=== PATIENT | female | born 1965 | race Caucasian/White ===

== ENCOUNTER → 2019-06-15 | Outpatient (CLI) | payer BC, SELFPAY ==
[2015-06-16 09:26] VITALS: BMI 35.7
[2019-06-15 17:19] LABS: Absolute Lymphocyte Count 1.88 X10^3/uL (0.83-4.51); Absolute Neutrophil Count 2.6 X10^3/uL (2.0-7.7); Basophil# 0.05 X10^3/uL; Basophil% 0.9 % (0-1); Eosinophil# 0.27 X10^3/uL; Eosinophils% 4.9 % (0-5); Hematocrit 39.1 % (37-47); Hemoglobin 12.7 g/dL (12.0-15.0); Lymphocyte # 1.88 X10^3/ul (4.0); Lymphocyte % 34.2 % (19-41); Mean Corp Hgb Conc 32.5 g/dL (32-36); Mean Corpuscular Hgb 27.9 pg (27.0-32.0); Mean Corpuscular Volume 85.7 fL (81-99); Mean Platelet Vol. 10.6 fl (6.2-12.0); Monocyte# 0.67 X10^3/uL; Monocyte% 12.2 % (0-10); NRBC Flagged by Analyzer 0 % (0-5); Neutrophil % 47.4 % (47-70); Platelet Count 208 K/mm3 (150-450); RBC Distribution Width CV 13.5 % (11.6-14.6); RBC Distribution Width SD 42.1 fl (35.1-43.9); Red Blood Count 4.56 M/mm3 (4.2-5.4); White Blood Count 5.5 K/mm3 (4.4-11.0)
[2019-06-15 17:52] LABS: ALB/GLOB Ratio 1.1 RATIO (0.9-2.4); AST(SGOT) 22 U/L (15-37); Alanine Aminotransfer ALT/SGPT 34 U/L (13-56); Albumin, Serum 3.8 g/dL (3.2-5.0); Alkaline Phosphatase 68 U/L (45-117); Anion Gap 6 (5-15); BUN 12 mg/dL (7-18); BUN/Creat Ratio 14.1 RATIO (10-20); Calcium,Total 9.2 mg/dL (8.5-10.1); Chloride 108 mmol/L (98-107); Creatinine, Serum 0.85 mg/dL (0.55-1.02); EST Glomerular Filtration Rate 74 mL/min (>60); Est Glom Filt Rate - Afr Amer 90 mL/min (>60); Globulin 3.6 g/dL (2.2-4.2); Glucose 85 mg/dL (74-106); Protein, Total 7.4 g/dL (6.4-8.2); Sodium Level 141 mmol/L (136-145)
== END | disposition home or self-care (01) ==
LOC: MTLAB 16:35
PROVIDERS: Family Provider Family Medicine; PCP Family Medicine; Referring Provider Internal Medicine Rheumatology; Visit Provider Internal Medicine Rheumatology
DX: M06.00 Rheumatoid arthritis without rheumatoid factor, unspecified site (principal); Z79.899 Other long term (current) drug therapy; M35.00 Sjogren syndrome, unspecified; K76.0 Fatty (change of) liver, not elsewhere classified; I87.2 Venous insufficiency (chronic) (peripheral); K21.9 Gastro-esophageal reflux disease without esophagitis
CPT/HCPCS: 36415; 80053; 85025

== ENCOUNTER → 2019-09-10 08:33 | Outpatient (CLI) | payer BC, SELFPAY ==
[2015-06-16 09:26] VITALS: BMI 35.7
[2019-09-10 10:19] LABS: Absolute Lymphocyte Count 1.56 X10^3/uL (0.83-4.51); Absolute Neutrophil Count 2.3 X10^3/uL (2.0-7.7); Basophil# 0.06 X10^3/uL; Basophil% 1.3 % (0-1); Eosinophil# 0.15 X10^3/uL; Eosinophils% 3.3 % (0-5); Hematocrit 40.9 % (37-47); Hemoglobin 13.3 g/dL (12.0-15.0); Lymphocyte # 1.56 X10^3/ul (4.0); Lymphocyte % 34.8 % (19-41); Mean Corp Hgb Conc 32.5 g/dL (32-36); Mean Corpuscular Hgb 28.1 pg (27.0-32.0); Mean Corpuscular Volume 86.5 fL (81-99); Mean Platelet Vol. 10.3 fl (6.2-12.0); Monocyte# 0.39 X10^3/uL; Monocyte% 8.7 % (0-10); NRBC Flagged by Analyzer 0 % (0-5); Neutrophil % 51.5 % (47-70); Platelet Count 218 K/mm3 (150-450); RBC Distribution Width CV 13.5 % (11.6-14.6); RBC Distribution Width SD 42.5 fl (35.1-43.9); Red Blood Count 4.73 M/mm3 (4.2-5.4); White Blood Count 4.5 K/mm3 (4.4-11.0)
[2019-09-10 10:28] LABS: Vitamin D,25 Hydroxy 28.3 ng/mL (29.95-100.01)
[2019-09-10 10:38] LABS: AST(SGOT) 23 U/L (15-37); Alanine Aminotransfer ALT/SGPT 38 U/L (13-56); Albumin, Serum 3.8 g/dL (3.2-5.0); Alkaline Phosphatase 71 U/L (45-117); Anion Gap 8 (5-15); BUN 15 mg/dL (7-18); BUN/Creat Ratio 18.8 RATIO (10-20); Calcium,Total 9.1 mg/dL (8.5-10.1); Chloride 105 mmol/L (98-107); Cholesterol 234 mg/dL (200); EST Glomerular Filtration Rate 80 mL/min (>60); Est Glom Filt Rate - Afr Amer 96 mL/min (>60); Globulin 3.9 g/dL (2.2-4.2); Glucose 91 mg/dL (74-106); High Density Lipoprotein 59 mg/dL; Potassium 3.7 mmol/L (3.5-5.1); Protein, Total 7.7 g/dL (6.4-8.2); Sodium Level 140 mmol/L (136-145); Triglycerides 143 mg/dL; Very Low Density Lipoprotein 29 mg/dL (5-40)
== END ==
PROVIDERS: Family Provider Family Medicine; PCP Family Medicine; Referring Provider Internal Medicine Rheumatology; Visit Provider Internal Medicine Rheumatology
DX: M06.00 Rheumatoid arthritis without rheumatoid factor, unspecified site (principal); Z79.899 Other long term (current) drug therapy; M35.00 Sjogren syndrome, unspecified; K76.0 Fatty (change of) liver, not elsewhere classified; I87.2 Venous insufficiency (chronic) (peripheral); K21.9 Gastro-esophageal reflux disease without esophagitis; E55.9 Vitamin D deficiency, unspecified; E78.5 Hyperlipidemia, unspecified; I10 Essential (primary) hypertension
CPT/HCPCS: 36415; 80053; 80061; 82306; 85025

== ENCOUNTER → 2019-12-11 16:14 | Outpatient (CLI) | payer BC, SELFPAY ==
[2015-06-16 09:26] VITALS: BMI 35.7
[2019-12-11 18:08] LABS: Absolute Lymphocyte Count 1.72 X10^3/uL (0.83-4.51); Absolute Neutrophil Count 2.9 X10^3/uL (2.0-7.7); Basophil# 0.07 X10^3/uL; Basophil% 1.3 % (0-1); Eosinophil# 0.19 X10^3/uL; Eosinophils% 3.6 % (0-5); Hematocrit 39.8 % (37-47); Lymphocyte # 1.72 X10^3/ul (4.0); Lymphocyte % 32.3 % (19-41); Mean Corp Hgb Conc 32.7 g/dL (32-36); Mean Corpuscular Hgb 28.1 pg (27.0-32.0); Mean Platelet Vol. 10.3 fl (6.2-12.0); Monocyte# 0.48 X10^3/uL; NRBC Flagged by Analyzer 0 % (0-5); Neutrophil # 2.85 X10^3/uL (2.7-7.7); Neutrophil % 53.4 % (47-70); Platelet Count 225 K/mm3 (150-450); RBC Distribution Width CV 13.2 % (11.6-14.6); Red Blood Count 4.63 M/mm3 (4.2-5.4); White Blood Count 5.3 K/mm3 (4.4-11.0)
[2019-12-11 18:55] LABS: ALB/GLOB Ratio 1.1 RATIO (0.9-2.4); AST(SGOT) 21 U/L (15-37); Alanine Aminotransfer ALT/SGPT 32 U/L (13-56); Albumin, Serum 4.1 g/dL (3.2-5.0); Alkaline Phosphatase 76 U/L (45-117); Anion Gap 5 (5-15); BUN 9 mg/dL (7-18); BUN/Creat Ratio 11.5 RATIO (10-20); Calcium,Total 9.4 mg/dL (8.5-10.1); Chloride 106 mmol/L (98-107); Creatinine, Serum 0.79 mg/dL (0.55-1.02); EST Glomerular Filtration Rate 81 mL/min (>60); Est Glom Filt Rate - Afr Amer 98 mL/min (>60); Globulin 3.9 g/dL (2.2-4.2); Glucose 82 mg/dL (74-106); Potassium 3.5 mmol/L (3.5-5.1); Sodium Level 139 mmol/L (136-145)
== END ==
PROVIDERS: PCP Family Medicine; Referring Provider Internal Medicine Rheumatology; Visit Provider Internal Medicine Rheumatology
DX: M06.041 Rheumatoid arthritis without rheumatoid factor, right hand (principal); Z79.899 Other long term (current) drug therapy; M35.00 Sjogren syndrome, unspecified; K76.0 Fatty (change of) liver, not elsewhere classified; I87.2 Venous insufficiency (chronic) (peripheral); K21.9 Gastro-esophageal reflux disease without esophagitis
CPT/HCPCS: 36415; 80053; 85025

== ENCOUNTER → 2020-02-29 11:54 | Outpatient (CLI) | payer BC, SELFPAY ==
[2020-02-29 15:14] LABS: Absolute Lymphocyte Count 1.42 X10^3/uL (0.83-4.51); Absolute Neutrophil Count 3.5 X10^3/uL (2.0-7.7); Basophil# 0.06 X10^3/uL; Eosinophil# 0.23 X10^3/uL; Eosinophils% 3.9 % (0-5); Hematocrit 41.2 % (37-47); Hemoglobin 12.9 g/dL (12.0-15.0); Lymphocyte # 1.42 X10^3/ul (4.0); Mean Corp Hgb Conc 31.3 g/dL (32-36); Mean Corpuscular Hgb 27.3 pg (27.0-32.0); Mean Corpuscular Volume 87.3 fL (81-99); Mean Platelet Vol. 10.4 fl (6.2-12.0); Monocyte# 0.66 X10^3/uL; Monocyte% 11.1 % (0-10); NRBC Flagged by Analyzer 0 % (0-5); Neutrophil # 3.53 X10^3/uL (2.7-7.7); Neutrophil % 59.7 % (47-70); Platelet Count 258 K/mm3 (150-450); RBC Distribution Width SD 40.7 fl (35.1-43.9); Red Blood Count 4.72 M/mm3 (4.2-5.4); White Blood Count 5.9 K/mm3 (4.4-11.0)
[2020-02-29 15:29] LABS: ALB/GLOB Ratio 0.8 RATIO (0.9-2.4); AST(SGOT) 15 U/L (15-37); Alanine Aminotransfer ALT/SGPT 24 U/L (13-56); Albumin, Serum 3.5 g/dL (3.2-5.0); Alkaline Phosphatase 81 U/L (45-117); Anion Gap 6 (5-15); BUN 12 mg/dL (7-18); BUN/Creat Ratio 15.2 RATIO (10-20); Calcium,Total 9.4 mg/dL (8.5-10.1); Chloride 106 mmol/L (98-107); Creatinine, Serum 0.79 mg/dL (0.55-1.02); EST Glomerular Filtration Rate 81 mL/min (>60); Est Glom Filt Rate - Afr Amer 97 mL/min (>60); Globulin 4.2 g/dL (2.2-4.2); Glucose 96 mg/dL (74-106); Potassium 3.6 mmol/L (3.5-5.1); Protein, Total 7.7 g/dL (6.4-8.2); Sodium Level 139 mmol/L (136-145)
== END ==
PROVIDERS: PCP Family Medicine; Referring Provider Internal Medicine Rheumatology; Visit Provider Internal Medicine Rheumatology
DX: M06.041 Rheumatoid arthritis without rheumatoid factor, right hand (principal); Z79.899 Other long term (current) drug therapy; M35.00 Sjogren syndrome, unspecified; K76.0 Fatty (change of) liver, not elsewhere classified; I87.2 Venous insufficiency (chronic) (peripheral); K21.9 Gastro-esophageal reflux disease without esophagitis
CPT/HCPCS: 36415; 80053; 85025

== ENCOUNTER → 2020-06-11 11:08 | Outpatient (CLI) | payer BC, SELFPAY ==
[2015-06-16 09:26] VITALS: BMI 35.7
[2020-06-11 15:29] LABS: Absolute Neutrophil Count 2.9 X10^3/uL (2.0-7.7); Basophil# 0.07 X10^3/uL; Basophil% 1.2 % (0-1); Eosinophil# 0.35 X10^3/uL; Eosinophils% 6.2 % (0-5); Hematocrit 42.2 % (37-47); Hemoglobin 13.7 g/dL (12.0-15.0); Lymphocyte % 31.7 % (19-41); Mean Corp Hgb Conc 32.5 g/dL (32-36); Mean Corpuscular Hgb 28.3 pg (27.0-32.0); Mean Corpuscular Volume 87.2 fL (81-99); Mean Platelet Vol. 11.2 fl (6.2-12.0); Monocyte# 0.57 X10^3/uL; NRBC Flagged by Analyzer 0 % (0-5); Neutrophil # 2.87 X10^3/uL (2.7-7.7); Neutrophil % 50.5 % (47-70); Platelet Count 226 K/mm3 (150-450); RBC Distribution Width CV 13.5 % (11.6-14.6); RBC Distribution Width SD 43.2 fl (35.1-43.9); Red Blood Count 4.84 M/mm3 (4.2-5.4); White Blood Count 5.7 K/mm3 (4.4-11.0)
[2020-06-11 15:49] LABS: AST(SGOT) 21 U/L (15-37); Alanine Aminotransfer ALT/SGPT 33 U/L (13-56); Albumin, Serum 3.8 g/dL (3.2-5.0); Alkaline Phosphatase 67 U/L (45-117); Anion Gap 8 (5-15); BUN 12 mg/dL (7-18); BUN/Creat Ratio 15.6 RATIO (10-20); Calcium,Total 9.3 mg/dL (8.5-10.1); Chloride 106 mmol/L (98-107); Creatinine, Serum 0.77 mg/dL (0.55-1.02); EST Glomerular Filtration Rate 83 mL/min (>60); Est Glom Filt Rate - Afr Amer 100 mL/min (>60); Globulin 3.9 g/dL (2.2-4.2); Glucose 81 mg/dL (74-106); Potassium 3.6 mmol/L (3.5-5.1); Protein, Total 7.7 g/dL (6.4-8.2); Sodium Level 140 mmol/L (136-145)
== END ==
PROVIDERS: PCP Family Medicine; Referring Provider Internal Medicine Rheumatology; Visit Provider Internal Medicine Rheumatology
DX: M06.041 Rheumatoid arthritis without rheumatoid factor, right hand (principal); Z79.899 Other long term (current) drug therapy; M35.00 Sjogren syndrome, unspecified; M75.51 Bursitis of right shoulder; K76.0 Fatty (change of) liver, not elsewhere classified; I87.2 Venous insufficiency (chronic) (peripheral); K21.9 Gastro-esophageal reflux disease without esophagitis
CPT/HCPCS: 36415; 80053; 85025

== ENCOUNTER → 2020-09-08 09:19 | Outpatient (CLI) | payer BC, SELFPAY ==
[2015-06-16 09:26] VITALS: BMI 35.7
[2020-09-08 10:19] LABS: Absolute Lymphocyte Count 1.12 X10^3/uL (0.83-4.51); Absolute Neutrophil Count 1.8 X10^3/uL (2.0-7.7); Basophil# 0.04 X10^3/uL; Basophil% 1.2 % (0-1); Eosinophil# 0.19 X10^3/uL; Eosinophils% 5.5 % (0-5); Hemoglobin 13.8 g/dL (12.0-15.0); Lymphocyte # 1.12 X10^3/ul (4.0); Lymphocyte % 32.5 % (19-41); Mean Corp Hgb Conc 32.1 g/dL (32-36); Mean Corpuscular Volume 87.2 fL (81-99); Mean Platelet Vol. 10.6 fl (6.2-12.0); Monocyte# 0.34 X10^3/uL; Monocyte% 9.9 % (0-10); NRBC Flagged by Analyzer 0 % (0-5); Neutrophil # 1.75 X10^3/uL (2.7-7.7); Neutrophil % 50.6 % (47-70); Platelet Count 217 K/mm3 (150-450); RBC Distribution Width SD 40.9 fl (35.1-43.9); Red Blood Count 4.93 M/mm3 (4.2-5.4); White Blood Count 3.5 K/mm3 (4.4-11.0)
[2020-09-08 10:44] LABS: AST(SGOT) 26 U/L (15-37); Alanine Aminotransfer ALT/SGPT 38 U/L (13-56); Albumin, Serum 3.8 g/dL (3.2-5.0); Alkaline Phosphatase 76 U/L (45-117); Anion Gap 8 (5-15); BUN 13 mg/dL (7-18); BUN/Creat Ratio 14.1 RATIO (10-20); Calcium,Total 9.1 mg/dL (8.5-10.1); Chloride 105 mmol/L (98-107); Cholesterol 219 mg/dL (200); Creatinine, Serum 0.92 mg/dL (0.55-1.02); EST Glomerular Filtration Rate 67 mL/min (>60); Est Glom Filt Rate - Afr Amer 81 mL/min (>60); Globulin 3.7 g/dL (2.2-4.2); Glucose 83 mg/dL (74-106); High Density Lipoprotein 70 mg/dL; Potassium 3.8 mmol/L (3.5-5.1); Protein, Total 7.5 g/dL (6.4-8.2); Sodium Level 140 mmol/L (136-145); Triglycerides 103 mg/dL; Very Low Density Lipoprotein 21 mg/dL (5-40)
== END ==
PROVIDERS: PCP Family Medicine; Referring Provider Family Medicine; Visit Provider Family Medicine
DX: M06.042 Rheumatoid arthritis without rheumatoid factor, left hand (principal); Z79.899 Other long term (current) drug therapy; M35.00 Sjogren syndrome, unspecified; M75.51 Bursitis of right shoulder; K76.0 Fatty (change of) liver, not elsewhere classified; I87.2 Venous insufficiency (chronic) (peripheral); K21.9 Gastro-esophageal reflux disease without esophagitis; I10 Essential (primary) hypertension; E78.5 Hyperlipidemia, unspecified
CPT/HCPCS: 36415; 80053; 80061; 85025

== ENCOUNTER → 2020-11-21 11:39 | Outpatient (CLI) | payer BC, SELFPAY ==
[2015-06-16 09:26] VITALS: BMI 35.7
[2020-11-21 15:18] LABS: Absolute Lymphocyte Count 1.27 X10^3/uL (0.83-4.51); Absolute Neutrophil Count 4.4 X10^3/uL (2.0-7.7); Basophil# 0.04 X10^3/uL; Basophil% 0.6 % (0-1); Eosinophil# 0.18 X10^3/uL; Eosinophils% 2.7 % (0-5); Hematocrit 41.4 % (37-47); Hemoglobin 13.1 g/dL (12.0-15.0); Lymphocyte # 1.27 X10^3/ul (4.0); Lymphocyte % 18.9 % (19-41); Mean Corp Hgb Conc 31.6 g/dL (32-36); Mean Corpuscular Hgb 28.3 pg (27.0-32.0); Mean Corpuscular Volume 89.4 fL (81-99); Mean Platelet Vol. 10.8 fl (6.2-12.0); Monocyte# 0.82 X10^3/uL; Monocyte% 12.2 % (0-10); NRBC Flagged by Analyzer 0 % (0-5); Neutrophil % 65.3 % (47-70); Platelet Count 293 K/mm3 (150-450); RBC Distribution Width CV 13.3 % (11.6-14.6); RBC Distribution Width SD 43.2 fl (35.1-43.9); Red Blood Count 4.63 M/mm3 (4.2-5.4); White Blood Count 6.7 K/mm3 (4.4-11.0)
[2020-11-21 15:50] LABS: ALB/GLOB Ratio 0.8 RATIO (0.9-2.4); AST(SGOT) 20 U/L (15-37); Alanine Aminotransfer ALT/SGPT 42 U/L (13-56); Albumin, Serum 3.6 g/dL (3.2-5.0); Alkaline Phosphatase 75 U/L (45-117); Anion Gap 7 (5-15); BUN 14 mg/dL (7-18); BUN/Creat Ratio 16.9 RATIO (10-20); Calcium,Total 9.4 mg/dL (8.5-10.1); Chloride 104 mmol/L (98-107); Creatinine, Serum 0.83 mg/dL (0.55-1.02); EST Glomerular Filtration Rate 76 mL/min (>60); Est Glom Filt Rate - Afr Amer 92 mL/min (>60); Globulin 4.3 g/dL (2.2-4.2); Glucose 89 mg/dL (74-106); Potassium 3.3 mmol/L (3.5-5.1); Protein, Total 7.9 g/dL (6.4-8.2); Sodium Level 137 mmol/L (136-145)
== END ==
PROVIDERS: PCP Family Medicine; Referring Provider Internal Medicine Rheumatology; Visit Provider Internal Medicine Rheumatology
DX: M06.042 Rheumatoid arthritis without rheumatoid factor, left hand (principal); Z79.899 Other long term (current) drug therapy; M35.00 Sjogren syndrome, unspecified; M75.51 Bursitis of right shoulder; K76.0 Fatty (change of) liver, not elsewhere classified; I87.2 Venous insufficiency (chronic) (peripheral); K21.9 Gastro-esophageal reflux disease without esophagitis
CPT/HCPCS: 36415; 80053; 85025

== ENCOUNTER → 2021-02-05 15:54 | Outpatient (CLI) | payer BC, SELFPAY ==
[2015-06-16 09:26] VITALS: BMI 35.7
[2021-02-05 17:45] LABS: Absolute Lymphocyte Count 1.81 X10^3/uL (0.83-4.51); Absolute Neutrophil Count 3.5 X10^3/uL (2.0-7.7); Basophil# 0.06 X10^3/uL; Eosinophils% 3.3 % (0-5); Hematocrit 37.1 % (37-47); Hemoglobin 12.5 g/dL (12.0-15.0); Lymphocyte # 1.81 X10^3/ul (4.0); Lymphocyte % 29.6 % (19-41); Mean Corp Hgb Conc 33.7 g/dL (32-36); Mean Corpuscular Hgb 30.4 pg (27.0-32.0); Mean Corpuscular Volume 90.3 fL (81-99); Monocyte# 0.49 X10^3/uL; NRBC Flagged by Analyzer 0 % (0-5); Neutrophil # 3.53 X10^3/uL (2.7-7.7); Neutrophil % 57.6 % (47-70); Platelet Count 209 K/mm3 (150-450); RBC Distribution Width CV 13.6 % (11.6-14.6); RBC Distribution Width SD 43.8 fl (35.1-43.9); Red Blood Count 4.11 M/mm3 (4.2-5.4); White Blood Count 6.1 K/mm3 (4.4-11.0)
[2021-02-05 18:27] LABS: ALB/GLOB Ratio 1.1 RATIO (0.9-2.4); AST(SGOT) 24 U/L (15-37); Alanine Aminotransfer ALT/SGPT 44 U/L (13-56); Albumin, Serum 3.7 g/dL (3.2-5.0); Alkaline Phosphatase 70 U/L (45-117); Anion Gap 6 (5-15); BUN 10 mg/dL (7-18); BUN/Creat Ratio 12.9 RATIO (10-20); Calcium,Total 9.1 mg/dL (8.5-10.1); Chloride 105 mmol/L (98-107); Creatinine, Serum 0.78 mg/dL (0.55-1.02); EST Glomerular Filtration Rate 82 mL/min (>60); Est Glom Filt Rate - Afr Amer 99 mL/min (>60); Globulin 3.5 g/dL (2.2-4.2); Glucose 86 mg/dL (74-106); Potassium 3.5 mmol/L (3.5-5.1); Protein, Total 7.2 g/dL (6.4-8.2); Sodium Level 138 mmol/L (136-145)
== END ==
LOC: MTRAD 15:56 → MTLAB 15:56
PROVIDERS: PCP Family Medicine; Referring Provider Internal Medicine Rheumatology; Visit Provider Internal Medicine Rheumatology
DX: M06.042 Rheumatoid arthritis without rheumatoid factor, left hand (principal); Z79.899 Other long term (current) drug therapy; M35.00 Sjogren syndrome, unspecified; M75.51 Bursitis of right shoulder; K76.0 Fatty (change of) liver, not elsewhere classified; I87.2 Venous insufficiency (chronic) (peripheral); K21.9 Gastro-esophageal reflux disease without esophagitis
CPT/HCPCS: 36415; 80053; 85025

== ENCOUNTER → 2021-05-06 16:09 | Outpatient (CLI) | payer BC, SELFPAY ==
[2015-06-16 09:26] VITALS: BMI 35.7
[2021-05-06 18:01] LABS: Absolute Lymphocyte Count 1.72 X10^3/uL (0.83-4.51); Absolute Neutrophil Count 2.9 X10^3/uL (2.0-7.7); Basophil# 0.05 X10^3/uL; Basophil% 0.9 % (0-1); Eosinophil# 0.22 X10^3/uL; Eosinophils% 4.1 % (0-5); Hematocrit 37.8 % (37-47); Hemoglobin 12.3 g/dL (12.0-15.0); Lymphocyte # 1.72 X10^3/ul (0.83-4.51); Mean Corp Hgb Conc 32.5 g/dL (32-36); Mean Corpuscular Hgb 28.7 pg (27.0-32.0); Mean Corpuscular Volume 88.3 fL (81-99); Mean Platelet Vol. 10.7 fl (6.2-12.0); Monocyte# 0.42 X10^3/uL; Monocyte% 7.8 % (0-10); NRBC Flagged by Analyzer 0 % (0-5); Neutrophil # 2.94 X10^3/uL (2.7-7.7); Neutrophil % 54.8 % (47-70); Platelet Count 255 K/mm3 (150-450); RBC Distribution Width CV 12.7 % (11.6-14.6); RBC Distribution Width SD 40.8 fl (35.1-43.9); Red Blood Count 4.28 M/mm3 (4.2-5.4); White Blood Count 5.4 K/mm3 (4.4-11.0)
[2021-05-06 18:23] LABS: AST(SGOT) 26 U/L (15-37); Alanine Aminotransfer ALT/SGPT 34 U/L (13-56); Albumin, Serum 3.6 g/dL (3.2-5.0); Alkaline Phosphatase 89 U/L (45-117); Anion Gap 7 (5-15); BUN 9 mg/dL (7-18); BUN/Creat Ratio 10.8 RATIO (10-20); Chloride 104 mmol/L (98-107); Creatinine, Serum 0.84 mg/dL (0.55-1.02); EST Glomerular Filtration Rate 75 mL/min (>60); Est Glom Filt Rate - Afr Amer 91 mL/min (>60); Globulin 3.7 g/dL (2.2-4.2); Glucose 107 mg/dL (74-106); Potassium 3.4 mmol/L (3.5-5.1); Protein, Total 7.3 g/dL (6.4-8.2); Sodium Level 139 mmol/L (136-145)
== END ==
PROVIDERS: PCP Family Medicine; Referring Provider Internal Medicine Rheumatology; Visit Provider Internal Medicine Rheumatology
DX: M06.042 Rheumatoid arthritis without rheumatoid factor, left hand (principal); Z79.899 Other long term (current) drug therapy; M35.00 Sjogren syndrome, unspecified; M75.51 Bursitis of right shoulder; K76.0 Fatty (change of) liver, not elsewhere classified; I87.2 Venous insufficiency (chronic) (peripheral); K21.9 Gastro-esophageal reflux disease without esophagitis
CPT/HCPCS: 36415; 80053; 85025

== ENCOUNTER → 2021-08-03 15:31 | Outpatient (CLI) | payer BC, SELFPAY ==
[2021-08-03 17:48] LABS: Absolute Lymphocyte Count 1.45 X10^3/uL (0.83-4.51); Absolute Neutrophil Count 1.9 X10^3/uL (2.0-7.7); Basophil# 0.04 X10^3/uL; Eosinophil# 0.19 X10^3/uL; Eosinophils% 4.8 % (0-5); Hematocrit 37.8 % (37-47); Hemoglobin 12.5 g/dL (12.0-15.0); Lymphocyte # 1.45 X10^3/ul (0.83-4.51); Lymphocyte % 36.4 % (19-41); Mean Corp Hgb Conc 33.1 g/dL (32-36); Mean Corpuscular Hgb 29.1 pg (27.0-32.0); Mean Corpuscular Volume 88.1 fL (81-99); Mean Platelet Vol. 11.1 fl (6.2-12.0); Monocyte# 0.42 X10^3/uL; Monocyte% 10.6 % (0-10); NRBC Flagged by Analyzer 0 % (0-5); Neutrophil # 1.86 X10^3/uL (2.7-7.7); Neutrophil % 46.7 % (47-70); Platelet Count 206 K/mm3 (150-450); RBC Distribution Width SD 45.1 fl (35.1-43.9); Red Blood Count 4.29 M/mm3 (4.2-5.4)
[2021-08-03 18:34] LABS: AST(SGOT) 26 U/L (15-37); Alanine Aminotransfer ALT/SGPT 41 U/L (13-56); Albumin, Serum 3.6 g/dL (3.2-5.0); Alkaline Phosphatase 69 U/L (45-117); Anion Gap 7 (5-15); BUN 10 mg/dL (7-18); BUN/Creat Ratio 11.8 RATIO (10-20); Calcium,Total 8.7 mg/dL (8.5-10.1); Chloride 103 mmol/L (98-107); Creatinine, Serum 0.85 mg/dL (0.55-1.02); EST Glomerular Filtration Rate 74 mL/min (>60); Est Glom Filt Rate - Afr Amer 89 mL/min (>60); Globulin 3.5 g/dL (2.2-4.2); Glucose 97 mg/dL (74-106); Potassium 3.7 mmol/L (3.5-5.1); Protein, Total 7.1 g/dL (6.4-8.2); Sodium Level 139 mmol/L (136-145)
== END ==
PROVIDERS: PCP Family Medicine; Referring Provider Internal Medicine Rheumatology; Visit Provider Internal Medicine Rheumatology
DX: M06.00 Rheumatoid arthritis without rheumatoid factor, unspecified site (principal); Z79.899 Other long term (current) drug therapy; M35.00 Sjogren syndrome, unspecified; M75.51 Bursitis of right shoulder; K76.0 Fatty (change of) liver, not elsewhere classified; I87.2 Venous insufficiency (chronic) (peripheral); K21.9 Gastro-esophageal reflux disease without esophagitis
CPT/HCPCS: 36415; 80053; 85025

== ENCOUNTER → 2021-10-29 10:11 | Outpatient (CLI) | payer BC, SELFPAY ==
[2021-10-29 12:23] LABS: Absolute Lymphocyte Count 1.41 X10^3/uL (0.83-4.51); Absolute Neutrophil Count 2.4 X10^3/uL (2.0-7.7); Basophil# 0.05 X10^3/uL; Basophil% 1.1 % (0-1); Eosinophil# 0.19 X10^3/uL; Eosinophils% 4.1 % (0-5); Hematocrit 38.7 % (37-47); Hemoglobin 12.8 g/dL (12.0-15.0); Lymphocyte # 1.41 X10^3/ul (0.83-4.51); Lymphocyte % 30.5 % (19-41); Mean Corp Hgb Conc 33.1 g/dL (32-36); Mean Corpuscular Hgb 28.9 pg (27.0-32.0); Mean Corpuscular Volume 87.4 fL (81-99); Mean Platelet Vol. 10.3 fl (6.2-12.0); Monocyte# 0.52 X10^3/uL; Monocyte% 11.3 % (0-10); NRBC Flagged by Analyzer 0 % (0-5); Neutrophil # 2.42 X10^3/uL (2.7-7.7); Neutrophil % 52.4 % (47-70); Platelet Count 250 K/mm3 (150-450); RBC Distribution Width CV 13.2 % (11.6-14.6); RBC Distribution Width SD 41.2 fl (35.1-43.9); Red Blood Count 4.43 M/mm3 (4.2-5.4); White Blood Count 4.6 K/mm3 (4.4-11.0)
[2021-10-29 13:06] LABS: ALB/GLOB Ratio 0.9 RATIO (0.9-2.4); AST(SGOT) 19 U/L (15-37); Alanine Aminotransfer ALT/SGPT 34 U/L (13-56); Albumin, Serum 3.4 g/dL (3.2-5.0); Alkaline Phosphatase 67 U/L (45-117); Anion Gap 6 (5-15); BUN 10 mg/dL (7-18); BUN/Creat Ratio 13.1 RATIO (10-20); Calcium,Total 9.3 mg/dL (8.5-10.1); Chloride 109 mmol/L (98-107); Creatinine, Serum 0.76 mg/dL (0.55-1.02); EST Glomerular Filtration Rate 83 mL/min (>60); Est Glom Filt Rate - Afr Amer 100 mL/min (>60); Globulin 3.7 g/dL (2.2-4.2); Glucose 84 mg/dL (74-106); Potassium 3.8 mmol/L (3.5-5.1); Protein, Total 7.1 g/dL (6.4-8.2); Sodium Level 143 mmol/L (136-145)
== END ==
PROVIDERS: PCP Family Medicine; Referring Provider Internal Medicine Rheumatology; Visit Provider Internal Medicine Rheumatology
DX: M06.00 Rheumatoid arthritis without rheumatoid factor, unspecified site (principal); Z79.899 Other long term (current) drug therapy; M35.00 Sjogren syndrome, unspecified; M75.51 Bursitis of right shoulder; K76.0 Fatty (change of) liver, not elsewhere classified; I87.2 Venous insufficiency (chronic) (peripheral); K21.9 Gastro-esophageal reflux disease without esophagitis
CPT/HCPCS: 36415; 80053; 85025

== ENCOUNTER 2022-01-21 15:22 | Outpatient (RCR) | payer BC, SELFPAY ==
[2022-01-21 15:44] LABS: Absolute Neutrophil Count 3.1 X10^3/uL (2.0-7.7); Basophil# 0.07 X10^3/uL; Basophil% 1.1 % (0-1); Eosinophil# 0.28 X10^3/uL; Eosinophils% 4.5 % (0-5); Hematocrit 38.1 % (37-47); Hemoglobin 13.1 g/dL (12.0-15.0); Lymphocyte % 33.7 % (19-41); Mean Corp Hgb Conc 34.4 g/dL (32-36); Mean Corpuscular Hgb 28.9 pg (27.0-32.0); Mean Corpuscular Volume 84.1 fL (81-99); Mean Platelet Vol. 10.2 fl (6.2-12.0); Monocyte# 0.66 X10^3/uL; Monocyte% 10.6 % (0-10); NRBC Flagged by Analyzer 0 % (0-5); Neutrophil # 3.09 X10^3/uL (2.7-7.7); Neutrophil % 49.6 % (47-70); Platelet Count 244 K/mm3 (150-450); RBC Distribution Width CV 13.1 % (11.6-14.6); RBC Distribution Width SD 39.8 fl (35.1-43.9); Red Blood Count 4.53 M/mm3 (4.2-5.4); White Blood Count 6.2 K/mm3 (4.4-11.0)
[2022-01-21 15:59] LABS: AST(SGOT) 25 U/L (15-37); Alanine Aminotransfer ALT/SGPT 36 U/L (13-56); Albumin, Serum 3.9 g/dL (3.2-5.0); Alkaline Phosphatase 89 U/L (45-117); Anion Gap 4 (5-15); BUN 8 mg/dL (7-18); BUN/Creat Ratio 9.4 RATIO (10-20); Calcium,Total 9.4 mg/dL (8.5-10.1); Chloride 107 mmol/L (98-107); Creatinine, Serum 0.85 mg/dL (0.55-1.02); EST Glomerular Filtration Rate 73 mL/min (>60); Est Glom Filt Rate - Afr Amer 88 mL/min (>60); Globulin 3.8 g/dL (2.2-4.2); Glucose 81 mg/dL (74-106); Potassium 4.1 mmol/L (3.5-5.1); Protein, Total 7.7 g/dL (6.4-8.2); Sodium Level 141 mmol/L (136-145)
== END 2022-01-28 18:00 | disposition home or self-care (01) ==
LOC: LAB 15:22
PROVIDERS: PCP Family Medicine; Referring Provider Internal Medicine Rheumatology; Visit Provider Internal Medicine Rheumatology
DX: M06.00 Rheumatoid arthritis without rheumatoid factor, unspecified site (principal); Z79.899 Other long term (current) drug therapy; M35.00 Sjogren syndrome, unspecified; M75.51 Bursitis of right shoulder; K76.0 Fatty (change of) liver, not elsewhere classified; I87.2 Venous insufficiency (chronic) (peripheral); K21.9 Gastro-esophageal reflux disease without esophagitis
CPT/HCPCS: 36415; 80053; 85025

== ENCOUNTER 2022-02-01 14:43 | Outpatient (CLI) | payer BC, SELFPAY ==
--- NOTE | 2022-02-01 15:07 | RAD_ITS ---
STUDY: X-RAY - RIGHT SHOULDER REASON FOR EXAM: Female, 56 years old. SHOULDER PAIN TECHNIQUE: Single view(s) of the shoulder. COMPARISON: None. FINDINGS: There is mild degenerative arthrosis of the glenohumeral articulation. Normal acromioclavicular joint. Normal acromion. Normal humeral head and visualized proximal humerus. There is periarticular soft tissue calcification consistent with a calcific tendinitis. Normal visualized pulmonary apex. RAD/Shoulder One View IMPRESSION: Normal x-ray examination of the shoulder. Degenerative changes as above. Electronically Signed: Jaci Doran MD at 6:50 EDT Reading Location ID and State: , Service support ,
--- NOTE | 2022-02-01 15:10 | RAD_ITS ---
STUDY: X-RAY - CERVICAL SPINE REASON FOR EXAM: Female, 56 years old. CERVICAL PAIN TECHNIQUE: 4 view(s) of the cervical spine were obtained. COMPARISON: None FINDINGS: Normal anterior atlantoaxial articulation. Normal odontoid process. Normal cervical lordosis. There is multi-level endplate spondylosis. There is multi-level degenerative disc disease with multilevel disc space narrowing. The soft tissue structures are unremarkable. RAD/Cerv Spine 2 or 3 Views IMPRESSION: Degenerative changes as above.. Electronically Signed: Jaci Doran MD at 6:51 EDT Reading Location ID and State: , Service support ,
== END 2022-02-01 23:59 | disposition home or self-care (01) ==
PROVIDERS: PCP Family Medicine; Visit Provider Nurse Practitioner Family
DX: M25.511 Pain in right shoulder (principal); M54.2 Cervicalgia
CPT/HCPCS: 72040; 73020

== ENCOUNTER 2022-03-08 15:00 | Outpatient (RCR) | payer BC, SELFPAY ==
--- NOTE | 2022-02-12 11:31 | HP.PTEVAL_ITS ---
Patient's Visit Information INDIA BACA is a 56 year old F referred to Physical Therapy by SHARMIN Jeffries with a diagnosis of CERVICAL RADICULOPATHY. Date of Evaluation: 02/12/22 Physical Therapist: Elena Graves PT, Cert MDT - Visit Plan Frequency: 2-3x /Week Duration: 4-6 Weeks Plan: POSTURE CORRECTION/STRENGTHENING, INSTRUCTION IN APPROPRIATE BODY MECHANICS AND ACTIVITY MODIFICATIONS. MONROE UE ROM, STRETCHING AND STRENGTHENING. HEP INSTRUCTION. - Subjective Diagnosis: CERVICAL RADICULOPATHY. 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 Present symptoms: NECK PAIN, HEAD PAIN, RIGHT SHLD PAIN. A LITTLE BIT OF L SHLD PAIN TOO. DENIES MONROE UE NUMBNESS AND TINGLING. Present since: ABOUT A YEAR AGO. Pain Scale: Worst - 8/10 Least - 4/10. Currently: 04/09. Commenced as a result of: NO APPARENT REASON. RIGHT SHLD STARTED HURTING ABOUT 12 YEARS AGO. Symptoms at onset: RIGHT SHLD. Worse: ANY MOVEMENT WITH RIGHT UE. TRYING TO LOOK SIDE TO SIDE DRIVING. Better: TRAMADOL, HEAT, BIOFREEZE, OTC PAIN PATCHES. Disturbed sleep: YES. Previous history/Previous treatment: RIGHT SHLD SX AND ELBOW SX 2007 FROM WORK INJURY. This episode: DR. PEARSON REFERRED TO DR. DIEGO. [place] PENDING INS APPROVAL. Dizziness: YES. Tinnitis: NO. Nausea: NO. Shortness of Breath: NO. Difficulty Swollowing: NO. Gait: PAIN LIMITED. COMPRESSION HOSE FOR 3 YEARS BECAUSE LEGS HURT ALL THE TIME. NO AD'S. Accidents: FALL JUL 2021. MULTIPLE FALLS ON STEPS PRIOR TO THAT TOO. Unexplained weight loss: NO. Imaging: RECENT NECK X-RAYS SHOW DEGENERATIVE CHANGES. RECENT R SHLD X-RAY: MILD DEGENERATIVE ARTHROSIS R SHLD. PMH/Recent major surgery: *RA* - Objective Sitting Posture/Standing Posture: POOR. FH. RSH'S. Active Correction of posture: NE. Other Observations: INDEP GAIT AND TRANSFERS. Sensory deficit: MONROE UE LIGHT TOUCH SENSATION GROSSLY INTACT AND SYMMETRICAL. ROM deficit: AROM L SHLD FLEX 135 DEG, RIGHT 110 DEG. RIGHT SHLD SUPINE IR 65 DEG, ER 20 DEG WITH 45 DEG ABD. Motor deficit: PEAK FORCE (LBS): SHLD FLEX: R 3.1. L 9.8. SHLD EXT: R 5.6. L 9.9. SHLD ABD: R 5.2. L 14.4. SHLD ER: R 5.8. L 14.6. SHLD IR: R 5.9. L 13.2. 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 Dural Signs: POSITIVE RIGHT UE. Cervical Mvmt Loss: Flex: MIN. Pro: NIL. Ext: JER. Ret: JER. RSB: JER. LSB: JER. R Rot: MOD. L Rot: MOD. Postural strength: POOR. Palpation: TENDERNESS WITH LIGHT PALPATION OF THE MONROE CERVICAL REGIONS RIGHT GREATER THAN LEFT AND INTO RIGHT SCAPULAR, SHLD AND BICEPS AREAS. NO ACUTE ELBOW TENDERNESS. TREATMENT: NEUROMUSCULAR REEDUCATION - RETRAINING OF MVMT AND POSTURE FOR SITTING, LYING AND STANDING ACTIVITIES. - Balance/Special Test Scores Oswestry Neck Score: 28 - Goals Goal 1:: DECREASE C/O NECK AND R SHLD PAIN Goal Time Frame: 4-6 Weeks Goal 2:: IMPROVE PERSONAL CARE, LIFTING, READING, SLEEP, WORK, DRIVING AND RECREATIONAL FUNCTION. Goal Time Frame: 4-6 Weeks Goal 3:: INSTRUCT IN PROPHYLAXIS Goal Time Frame: 4-6 Weeks - Anticipated Interventions Patient/Client Instruction: Educate patient on: Condition, Plan of Care, Risk Factors For the Purpose of:: To improve self management Therapeutic Exercise to Include: Strength training, Body mechanics, Postural training, Flexibilty training, Neuromotor development, Scapular Strength/Stabilization For the Purpose of:: To decrease pain, To improve muscle performance and motor function, To increase tolerance to activity/condition/position, To improve ability of physical actions for home/community/work/leisure Cryotherapy (ice pack, ice massage): Yes Thermo therapy (hot pack): Yes Ultrasound (thermal/non thermal): Yes For the Purpose of:: To decrease pain, To improve nutrient delivery to tissue Thank you for the opportunity to evaluate your patient. For Medicare and Medicare HMO plans, please review the plan of care and approve it. It will need to be FAXED BACK to us at [phone] for Medicare purposes. For Medicare only, by signing this I certify the plan of care. Please let me know if there are questions or concerns regarding this plan of care. Physician Signature: Date:
--- NOTE | 2022-03-08 15:37 | HP.PTDCSUM ---
It has been my pleasure to treat INDIA BACA referred by SHARMIN Jeffries, with the diagnosis of CERVICAL RADICULOPATHY for a total of 8 visit(s). Discharge Date: Please see the following information for a summary of their discharge status. Subjective: PATIENT REPORTS SHE IS HAVING LESS PAIN IN HER NECK AND SHE CAN TURN IT BOTH WAYS BETTER. PATIENT REPORTS IT STILL HURTS. PATIENT REPORTS SHE FEELS LIKE IF SHE CONTINUES THE EX'S ON HER OWN IT WILL HELP MAINTAIN HER IMPROVEMENT. PATIENT REPORTS SHE DOES NOT WANT A SHOT BUT SHE THINKS IT MIGHT HELP HER PAIN AND HELP HER GET THE REST OF HER MOBILITY BACK. neck Pain Intensity (Out of 10): 3 R SH Pain Intensity (Out of 10): 3 % Improvement: 80 Objective/Function: PATIENT WAS SEEN TODAY FOR RE-ASSESSMENT OF PROGRESS TOWARD THE SET PT GOALS AND THE NEED FOR FURTHER PHYSICAL THERAPY VS READINESS FOR DISCHARGE. PATIENT HAS MADE GOOD PROGRESS WITH NECK ROM AND R SHLD ROM AND STRENGTH. PATIENT IS INDEP WITH A HEP AND APPROPRIATE FOR DISCHARGE AT THIS TIME HOWEVER SHE CONTINUES TO HAVE SIGNIFICANT NECK ROM RESTRICTIONS AND R SHLD ROM AND STRENGTH DEFICITS -SEE BELOW. UPON EXAM TODAY: ROM deficit: AROM L SHLD FLEX 160 DEG, RIGHT 150 DEG. RIGHT SHLD SUPINE IR 80 DEG, ER 20 DEG WITH 80 DEG ABD. Motor deficit: PEAK FORCE (LBS): SHLD FLEX: R 5.9. SHLD EXT: R 6.3. SHLD ABD: R 10.9. SHLD ER: R 6.1. SHLD IR: R 7.5. 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 Cervical Mvmt Loss: Flex: MIN. Pro: NIL. Ext: JER. Ret: MOD TO JER. RSB: MOD TO JER. LSB: MOD TO JER. R Rot: MIN. L Rot: MIN. PATIENT DENIES INCREASED PAIN WITH CERVICAL ROM TESTING ALL PLANES. Postural strength: POOR. Palpation: PATIENT DENIES TENDERNESS WITH PALPATION OF NECK AND SHLD'S TODAY. Goal 1:: DECREASE C/O NECK AND R SHLD PAIN Goal Progress: Goal Met Goal 2:: IMPROVE PERSONAL CARE, LIFTING, READING, SLEEP, WORK, DRIVING AND RECREATIONAL FUNCTION. Goal Progress: Goal Met Goal 3:: INSTRUCT IN PROPHYLAXIS Goal Progress: Goal Met Plan: D/C TO INDEP HEP. PATIENT AGREEABLE. If there are questions or concerns regarding this patient's physical therapy, please feel free to call me at [phone]. Thank you for the referral of this patient. Sincerely, Elena Graves PT, Cert MDT Balance/Gait/Functional tests - Balance/Special Test Scores Oswestry Neck Score: 15
== END 2022-03-08 19:00 | disposition home or self-care (01) ==
LOC: PT 15:00
PROVIDERS: PCP Family Medicine; Referring Provider Nurse Practitioner Family; Visit Provider Nurse Practitioner Family
DX: M54.2 Cervicalgia (principal); M25.519 Pain in unspecified shoulder; M54.12 Radiculopathy, cervical region
CPT/HCPCS: 97035; 97110; 97112; 97162; 97164

== ENCOUNTER → 2022-04-23 | Outpatient (CLI) | payer BC, SELFPAY ==
[2022-04-23 15:04] LABS: Absolute Lymphocyte Count 1.65 X10^3/uL (0.83-4.51); Basophil# 0.05 X10^3/uL; Basophil% 0.9 % (0-1); Eosinophil# 0.29 X10^3/uL; Eosinophils% 5.2 % (0-5); Hematocrit 38.6 % (37-47); Hemoglobin 12.7 g/dL (12.0-15.0); Lymphocyte # 1.65 X10^3/ul (0.83-4.51); Lymphocyte % 29.6 % (19-41); Mean Corp Hgb Conc 32.9 g/dL (32-36); Mean Corpuscular Hgb 28.2 pg (27.0-32.0); Mean Corpuscular Volume 85.8 fL (81-99); Mean Platelet Vol. 10.8 fl (6.2-12.0); Monocyte# 0.58 X10^3/uL; Monocyte% 10.4 % (0-10); NRBC Flagged by Analyzer 0 % (0-5); Neutrophil # 2.98 X10^3/uL (2.7-7.7); Neutrophil % 53.4 % (47-70); Platelet Count 222 K/mm3 (150-450); RBC Distribution Width CV 13.3 % (11.6-14.6); White Blood Count 5.6 K/mm3 (4.4-11.0)
[2022-04-23 15:17] LABS: AST(SGOT) 23 U/L (15-37); Alanine Aminotransfer ALT/SGPT 36 U/L (13-56); Albumin, Serum 3.7 g/dL (3.2-5.0); Alkaline Phosphatase 77 U/L (45-117); Anion Gap 7 (5-15); BUN 13 mg/dL (7-18); BUN/Creat Ratio 14.4 RATIO (10-20); Calcium,Total 9.3 mg/dL (8.5-10.1); Chloride 105 mmol/L (98-107); EST Glomerular Filtration Rate 68 mL/min (>60); Est Glom Filt Rate - Afr Amer 83 mL/min (>60); Globulin 3.7 g/dL (2.2-4.2); Glucose 102 mg/dL (74-106); Potassium 3.5 mmol/L (3.5-5.1); Protein, Total 7.4 g/dL (6.4-8.2); Sodium Level 139 mmol/L (136-145)
== END | disposition home or self-care (01) ==
LOC: MTLAB 13:23
PROVIDERS: PCP Family Medicine; Referring Provider Internal Medicine Rheumatology; Visit Provider Internal Medicine Rheumatology
DX: M06.00 Rheumatoid arthritis without rheumatoid factor, unspecified site (principal); M35.00 Sjogren syndrome, unspecified; Z79.899 Other long term (current) drug therapy; M75.51 Bursitis of right shoulder; K76.0 Fatty (change of) liver, not elsewhere classified; I87.2 Venous insufficiency (chronic) (peripheral); K21.9 Gastro-esophageal reflux disease without esophagitis
CPT/HCPCS: 36415; 80053; 85025

== ENCOUNTER 2022-07-12 17:05 | Outpatient (RCR) | payer BC, SELFPAY ==
[2022-07-12 17:21] LABS: Absolute Lymphocyte Count 2.18 X10^3/uL (0.83-4.51); Absolute Neutrophil Count 3.8 X10^3/uL (2.0-7.7); Basophil# 0.07 X10^3/uL; Eosinophil# 0.13 X10^3/uL; Eosinophils% 1.9 % (0-5); Hematocrit 39.8 % (37-47); Hemoglobin 12.8 g/dL (12.0-15.0); Lymphocyte # 2.18 X10^3/ul (0.83-4.51); Lymphocyte % 31.9 % (19-41); Mean Corp Hgb Conc 32.2 g/dL (32-36); Mean Corpuscular Hgb 27.9 pg (27.0-32.0); Mean Corpuscular Volume 86.9 fL (81-99); Mean Platelet Vol. 10.1 fl (6.2-12.0); Monocyte# 0.63 X10^3/uL; Monocyte% 9.2 % (0-10); NRBC Flagged by Analyzer 0 % (0-5); Neutrophil # 3.81 X10^3/uL (2.7-7.7); Neutrophil % 55.7 % (47-70); Platelet Count 244 K/mm3 (150-450); RBC Distribution Width CV 13.8 % (11.6-14.6); RBC Distribution Width SD 43.4 fl (35.1-43.9); Red Blood Count 4.58 M/mm3 (4.2-5.4); White Blood Count 6.8 K/mm3 (4.4-11.0)
[2022-07-12 18:09] LABS: ALB/GLOB Ratio 0.9 RATIO (0.9-2.4); AST(SGOT) 15 U/L (15-37); Alanine Aminotransfer ALT/SGPT 36 U/L (13-56); Albumin, Serum 3.6 g/dL (3.2-5.0); Alkaline Phosphatase 85 U/L (45-117); Anion Gap 8 (5-15); BUN 14 mg/dL (7-18); BUN/Creat Ratio 16.9 RATIO (10-20); Calcium,Total 9.2 mg/dL (8.5-10.1); Chloride 105 mmol/L (98-107); Creatinine, Serum 0.83 mg/dL (0.55-1.02); EST Glomerular Filtration Rate 76 mL/min (>60); Est Glom Filt Rate - Afr Amer 91 mL/min (>60); Globulin 3.9 g/dL (2.2-4.2); Glucose 114 mg/dL (74-106); Protein, Total 7.5 g/dL (6.4-8.2); Sodium Level 140 mmol/L (136-145)
== END 2022-07-12 18:00 | disposition home or self-care (01) ==
LOC: LAB 17:05
PROVIDERS: PCP Family Medicine; Referring Provider Internal Medicine Rheumatology; Visit Provider Internal Medicine Rheumatology
DX: M06.00 Rheumatoid arthritis without rheumatoid factor, unspecified site (principal); Z79.899 Other long term (current) drug therapy; M35.00 Sjogren syndrome, unspecified; M47.892 Other spondylosis, cervical region; K76.0 Fatty (change of) liver, not elsewhere classified; I87.2 Venous insufficiency (chronic) (peripheral); K21.9 Gastro-esophageal reflux disease without esophagitis
CPT/HCPCS: 36415; 80053; 85025

== ENCOUNTER → 2022-10-08 | Outpatient (CLI) | payer BC, SELFPAY ==
[2022-10-08 15:14] LABS: Absolute Lymphocyte Count 1.75 X10^3/uL (0.83-4.51); Absolute Neutrophil Count 2.5 X10^3/uL (2.0-7.7); Basophil# 0.05 X10^3/uL; Eosinophil# 0.23 X10^3/uL; Eosinophils% 4.6 % (0-5); Hematocrit 37.8 % (37-47); Lymphocyte # 1.75 X10^3/ul (0.83-4.51); Lymphocyte % 34.9 % (19-41); Mean Corp Hgb Conc 31.7 g/dL (32-36); Mean Corpuscular Volume 88.1 fL (81-99); Mean Platelet Vol. 10.5 fl (6.2-12.0); Monocyte# 0.43 X10^3/uL; Monocyte% 8.6 % (0-10); NRBC Flagged by Analyzer 0 % (0-5); Neutrophil # 2.54 X10^3/uL (2.7-7.7); Neutrophil % 50.5 % (47-70); Platelet Count 221 K/mm3 (150-450); RBC Distribution Width CV 13.6 % (11.6-14.6); RBC Distribution Width SD 43.4 fl (35.1-43.9); Red Blood Count 4.29 M/mm3 (4.2-5.4)
[2022-10-08 15:32] LABS: ALB/GLOB Ratio 1.2 RATIO (0.9-2.4); AST(SGOT) 21 U/L (15-37); Alanine Aminotransfer ALT/SGPT 37 U/L (13-56); Albumin, Serum 3.7 g/dL (3.2-5.0); Alkaline Phosphatase 69 U/L (45-117); Anion Gap 7 (5-15); BUN 10 mg/dL (7-18); BUN/Creat Ratio 11.8 RATIO (10-20); Calcium,Total 9.4 mg/dL (8.5-10.1); Chloride 107 mmol/L (98-107); Creatinine, Serum 0.85 mg/dL (0.55-1.02); EST Glomerular Filtration Rate 73 mL/min (>60); Est Glom Filt Rate - Afr Amer 88 mL/min (>60); Glucose 131 mg/dL (74-106); Potassium 3.9 mmol/L (3.5-5.1); Protein, Total 6.7 g/dL (6.4-8.2); Sodium Level 141 mmol/L (136-145)
== END | disposition home or self-care (01) ==
LOC: MTLAB 12:38
PROVIDERS: PCP Family Medicine; Referring Provider Internal Medicine Rheumatology; Visit Provider Internal Medicine Rheumatology
DX: M06.00 Rheumatoid arthritis without rheumatoid factor, unspecified site (principal); M35.00 Sjogren syndrome, unspecified; M75.51 Bursitis of right shoulder; K76.0 Fatty (change of) liver, not elsewhere classified; I87.2 Venous insufficiency (chronic) (peripheral); K21.9 Gastro-esophageal reflux disease without esophagitis
CPT/HCPCS: 36415; 80053; 85025

== ENCOUNTER → 2022-12-24 | Outpatient (CLI) | payer BC, SELFPAY ==
[2022-12-24 17:45] LABS: Absolute Lymphocyte Count 1.69 X10^3/uL (0.83-4.51); Absolute Neutrophil Count 2.6 X10^3/uL (2.0-7.7); Basophil# 0.05 X10^3/uL; Eosinophil# 0.22 X10^3/uL; Eosinophils% 4.3 % (0-5); Hematocrit 35.3 % (37-47); Hemoglobin 11.6 g/dL (12.0-15.0); Lymphocyte # 1.69 X10^3/ul (0.83-4.51); Lymphocyte % 33.1 % (19-41); Mean Corp Hgb Conc 32.9 g/dL (32-36); Mean Corpuscular Hgb 28.6 pg (27.0-32.0); Mean Corpuscular Volume 86.9 fL (81-99); Mean Platelet Vol. 10.9 fl (6.2-12.0); Monocyte# 0.52 X10^3/uL; Monocyte% 10.2 % (0-10); NRBC Flagged by Analyzer 0 % (0-5); Neutrophil % 50.8 % (47-70); Platelet Count 229 K/mm3 (150-450); RBC Distribution Width CV 13.2 % (11.6-14.6); RBC Distribution Width SD 41.1 fl (35.1-43.9); Red Blood Count 4.06 M/mm3 (4.2-5.4); White Blood Count 5.1 K/mm3 (4.4-11.0)
[2022-12-24 18:14] LABS: ALB/GLOB Ratio 0.9 RATIO (0.9-2.4); AST(SGOT) 20 U/L (15-37); Alanine Aminotransfer ALT/SGPT 30 U/L (13-56); Albumin, Serum 3.5 g/dL (3.2-5.0); Alkaline Phosphatase 79 U/L (45-117); Anion Gap 5 (5-15); BUN 9 mg/dL (7-18); BUN/Creat Ratio 11.2 RATIO (10-20); Calcium,Total 9.4 mg/dL (8.5-10.1); Chloride 106 mmol/L (98-107); EST Glomerular Filtration Rate 78 mL/min (>60); Est Glom Filt Rate - Afr Amer 95 mL/min (>60); Globulin 3.7 g/dL (2.2-4.2); Glucose 108 mg/dL (74-106); Potassium 3.6 mmol/L (3.5-5.1); Protein, Total 7.2 g/dL (6.4-8.2); Sodium Level 141 mmol/L (136-145)
== END | disposition home or self-care (01) ==
LOC: MTLAB 14:48
PROVIDERS: PCP Family Medicine; Referring Provider Internal Medicine Rheumatology; Visit Provider Internal Medicine Rheumatology
DX: M06.00 Rheumatoid arthritis without rheumatoid factor, unspecified site (principal); M35.00 Sjogren syndrome, unspecified; Z79.899 Other long term (current) drug therapy; M47.892 Other spondylosis, cervical region; K76.0 Fatty (change of) liver, not elsewhere classified; I87.2 Venous insufficiency (chronic) (peripheral); K21.9 Gastro-esophageal reflux disease without esophagitis
CPT/HCPCS: 36415; 80053; 85025

== ENCOUNTER → 2023-03-21 | Outpatient (CLI) | payer BC, SELFPAY ==
[2023-03-21 14:59] LABS: Absolute Neutrophil Count 1.9 X10^3/uL (2.0-7.7); Basophil# 0.04 X10^3/uL; Basophil% 0.9 % (0-1); Eosinophil# 0.25 X10^3/uL; Eosinophils% 5.6 % (0-5); Hematocrit 35.2 % (37-47); Hemoglobin 11.5 g/dL (12.0-15.0); Lymphocyte % 37.8 % (19-41); Mean Corp Hgb Conc 32.7 g/dL (32-36); Mean Corpuscular Volume 85.6 fL (81-99); Mean Platelet Vol. 10.3 fl (6.2-12.0); Monocyte# 0.57 X10^3/uL; Monocyte% 12.7 % (0-10); NRBC Flagged by Analyzer 0 % (0-5); Neutrophil # 1.93 X10^3/uL (2.7-7.7); Neutrophil % 42.8 % (47-70); Platelet Count 193 K/mm3 (150-450); RBC Distribution Width CV 13.5 % (11.6-14.6); RBC Distribution Width SD 41.7 fl (35.1-43.9); Red Blood Count 4.11 M/mm3 (4.2-5.4); White Blood Count 4.5 K/mm3 (4.4-11.0)
[2023-03-21 15:22] LABS: ALB/GLOB Ratio 0.9 RATIO (0.9-2.4); AST(SGOT) 31 U/L (15-37); Alanine Aminotransfer ALT/SGPT 39 U/L (13-56); Albumin, Serum 3.4 g/dL (3.2-5.0); Alkaline Phosphatase 90 U/L (45-117); Anion Gap 8 (5-15); BUN 11 mg/dL (7-18); Chloride 108 mmol/L (98-107); Creatinine, Serum 0.78 mg/dL (0.55-1.02); EST Glomerular Filtration Rate 80 mL/min (>60); Est Glom Filt Rate - Afr Amer 97 mL/min (>60); Globulin 3.6 g/dL (2.2-4.2); Glucose 101 mg/dL (74-106); Potassium 3.9 mmol/L (3.5-5.1); Sodium Level 143 mmol/L (136-145)
== END | disposition home or self-care (01) ==
LOC: LAB 14:39
PROVIDERS: PCP Family Medicine; Referring Provider Internal Medicine Rheumatology; Visit Provider Internal Medicine Rheumatology
DX: M06.00 Rheumatoid arthritis without rheumatoid factor, unspecified site (principal); M35.00 Sjogren syndrome, unspecified; Z79.899 Other long term (current) drug therapy; M47.892 Other spondylosis, cervical region; K76.0 Fatty (change of) liver, not elsewhere classified; I87.2 Venous insufficiency (chronic) (peripheral); K21.9 Gastro-esophageal reflux disease without esophagitis
CPT/HCPCS: 36415; 80053; 85025

== ENCOUNTER → 2023-03-22 | Outpatient (CLI) | payer BC, SELFPAY ==
[2023-03-24 10:09] LABS: QNTFERON TB Mitogen Value > 10.00 IU/mL (.); QNTFERON TB Nil Value 0 IU/mL (.); QNTFERON TB1+ Ag Value 0.02 IU/mL (.); QNTFERON TB2+ Ag Value 0.01 IU/mL (.); QNTIFERON TB Positive Criteria Negative (Negative)
== END | disposition home or self-care (01) ==
LOC: MTLAB 15:53
PROVIDERS: PCP Family Medicine; Referring Provider Internal Medicine Rheumatology; Visit Provider Internal Medicine Rheumatology
DX: M06.09 Rheumatoid arthritis without rheumatoid factor, multiple sites (principal); Z79.899 Other long term (current) drug therapy
CPT/HCPCS: 36415; 86480

== ENCOUNTER → 2023-04-05 | Outpatient (CLI) | payer BC, SELFPAY ==
--- NOTE | 2023-04-05 16:03 | RAD_ITS ---
EXAM: XR CHEST, 2 VIEWS CLINICAL INDICATION: RA TECHNIQUE: Frontal and lateral views of the chest. COMPARISON: No relevant prior studies available. FINDINGS: LUNGS AND PLEURAL SPACES: Unremarkable. No consolidation or edema. No pneumothorax. No effusion. HEART: Unremarkable. Cardiac silhouette not enlarged. MEDIASTINUM: Central airways and mediastinal contour are unremarkable. BONES/JOINTS: Multilevel thoracic spondylosis. SOFT TISSUES: Unremarkable. RAD/Chest PA and Lateral IMPRESSION: No radiographic evidence of acute cardiopulmonary disease. Electronically Signed: Marianela Nichols MD at 8:43 EDT ,
== END | disposition home or self-care (01) ==
LOC: MTRAD 16:00
PROVIDERS: PCP Family Medicine; Referring Provider Internal Medicine Rheumatology; Visit Provider Internal Medicine Rheumatology
DX: Z79.899 Other long term (current) drug therapy (principal); M35.00 Sjogren syndrome, unspecified; M47.892 Other spondylosis, cervical region; K76.0 Fatty (change of) liver, not elsewhere classified; I87.2 Venous insufficiency (chronic) (peripheral); K21.9 Gastro-esophageal reflux disease without esophagitis
CPT/HCPCS: 71046

== ENCOUNTER → 2023-06-27 | Outpatient (CLI) | payer BC, SELFPAY ==
[2023-06-27 13:45] LABS: Absolute Lymphocyte Count 1.73 X10^3/uL (0.83-4.51); Absolute Neutrophil Count 1.8 X10^3/uL (2.0-7.7); Basophil# 0.05 X10^3/uL; Basophil% 1.2 % (0-1); Eosinophil# 0.17 X10^3/uL; Eosinophils% 4.1 % (0-5); Hematocrit 37.2 % (37-47); Lymphocyte # 1.73 X10^3/ul (0.83-4.51); Lymphocyte % 41.5 % (19-41); Mean Corp Hgb Conc 32.3 g/dL (32-36); Mean Corpuscular Volume 86.9 fL (81-99); Mean Platelet Vol. 10.5 fl (6.2-12.0); Monocyte% 9.6 % (0-10); NRBC Flagged by Analyzer 0 % (0-5); Neutrophil # 1.81 X10^3/uL (2.7-7.7); Neutrophil % 43.4 % (47-70); Platelet Count 194 K/mm3 (150-450); RBC Distribution Width CV 13.6 % (11.6-14.6); RBC Distribution Width SD 42.7 fl (35.1-43.9); Red Blood Count 4.28 M/mm3 (4.2-5.4); White Blood Count 4.2 K/mm3 (4.4-11.0)
[2023-06-27 14:02] LABS: ALB/GLOB Ratio 1.1 RATIO (0.9-2.4); AST(SGOT) 27 U/L (15-37); Alanine Aminotransfer ALT/SGPT 39 U/L (13-56); Albumin, Serum 3.7 g/dL (3.2-5.0); Alkaline Phosphatase 72 U/L (45-117); Anion Gap 5 (5-15); BUN 14 mg/dL (7-18); BUN/Creat Ratio 17.6 RATIO (10-20); Calcium,Total 9.2 mg/dL (8.5-10.1); Chloride 109 mmol/L (98-107); EST Glomerular Filtration Rate 79 mL/min (>60); Est Glom Filt Rate - Afr Amer 95 mL/min (>60); Globulin 3.3 g/dL (2.2-4.2); Glucose 134 mg/dL (74-106); Potassium 3.9 mmol/L (3.5-5.1); Sodium Level 141 mmol/L (136-145)
== END | disposition home or self-care (01) ==
LOC: LAB 13:08
PROVIDERS: PCP Family Medicine; Referring Provider Internal Medicine Rheumatology; Visit Provider Internal Medicine Rheumatology
DX: M06.09 Rheumatoid arthritis without rheumatoid factor, multiple sites (principal); M35.00 Sjogren syndrome, unspecified; Z79.899 Other long term (current) drug therapy; M47.892 Other spondylosis, cervical region; K76.0 Fatty (change of) liver, not elsewhere classified; I87.2 Venous insufficiency (chronic) (peripheral); K21.9 Gastro-esophageal reflux disease without esophagitis
CPT/HCPCS: 36415; 80053; 85025

== ENCOUNTER → 2023-09-27 | Outpatient (CLI) | payer BC, SELFPAY ==
[2023-09-27 16:05] LABS: Absolute Lymphocyte Count 1.61 X10^3/uL (0.83-4.51); Basophil# 0.05 X10^3/uL; Basophil% 1.2 % (0-1); Eosinophil# 0.14 X10^3/uL; Eosinophils% 3.3 % (0-5); Hematocrit 37.3 % (37-47); Hemoglobin 11.7 g/dL (12.0-15.0); Lymphocyte # 1.61 X10^3/ul (0.83-4.51); Lymphocyte % 37.4 % (19-41); Mean Corp Hgb Conc 31.4 g/dL (32-36); Mean Corpuscular Hgb 28.3 pg (27.0-32.0); Mean Corpuscular Volume 90.1 fL (81-99); Monocyte# 0.48 X10^3/uL; Monocyte% 11.2 % (0-10); NRBC Flagged by Analyzer 0 % (0-5); Neutrophil # 2.01 X10^3/uL (2.7-7.7); Neutrophil % 46.7 % (47-70); Platelet Count 194 K/mm3 (150-450); RBC Distribution Width CV 13.7 % (11.6-14.6); RBC Distribution Width SD 45.6 fl (35.1-43.9); Red Blood Count 4.14 M/mm3 (4.2-5.4); White Blood Count 4.3 K/mm3 (4.4-11.0)
[2023-09-27 16:36] LABS: AST(SGOT) 26 U/L (15-37); Alanine Aminotransfer ALT/SGPT 50 U/L (13-56); Albumin, Serum 3.5 g/dL (3.2-5.0); Alkaline Phosphatase 80 U/L (45-117); Anion Gap 2 (5-15); BUN 15 mg/dL (7-18); Calcium,Total 8.8 mg/dL (8.5-10.1); Chloride 111 mmol/L (98-107); Creatinine, Serum 0.79 mg/dL (0.55-1.02); EST Glomerular Filtration Rate 79 mL/min (>60); Est Glom Filt Rate - Afr Amer 96 mL/min (>60); Globulin 3.5 g/dL (2.2-4.2); Glucose 88 mg/dL (74-106); Potassium 3.8 mmol/L (3.5-5.1); Sodium Level 142 mmol/L (136-145)
== END | disposition home or self-care (01) ==
LOC: LAB 14:31
PROVIDERS: PCP Family Medicine; Visit Provider Internal Medicine Rheumatology
DX: M06.00 Rheumatoid arthritis without rheumatoid factor, unspecified site (principal); M35.00 Sjogren syndrome, unspecified; Z79.899 Other long term (current) drug therapy; M47.892 Other spondylosis, cervical region; K76.0 Fatty (change of) liver, not elsewhere classified; I87.2 Venous insufficiency (chronic) (peripheral); K21.9 Gastro-esophageal reflux disease without esophagitis
CPT/HCPCS: 36415; 80053; 85025

== ENCOUNTER → 2023-11-22 | Outpatient (CLI) | payer BC, SELFPAY ==
--- NOTE | 2023-11-22 14:48 | RAD_ITS ---
STUDY: X-RAY - CERVICAL SPINE REASON FOR EXAM: Female, 58 years old. CERVICAL DEGENERATIVE DISC TECHNIQUE: 6 view(s) of the cervical spine were obtained. COMPARISON: None FINDINGS: Normal anterior atlantoaxial articulation. Normal odontoid process. Normal cervical lordosis. Normal vertebral bodies and endplates. Mild disc space narrowing in the lower cervical spine. Mild foraminal narrowing in the lower cervical spine. The soft tissue structures are unremarkable. RAD/Cerv Spine 4 or 5 Views IMPRESSION: Age consistent degenerative changes predominantly in the lower half of the cervical spine, no demonstrated fracture or suspicious osseous lesion Electronically Signed: Shawn Briggs MD at 17:41 EST ,
--- OUTSIDE RECORDS SUMMARY | 2023-11-22 15:10 | XMS RPT_ITS | CCD ---
Author Name Unknown Address [address] [place] [address] Organization [facility] Care Team Providers Care Loan Counselor Name Role Phone ARON CORCORAN PAC Admitting Unavailable ARON CORCORAN PAC Primary Care Unavailable ARON CORCORAN PAC Attending Unavailable ARTEM GREY Consulting Unavailable PROVIDER, UNKNOWN Consulting Unavailable PROVIDER, UNKNOWN Consulting Unavailable PROVIDER, UNKNOWN Consulting Unavailable MONSTER, DR DIMAS Arteaga Attending Unavaila ble ARTEM GREY Consulting Unavailable MONSTER, DR DIMAS Arteaga Admitting Unavaila ble MONSTER, DR DIMAS Arteaga Primary Care Unavaila ble PROVIDER, UNKNOWN Consulting Unavailable PROVIDER, UNKNOWN Consulting Unavailable PROVIDER, UNKNOWN Consulting Unavailable ARTEM GREY Consulting Unavailable MONSTER, DR DIMAS Arteaga Admitting Unavaila ble MONSTER, DR DIMAS Arteaga Primary Care Unavaila ble MONSTER, DR DIMAS Arteaga Attending Unavaila ble PROVIDER, UNKNOWN Consulting Unavailable PROVIDER, UNKNOWN Consulting Unavailable PROVIDER, UNKNOWN Consulting Unavailable Unavailable Primary Care Provider UnavailCholo Wilder Unavailable [phone] ARTEM GREY Referring Unavailable ARTEM GREY Referring Unavailable PREBIEVER, CHERISE Referring Unavailable PREBIEVER, CHERISE Referring Unavailable Cholo Guillen MD Unavailable Allergies Allergy Classification Reported Allergen(s) Allergy Type Date of Onset Reaction(s) Facility Acetaminophen / HYDROcodone (1 source) Acetaminophen / HYDROcodone Drug Allergy [facility] Povidone-Iodine (1 source) Povidone-Iodine Drug Allergy [facility] (6 sources) Acetaminophen / HYDROcodone; Translations: [HYDROCODONE-ACET AMINOPHEN] Drug Allergy 1 Mental Status Change [facility] (6 sources) Povidone-Iodine; Translations: [POVIDONE-IODINE] Drug Allergy 1 Hives [facility] Medications Completed/Discontinued Medications Medication Drug Class(es) Dates Sig (Normalized) Sig (Original) cholecalciferol 0.01 mg oral capsule (5 sources) Vitamin D Start: 06-10-2015 cholecalciferol, vitamin D3, 10 mcg (400 unit) cap Cholecalciferol Cholecalciferol (Vitamin D3) 400 UNIT PO DAILY June 10, 2015 Active 06-10-2015 [facility] [id number]) 0 06/10/2015 Active Problems Active Problems Problem Classification Problem Date Documented Da te Episodic/Chronic Osteoarthritis (1 source) Primary osteoarthritis, right shoulder; Translations: [Primary osteoarthritis, right shoulder] Onset: 05-19-2020 Chronic Other screening for suspected conditions (not mental disorders or infectious disease) (1 source) Other abnormal and inconclusive findings on diagnostic imaging of breast; Translations: [Other abnormal and inconclusive findings on diagnostic imaging of breast] Onset: 02-23-2023 Episodic Past or Other Problems Problem Classification Problem Date Documented Da te Episodic/Chronic Other connective tissue disease (3 sources) Calcific tendinitis of right shoulder; Translations: [Calcific tendinitis of right shoulder] Onset: 05-19-2020 Episodic Other connective tissue disease (1 source) Bursitis of right shoulder; Translations: [Bursitis of right shoulder] Onset: 05-19-2020 Episodic Other non-traumatic joint disorders (1 source) Pain in unspecified shoulder; Translations: [Pain in unspecified shoulder] Onset: 10-21-2022 Episodic Results Test Name Value Interpretation Reference Range Facil ity Encounters Encounter Date Encounter Type Care Provider Facility Start: 02-23-2023 End: 02-23-[address] [facility] Facility:[facility] Start: 02-23-2023 End: 02-23-2023 Subsequent hospital visit by physician Diagnostic Mammo [facility] Mammogram Procedures Date Procedure Procedure Detail Performing Clinician Start: 02-23-2023 Digital breast tomosynthesis unilateral [facility] Provider Start: 12-30-2022 BECKA SCREENING W CHE [facility] Provider Start: 12-30-2022 Mammography Mammograph y Coordinator Start: 10-21-2022 Mri any jt upper ext remity w/o contrast matrl [facility] Provider Start: 06-11-2022 Mri spinal canal cer vical w/o contrast matrl [facility] Provider Start: 12-17-2021 Mammography Mri (I-Sta t/1.5t) Work Phone: Plan of Treatment Date Care Activity Detail Author Start: 09-13-2032 Urine microalbumin profile DTa P,Tdap,Td Vaccine (3 - Td or Tdap) [facility] Start: 12-31-2023 Mammography [facility] Start: 07-01-2023 Covid-19 Vaccine () Covid-19 Vaccine () [facility] Start: 07-01-2023 Influenza vaccination Influenza Vacc ine (#1) [facility] Start: 12-17-2022 Mammography MAMMOGRAM [facility] Start: 10-31-2022 DEPRESSION ASSESSMENT DEPRESSION ASS ESSMENT [facility] Start: 07-01-2022 Influenza vaccination INFLUENZA (#1) [facility] Start: 01-12-2022 COVID-19 VACCINE (4 - Booster for Pfizer series) COVID-19 VACCINE (4 - Booster for Pfizer series) [facility] Start: 12-15-2021 COVID-19 VACCINE (4 - Booster for Pfizer series) COVID-19 VACCINE (4 - Booster for Pfizer series) [facility] Start: 2010 COLOGUARD (FIT-DNA) COLOGUARD (FIT-D NA) [facility] Start: 2010 Colonoscopy COLONOSCOPY [facility] Start: 2010 COLORECTAL CANCER SCREENING COLORECTAL CANCER SCREENING [facility] Start: [address] COLONOGRAPHY [facility] Start: 2010 DIABETES SCREEN DIABETES SCREEN [facility] Start: 2010 Diabetes Screening Diabetes Screenin g [facility] Start: 2010 FECAL OCCULT BLOOD FECAL OCCULT BLOO D [facility] Start: 2010 Lipid 1996 panel - S jasmyne or Plasma Lipid Screening [facility] Start: 2010 LIPID SCREEN LIPID SCREEN [facility] Start: 2010 SIGMOIDOSCOPY SIGMOIDOSCOPY [facility] Start: 1995 HPV TESTING HPV TESTING [facility] Start: 1986 PAP TESTING PAP TESTING [facility] Start: 1984 SHINGRIX VACCINE (1 of 2) SHINGRIX V ACCINE (1 of 2) [facility] Start: 1984 Urine microalbumin profile DTAP,TDAP ,TD (1 - Tdap) [facility] Start: 1983 HEPATITIS C SCREENING HEPATITIS C SC YOELNING [facility] Start: 1983 HIV SCREENING HIV SCREENING [facility] Start: 1977 Adult depression scr eening assessment DEPRESSION SCREENING [facility] Start: 1971 PNEUMOCOCCAL (1 - PCV) PNEUMOCOCCAL (1 - PCV) [facility] Start: 1971 Pneumococcal vaccination Pneum ococcal Vaccine (1 - PCV) [facility] Start: 1965 HEPATITIS B (1 of 3 - 3-dose series) HEPATITIS B (1 of 3 - 3-dose series) [facility] Start: 1965 Hepatitis B Vaccine (1 of 3 - 3-dose series) Hepatitis B Vaccine (1 of 3 - 3-dose series) [facility] Immunizations Immunization Date Immunization Notes Care Provider Fa raleighty 09-13-2022 influenza virus vacc ine, unspecified formulation Diagnostic Wstr [facility] Payers Date Payer Category Payer Unknown [id number] 2018 Unknown [id number] 1965 Unknown [id number] 1965 Unknown [id number] 1965 Unknown [id number] Social History Date Type Detail Facility Start: 11-18-2020 Tobacco smoking stat us NHIS Never smoked tobacco [facility] Start: 11-18-2020 Tobacco use and exposure Smoke less tobacco non-user [facility] Start: 1965 Sex Assigned At Not on file [facility] Start: 10-29-2020 End: 11-18-2020 History of Social function [facility] Start: 10-29-2020 End: 11-18-2020 Tobacco use panel [facility] National Score (1-10 0), lower number is lower risk Not on file [facility] Clinical Notes 06-11-2022 to 02-23-2023 Izabel Rothman RT(R) - 02/23/2023 3:30 PM Elijah - Mammography Coordinator - 12/31/2022 5:36 PM Linda Sharp, Mammo Tech - 12/30/2022 2:10 PM Cherise David RT(R) - 10/21/2022 10:00 AM EST Note Date & Type Note Facility 02-23-2023 Note HNO ID: [id number] Author: RT Filiberto(Kendy) Service: ? Author Type: Technologist Type: Progress Notes Filed: 02/23/2023 3:09 PM Note Text: Radiology Service Progress Note PATIENT NAME: India Harris DATE OF SERVICE: February 23, 2023 TIME: 3:09 PM PATIENT IDENTITY VERIFICATION COMPLETED USING TWO (2) IDENTIFIERS: Name and Date of confirmed by patient verbally. FALL SCREENING: Has the patient had 2 falls in the last year or 1 fall with injury or currently using an Ambulatory Assistive Device (Walker, Cane, Wheelchair, Crutches, etc.)? No PATIENT GENDER DATA: Female. status: : No status: NO. PATIENT RELEVANT IMPLANT DATA REVIEWED: Not Applicable RADIOLOGY DEPARTMENT: Mammography PERIPHERAL IV DATA: Not applicable SIGNED BY: RT Filiberto(Kendy) February 23, 2023 3:09 PM [facility] 02-23-2023 History of Presen t illness Narrative Radiology Service Progress Note PATIENT NAME: India Harris DATE OF SERVICE: February 23, 2023 TIME: 3:09 PM PATIENT IDENTITY VERIFICATION COMPLETED USING TWO (2) IDENTIFIERS: Name and Date of confirmed by patient verbally. FALL SCREENING: Has the patient had 2 falls in the last year or 1 fall with injury or currently using an Ambulatory Assistive Device (Walker, Cane, Wheelchair, Crutches, etc.)? No PATIENT GENDER DATA: Female. status: : No status: NO. PATIENT RELEVANT IMPLANT DATA REVIEWED: Not Applicable RADIOLOGY DEPARTMENT: Mammography PERIPHERAL IV DATA: Not applicable SIGNED BY: RT Filiberto(R) February 23, 2023 3:09 PM documented in this encounter [facility] 12-31-2022 Miscellaneous Notes Formattin g of this note might be different from the original. January 03, 2023 PID: [id number] India Harris [address] [place] [address] Dear Ms. Harris, Your recent breast imaging exam on 12/30/2022 showed a possible finding that requires additional imaging studies for a complete evaluation. Most such findings are probably benign (not cancer). If you have a healthcare provider who ordered/prescribed your screening mammogram: Please call [phone] or [phone] to schedule an appointment for your additional imaging (if you have not already done so). If you DO NOT have a healthcare provider (ie you did not have an order/prescription for your screening mammogram): Please call to schedule an appointment for your additional imaging (if you have not already done so). You must have an order/prescription from your physician when calling to schedule your appointment. If your order/prescription is not electronic, you must bring the hard copy with you on the day of your exam to avoid delays. Your imaging studies and reports are kept on file at [facility] as part of your permanent medical record, and are available for your continuing care. Thank you for allowing us to help in meeting your health care needs. Sincerely, Dr. Hull Interpreting Radiologist [facility] (Additional imaging) documented in this encounter [facility] 12-30-2022 Note HNO ID: [id number] Author: Linda Watkins, Brevado Service: ? Author Type: Rheostat Assembler Type: Progress Notes Filed: 12/30/2022 2:27 PM Note Text: Radiology Service Progress Note PATIENT NAME: India Harris DATE OF SERVICE: December 30, 2022 TIME: 2:01 PM PATIENT IDENTITY VERIFICATION COMPLETED USING TWO (2) IDENTIFIERS: Name and Date of confirmed by patient verbally. FALL SCREENING: Has the patient had 2 falls in the last year or 1 fall with injury or currently using an Ambulatory Assistive Device (Walker, Cane, Wheelchair, Crutches, etc.)? No PATIENT GENDER DATA: Female. status: : No status: NO. PATIENT RELEVANT IMPLANT DATA REVIEWED: Not Applicable RADIOLOGY DEPARTMENT: Mammography PERIPHERAL IV DATA: Not applicable SIGNED BY: Kayla BiggsEtonkids Tee December 30, 2022 2:01 PM [facility] 12-30-2022 History of Presen t illness Narrative Radiology Service Progress Note PATIENT NAME: India Harris DATE OF SERVICE: December 30, 2022 TIME: 2:01 PM PATIENT IDENTITY VERIFICATION COMPLETED USING TWO (2) IDENTIFIERS: Name and Date of confirmed by patient verbally. FALL SCREENING: Has the patient had 2 falls in the last year or 1 fall with injury or currently using an Ambulatory Assistive Device (Walker, Cane, Wheelchair, Crutches, etc.)? No PATIENT GENDER DATA: Female. status: : No status: NO. PATIENT RELEVANT IMPLANT DATA REVIEWED: Not Applicable RADIOLOGY DEPARTMENT: Mammography PERIPHERAL IV DATA: Not applicable SIGNED BY: Chelsea Biggs December 30, 2022 2:01 PM documented in this encounter [facility] 10-21-2022 Note HNO ID: [id number] Author: RT Nancy(R) Service: ? Author Type: Technologist Type: Progress Notes Filed: 10/21/2022 10:47 AM Note Text: Radiology Service Progress Note PATIENT NAME: India Harris DATE OF SERVICE: October 21, 2022 TIME: 10:47 AM PATIENT IDENTITY VERIFICATION COMPLETED USING TWO (2) IDENTIFIERS: Name and Date of confirmed by patient verbally. FALL SCREENING: Has the patient had 2 falls in the last year or 1 fall with injury or currently using an Ambulatory Assistive Device (Walker, Cane, Wheelchair, Crutches, etc.)? No PATIENT GENDER DATA: Female. status: : No status: NO. PATIENT RELEVANT IMPLANT DATA REVIEWED: Yes RADIOLOGY DEPARTMENT: MR; Exam(s) Completed: Upper MSK: Shoulder, right PERIPHERAL IV DATA: Not applicable SIGNED BY: RT Nancy(Kendy) October 21, 2022 10:47 AM [facility] 10-21-2022 History of Presen t illness Narrative Radiology Service Progress Note PATIENT NAME: India Harris DATE OF SERVICE: October 21, 2022 TIME: 10:47 AM PATIENT IDENTITY VERIFICATION COMPLETED USING TWO (2) IDENTIFIERS: Name and Date of confirmed by patient verbally. FALL SCREENING: Has the patient had 2 falls in the last year or 1 fall with injury or currently using an Ambulatory Assistive Device (Walker, Cane, Wheelchair, Crutches, etc.)? No PATIENT GENDER DATA: Female. status: : No status: NO. PATIENT RELEVANT IMPLANT DATA REVIEWED: Yes RADIOLOGY DEPARTMENT: MR; Exam(s) Completed: Upper MSK: Shoulder, right PERIPHERAL IV DATA: Not applicable SIGNED BY: ADRIA Cruz) October 21, 2022 10:47 AM documented in this encounter [facility] 06-11-2022 Note HNO ID: [id number] Author: ADRIA Cruz) Service: ? Author Type: Technologist Type: Progress Notes Filed: 06/11/2022 3:01 PM Note Text: Radiology Service Progress Note PATIENT NAME: India Harris DATE OF SERVICE: June 11, 2022 TIME: 3:01 PM PATIENT IDENTITY VERIFICATION COMPLETED USING TWO (2) IDENTIFIERS: Name and Date of confirmed by patient verbally. FALL SCREENING: Has the patient had 2 falls in the last year or 1 fall with injury or currently using an Ambulatory Assistive Device (Walker, Cane, Wheelchair, Crutches, etc.)? No PATIENT GENDER DATA: Female. status: : No status: NO. PATIENT RELEVANT IMPLANT DATA REVIEWED: Yes RADIOLOGY DEPARTMENT: MR; Exam(s) Completed: Spine: Cervical spine PERIPHERAL IV DATA: Not applicable SIGNED BY: ADRIA Cruz) June 11, 2022 3:01 PM [facility] 06-11-2022 History of Presen t illness Narrative Radiology Service Progress Note PATIENT NAME: India Harris DATE OF SERVICE: June 11, 2022 TIME: 3:01 PM PATIENT IDENTITY VERIFICATION COMPLETED USING TWO (2) IDENTIFIERS: Name and Date of confirmed by patient verbally. FALL SCREENING: Has the patient had 2 falls in the last year or 1 fall with injury or currently using an Ambulatory Assistive Device (Walker, Cane, Wheelchair, Crutches, etc.)? No PATIENT GENDER DATA: Female. status: : No status: NO. PATIENT RELEVANT IMPLANT DATA REVIEWED: Yes RADIOLOGY DEPARTMENT: MR; Exam(s) Completed: Spine: Cervical spine PERIPHERAL IV DATA: Not applicable SIGNED BY: RT Nancy(R) June 11, 2022 3:01 PM documented in this encounter [facility] Referral ID Status Reason Start Date Expiration Date Visits Re quested Visits Authorized [id number] Closed 05/19/2022 06/17/2022 1 1 [facility] for visit Narrative* Outpatient Procedure (Routine) - Closed Specialty Diagnoses / Procedures Referred By Gabo alicia Referred To Contact Radiology / RADIO MRI [facility] Diagnoses Pain in unspecified shoulder townerOrder in Scanned Docs Pain in unspecified shoulder [M25.519] Procedures MRI WO MSK2 SHLDR 300 Cherise Wooten, BRANDON.HIGH PRESSURE FIRER [address] [place] [address] Radio Mri [facility] [address] [place] [address] Referral ID Status Reason Start Date Expiration Date Visits Re quested Visits Authorized [id number] Closed 10/15/2022 11/13/2022 1 1 [facility] Summary Purpose Family History No Family History Records FoundNo Family History Records FoundNo Family History Records Found Advance Directives No Advanced Directives Records FoundNo Advanced Directives Records FoundNo Advanced Directives Records Found Additional Source Comments INFORMATION SOURCE (unrecogn ized section and content) DATE CREATED AUTHOR AUTHOR'S ORGANIZ ATION 02/25/2023 [facility] DATE CREATED AUTHOR AUTHOR'S ORGANIZ ATION 09/07/2023 [facility] Source Comments (unrecognize d section and content) In the event this informatio n is protected by the Federal Confidentiality of Alcohol and Drug Abuse Patient Records regulations: The Federal rules restrict any use of the information to criminally investigate or prosecute any alcohol or drug abuse patient.[facility] the event this information is protected by the Federal Confidentiality of Alcohol and Drug Abuse Patient Records regulations: The Federal rules restrict any use of the information to criminally investigate or prosecute any alcohol or drug abuse patient.[facility] the event this information is protected by the Federal Confidentiality of Alcohol and Drug Abuse Patient Records regulations: The Federal rules restrict any use of the information to criminally investigate or prosecute any alcohol or drug abuse patient.[facility] the event this information is protected by the Federal Confidentiality of Alcohol and Drug Abuse Patient Records regulations: The Federal rules restrict any use of the information to criminally investigate or prosecute any alcohol or drug abuse patient.[facility] the event this information is protected by the Federal Confidentiality of Alcohol and Drug Abuse Patient Records regulations: The Federal rules restrict any use of the information to criminally investigate or prosecute any alcohol or drug abuse patient.[facility] Care Teams (unrecognized sec tion and content) Loan Counselor Relationship Specialty Start Date End Date Cholo Guillen MD [address] [place] [address] Pain Management 09/28/22 Loan Counselor Relationship Specialty Start Date End Date Cholo Guillen MD [address] [place] [address] Pain Management 09/28/22 FOR RECORDS PERTAINING TO PATIENTS WHO ARE OR HAVE BEEN ENROLLED IN A CHEMICAL DEPENDENCY/SUBSTANCEABUSE PROGRAM, SOME INFORMATION MAY BE OMITTED. This clinical summary was aggregated from multiple sources. Caution should be exercised in using it in the provision of clinical care. This summary normalizes information from multiple sources, and as a consequence, information in this document may materially change the coding, format and clinical context of patient data. In addition, data may be omitted in some cases. CLINICAL DECISIONS SHOULD BE BASED ON THE PRIMARY CLINICAL RECORDS. [employer] [facility]. provides no warranty or guarantee of the accuracy or completeness of information in this document.
== END | disposition home or self-care (01) ==
LOC: MTRAD 14:47
PROVIDERS: PCP Family Medicine; Referring Provider Clinical Nurse Specialist Adult Health; Visit Provider Clinical Nurse Specialist Adult Health
DX: M50.30 Other cervical disc degeneration, unspecified cervical region (principal)
CPT/HCPCS: 72050

== ENCOUNTER 2023-12-26 15:00 | Outpatient (RCR) | payer BC, SELFPAY ==
--- NOTE | 2023-11-29 15:37 | HP.PTEVAL ---
Patient's Visit Information Visit Information Visit Information: INDIA BACA is a 58 year old F referred to Physical Therapy by CIVIL ENGINEERING PROFESSOR. Daria Garnett with a diagnosis of Cervical DDD. Date of Evaluation: 11/29/23 Physical Therapist: Clive Torres, DPT, OCS, CSCS Visit Plan Frequency: 2x /Week Duration: 4-6 Weeks Plan: 2x/week for 4 weeks for manual therapy for TP and STM UTs and cervical ret ext ROM and manual traction,ext mobs, MH OK also ann based cervical retraction ext progression of forces neck and postural strength to HEP Subjective Subjective: neck pain shooting and sharp nerve pain. Has had therapy and injections in past. Therapy helped neck movement but now needs injection and needs to have PT first. may need neck surgery but she does not want it. Has had MRI and suggested surgery but does not want it. L neck stiffness and pain and shoulders can hurt, intermittent in shoulders and stiffness constant in neck for last couple weeks. may have slept in recliner too much. Keeps her up at night combining with LBP, has had 13 injections in LB also. 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 Does not miss work. No regular exercises. Activitiies: I ADLS Hobbies reading and sewing which she avoids due to pain. Has RA Pain neck: Pain Intensity (Out of 10): 3 Pain Intensity Range: 0 and 6 Comment: worse with chores. Objective Objective: Posture FW head and protracted scap posture. Baseline UT 2/10 flexion repeated: W centrally, Better ROM ext repeated retraction: PDM, B motion, abolishes pain ret/ext: PDM reflexes 2/3 bi and tri sensation UE WNL to gross light touch Lower cervical spine lacking most of extension adn very stiff. strength arms and scap 4-/5 without myotomal problems - compression c/s Tender to touch B UT L >R moderately. tightness palpable L > R UT and lev scap. Balance/Special Test Scores Oswestry Neck Score: 20 Goals Goal 1:: 70 degrees cervical ext without pain Goal Time Frame: 4-6 Weeks Goal 2:: Pain in neck 0-1/10 at all times and 80% better Goal Time Frame: 4-6 Weeks Goal 3:: sleep without waking at night due to pain Goal Time Frame: 4-6 Weeks Goal 4:: 5 or less on cervical oswestry Goal Time Frame: 4-6 Weeks Rehabilitation Potential Physical Therapy Diagnosis: Neck pain limiting function and comfort Rehabilitation Potential: Good Anticipated Interventions Patient/Client Instruction: Educate patient on: Condition and Plan of Care For the Purpose of:: To decrease pain, To increase ROM, To improve nutrient delivery to tissue, To improve muscle performance and motor function, To increase tolerance to activity/condition/position and To improve ability of physical actions for home/community/work/leisure Therapeutic Exercise to Include: Strength training, Postural training, Flexibilty training, Gait and locomotor training, Ann Exercises and Scapular Strength/Stabilization For the Purpose of:: To decrease pain, To decrease swelling/inflammation, To increase ROM, To improve nutrient delivery to tissue and To increase tolerance to activity/condition/position Manual Therapy Techniques to Include: Mobilization, Passive ROM and Soft tissue mobilization For the Purpose of:: To decrease pain and To increase ROM Thermo therapy (hot pack): Yes For the Purpose of:: To decrease pain Text: Thank you for the opportunity to evaluate your patient. For Medicare and Medicare HMO plans, please review the plan of care and approve it. It will need to be FAXED BACK to us at [phone] for Medicare purposes. For Medicare only, by signing this I certify the plan of care. Please let me know if there are questions or concerns regarding this plan of care. Physician Signature: Date:
--- NOTE | 2023-12-26 15:13 | HP.PTDCSUM ---
Discharge Summary D/C summary: It has been my pleasure to treat [place] referred by TIE IN MACHINE OPERATOR. Daria Garnett, with the diagnosis of Cervical DDD for a total of 9 visit(s). Discharge Date: 12/26/23 Please see the following information for a summary of their discharge status. Subjective Subjective: Doing well and feeling she can manage it on her own at home with her exercises which she has plenty of and is doing them. 1/10 pain in the last week and not much and not in 6 days. May have moved wrong. Not avoiding any activities at home. No more zapping pain lately. Doing band exercises and stetches 1x/day 3x10. Sleep is OK as far as this is concerned. LB keeps her sitting up. To doctor in December. Pain neck: Pain Intensity (Out of 10): 0 Overall Improvement % Improvement: 85 Objective Objective/Function: 68 degree L rot , and 72 R rotation, looking up 60 Posture is sight forward head but corrects with VC, still stiff lower cervical spine but improved and funcitonal. Goals Goal 1:: 70 degrees cervical ext without pain Goal 2:: Pain in neck 0-1/10 at all times and 80% better Goal Progress: Goal Met Goal 3:: sleep without waking at night due to pain Goal Progress: Goal Met Goal 4:: 5 or less on cervical oswestry Goal Progress: Progressing Plan Plan: d/c to HEP D/C Information Discharge Comments: Pt to continue HEP and f/u with doctor in 2 weeks to ensure progress. d/c sentence: If there are questions or concerns regarding this patient's physical therapy, please feel free to call me at [phone]. Thank you for the referral of this patient. Sincerely, Clive Torres, DPT, OCS, CSCS Balance/Gait/Functional tests Balance/Special Test Scores Oswestry Neck Score: 8 Improvement % Improvement: 85
== END 2023-12-26 19:00 | disposition home or self-care (01) ==
LOC: PT 15:00
PROVIDERS: PCP Family Medicine; Referring Provider Clinical Nurse Specialist Adult Health; Visit Provider Clinical Nurse Specialist Adult Health
DX: M50.30 Other cervical disc degeneration, unspecified cervical region (principal)
CPT/HCPCS: 97110; 97140; 97161; 97530

== ENCOUNTER → 2023-12-27 | Outpatient (CLI) | payer BC, SELFPAY ==
[2023-12-27 18:03] LABS: Absolute Lymphocyte Count 1.73 X10^3/uL (0.83-4.51); Absolute Neutrophil Count 1.8 X10^3/uL (2.0-7.7); Basophil# 0.06 X10^3/uL; Basophil% 1.4 % (0-1); Eosinophil# 0.22 X10^3/uL; Hematocrit 35.7 % (37-47); Hemoglobin 11.7 g/dL (12.0-15.0); Lymphocyte # 1.73 X10^3/ul (0.83-4.51); Lymphocyte % 39.4 % (19-41); Mean Corp Hgb Conc 32.8 g/dL (32-36); Mean Corpuscular Hgb 28.7 pg (27.0-32.0); Mean Corpuscular Volume 87.7 fL (81-99); Mean Platelet Vol. 10.9 fl (6.2-12.0); Monocyte# 0.61 X10^3/uL; Monocyte% 13.9 % (0-10); NRBC Flagged by Analyzer 0 % (0-5); Neutrophil # 1.76 X10^3/uL (2.7-7.7); Neutrophil % 40.1 % (47-70); Platelet Count 202 K/mm3 (150-450); RBC Distribution Width CV 13.2 % (11.6-14.6); RBC Distribution Width SD 42.4 fl (35.1-43.9); Red Blood Count 4.07 M/mm3 (4.2-5.4); White Blood Count 4.4 K/mm3 (4.4-11.0)
[2023-12-27 18:34] LABS: ALB/GLOB Ratio 1.1 RATIO (0.9-2.4); AST(SGOT) 28 U/L (15-37); Alanine Aminotransfer ALT/SGPT 44 U/L (13-56); Albumin, Serum 3.7 g/dL (3.2-5.0); Alkaline Phosphatase 80 U/L (45-117); Anion Gap 4 (5-15); BUN 11 mg/dL (7-18); BUN/Creat Ratio 11.6 RATIO (10-20); Calcium,Total 9.2 mg/dL (8.5-10.1); Chloride 110 mmol/L (98-107); Creatinine, Serum 0.94 mg/dL (0.55-1.02); EST Glomerular Filtration Rate 65 mL/min (>60); Est Glom Filt Rate - Afr Amer 78 mL/min (>60); Globulin 3.3 g/dL (2.2-4.2); Glucose 98 mg/dL (74-106); Potassium 3.7 mmol/L (3.5-5.1); Sodium Level 141 mmol/L (136-145)
== END | disposition home or self-care (01) ==
LOC: MTLAB 14:40
PROVIDERS: PCP Family Medicine; Referring Provider Internal Medicine Rheumatology; Visit Provider Internal Medicine Rheumatology
DX: M06.09 Rheumatoid arthritis without rheumatoid factor, multiple sites (principal); Z79.899 Other long term (current) drug therapy
CPT/HCPCS: 36415; 80053; 85025

== ENCOUNTER → 2024-02-13 | Outpatient (CLI) | payer BC, SELFPAY ==
[2024-02-13 11:01] LABS: Bacteria 0 SEEN /hpf (None Seen); Mucous, Urine 0 SEEN /hpf (<or=2+)
[2024-02-13 11:16] LABS: Color, Urine Yellow (Yellow); Glucose, Dipstick Normal (Normal); Ketone-Dipstick Negative (Negative); Leukocyte Esterase-Dipstick 25 /ul (Negative); Nitrite-Dipstick Negative (Negative); Occult Blood-Urine 250 /ul (Negative); Protein-Dipstick 100 mg/dl (Negative); Specific Gravity, Urine 1.005 (1.002-1.030); Urine Bilirubin Dipstick Negative (Negative); Urine Clarity Sl. Cloudy (Clear); Urine Urobilinogen Normal (Normal)
[2024-02-13 11:28] LABS: Red Blood Cells-Urine 10-25 SEEN /hpf (0-5); Squamous Epithelial Cells - UA 0-5 SEEN /hpf (5-10); White Blood Cells 10-25 SEEN /hpf (0-5)
== END | disposition home or self-care (01) ==
LOC: LABSPEC 10:21
PROVIDERS: PCP Family Medicine; Referring Provider Nurse Practitioner; Visit Provider Nurse Practitioner
DX: R30.0 Dysuria (principal)
CPT/HCPCS: 81001; 87077; 87086; 87088; 87186

== ENCOUNTER → 2024-02-29 | Outpatient (CLI) | payer BC, SELFPAY ==
[2024-02-29 17:42] LABS: Absolute Lymphocyte Count 1.73 X10^3/uL (0.83-4.51); Absolute Neutrophil Count 1.7 X10^3/uL (2.0-7.7); Basophil# 0.05 X10^3/uL; Basophil% 1.2 % (0-1); Eosinophil# 0.16 X10^3/uL; Eosinophils% 3.9 % (0-5); Hematocrit 36.3 % (37-47); Hemoglobin 11.8 g/dL (12.0-15.0); Lymphocyte # 1.73 X10^3/ul (0.83-4.51); Lymphocyte % 42.4 % (19-41); Mean Corp Hgb Conc 32.5 g/dL (32-36); Mean Corpuscular Hgb 28.2 pg (27.0-32.0); Mean Corpuscular Volume 86.8 fL (81-99); Mean Platelet Vol. 10.9 fl (6.2-12.0); Monocyte# 0.46 X10^3/uL; Monocyte% 11.3 % (0-10); NRBC Flagged by Analyzer 0 % (0-5); Neutrophil # 1.67 X10^3/uL (2.7-7.7); Platelet Count 195 K/mm3 (150-450); RBC Distribution Width CV 13.5 % (11.6-14.6); Red Blood Count 4.18 M/mm3 (4.2-5.4); White Blood Count 4.1 K/mm3 (4.4-11.0)
[2024-02-29 18:21] LABS: ALB/GLOB Ratio 1.1 RATIO (0.9-2.4); AST(SGOT) 25 U/L (15-37); Alanine Aminotransfer ALT/SGPT 36 U/L (13-56); Albumin, Serum 3.7 g/dL (3.2-5.0); Alkaline Phosphatase 79 U/L (45-117); Anion Gap 5 (5-15); BUN 15 mg/dL (7-18); BUN/Creat Ratio 17.9 RATIO (10-20); Calcium,Total 8.9 mg/dL (8.5-10.1); Chloride 107 mmol/L (98-107); Creatinine, Serum 0.84 mg/dL (0.55-1.02); EST Glomerular Filtration Rate 74 mL/min (>60); Est Glom Filt Rate - Afr Amer 90 mL/min (>60); Globulin 3.4 g/dL (2.2-4.2); Glucose 106 mg/dL (74-106); Potassium 3.5 mmol/L (3.5-5.1); Protein, Total 7.1 g/dL (6.4-8.2); Sodium Level 139 mmol/L (136-145)
== END | disposition home or self-care (01) ==
LOC: MTLAB 15:27
PROVIDERS: PCP Family Medicine; Referring Provider Internal Medicine Rheumatology; Visit Provider Internal Medicine Rheumatology
DX: M06.09 Rheumatoid arthritis without rheumatoid factor, multiple sites (principal); Z79.899 Other long term (current) drug therapy; M35.00 Sjogren syndrome, unspecified
CPT/HCPCS: 36415; 80053; 85025

== ENCOUNTER → 2024-05-28 | Outpatient (CLI) | payer BC, SELFPAY ==
[2024-05-28 17:46] LABS: Absolute Neutrophil Count 1.9 X10^3/uL (2.0-7.7); Basophil# 0.06 X10^3/uL; Basophil% 1.2 % (0-1); Eosinophil# 0.21 X10^3/uL; Eosinophils% 4.4 % (0-5); Hematocrit 37.7 % (37-47); Hemoglobin 12.2 g/dL (12.0-15.0); Lymphocyte % 43.7 % (19-41); Mean Corp Hgb Conc 32.4 g/dL (32-36); Mean Corpuscular Hgb 27.5 pg (27.0-32.0); Mean Corpuscular Volume 85.1 fL (81-99); Mean Platelet Vol. 10.4 fl (6.2-12.0); Monocyte# 0.48 X10^3/uL; NRBC Flagged by Analyzer 0 % (0-5); Neutrophil # 1.94 X10^3/uL (2.7-7.7); Neutrophil % 40.3 % (47-70); Platelet Count 273 K/mm3 (150-450); RBC Distribution Width CV 13.3 % (11.6-14.6); Red Blood Count 4.43 M/mm3 (4.2-5.4); White Blood Count 4.8 K/mm3 (4.4-11.0)
[2024-05-28 18:01] LABS: ALB/GLOB Ratio 0.9 RATIO (0.9-2.4); AST(SGOT) 27 U/L (15-37); Alanine Aminotransfer ALT/SGPT 30 U/L (13-56); Albumin, Serum 3.7 g/dL (3.2-5.0); Alkaline Phosphatase 78 U/L (45-117); Anion Gap 4 (5-15); BUN 10 mg/dL (7-18); BUN/Creat Ratio 10.8 RATIO (10-20); Chloride 107 mmol/L (98-107); Creatinine, Serum 0.92 mg/dL (0.55-1.02); EST Glomerular Filtration Rate 66 mL/min (>60); Est Glom Filt Rate - Afr Amer 80 mL/min (>60); Globulin 3.9 g/dL (2.2-4.2); Glucose 88 mg/dL (74-106); Potassium 3.6 mmol/L (3.5-5.1); Protein, Total 7.6 g/dL (6.4-8.2); Sodium Level 139 mmol/L (136-145)
== END | disposition home or self-care (01) ==
LOC: MTLAB 16:06
PROVIDERS: PCP Family Medicine; Referring Provider Internal Medicine Rheumatology; Visit Provider Internal Medicine Rheumatology
DX: M06.09 Rheumatoid arthritis without rheumatoid factor, multiple sites (principal); M35.00 Sjogren syndrome, unspecified; M47.892 Other spondylosis, cervical region; K76.0 Fatty (change of) liver, not elsewhere classified; I87.2 Venous insufficiency (chronic) (peripheral); K21.9 Gastro-esophageal reflux disease without esophagitis; Z79.899 Other long term (current) drug therapy
CPT/HCPCS: 36415; 80053; 85025

== ENCOUNTER → 2024-08-20 | Outpatient (CLI) | payer BC, SELFPAY ==
[2024-08-20 17:51] LABS: Absolute Lymphocyte Count 2.03 X10^3/uL (0.83-4.51); Absolute Neutrophil Count 1.7 X10^3/uL (2.0-7.7); Basophil# 0.07 X10^3/uL; Basophil% 1.6 % (0-1); Eosinophil# 0.22 X10^3/uL; Eosinophils% 4.9 % (0-5); Hematocrit 36.5 % (37-47); Hemoglobin 11.7 g/dL (12.0-15.0); Lymphocyte # 2.03 X10^3/ul (0.83-4.51); Lymphocyte % 45.1 % (19-41); Mean Corp Hgb Conc 32.1 g/dL (32-36); Mean Corpuscular Hgb 27.7 pg (27.0-32.0); Mean Corpuscular Volume 86.3 fL (81-99); Mean Platelet Vol. 11.2 fl (6.2-12.0); Monocyte# 0.47 X10^3/uL; Monocyte% 10.4 % (0-10); NRBC Flagged by Analyzer 0 % (0-5); Neutrophil % 37.8 % (47-70); Platelet Count 197 K/mm3 (150-450); RBC Distribution Width CV 14.1 % (11.6-14.6); RBC Distribution Width SD 43.4 fl (35.1-43.9); Red Blood Count 4.23 M/mm3 (4.2-5.4); White Blood Count 4.5 K/mm3 (4.4-11.0)
[2024-08-20 18:14] LABS: ALB/GLOB Ratio 1.1 RATIO (0.9-2.4); AST(SGOT) 22 U/L (15-37); Alanine Aminotransfer ALT/SGPT 29 U/L (13-56); Albumin, Serum 3.8 g/dL (3.2-5.0); Alkaline Phosphatase 89 U/L (45-117); Anion Gap 5 (5-15); BUN 12 mg/dL (7-18); BUN/Creat Ratio 15.6 RATIO (10-20); Calcium,Total 9.4 mg/dL (8.5-10.1); Chloride 108 mmol/L (98-107); Creatinine, Serum 0.77 mg/dL (0.55-1.02); EST Glomerular Filtration Rate 82 mL/min (>60); Est Glom Filt Rate - Afr Amer 99 mL/min (>60); Globulin 3.4 g/dL (2.2-4.2); Glucose 91 mg/dL (74-106); Potassium 4.1 mmol/L (3.5-5.1); Protein, Total 7.2 g/dL (6.4-8.2); Sodium Level 139 mmol/L (136-145)
== END | disposition home or self-care (01) ==
PROVIDERS: PCP Family Medicine; Referring Provider Internal Medicine Rheumatology; Visit Provider Internal Medicine Rheumatology
DX: M06.09 Rheumatoid arthritis without rheumatoid factor, multiple sites (principal); Z79.899 Other long term (current) drug therapy; M35.00 Sjogren syndrome, unspecified; M47.892 Other spondylosis, cervical region; K76.0 Fatty (change of) liver, not elsewhere classified; I87.2 Venous insufficiency (chronic) (peripheral); K21.9 Gastro-esophageal reflux disease without esophagitis
CPT/HCPCS: 36415; 80053; 85025

== ENCOUNTER → 2024-11-05 | Outpatient (CLI) | payer BC, SELFPAY ==
[2024-11-05 17:56] LABS: Absolute Neutrophil Count 1.5 X10^3/uL (2.0-7.7); Basophil# 0.06 X10^3/uL; Basophil% 1.3 % (0-1); Eosinophils% 4.4 % (0-5); Hematocrit 35.7 % (37-47); Hemoglobin 11.3 g/dL (12.0-15.0); Lymphocyte % 46.6 % (19-41); Mean Corp Hgb Conc 31.7 g/dL (32-36); Mean Corpuscular Hgb 26.7 pg (27.0-32.0); Mean Corpuscular Volume 84.4 fL (81-99); Mean Platelet Vol. 10.9 fl (6.2-12.0); Monocyte% 13.3 % (0-10); NRBC Flagged by Analyzer 0 % (0-5); Neutrophil # 1.54 X10^3/uL (2.7-7.7); Neutrophil % 34.2 % (47-70); Platelet Count 202 K/mm3 (150-450); RBC Distribution Width CV 14.2 % (11.6-14.6); RBC Distribution Width SD 43.1 fl (35.1-43.9); Red Blood Count 4.23 M/mm3 (4.2-5.4); White Blood Count 4.5 K/mm3 (4.4-11.0)
[2024-11-05 18:47] LABS: ALB/GLOB Ratio 1.1 RATIO (0.9-2.4); AST(SGOT) 33 U/L (15-37); Alanine Aminotransfer ALT/SGPT 34 U/L (13-56); Albumin, Serum 3.8 g/dL (3.2-5.0); Alkaline Phosphatase 74 U/L (45-117); Anion Gap 4 (5-15); BUN 10 mg/dL (7-18); BUN/Creat Ratio 12.5 RATIO (10-20); Calcium,Total 8.9 mg/dL (8.5-10.1); Chloride 107 mmol/L (98-107); EST Glomerular Filtration Rate 78 mL/min (>60); Est Glom Filt Rate - Afr Amer 95 mL/min (>60); Globulin 3.5 g/dL (2.2-4.2); Glucose 97 mg/dL (74-106); Potassium 3.6 mmol/L (3.5-5.1); Protein, Total 7.3 g/dL (6.4-8.2); Sodium Level 139 mmol/L (136-145)
== END | disposition home or self-care (01) ==
LOC: MTLAB 15:27
PROVIDERS: PCP Family Medicine; Referring Provider Internal Medicine Rheumatology; Visit Provider Internal Medicine Rheumatology
DX: M06.09 Rheumatoid arthritis without rheumatoid factor, multiple sites (principal); Z79.899 Other long term (current) drug therapy; M35.00 Sjogren syndrome, unspecified; M47.892 Other spondylosis, cervical region; K76.0 Fatty (change of) liver, not elsewhere classified; I87.2 Venous insufficiency (chronic) (peripheral); K21.9 Gastro-esophageal reflux disease without esophagitis
CPT/HCPCS: 36415; 80053; 85025

== ENCOUNTER → 2025-01-23 | Outpatient (CLI) | payer BC, SELFPAY ==
--- NOTE | 2025-01-23 15:32 | RAD_ITS ---
EXAM: Four view right shoulder series CLINICAL HISTORY: Right shoulder pain versus radicular symptoms. COMPARISON: Right shoulder series 02/01/2022. TECHNIQUE: Four view right shoulder series. RAD/Shoulder min 2 Views IMPRESSION: Mild right acromioclavicular joint degenerative changes are noted. Mild degenerative changes about the right humeral head greater tuberosity sugge st the presence of some degree of chronic rotator cuff disease. The right glenohumeral joint is unremarkable in appearance. No acute fracture or dislocation is evident. Reading Location: [id number]
== END | disposition home or self-care (01) ==
LOC: MTRAD 15:30
PROVIDERS: PCP Family Medicine; Referring Provider Clinical Nurse Specialist Adult Health; Visit Provider Clinical Nurse Specialist Adult Health
DX: M25.511 Pain in right shoulder (principal)
CPT/HCPCS: 73030

== ENCOUNTER → 2025-01-31 | Outpatient (CLI) | payer BC, SELFPAY ==
[2025-01-31 16:35] LABS: Absolute Lymphocyte Count 2.03 X10^3/uL (0.83-4.51); Absolute Neutrophil Count 1.8 X10^3/uL (2.0-7.7); Basophil# 0.07 X10^3/uL; Basophil% 1.5 % (0-1); Eosinophil# 0.19 X10^3/uL; Eosinophils% 4.1 % (0-5); Hematocrit 35.6 % (37-47); Hemoglobin 11.5 g/dL (12.0-15.0); Lymphocyte # 2.03 X10^3/ul (0.83-4.51); Lymphocyte % 43.7 % (19-41); Mean Corp Hgb Conc 32.3 g/dL (32-36); Mean Corpuscular Hgb 26.5 pg (27.0-32.0); Mean Platelet Vol. 10.4 fl (6.2-12.0); Monocyte# 0.56 X10^3/uL; NRBC Flagged by Analyzer 0 % (0-5); Neutrophil # 1.78 X10^3/uL (2.7-7.7); Neutrophil % 38.3 % (47-70); Platelet Count 216 K/mm3 (150-450); RBC Distribution Width CV 14.3 % (11.6-14.6); Red Blood Count 4.34 M/mm3 (4.2-5.4); White Blood Count 4.7 K/mm3 (4.4-11.0)
[2025-01-31 17:49] LABS: ALB/GLOB Ratio 1.6 RATIO (0.9-2.4); AST(SGOT) 23 U/L (<=31); Alanine Aminotransfer ALT/SGPT 19 U/L (<=34); Albumin, Serum 4.3 g/dL (3.5-5.0); Alkaline Phosphatase 76 U/L (35-104); Anion Gap 12 (5-15); BUN 10 mg/dL (4-19); BUN/Creat Ratio 11.9 RATIO (10-20); Calcium,Total 9.3 mg/dL (7.6-11.0); Carbon Dioxide 21.4 mmol/L (21.0-32.0); Chloride 106 mmol/L (98-108); Creatinine, Serum 0.81 mg/dL (0.70-1.20); EST Glomerular Filtration Rate 83 (>60); Globulin 2.7 g/dL (2.2-4.2); Glucose 94 mg/dL (70-99); Protein, Total 6.9 g/dL (5.9-8.4); Sodium Level 140 mmol/L (133-145); Total Bilirubin 0.15 mg/dL (0.00-1.30)
== END | disposition home or self-care (01) ==
LOC: LAB 15:18
PROVIDERS: PCP Family Medicine; Referring Provider Internal Medicine Rheumatology; Visit Provider Internal Medicine Rheumatology
DX: M06.09 Rheumatoid arthritis without rheumatoid factor, multiple sites (principal); Z79.899 Other long term (current) drug therapy; M35.00 Sjogren syndrome, unspecified; M47.892 Other spondylosis, cervical region; K76.0 Fatty (change of) liver, not elsewhere classified; I87.2 Venous insufficiency (chronic) (peripheral); K21.9 Gastro-esophageal reflux disease without esophagitis
CPT/HCPCS: 36415; 80053; 85025

== ENCOUNTER 2025-04-20 16:37 | Emergency (ER) | payer BC, SELFPAY ==
[2025-04-20 16:37] VITALS: BP 208/87; PULSE 87; RESP 18; TEMP 36.5; O2SAT 100; BMI 35.0
--- NOTE | 2025-04-20 17:17 | ED.VIS.LOWEX ---
HPI History of Present Illness Chief Complaint: Lower Extremity Injury Informant: patient and family Narrative Narrative: Presents here with sister sudden worsening pain right knee while walking down the steps. There is no direct falls. Patient reports 5 weeks still had pain and swelling in her right knee. She saw her PCP 3 to 4 weeks ago put on Medrol Dosepak with improving symptoms. States an x-ray with mild arthritis. She does have history of rheumatoid arthritis on hydroxychloroquine and on methotrexate and Humira injections. She is not on any blood thinners. She denies fever or chills. States since pain started 11 AM symptoms persistent. No history of gout. Prior similar symptoms: Yes PFSH PFSH Home Medications ?Medication ?Instructions ?Recorded ?Last Taken ?Type Omeprazole [Prilosec] 40 mg PO QHS 06/10/15 Unknown History cholecalciferol (vitamin D3) 10 400 unit PO DAILY 06/10/15 Unknown History mcg (400 unit) capsule (Vitamin D3) flaxseed oil 1,300 mg-omega 3,6,9 1 ea PO TID 06/10/15 Unknown History 845 mg-117 mg-117 mg capsule hydroxychloroquine 200 mg tablet 200 mg PO BIDCM 06/10/15 06/16/15 06:30 History gabapentin 600 mg tablet 600 mg PO BID 04/20/25 Unknown History lisinopril 20 mg tablet 20 mg PO DAILY 04/20/25 Unknown History zinc 50 mg capsule 50 mg PO DAILY 04/20/25 Unknown History Allergy/AdvReac Type Severity Reaction Status Date / Time povidone-iodine (From Allergy Rash Verified 04/20/25 19:11 Betadine) soap (From Betadine) Allergy Rash Verified 04/20/25 19:11 hydrocodone bitartrate (From AdvReac Vomiting Verified 04/20/25 19:11 Vicodin) Social History Smoking Status: Never smoker ROS ROS ED Constitutional Constitutional ED: Denies fever(s) Cardiovascular Cardiovascular: Denies chest pain Respiratory/Chest Respiratory/Chest: Denies cough Gastrointestinal Gastrointestinal: Denies diarrhea or vomiting Musculoskeletal Musculoskeletal: Reports arthralgias; Denies none Integumentary Denies rash or wounds Neurologic Neurologic: Denies weakness EXAM Physical Exam Const Vital Signs: 04/20/25 16:37 04/20/25 20:37 Temperature 97.7 F L Temperature Source Oral Pulse Rate 87 72 Respiratory Rate 18 16 Blood Pressure 208/87 H 155/74 H Blood Pressure Mean 127 101 Pulse Ox 100 99 Oxygen Delivery Method Room Air Room Air Positive well nourished and well developed General Appearance ED: well developed HEENT normocephalic and atraumatic Eyes General Eye ED: Yes normal appearance of both eyes Neck full ROM Resp normal respiratory effort and normal air movement Cardio regular rate and regular rhythm GI soft to palpation Extremity Extremity Narrative: Right lower extremity no redness noted. Knee extensor intact. There was minimal infrapatellar swelling laterally. Positive Ramy's. Pain with movement of the knee. Neuro oriented x3 Skin no rashes or lesions noted and no wounds MDM MDM MDM Narrative Medical decision making narrative: Interventions / MDM: Differential diagnosis: Right knee pain. History of rheumatoid arthritis Diagnosis considered but do not suspect: Septic knee however negative aspiration. Culture pending. My EKG interpretation: N/A Imaging independently reviewed and interpreted by myself: Right knee 4 view x-ray: Mild degenerative changes. No joint effusion noted. Also read by radiology. External documents reviewed: N/A Test considered but not ordered:N/A ED course: Patient elevated blood pressure 208/87 no hypertensive emergency symptoms of headache chest pain shortness of breath or abdominal pain. Will monitor. Nontraumatic worsening right knee pain today infrapatellar swelling. She is immunocompromised with rheumatoid arthritis on medications. Will check labs for inflammatory markers. Will x-ray in the ED. Discussed arthrocentesis to rule out infection for which she agrees. Preparation will be made. 4 view right knee x-ray good spacing mild degenerative changes noted. No joint effusion noted. Also read by radiology. 181: Written consent for right knee arthrocentesis performed. Risks and benefits discussed. Normal sterile conditions. Patient allergic to Betadine, ChloraPrep swabs used to prep the skin. Timeout was performed. Sterile gloves were used, 18-gauge needle and syringe approached lateral infrapatellar approximately 1 inch and noted yellow fluid left total 10 cc were removed. Needle removed mild dark blood controlled with pressure. Patient tolerated the procedure well. 1820: Knee arthrocentesis performed and fluid sent to the lab. Patient tolerated tramadol in the past, I will order dose to help with pain. White count returned normal at 4.1. CRP less than 3 ESR pending. She is on immunosuppressants. Gram stain cell count and crystals are pending. 2148: Cell count 168. Gram stain with no organisms. Crystals are pending. This time with negative cell count and negative Gram stain no infectious concerns. Discussed treatment options. She does have tramadol at home along with prednisone tablet 10 mg. She will use 4 tabs of prednisone daily for next 7 days as this has helped her knee in the past. She will continue tramadol as needed. She is given orthopedics for follow-up as an outpatient. Blood pressure improved without intervention at 155/74. Re-evaluation: stable Disposition discussed with patient/family/significant other: Patient and family Case discussed with consulting clinician: N/A This note was generated with [employer] dictation software. It may contain incorrect words, spelling, and punctuation that were not noted in checking the note before signing. Lab Data Attestation: I reviewed the patient's lab results. Labs: Laboratory Results - last 24 hr 04/20/25 04/20/25 17:15 18:20 WBC 4.1 L RBC 4.18 L Hgb 11.5 L Hct 35.7 L MCV 85.4 MCH 27.5 MCHC 32.2 RDW Std Deviation 50.1 H RDW Coeff of Linda 16.1 H Plt Count 163 MPV 10.7 Immature Gran % (Auto) 0.200 Neut % (Auto) 45.5 L Lymph % (Auto) 35.5 [place] % (Auto) 13.9 H Eos % (Auto) 3.9 Baso % (Auto) 1.0 Absolute Neuts (auto) 1.9 L Absolute Lymphs (auto) 1.45 Nucleated RBC % 0 ESR 8 Sodium 141 Potassium 4.0 Chloride 107 Carbon Dioxide 24.0 Anion Gap 11 BUN 10 Creatinine 0.83 Estim Creat Clear Calc 80.46 Est GFR (MDRD) Non-Af 81 BUN/Creatinine Ratio 11.9 Glucose 91 Calcium 9.4 C-React Prot Ext Range < 3.00 Fluid Source Cancelled Fluid Color Cancelled Fluid Appearance Cancelled Fluid WBC Cancelled Fluid RBC Cancelled Fluid Tot Cell Count Cancelled Fld Polynuclear WBCs # Cancelled Fld Polynuclear WBCs % Cancelled Fluid Mononuclear WBCs Cancelled Fld Mononuclear WBCs % Cancelled Fluid Neutrophils Cancelled Fluid Lymphocytes Cancelled Fluid Monocytes Cancelled Fluid Plasma Cells Cancelled Fluid Macrophages Cancelled Fld Mesothelial Cells Cancelled Fluid Other Cells Cancelled Fluid Crystal Source SYNOVIAL Fl Pathologist Comment Cancelled Fluid Comment 2 Cancelled Synovial Source RIGHT KNEE Synovial Color Straw Synovial Appearance Sl Cl Synovial WBC 0.1680 H Synovial RBC 26 H Synovial Tot Cell Ct 0.2000 H Synov Polynuclear WBCs 0.008 Synov Mononuclear WBCs 0.160 Synovial Neutrophils 6 Synovial Lymphocytes 34 Synovial Monocytes 38 Synovial Plasma Cells 0 Synovial Other Cells 22 Synovial Polynuclear % 4.8 Synovial Mononuclear % 95.[address] Comment May follow Radiography Diagnostic Testing: Clinical Impression(s) from Imaging Studies Knee X-Ray 04/20/25 17:20 IMPRESSION: DEGENERATIVE OSTEOARTHROSIS. NO ACUTE FINDINGS. Reading Location: [facility] Discharge Plan Triage Chief Complaint: Lower Extremity Injury ED Provider: Marc Rees Dx/Rx/DC Orders Clinical Impression: Pain in right knee, History of rheumatoid arthritis, Immunocompromised state Instructions: Knee Pain Prescriptions: No Action hydroxychloroquine 200 MG tablet 200 mg PO BIDCM Patient Comments: R.Arthritis cholecalciferol (vitamin D3) [Vitamin D3] 400 UNIT capsule 400 unit PO DAILY Patient Comments: Vitamin flaxseed oil-omega 3,6,9 1 EACH capsule 1 ea PO TID Patient Comments: supplement Omeprazole [Prilosec] 40 MG capsule 40 mg PO QHS Patient Comments: GERD, Acid reflux gabapentin 600 mg tablet 600 mg PO BID lisinopril 20 mg tablet 20 mg PO DAILY zinc 50 mg capsule 50 mg PO DAILY Primary Care Provider: Asaf Lee Referrals: Asaf Lee MD [Primary Care Provider] - Asaf House MD [Med Staff - Active Staff] - 1 Week Activity Restrictions/Additional Instructions: X-ray my arthritis. Labs are stable. Your knee aspiration and white count and organisms normal. Crystals were pending. Culture pending. Use your tramadol every 6 hours as needed. Take your 10 mg prednisone with total 4 tabs daily for the next 7 days. Follow-up with Dr. House. Print Language: Citizen Of [place] Disposition Disposition: Home, Self Care Discharge Date/Time: 04/20/25 22:05
--- NOTE | 2025-04-20 17:20 | RAD_ITS ---
PROCEDURE: KNEE 4 OR MORE VIEWS 04/20/2025 REASON FOR EXAM: PAIN TECHNIQUE: KNEE 4 OR MORE VIEWS COMPARISON: None. FINDINGS: Bones: No acute fracture. No aggressive osseous lesions. Joints: Normal alignment. Mild degenerative changes. Effusion: No effusion. Soft tissues: Soft tissues are unremarkable. RAD/Knee 4 or More Views IMPRESSION: DEGENERATIVE OSTEOARTHROSIS. NO ACUTE FINDINGS. Reading Location: [id number]
--- OUTSIDE RECORDS SUMMARY | 2025-04-20 17:35 | XMS RPT_ITS | CCD ---
Author Organization [facility] Care Team Providers Care [employer] Name Role Phone Unavailable Primary Care Provider UnavailCholo Wilder Unavailable Cholo Guillen MD Unavailable Asaf Grey MD Unavailable Rheumatolgy Provider Unavailable Unavailable Jennifer LANCASTER, Dr. Matta Unavailable Adarsh reporting manager, . . Unavailable Neurology Provider Unavailable Unavailable Sariah LANCASTER, Dr. Gianni Farr Unavailable [phone] Podiatry Provider Unavailable Unavailable Dhaval JOSHI, Yesy Unavailable Unavailable Swetha Hopkins MD Unavailable Jin HENRYN, Nina Unavailable Bossman HENRYN, Janice Arteaga Unavailable Unavailable Nikita HENRYN, Jenn Unavailable Unavailable Josef Hernandez MD Unavailable Marizol POLANCO-C, Elsie Ball Unavailable Drea Cardoza Unavailable Unavailable Omar HENRYN, Terri Unavailable Unavailable King DEMETRIS-C, Stephan Harris Unavailable Abigail JOSHI, Elsie Barillas Unavailable Unavaila tatiana Kauffman MA, Flavia Unavailable Unavailable Leonel HENRYN, Violetta Unavailable Unavailable Juan HENRYN, Noel Unavailable Unavailable January Salgado RN Unavailable Fouzia JOSHI, Kristen Rodriguez Unavailable Unavailable Ethel HENRYN, Izabel K Unavailable Unavai meli Perea PA-C, Karlie Leary Unavailable Yesy Santacruz Unavailable Kiran CARDIOVASCULAR SPECIALIST, Swetha M Unavailable Unavailab le [place] CARDIOVASCULAR SPECIALIST, Brandy Huff Unavailable Unavailab le [place] CARDIOVASCULAR SPECIALIST, Mara L Unavailable Unavailable [place] CARDIOVASCULAR SPECIALIST, Magdalena Unavailable Unavailabl e [place] CARDIOVASCULAR SPECIALIST, Kae Newberry Unavailable Unavaila ble [place] CARDIOVASCULAR SPECIALIST, Meli Unavailable Unavailable Unavailable Unavailable Dr. Asaf Grey Primary Care Provider Dr. Asaf Grey Referring Provider SHARMIN Alvarado Attending Provider Unavailable Primary Care Provider UnavailASAF Styles Referring Unavailable Jesus LANCASTER, Dr. Ron Primary Care Provider Jennifer LANCASTER, Dr. Matta Attending Provider Jennifer LANCASTER, Dr. Matta Referring Provider NP. Daria Garnett Attending Provider [phone] NP. Daria Garnett Referring Provider [phone] Asaf Grey Primary Care Unavailable Vellanki, Sigrid Referring Unavailable Vellanki, Sigrid Attending Unavailable Asaf Grey Primary Care Unavailable Vellanki, Sigrid Attending Unavailable Vellanki, Sigrid Referring Unavailable Asaf Grey Primary Care Unavailable Asaf Grey Referring Unavailable Marybetho, Meghan Attending Unavailable Asaf Grey Primary Care Unavailable Vellanki, Sigrid Attending Unavailable Vellanki, Sigrid Referring Unavailable Mariola, Daria Referring Unavailable Asaf Grey Primary Care Unavailable Montgomery, Daria Attending Unavailable Vellanki, Sigrid Attending Unavailable Asaf Grey Primary Care Unavailable Vellanki, Sigrid Referring Unavailable Asaf Grey Primary Care Unavailable Ferullo, Meghan Attending Unavailable Ferullo, Meghan Referring Unavailable Vellanki, Sigrid Referring Unavailable Asaf Grey Primary Care Unavailable Vellanki, Sigrid Attending Unavailable ASAF GREY Admitting Unavailable ASAF GREY Attending Unavailable ASAF GREY Consulting Unavailable ASAF GREY Primary Care Unavailable PROVIDER, UNKNOWN Consulting Unavailable PROVIDER, UNKNOWN Consulting Unavailable PROVIDER, UNKNOWN Consulting Unavailable Allergies Allergy Classification Reported Allergen(s) Allergy Type Date of Onset Reaction(s) Facility (17 sources) HYDROcodone; Translations: [hydrocodone bitartrate] Drug Allergy 5 [facility] (20 sources) Povidone-Iodine; Translations: [POVIDONE-IODINE] Drug Allergy 5 [facility] (17 sources) soap; Translations: [soap] Allergy to substance 5 Rash [facility] (20 sources) Acetaminophen / HYDROcodone; Translations: [HYDROCODONE-ACET AMINOPHEN] Drug Allergy 1 Mental Status Change [facility] (20 sources) Povidone-Iodine; Translations: [BETADINE] [facility] [employer] ([facility] Povidone-Iodine Drug Allergy 4 [facility] (1 source) Acetaminophen / HYDROcodone Drug Allergy [facility] Rep[facility] Medications Current Medications Medication Drug Class(es) Dates Sig (Normalized) Sig (Original) apple cider vinegar 600 mg oral capsule (5 sources) apple cider vine gar 600 mg capsule ; (600 mg) Comments: 1200mg daily Comment on above: 1200mg daily cholecalciferol 0.01 mg oral capsule (20 sources) Vitamin D Start: 06-10-2015 take 1 capsule by mouth once daily Cholecalciferol (Vitamin D3) (Vitamin D3) 400 UNIT capsule Active 400 U PO DAILY June 10, 2015 12:00am Comment on above: Cholecalciferol Chol ecalciferol (Vitamin D3) 400 UNIT PO DAILY June 10, 2015 Active 06-10-2015 [facility] ([id number]) docusate sodium 100 mg oral capsule (16 sources) Start: 06-16-2015 take 1 capsule by mouth twice daily as needed for constipation Docusate Sodium (Colace) 100 MG capsule Active 100 mg PO TWICE DAILY NEEDED as needed for Constipation 60 June 16, 2015 12:00am 1 ml etanercept 50 mg/ml prefilled syringe (20 sources) Tumor Necrosis Factor Ondina EnbreL 50 mg/mL (1 mL) subcutaneous syringe ; 1 weekly (50 mg/mL (1 m) ferrous sulfate 325 mg oral tablet (20 sources) Start: 06-10-2015 take 1 tablet by mouth twice daily Ferrous Sulfate (Iron Supplement) 325 MG tablet Active 325 mg PO TWICE A DAY June 10, 2015 12:00am take 1 tablet by mouth once nicole y FERROUS SULFATE, 324 (65 Fe)MG (Oral Tablet Delayed Release) ; 1 daily (324 (65 Fe) MG) Status: Inactive Flaxseed Oil-[place] 3,6,9 (14 sources) Start: 06-10-2015 Flaxseed Oil-O yahir 3,6,9 Active 1 EACH PO THREE TIMES A DAY June 10, 2015 3:06pm Start: 06-10-2015 Flaxseed Oil-O yahir 3,6,9 Active 1 EACH PO THREE TIMES A DAY June 09, 2015 11:00pm Start: 06-10-2015 Flaxseed Oil-O yahir 3,6,9 Active 1 EACH PO THREE TIMES A DAY June 10, 2015 12:00am Flaxseed Oil-[place] 3,6,9 1 EACH capsule (2 sources) Start: 06-10-2015 Flaxseed Oil-O yahir 3,6,9 1 EACH capsule Active 1 NMA PO THREE TIMES A DAY June 10, 2015 12:00am folic acid 1 mg oral tablet (20 sources) take 2 tablets by mouth once daily FOLIC ACID, 1MG (Oral Tablet) ; 2 daily (1 MG) take 1 tablet by mouth twice mario ly folic acid 1 mg tablet Take 1 mg by mouth twice daily. Active Comment on above: Take 1 mg by mouth t wice daily. gabapentin 300 mg oral capsule (20 sources) Anti-epileptic Agent Start: 03-12-2025 gabapentin 300 mg capsule ; 1 (one) Capsule qid for 0 days Quantity: 360 {Capsule} Refills: 1 Ordered: 12-Mar-2025 MD Asaf Grey Start: 12-Mar-2025 Start: 10-08-2024 gabapentin 300 mg capsule ; 1 (one) Capsule qid for 0 days Quantity: 360 {Capsule} Refills: 1 Ordered: 08-Oct-2024 MD Asaf Grey Start: 08-Oct-2024 Start: 02-14-2024 gabapentin 300 mg capsule ; 1 (one) Capsule qid for 0 days Quantity: 360 {Capsule} Refills: 1 Ordered: 14-Feb-2024 MD Asaf Grey Start: 14-Feb-2024 Start: 09-15-2023 gabapentin 300 mg capsule ; 1 (one) Capsule qid for 0 days Quantity: 360 {Capsule} Refills: 1 Ordered: 15-Sep-2023 MD Asaf Grey Start: 15-Sep-2023 take 4 capsules by m outh once daily Gabapentin 400 MG Oral Capsule ; 4 caps daily (400 MG) Status: Inactive GABAPENTIN ORAL Take by mouth. Active GABAPENTIN ORAL Take by mouth. 0 Active Comment on above: Take by mouth. gluc guerrero/chondro guerrero A/vit C/M n (GLUCOSAMINE 1500 COMPLEX ORAL) (7 sources) gluc guerrero/chondro guerrero A/vit C/Mn (GLUCOSAMINE 1500 COMPLEX ORAL) Take by mouth. Active gluc guerrero/chondro guerrero A/vit C/Mn (GLUCOSAMINE 1500 COMPLEX ORAL) Take by mouth. 0 Active Comment on above: Take by mouth. hydroxychloroquine sulfate 200 mg oral tablet (20 sources) Antimalarial, Antirheumatic Agent Start: 2014 take 1 tablet by mouth twice daily at mealtime Hydroxychloroquine 200 MG tablet Active 200 mg PO TWICE DAILY WITH MEALS June 10, 2015 12:00am take 1 tablet by mouth once nicole y Plaquenil 200 MG Oral Tablet ; 1 daily (200 MG) take 2 tablets by mouth once mario ly HYDROXYCHLOROQUINE SULFATE, 200MG (Oral Tablet) ; 2 daily (200 MG) Status: Inactive Comment on above: 200 mg. linseed oil 1000 mg oral capsule (20 sources) take 1 capsule by mo uth three times daily Flaxseed Oil 1200 MG Oral Capsule ; 1 three times daily (1200 MG) Comments: 540mg omega 3 Flaxseed Oil 1,0 00 mg cap Take by mouth. Active Comment on above: Take by mouth. 540mg omega 3 lisinopril 10 mg oral tablet (20 sources) Angiotensin Converting Enzyme Inhibitor Start: 09-05-2024 lisinopriL 10 mg tablet ; 1 (one) Tablet qd for 0 days Quantity: 90 {Tablet} Refills: 1 Ordered: 13-Mar-2025 MD Asaf Grey Start: 13-Mar-2025 Start: 03-06-2024 lisinopriL 10 mg tablet ; 1 (one) Tablet qd for 0 days Quantity: 90 {Tablet} Refills: 1 Ordered: 06-Mar-2024 MD Asaf Grey Start: 06-Mar-2024 Start: 09-07-2023 lisinopriL 10 mg tablet ; 1 (one) Tablet qd for 0 days Quantity: 90 {Tablet} Refills: 1 Ordered: 07-Sep-2023 MD Asaf Grey Start: 07-Sep-2023 Start: 09-19-2018 End: 10-20-2018 take 1 tablet by mouth once daily Lisinopril 5 MG Oral Tablet ; 1 (one) Tablet qd for 0 days Quantity: 30 {Tablet} Refills: 5 Ordered: 20-Oct-2018 MD Asaf Grey Start: 19-Sep-2018 End: 20-Oct-2018 Status: Inactive methotrexate 2.5 mg oral tablet (20 sources) Folate Analog Metabolic Inhibitor take 5 tablets by mouth every week Methotrexate 2.5 MG Oral Tablet ; 5 once weekly (2.5 MG) methotrexate 2.5 mg tablet Take by mouth one time only. Active Comment on above: Take by mouth one ti me only. omeprazole 40 mg delayed release oral capsule (20 sources) Proton Pump Inhibitor Start: 12-11-2024 omeprazole 40 mg capsule,delayed release ; [address] daily for 90 days Quantity: 90 {Capsule} Refills: 1 Ordered: 11-Dec-2024 MD Asaf Grey Start: 11-Dec-2024 Comments: Mail order. Start: 08-20-2024 omeprazole 40 mg capsule,delayed release ; [address] daily for 90 days Quantity: 90 {Capsule} Refills: 1 Ordered: 20-Aug-2024 MD Asaf Grey Start: 20-Aug-2024 Comments: Mail order. Start: 02-20-2024 omeprazole 40 mg capsule,delayed release ; [address] daily for 90 days Quantity: 90 {Capsule} Refills: 1 Ordered: 20-Feb-2024 MD Asaf Grey Start: 20-Feb-2024 Comments: Mail order. Start: 08-24-2023 omeprazole 40 mg capsule,delayed release ; [address] daily for 90 days Quantity: 90 {Capsule} Refills: 1 Ordered: 24-Aug-2023 MD Asaf Grey Start: 24-Aug-2023 Comments: Mail order. Start: 06-10-2015 omeprazole 40 mg capsule,delayed release ; 1 daily (40 mg) Start: 11-Dec-2024 Comment on above: 40 mg. Mail order. oxyCODONE hydrochloride 5 mg oral tablet (16 sources) Opioid Agonist Start: 5 take 5-10 mg by mouth every six hours as needed for pain Oxycodone 5 MG tablet Active 5 - 10 mg PO EVERY 6 HOURS NEEDED as needed for Mod-Severe (Pain Scale 6-10) June 16, 2015 12:00am PARoxetine hydrochloride 20 mg oral tablet (20 sources) Serotonin Reuptake Inhibitor Start: PARoxetine 20 mg tablet ; 1 (one) tablet qd for 0 days Quantity: 90 {Tablet} Refills: 1 Ordered: 29-Oct-2024 JONATHON Cardoza Start: 29-Oct-2024 Start: 06-22-2024 PARoxetine 20 mg tablet ; 1 (one) tablet qd for 0 days Quantity: 90 {Tablet} Refills: 1 Ordered: 22-Jun-2024 JONATHON Cardoza Start: 22-Jun-2024 Start: 12-26-2023 PARoxetine 20 mg tablet ; 1 (one) tablet qd for 0 days Quantity: 90 {Tablet} Refills: 1 Ordered: 26-Dec-2023 MD Asaf Grey Start: 26-Dec-2023 Start: 07-01-2023 PARoxetine 20 mg tablet ; 1 (one) tablet qd for 0 days Quantity: 90 {Tablet} Refills: 1 Ordered: 01-Jul-2023 SHAHAB Littlejohn Brandy Huff Start: 01-Jul-2023 predniSONE 20 mg oral tablet (20 sources) Start: 03-26-2025 predniSONE 20 mg tablet ; 1 (one) Tablet as directed for 0 days Quantity: 20 {Tablet} Refills: 0 Ordered: 26-Mar-2025 MD Asaf Grey Start: 26-Mar-2025 Comments: Take 1 tab tid for 3 days thenTake 1 tab bid for 3 days thenTake 1 tab qd for 3 days thenTake 1/2 tab qd for 4 days. Start: 02-19-2019 End: 08-10-2019 take 3 tablets by mouth once daily, then take 2 tablets by mouth once daily, then take 1 tablet by mouth once daily, then take 0.5 tablet by mouth once daily predniSONE 20 MG Oral Tablet ; Tablet Tablet for 0 days Quantity: 20 {Tablet} Refills: 0 Ordered: 10-Aug-2019 MD Asaf Grey Start: 19-Feb-2019 End: 10-Aug-2019 Status: Inactive Comments: Take 3tabs qd for 3 days thenTake 2tabs qd for 3 days thenTake 1tab qd for 3 days thenTake 1/2tab qd for 4 days. PREDNISONE, 10MG (Oral Tablet) ; as needed (10 MG) Comments: Medication taken as needed. Dr. Rodriguez Comment on above: Medication taken as needed. Dr. Rodriguez Take 3tabs qd for 3 days thenTake 2tabs qd for 3 days thenTake 1tab qd for 3 days thenTake 1/2tab qd for 4 days. Take 1 tab tid for 3 days thenTake 1 tab bid for 3 days thenTake 1 tab qd for 3 days thenTake 1/2 tab qd for 4 days. Red Yeast Rice (16 sources) Start: 06-10-2015 take 600 mg by mouth four times daily Red Yeast Rice Active 600 MG PO 4 TIMES DAILY June 10, 2015 3:06pm Start: 06-10-2015 take 600 mg by mouth four times daily Red Yeast Rice Active 600 mg PO 4 TIMES DAILY June 10, 2015 12:00am Start: 06-10-2015 take 600 mg by mouth four times daily Red Yeast Rice Active 600 MG PO 4 TIMES DAILY June 09, 2015 11:00pm Start: 06-10-2015 take 600 mg by mouth four times daily Red Yeast Rice Active 600 MG PO 4 TIMES DAILY June 10, 2015 12:00am RED YEAST RICE ORAL (7 sources) RED YEAST RICE O RAL Take by mouth. Active RED YEAST RICE O RAL Take by mouth. 0 Active Comment on above: Take by mouth. rizatriptan 10 mg oral tablet (20 sources) Serotonin-1b and Serotonin-1d Receptor Agonist Start: 09-13-2022 Rizatriptan Benzoate 10 MG Oral Tablet ; 1 (one) Tablet take at onset of migraine headache for 0 days Quantity: 10 {Tablet} Refills: 5 Ordered: 13-Sep-2022 SHAHAB Littlejohn Brandy Huff Start: 13-Sep-2022 Start: 03-12-2014 End: 03-24-2021 Rizatriptan Benzoate 10 MG O ral Tablet Disintegrating ; 1 (one) Tablet Disperse Tablet Disperse at onset of headache; may repeat X1 2 hours later if headache persists for 0 days Quantity: 9 {Tablet} Refills: 5 Ordered: 24-Mar-2021 MEKA Kauffman Start: 12-Mar-2014 End: 24-Mar-2021 Status: Inactive sodium fluoride 0.011 mg/mg toothpaste (7 sources) Start: 10-02-2020 Sodium Fluorid e 1.1 % USE ONCE DAILY IN THE EVENING 10/02/2020 Active Comment on above: USE ONCE DAILY IN EVENING vitamin b6 50 mg oral tablet (7 sources) take 1 tablet by mouth once daily pyridoxine, vitamin B6, (VITAMIN B-6) 50 mg tablet Take 50 mg by mouth once daily. Active Comment on above: Take 50 mg by mouth once daily. Vitamin D3 20 MCG (800 UNIT) Oral Tablet (5 sources) take 1 tablet by mouth once daily Vitamin D3 20 MCG (800 UNIT) Oral Tablet ; 1 daily (20 MCG (800 UNIT)) Completed/Discontinued Medications Medication Drug Class(es) Dates Sig (Normalized) Sig (Original) amLODIPine 5 mg oral tablet (20 sources) Dihydropyridine Calcium Channel Ondina Start: 05-05-2016 End: 12-20-2016 take 1 tablet by mouth once daily AmLODIPine Besylate 5 MG Oral Tablet ; 1 (one) Tablet daily for 0 days Quantity: 30 {Tablet} Refills: 0 Ordered: 20-Dec-2016 MADELYN Hayes Start: 05-May-2016 End: 20-Dec-2016 Status: Inactive atorvastatin 20 mg oral tablet (20 sources) HMG-CoA Reductase Inhibitor Start: 02-13-2013 End: 09-11-2013 take 1 tablet by mouth once daily ATORVASTATIN CALCIUM, 20MG (Oral Tablet) ; 1 Tablet daily for 0 days Quantity: 30 {Tablet} Refills: 2 Ordered: 13-Feb-2013 MD Swetha Hopkins Start: 13-Feb-2013 End: 11-Sep-2013 Status: Discontinued cephalexin 500 mg oral capsule (20 sources) Cephalosporin Antibacterial Start: 09-10-2024 End: 09-20-2024 cephALEXin 500 mg capsule ; 2 (two) capsule bid for 10 days Quantity: 40 {Capsule} Refills: 0 Ordered: 10-Sep-2024 SHAHAB Nelson Start: 10-Sep-2024 End: 20-Sep-2024 Status: Inactive Start: 02-11-2024 End: 02-18-2024 take 1 capsule by mouth twice daily Cephalexin 500 mg capsule Discontinued 500 mg PO TWICE A DAY 14 7 February 11, 2024 12:00am February 17, 2024 12:00am February 18, 2024 12:16am ciprofloxacin 500 mg oral tablet (20 sources) Quinolone Antimicrobial Start: 02-16-2024 End: 02-23-2024 ciprofloxacin 500 mg tablet ; 1 (one) tablet bid for 7 days Quantity: 14 {Tablet} Refills: 0 Ordered: 16-Feb-2024 MD Asaf Grey Start: 16-Feb-2024 End: 23-Feb-2024 Status: Inactive Fish Oils (20 sources) Fish Oil Status: Inactive furosemide 20 mg oral tablet (20 sources) Loop Diuretic Start: 05-02-2015 End: 04-16-2016 take 0.5-1 tablets by mouth once daily as needed FUROSEMIDE, 20MG (Oral Tablet) ; 1/2-1 Tablet Tablet daily as needed for leg swelling for 0 days Quantity: 30 {Tablet} Refills: 2 Ordered: 16-Apr-2016 MADELYN Hayes Start: 02-May-2015 End: 16-Apr-2016 Status: Inactive Comments: Medication taken as needed. Comment on above: Medication taken as needed. Glucosamine Chondroitin Complx Oral Capsule (20 sources) take 1 capsule by mouth twice daily Glucosamine Chondroitin Complx Oral Capsule ; 1 bid Status: Inactive take 1 capsule by mouth twice da vineet Glucosamine Chondroitin Complx Oral Capsule ; 1 bid hydroCHLOROthiazide 12.5 mg oral capsule (20 sources) Thiazide Diuretic Start: 09-18-2020 End: 11-02-2022 take 1 tablet by mouth once daily hydroCHLOROthiazide 12.5 MG Oral Capsule ; 1 (one) Tablet daily for 0 days Quantity: 90 {Capsule} Refills: 1 Ordered: 02-Nov-2022 MD Asaf Grey Start: 27-Oct-2022 End: 02-Nov-2022 Status: Inactive hydrOXYzine hydrochloride 25 mg oral tablet (20 sources) Antihistamine Start: 07-01-2023 End: 09-10-2024 hydrOXYzine HCL 25 mg tablet ; 1 (one) tablet q 6hrs prn pain for 0 days Quantity: 40 {Tablet} Refills: 0 Ordered: 10-Sep-2024 SHAHAB Nelson Start: 01-Jul-2023 End: 10-Sep-2024 Status: Inactive leucovorin 15 mg oral tablet (20 sources) Folate Analog take 1 tablet by mouth every week Leucovorin Calcium 15 MG Oral Tablet ; 1 weekly (15 MG) Status: Inactive medroxyPROGESTERone acetate 10 mg oral tablet (16 sources) Progestin Start: 06-10-2015 End: 06-16-2015 take 1 tablet by mouth once daily Medroxyprogesterone (Provera) 10 MG tablet Discontinued 10 mg PO DAILY June 10, 2015 12:00am June 16, 2015 10:01am meloxicam 15 mg oral tablet (20 sources) Nonsteroidal Anti-inflammatory Drug take 1 tablet by mouth once daily as needed MELOXICAM, 15MG (Oral Tablet) ; 1 daily prn (15 MG) Status: Inactive Comments: rarely uses; upsets her stomach and did not help the foot pain she is having Comment on above: rarely uses; upsets her stomach and did not help the foot pain she is having nitrofurantoin, macrocrystals 25 mg / nitrofurantoin, monohydrate 75 mg oral capsule (20 sources) Nitrofuran Antibacterial Start: 12-05-2020 End: 12-10-2020 take 1 capsule by mouth twice daily Macrobid 100 MG Oral Capsule ; 1 (one) Capsule BID for 5 days Quantity: 10 {Capsule} Refills: 0 Ordered: 05-Dec-2020 JONATHON Perea Start: 05-Dec-2020 End: 10-Dec-2020 Status: Inactive polymyxin b 59749 unt/ml / trimethoprim 1 mg/ml ophthalmic solution (20 sources) Dihydrofolate Reductase Inhibitor Antibacterial, Polymyxin-class Antibacterial Start: 05-18-2011 End: 05-25-2011 take 2 drop(s) into the eye(s) four times daily POLYTRIM, 02732-4.1UNIT/ML-% (Ophthalmic Solution) ; 2 (two) drop(s) four times daily for 7 days Quantity: 1 {bottle(s)} Refills: 0 Ordered: 18-May-2011 MD Swetha Hopkins Start: 18-May-2011 End: 25-May-2011 Status: Inactive potassium chloride 20 meq extended release oral tablet (20 sources) Start: 01-07-2023 potassium chloride ER 20 mEq tablet,extended release ; 1 (one) qd (20 mEq) Start: 05-Jan-2024 Status: Inactive Start: 08-30-2020 KLOR-CON M20 2 0 mEq tablet 08/30/2020 Active Comment on above: Mail order. potassium gluconate 2.5 meq oral tablet (20 sources) take 1 tablet by mouth once daily Potassium 99 MG Oral Tablet ; 1 daily (99 MG) Status: Inactive red yeast rice 600 mg oral capsule (20 sources) take 2 capsules by mouth twice daily RED YEAST RICE, 600MG (Oral Capsule) ; 2 two times daily (600 MG) Status: Inactive traMADol hydrochloride 50 mg oral tablet (20 sources) Opioid Agonist take 1 tablet by mouth three times daily as needed TraMADol HCl 50 MG Oral Tablet ; 1 tid prn (50 MG) Status: Inactive triamcinolone acetonide 1 mg/ml topical cream (20 sources) Corticosteroid Start: 8 End: 8 Triamcinolone Acetonide 0.1 % External Cream ; 1 (one) Application(s) Application(s) two times daily for 0 days Quantity: 80 {gram(s)_tube} Refills: 0 Ordered: 19-Sep-2018 SHAHAB Littlejohn Brandy Huff Start: 26-Dec-2017 End: 19-Sep-2018 Status: Inactive Problems Active Problems Problem Classification Problem Date Documented Date Episodic/Chronic Abdominal pain (20 sources) Abdominal pain; Translations: [Unspecified abdominal pain] 06-20-2017 Episodic Administrative/social admission (20 sources) Dietary surveillance and counseling; Translations: [Repeated prescription] 09-24-2019 Episodic Allergic reactions (20 sources) Contact dermatitis; Translations: [Unspecified contact dermatitis, unspecified cause] 09-24-2019 Episodic Anxiety disorders (20 sources) Generalized anxiety disorder; Translations: [Generalized anxiety disorder] 09-13-2023 Chronic Chronic obstructive pulmonary disease and bronchiectasis (20 sources) Bronchitis; Translations: [Bronchitis, not specified as acute or chronic] 09-10-2024 Episodic Coagulation and hemorrhagic disorders (20 sources) Easy bruising; Translations: [Spontaneous ecchymoses] 05-06-2016 Episodic Deficiency and other anemia (20 sources) Iron deficiency anemia; Translations: [Iron deficiency anemia, unspecified] 09-13-2023 Episodic Disorders of lipid metabolism (20 sources) Hyperlipidemia; Translations: [Hyperlipidemia, unspecified] 03-15-2022 Chronic Esophageal disorders (20 sources) Gastroesophageal reflux disease; Translations: [Gastro-esophageal reflux disease without esophagitis] 09-13-2023 Chronic Essential hypertension (20 sources) Benign essential hypertension; Translations: [Essential (primary) hypertension] 09-13-2023 Chronic Fluid and electrolyte disorders (20 sources) Hypokalemia; Translations: [Hypokalemia] 09-06-2017 Episodic Headache; including migraine (20 sources) Migraine; Translations: [Migraine, unspecified, not intractable, without status migrainosus] 09-13-2023 Chronic Immunizations and screening for infectious disease (20 sources) Other and unspecified nonspecific immunological findings; Translations: [Need for prophylactic vaccination and inoculation against influenza] 09-24-2019 Episodic Inflammation; infection of eye (except that caused by tuberculosis or sexually transmitteddisease) (20 sources) Hordeolum externum 09-24-2019 Episodic Menstrual disorders (20 sources) Menorrhagia; Translations: [Excessive and frequent menstruation with regular cycle] 05-02-2015 Chronic Noninfectious gastroenteritis (20 sources) Gastroenteritis; Translations: [Noninfective gastroenteritis and colitis, unspecified] 09-24-2019 Episodic Nonspecific chest pain (20 sources) Chest pain; Translations: [Chest pain, unspecified] 12-20-2016 Episodic Nutritional deficiencies (20 sources) Vitamin D deficiency; Translations: [Vitamin D deficiency, unspecified] 09-13-2023 Chronic Other circulatory disease (20 sources) Raynaud's phenomenon; Translations: [Raynaud's syndrome without gangrene] 09-13-2023 Chronic Other circulatory disease (20 sources) Prehypertension; Translations: [Elevated blood-pressure reading, without diagnosis of hypertension] 05-02-2015 Episodic Other circulatory disease (20 sources) Elevated blood pressure reading without diagnosis of hypertension 02-13-2013 Episodic Other connective tissue disease (20 sources) Tendinitis; Translations: [Enthesopathy, unspecified] 09-24-2019 Episodic Other connective tissue disease (20 sources) Foot pain; Translations: [Pain in unspecified foot] 01-27-2021 Episodic Other connective tissue disease (20 sources) Trochanteric bursitis of left hip; Translations: [Trochanteric bursitis, left hip] 11-19-2020 Episodic Other connective tissue disease (20 sources) Pain in lower limb; Translations: [Pain in right leg] 11-08-2016 Episodic Other connective tissue disease (20 sources) Pain in right foot; Translations: [Pain in right foot] 05-14-2014 Episodic Other female genital disorders (20 sources) Dysplasia of cervix; Translations: [Dysplasia of cervix uteri, unspecified] 09-13-2023 Episodic Comment on above: had cryo ~late ; no abnormal paps since Other liver diseases (20 sources) Steatosis of liver; Translations: [Fatty (change of) liver, not elsewhere classified] 09-13-2023 Chronic Other nervous system disorders (20 sources) Neuropathy; Translations: [Polyneuropathy, unspecified] 09-13-2023 Chronic Other non-traumatic joint disorders (20 sources) Ankle pain; Translations: [Pain in right ankle and joints of right foot] 09-24-2019 Episodic Other non-traumatic joint disorders (20 sources) Joint finding; Translations: [Joint disorder, unspecified] 05-06-2016 Episodic Other non-traumatic joint disorders (1 source) Hip pain; Translations: [Pain in unspecified hip] 11-18-2020 Episodic Other non-traumatic joint disorders (1 source) Pain in right shoulder; Translations: [Pain in right shoulder] Onset: 01-28-2025 Episodic Other non-traumatic joint disorders (12 sources) Pain in right knee; Translations: [Pain in joint, lower leg] 03-12-2025 Episodic Other nutritional; endocrine; and metabolic disorders (20 sources) Body mass index 30+ - obesity; Translations: [Body mass index (BMI) 36.0-36.9, adult] 09-13-2023 Chronic Other nutritional; endocrine; and metabolic disorders (20 sources) Obesity caused by energy imbalance; Translations: [Morbid (severe) obesity due to excess calories] 09-13-2023 Chronic Other nutritional; endocrine; and metabolic disorders (20 sources) Obesity; Translations: [Obesity, unspecified] 09-15-2021 Chronic Other screening for suspected conditions (not mental disorders or infectious disease) (20 sources) Mammography abnormal; Translations: [Other abnormal and inconclusive findings on diagnostic imaging of breast] 09-13-2023 Episodic Residual codes; unclassified (20 sources) Daytime somnolence; Translations: [Other hypersomnia] 09-19-2018 Chronic Residual codes; unclassified (20 sources) Peripheral edema; Translations: [Edema, unspecified] 04-16-2016 Episodic Rheumatoid arthritis and related disease (20 sources) Rheumatoid arthritis; Translations: [Rheumatoid arthritis, unspecified] Onset: 02-05-2025 09-13-2023 Chronic Screening and history of mental health and substance abuse codes (20 sources) Patient encounter status; Translations: [Encounter for screening for depression] 01-27-2021 Episodic Spondylosis; intervertebral disc disorders; other back problems (20 sources) Low back pain; Translations: [Lumbago] 10-08-2019 Episodic Systemic lupus erythematosus and connective tissue disorders (20 sources) Sicca syndrome 02-13-2013 Chronic Unclassified (20 sources) Number of Children 09-13-2023 Comment on above: 1. Unclassified (20 sources) Number of Pregnancies 09-13-2023 Comment on above: 1. Unclassified (20 sources) Vaginal deliveries 09-13-2023 Comment on above: 1. Unclassified (20 sources) Follow Up for Multiple Chronic Conditions - The patient is here for follow-up of arthritis, GERD and hypertension. The patient always takes the prescribed medications. Side effects noted (has dry cough since starting Lisinopril.). The patient has low activity level and no regular exercise program. The patient's out of office blood pressure checks occur rarely and dietary compliance is fairly good usually adhering to recommendations. The patient states that there is no recent angina or dyspnea, weight has increased (up 8 pounds) and headaches are noted often but not on daily basis. Note for Multiple chronic conditions follow-up: reviewed by [facility] 03-14-2023 Unclassified (20 sources) Follow Up for Multiple Chronic Conditions - The patient is here for follow-up of arthritis (RA), hypertension, obesity and other condition(s) (Vitamin D deficiency.). The patient always takes the prescribed medications. No side effects noted (needs refill). The patient has an active lifestyle but no regular exercise program. The patient's out of office blood pressure checks occur rarely and dietary compliance is fairly good usually adhering to recommendations. The patient states that there is no recent angina or dyspnea, weight has increased (up 10 pounds) and headaches are noted often but not on daily basis. Note for Multiple chronic conditions follow-up: Complains of occasional dizziness. reviewed by [facility] 03-15-2022 Unclassified (20 sources) Follow Up for Multiple Chronic Conditions - The patient is here for follow-up of arthritis, GERD, hypertension, obesity and other condition(s) (Vitamin D deficiency). The patient always takes the prescribed medications. No side effects noted (needs refills). The patient has an active lifestyle but no regular exercise program. The patient's out of office blood pressure checks occur rarely and dietary compliance is fairly good usually adhering to recommendations. The patient states that there is no recent angina or dyspnea, weight has increased (up 1 pound) and headaches have been noticed occasionally. Note for Multiple chronic conditions follow-up: reviewed by [facility] 09-15-2021 Unclassified (20 sources) Follow Up for Multiple Chronic Conditions - The patient is here for follow-up of arthritis, GERD, hypertension and obesity. The patient always takes the prescribed medications. No side effects noted. The patient has an active lifestyle but no regular exercise program (active at work daily walking). The patient's out of office blood pressure checks occur rarely. The patient states that there is no recent angina or dyspnea and there are no vision changes or weakness. Note for Multiple chronic conditions follow-up: patient is complaining of daily headaches. noticed about the last month. reviewed by [facility] 03-24-2021 Unclassified (20 sources) Leg pain - The leg pain began suddenly and has been occurring for 1 week. The symptoms have been occurring in an increasing pattern. The symptoms are described as a pain and are mild to moderate in severity. There is involvement of the lower extremities (both). There are no precipitating factors. There are no relieving factors. Note for Leg pain: -Recent hysterectomy (2 weeks ago today), using some oxycodone she had left over from that. Wearing support hose (started wearing a week after surgery due to increase in chronic LE edema). Pain is worse R>L. Has h/o chronic peripheral edema but it is usually not this painful. Has been less active as she recovers from surgery. No personal or family history of DVT.Willing to have flu vaccine. 07-01-2015 Unclassified (20 sources) Follow up for multiple chronic conditions - The patient is here for follow-up of hyperlipidemia, GERD and other condition(s) (rheumatoid arthritis). The patient always takes the prescribed medications. No side effects noted. The patient has an active lifestyle but no regular exercise program. The patient's out of office blood pressure checks occur occasionally. Note for Multiple chronic conditions follow-up: Patient feels her iron may need checked. Was told when she went to donate blood it was low and then Dr. Carrero said it was low. She started an otc 65mg ferrous sulfate daily in February in hopes it would help. Complains of dizziness and fatigue during the day (this has been going on for a while).Wakes up in the AM and doesn't feel rested. Feels very sleepy when driving to work in the AM and almost can't stay awake. No known sleep apnea. 09-10-2014 Unclassified (20 sources) Follow Up for Multiple Chronic Conditions - The patient is here for follow-up of anxiety, arthritis, GERD, hypertension, obesity and other condition(s) (Vitamin D deficiency). The patient always takes the prescribed medications. No side effects noted (does not need refill). The patient has low activity level and no regular exercise program. The patient's out of office blood pressure checks occur rarely and dietary compliance is fairly good usually adhering to recommendations. The patient states that there is no recent angina or dyspnea, weight has increased (up 3 pounds) and headaches have been noticed occasionally. Note for Multiple chronic conditions follow-up: reviewed by [facility] 03-12-2024 Unclassified (5 sources) Follow up for multiple chronic conditions - The patient is here for follow-up of anxiety, arthritis, GERD, hypertension and obesity. The patient always takes the prescribed medications. No side effects noted. The patient has an active lifestyle but no regular exercise program. The patient's out of office blood pressure checks occur rarely. The patient states that headaches are noted often but not on daily basis. Note for Multiple chronic conditions follow-up: She c/o R knee and leg pain for about a week. Using a brace on the knee. No known injury. 03-12-2025 Urinary tract infections (20 sources) Urinary tract infectious disease; Translations: [Urinary tract infection, site not specified] 12-05-2020 Episodic Past or Other Problems Problem Classification Problem Date Documented Date Episodic/Chronic Genitourinary symptoms and ill-defined conditions (7 sources) Dysuria; Translations: [Dysuria] Onset: 02-17-2024 02-11-2024 Episodic Unclassified (20 sources) Well Adult, female - The patient feels well with no complaints, has good energy level and is sleeping poorly. The patient has a balanced diet and takes supplemental vitamins. The patient does not exercise. The patient sleeps 5 hours per night. Note for Well Adult, female: reviewed by [facility] 09-13-2023 Unclassified (20 sources) Stress/Anxiety - Pt having stress and anxiety causing hives. Pt has had symptoms for years, Causing itching. Has been on medicine in past for hives. Pt thinks is needing anxiety medications. 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 reviewed by [facility] 07-01-2023 Unclassified (20 sources) Well Adult, female - The patient feels well with minor complaints (goes to pain management, is also getting migraines twice a week.), has good energy level and is sleeping poorly. The patient has a balanced diet and takes supplemental vitamins. The patient does not exercise. The patient sleeps 5 hours per night. 09-13-2022 Unclassified (20 sources) Foot pain - The pain is in the left foot. The onset of the foot pain was sudden and has been occurring in a persistent pattern for 12 weeks. The course has been without change. The pain is moderate. The pain is characterized as a burning sensation. Note for Foot pain: Painful to walk. reviewed by [facility] 01-27-2021 Unclassified (20 sources) UTI - Symptoms include dysuria, urinary frequency, urinary urgency and hematuria, but do not include back pain. The pain radiates to the suprapubic area. The patient describes the pain as sharp. Onset was sudden 8 hour(s) ago. There is no known event that preceded symptom onset. The symptoms occur constantly. The patient describes this as moderate in severity and worsening. Associated symptoms do not include fever, chills or nausea. Note for UTI: Kidney stone 20 years ago - doesn't feel similar to her. 12-05-2020 Unclassified (20 sources) Hip pain - The onset of the hip pain has been acute and has been occurring in a persistent pattern for 2 days (started Tuesday morning). The course has been constant. The hip pain is described as being a mild to moderate dull aching (constant ache says its a 9 out of 10) located in the hip and in the buttocks. The pain is aggravated by any movement and sitting. Relieving factors include nothing (pt has tired ice heat and tylenol). The symptoms have been associated with limping, decreased range of motion and difficulty arising from chair, while the symptoms have not been associated with stiffness, weakness, numbness, tingling, grinding, catching, locking or swelling in the leg. Previous diagnostic tests have included plain radiographs (xray done at urgent are yesterday). Previous evalutations have been completed by another provider (urgent care). Note for Hip pain: [place] and called it tendinitis they told her to take tylenol and ice and heat she cant take nsaids or prednisone 11-19-2020 Unclassified (20 sources) Well Adult, female - The patient feels well with minor complaints (Complains of legs aching), has decreased energy level and is sleeping well. The first day of the last menstrual period was : (hysterectomy 2014). The patient has a balanced diet and takes no supplemental vitamins & iron. The patient does not exercise. The patient sleeps 6 hours per night. 09-24-2020 Unclassified (20 sources) Well adult female - The patient feels well with minor complaints. The patient has an inappropriate diet. The patient does not exercise. The patient sleeps 5 hours per night. Note for Well adult female: reviewed by [facility] 09-24-2019 Unclassified (20 sources) Foot pain - The pain is in the left foot and is located in the midfoot (lateral side). The onset of the foot pain was sudden and has been occurring in a persistent pattern for 4 days (in the past, has had pain of the left foot pain that would occur for about 1 week or so then go away). The course has been worsening. The pain is characterized as a sharp stabbing (burning). There have been no previous diagnostic tests. There have been no previous surgeries. Note for Foot pain: Tried Bengay, salonpas patches. reviewed by [facility] 08-10-2019 Unclassified (20 sources) Leg Pain - The leg pain began gradually over time and has been occurring for 1 month. The symptoms have been occurring in an increasing pattern. The symptoms are described as a dull ache and are mild to moderate in severity. There is involvement of the lower extremities (both). There are no aggravating factors. There are no relieving factors. Note for Leg pain: Gabapentin is no longer helping the pain. Wears compression stockings reviewed by [facility] 07-03-2019 Unclassified (20 sources) Wrist pain - The pain is in the left wrist and is described as being located in the entire wrist. The onset of the wrist pain has been sudden and has been occurring in a persistent pattern for 1 week. The course has been increasing. The wrist pain is characterized as a moderate dull aching. Aggravating factors include physical activity and any movement. There are no relieving factors. Associated features include painful ROM, but do not include joint swelling. Note for Wrist pain: pt has RA and has prednisone 10mg at home-she took this for 2 days and did not notice a difference the pain. reviewed by [facility] 02-19-2019 Unclassified (20 sources) Well Adult, female - The patient feels well with minor complaints (complains of frequent dizziness), has decreased energy level and is sleeping poorly. The first day of the last menstrual period was : (hysterectomy 2014). The patient has a balanced diet and takes supplemental vitamins. The patient does not exercise. The patient sleeps 6 hours per night. Note for Well Adult, female: reviewed by [facility] 09-19-2018 Unclassified (20 sources) Diarrhea - The onset of the diarrhea has been acute and has been occurring in a persistent pattern for 3 days. The course has been increasing. The stools are watery. The frequency of bowel movements has been 20 per day. The symptoms have been associated with nausea and vomiting (two days ago vomited a couple of times.). Note for Diarrhea: No OTC meds have been tried. 01-04-2018 Unclassified (20 sources) Rash - The onset of the rash has been gradual and has been occurring in a persistent pattern for 1 week. The course has been increasing (started off as an itchy area and then red [place] began.). The rash is characterized as red (and round although [place] is irregular ([id number]).). There has been no progression. There has been associated itching and erythema, while there has been no associated pain or drainage. Note for Rash: Area right above left hip area in back. No other associated symptoms. Has not used any OTC's on this. reviewed by [facility] 12-26-2017 Unclassified (20 sources) Discuss X-ray results - Pt here today to discuss results of Lumbar Spine X-rays. Was seen 06/13/[address] had [address] of abdomen and Pelvis which were normal. COntinues to have pain in right lower back/right hip area. 06-20-2017 Unclassified (20 sources) Side Pain - Pt here today because she has been experiencing some right sided pain for about a month and gradually worsening. Pain starts in lower right side and radiates around into back and lower ab domal area and also down right leg to mid thigh. She has hex of rheumatoid arthritis and Dr. Hernandez told her it was due to her RA. No problems with urinating, no problems with bowels. Had Hysterectomy done May 2015 but has one ovary but she is not sure which side. No fever or chills. No n/v. Pain is pretty persistent day and night. Does not use any OTC for this. Does have some Tramadol at home and uses those once in awhile but they do take the pain away. reviewed by [facility] 06-13-2017 Unclassified (20 sources) Chest pain - The pain has been occurring in a persistent pattern for 2 weeks. The pain is described as a sharp pain. The pain is described as being located in the epigastrium and radiates to the right chest and back (mid-back). The symptoms are relieved by rest. The symptoms have been associated with neck pain (did have neck pain one time, patient fell asleep in a chair), but have not been associated with fever, headache, nausea, palpitations (no shortness of breath) or vomiting. Previous evaluations include ECG (05/2015) and chest X-ray (03/2016). There is no medical history of cigarette smoking. Note for Chest pain: On Tuesday, the chest pain was more of a shooting pain of the middle of her chest and radiated to the right side of her chest. The pain is aggravated with physical activity. For the past couple of weeks, been having pain of the right flank area above the right hip that is described as being a dull achy constant pain that will worsen in severity at times. No known Injury. Patient has RA. Was seen by [facility], was told that she has buildup in arteries of her lower legs. Reviewed by [facility]. 12-20-2016 Unclassified (20 sources) Leg Pain - The leg pain began gradually over time and has been occurring for 3 years. The symptoms have been occurring in an increasing pattern. The symptoms are described as a dull ache and are moderate in severity. There is involvement of the left lower extremity and right lower extremity. There are no precipitating factors. Note for Leg pain: Saw vascular specalist in September. Has a history of Rheumatoid arthritis. Has been using compression hose for the past year. Reviewed by [facility]. 11-08-2016 Unclassified (20 sources) Well Adult, female - The patient feels well with minor complaints (1) Pt has h/o bilateral lower leg discomfort. Pt. most always wears elastic hose, which helps with leg pain. Recently legs have been more painful, even with ryan hose...she feels this could be raynauds related as her toes have been changing color more frequently.... 2) Pt. blood pressures have been within nrmal range, but pulses have been fast. Pt. recently started hctz ( March) after an E.R. visit. She needs refills if this medication is to continue), has decreased energy level and is sleeping poorly. The first day of the last menstrual period was : (05/2015). The current method of contraception is: none (hysterectomy). The patient has an inappropriate diet (does not eat fruit and vegaetatables regularly). The patient exercises none (walks alot at work). The patient sleeps 6 hours per night. 05-06-2016 Unclassified (20 sources) Follow up consultation - The patient is here to follow-up after Emergency Room/Urgent Care (Patient went to [place] [facility] on 04/13/2016 for headache and hypertension. A CT of the brain was done, was negative. EKG was normal. Was given Reglan and Benadryl. Headache improved. Patient is here today following up with PCP). Note for Consultation follow-up: Continues to have a slight headache and dizziness when changing positions. Has been having the dizziness for about one week and is recurrent. Did have episode vertigo in February that resolved but since then she is sensitive to sudden position changes.On Tuesday afternoon, she had yellow spots of her vision. Was seen by the eye doctor on 04/05/2016 and asked about her having high blood pressure. Mentioned to patient that she should be on blood pressure medication due to vessels of her eye. Is receiving new prescription eye glasses. On Tuesday afternoon, she took Aleve but did not relieve the headache very much. Has not taken Rizatriptan due to being unsure if she can take while taking meloxicam. Did call and talk to the pharmacist and was told that it would be okay to take Rizatriptan and Meloxicam. Is having pain of bilateral lower legs that has been going on for awhile. Been wearing compression stocking that used to help. For the past three weeks, the stocking have not helped as much. Brought list of blood pressure readings today ([id number], 130-140s/80s average last couple days) 04-16-2016 Unclassified (20 sources) [ADDITIONAL REASON] Transition into care - The patient is transitioning into care from an emergency room ([facility] on 04/13/2016) and a summary of care was reviewed . 04-16-2016 Unclassified (20 sources) Well Adult, female - The patient feels well with minor complaints (hives and ankle swelling), has decreased energy level and is sleeping poorly. The first day of the last menstrual period was : (04/13/15). The patient has a balanced diet and takes supplemental vitamins. The patient does not exercise. The patient sleeps 6 (interrupted) hours per night. Note for Well Adult, female: reviewed by [facility] 05-02-2015 Unclassified (20 sources) continued ankle swelling/pain - Patient has had right ankle pain/swelling for about 2 years. Xray 2 years ago was negative for any fractures/lesions. At her last office visit here we did a uric acid level which was low. She saw her Superintendent Track in March who did not think it was related to her RA. She states the swelling comes and goes. Starts in her ankle and goes up into her ford/calf area. The pain is throbbing and present all the time. At times it worsens and becomes sharp/burning (daily after work). No injury that she knows of. There is no numbness or tingling. Sometimes it is so painful that she cant hardly walk on it. Visibly swollen when pain is at its worst and notes red over dorsum of foot. Flare ups last 2-2.5 days; even blanket on it is painful. 05-14-2014 Unclassified (20 sources) Well adult female - The patient feels well with minor complaints (She has continued right ankle pain and swelling. We had done xrays in 2011 that were negative, then she was diagnosed with RA. They attributed it to that. However, the pain has continued. She is not really happy with Dr. Leavitt and would like to discuss seeing someone else. Would prefer to go [place] towards [facility]. Would like us to re-examine. She states that she has some vertigo but she feels that is because she doesn't eat or drink well, is under stress with her sons health concerns.), has decreased energy level and is sleeping poorly. The first day of the last menstrual period was : (02/21/14). The patient has an inappropriate diet and takes supplemental vitamins. The patient does not exercise. 03-12-2014 Unclassified (20 sources) Follow Up for Multiple Chronic Conditions - The patient is here for follow-up of hyperlipidemia and GERD. The patient has stopped the recommended medications (patient stopped the statin and has been taking flaxseed and red yeast rice. Would like to have an order for her cholesterol to be rechecked when she has her bloodwork done for dr Leavitt. If the numbers are not good she will go back on the statin, but wanted to try the herbs.). The patient has an active lifestyle but no regular exercise program. The patient's out of office blood pressure checks occur occasionally. 09-11-2013 Unclassified (20 sources) Well adult female - The patient feels well with minor complaints, has good energy level and is sleeping well. The first day of the last menstrual period was : (01/18/13). The patient takes no supplemental vitamins & iron. The patient does not exercise. The patient sleeps 6 hours per night. Note for Well adult female: -Has rescheduled this exam several times since winter due to menses. She ran out of omeprazole and has not called for a refill. She has discovered that she really needs the medication. Dr Polanco just told her to get Vitamin D3 yesterday so she purchased 400mg. 02-13-2013 Unclassified (20 sources) Abdominal pain - The onset of the abdominal pain has been acute and has been occurring in a persistent pattern for 1 month (has never had prior to this). The course has been constant. The pain is described as a moderate burning and dull ache. The pain is located in the epigastrium and does not radiate. The symptoms are relieved by nothing (has tried generic antacids). Note for Abdominal pain: Pt has notice that her fingers get white when they get cold, sx are getting worse and she is also having some numbness and soreness. Has had this for years but now is occurring with milder temperatures and is more severe. No other joint concerns. Great toes turn purple at times (not white). 09-22-2012 Unclassified (20 sources) Ankle pain - The onset of the ankle pain has been gradual and has been occurring in a persistent pattern for 3 months (has worsened in the last week). The course has been worsening. The pain is characterized as a moderate dull aching. The pain is in the right ankle and is described as being located in the lateral ankle. The pain is aggravated by physical activity. Relieving factors include nothing (has tried rest, elevation and bengay cream.). Note for Ankle pain: No preceding injury or change in activity. The last few days noted pain on posterolateral heel when heel was resting on recliner. Normally just hurts when walking. No new shoes. Has noted some swelling the last few days. 06-13-2012 Unclassified (20 sources) Well Adult, female - The patient feels well with minor complaints (c/o constant dry mouth and admits she doesn't drink enough (recommend 64 oz water daily)), has decreased energy level and is sleeping well. The first day of the last menstrual period was : (08/10/2011). The patient has a balanced diet and takes no supplemental vitamins & iron. Patient does not exercise. 08-26-2011 Unclassified (20 sources) Eye symptoms - The onset of the symptoms has been sudden and has been occurring in a persistent pattern for 1 day. The symptoms are described as mild to moderate and involve the right eye. The symptoms are described as pain and swelling. There has been no associated eye discharge. Note for Eye symptoms: she was alright when she went to bed yesterday, got up at 4pm and noticed that her eye felt funny. felt more pain as the night progressed. wears glasses, never wears contacts. did not get anything in her eye that she knows of. 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 no sick contact. no cold symptoms.had remote eye injury over 20 years ago but can't remember which eye; no intermediate symptoms 05-18-2011 Unclassified (18 sources) Transition into care - The patient is transitioning into care from an emergency room ([facility] on 04/13/2016) and a summary of care was reviewed . 04-16-2016 Unclassified (18 sources) [ADDITIONAL REASON] Follow up consultation - The patient is here to follow-up after Emergency Room/Urgent Care (Patient went to [facility] on 04/13/2016 for headache and hypertension. A CT of the brain was done, was negative. EKG was normal. Was given Reglan and Benadryl. Headache improved. Patient is here today following up with PCP). Note for Consultation follow-up: Continues to have a slight headache and dizziness when changing positions. Has been having the dizziness for about one week and is recurrent. Did have episode vertigo in February that resolved but since then she is sensitive to sudden position changes.On Tuesday afternoon, she had yellow spots of her vision. Was seen by the eye doctor on 04/05/2016 and asked about her having high blood pressure. Mentioned to patient that she should be on blood pressure medication due to vessels of her eye. Is receiving new prescription eye glasses. On Tuesday afternoon, she took Aleve but did not relieve the headache very much. Has not taken Rizatriptan due to being unsure if she can take while taking meloxicam. Did call and talk to the pharmacist and was told that it would be okay to take Rizatriptan and Meloxicam. Is having pain of bilateral lower legs that has been going on for awhile. Been wearing compression stocking that used to help. For the past three weeks, the stocking have not helped as much. Brought list of blood pressure readings today (141/63-228/107, 130-140s/80s average last couple days) 04-16-2016 Unclassified (1 source) Cold Symptoms 09-10-2024 Unclassified (20 sources) Cold Symptoms - Symptoms include runny nose, hoarseness, dry cough (ribs and neck hurt when coughing), general malaise and headache. The onset was gradual 8 day(s) ago. The symptoms occur constantly. The patient describes this as moderate in severity and unchanged. Current treatment includes cough suppressants and cough drops. Risk factors do not include smoking. Note for Upper respiratory infection: reviewed by [facility] 09-10-2024 Unclassified (2 sources) Well adult female 09-18-2024 Unclassified (17 sources) Well adult female - The patient feels well with minor complaints (back constantly hurts), has decreased energy level and is sleeping poorly (patient has trouble falling asleep and staying asleep). The patient has a balanced diet. The patient does not exercise. The patient sleeps 4 (4.5) hours per night. Note for Well adult female: reviewed by B 09-18-2024 Unclassified (2 sources) Knee pain - The onset of the knee pain has been gradual following no specific incident and has been occurring for 5 weeks. The knee pain is in the right knee. The knee pain is characterized as a dull aching. The knee pain is described as being located in the entire knee. The knee pain is aggravated by physical activity and any movement. There were no relieving factors. The symptoms have been associated with instability and painful ROM. Note for Knee pain: I saw her a few weeks ago for this and recommended OTC treatments , these have been ineffective 03-26-2025 Results Test Name Value Interpretation Reference Range Facility KNEE COMPLETE RT MIN 4 VIEWS on 03-26-2025 KNEE COMPLETE RT MIN 4 VIEWS [place] [address] Patient: IVETTE HARRIS Phone#: : 1965 Age: 59 Gender: F Pt. Type: Out Account: [id number] Location: [facility] Ordering: ASAF GREY Exam Date: 03/26/2025/14:48 Family Phys: Charge Code: [id number] Physician: [place] Order #: [id number] Dose#: PROCEDURE: X-RAY KNEE RT COMPLETE 4 [...] Lakeshia Strauss MD on 03/26/2025 at 15:41 Normal [facility] Absolute neutrophil countOrd ered By: Sigrid Rodriguez on 01-31-2025 Neutrophils (Bld) [#/Vol] 1.8 10*3/uL Low 2.0-7.7 [facility] Anion gap in Serum or Plasma Ordered By: Sigrid Rodriguez on 01-31-2025 Anion gap [Moles/Vol] 12 mmol/L 5- [facility] BUN/creatinine ratioOrdered By: Sigrid Rodriguez on 01-31-2025 Urea nitrogen/Creatinine [Mass ratio] 11.9 mg/mg - [facility] Basophil percentageOrdered B y: Sigrid Rodriguez on 01-31-2025 Basophils/100 WBC (Bld) 1.5 % High 0-1 [facility] Bilirubin, totalOrdered By: Sigrid Rodriguez on 01-31-2025 Bilirubin [Mass/Vol] 0.15 mg/dL 0.00-1.30 [facility] CBC W/Diff, Automatedon - Absolute Lymph 2.03 X10 3/uL Normal 0.83-4.51 [facility] Comment on above: Performed By: #### L 500.4050, L100.0100 #### [facility] [address] [place], [address] Absolute Neut 1.8 X10 3/uL Low 2.0-7.7 [facility] Comment on above: Performed By: #### L 500.4050, L100.0100 #### [facility] [address] [place], [address] Basophils/100 WBC (Bld) 1.5 % High 0-1 [facility] Comment on above: Performed By: #### L 500.4050, L100.0100 #### [facility] [address] [place], [address] Eosinophils/100 WBC (Bld) 4.1 % Normal 0-5 [facility] Comment on above: Performed By: #### L 500.4050, L100.0100 #### [facility] [address] [place], [address] Erythrocyte distribution width (RBC) [Ratio] 14.3 % Normal 11.6-14.6 [facility] Comment on above: Performed By: #### L 500.4050, L100.0100 #### [facility] [address] [place], [address] Hematocrit (Bld) [Volume fraction] 35.6 % Low 37-47 [facility] Comment on above: Performed By: #### L 500.4050, L100.0100 #### [facility] [address] [place], [address] Hemoglobin (Bld) [Mass/Vol] 11.5 g/dL Low 12.0-15.0 [facility] Comment on above: Performed By: #### L 500.4050, L100.0100 #### [facility] [address] [place], [address] IG% 0.400 Normal 0.0-0.9 [facility] Comment on above: Result Comment: IG% - Immature Granulocytes (promyelocytes, myelocytes and metamyelocytes) > 1% indicates that a LEFT SHIFT is Present. Performed By: #### L 500.4050, L100.0100 #### [facility] [address] [place], [address] Lymphocytes/100 WBC (Bld) 43.7 % High 19-41 [facility] Comment on above: Performed By: #### L 500.4050, L100.0100 #### [facility] [address] [place], [address] MCH (RBC) [Entitic mass] 26.5 pg Low 27.0-32.0 [facility] Comment on above: Performed By: #### L 500.4050, L100.0100 #### [facility] [address] [place], [address] MCHC (RBC) [Mass/Vol] 32.3 g/dL Normal 32-36 [facility] Comment on above: Performed By: #### L 500.4050, L100.0100 #### [facility] [address] [place], [address] MCV (RBC) [Entitic vol] 82.0 fL Normal 81-99 [facility] Comment on above: Performed By: #### L 500.4050, L100.0100 #### [facility] [address] [place], [address] Monocytes/100 WBC (Bld) 12.0 % High 0-10 [facility] Comment on above: Performed By: #### L 500.4050, L100.0100 #### [facility] [address] [place], [address] Neutrophils/100 WBC (Bld) 38.3 % Low 47-70 [facility] Comment on above: Performed By: #### L 500.4050, L100.0100 #### [facility] [address] [place], [address] Nucleated RBC (Bld) [#/Vol] 0 10*3/uL Normal 0-5 [facility] Comment on above: Performed By: #### L 500.4050, L100.0100 #### [facility] [address] [place], [address] Platelet mean volume (Bld) [Entitic vol] 10.4 fL Normal 6.2-12.0 [facility] Comment on above: Performed By: #### L 500.4050, L100.0100 #### [facility] [address] [place], [address] Platelets (Bld) [#/Vol] 216 10*3/uL Normal 150-450 [facility] Comment on above: Performed By: #### L 500.4050, L100.0100 #### [facility] [address] [place], [address] RBC (Bld) [#/Vol] 4.34 10*6/uL Normal 4.2-5.4 [facility] Comment on above: Performed By: #### L 500.4050, L100.0100 #### [facility] [address] [place], [address] RDW SD 42.0 fl Normal 35.1-43.9 [facility] Comment on above: Performed By: #### L 500.4050, L100.0100 #### [facility] [address] [place], [address] WBC (Bld) [#/Vol] 4.7 10*3/uL Normal 4.4-11.0 [facility] Comment on above: Performed By: #### L 500.4050, L100.0100 #### [facility] [address] [place], [address] Carbon dioxide, total [Moles /volume] in Central venous bloodOrdered By: Sigrid Rodriguez on 01-31-2025 CO2 [Moles/Vol] 21.4 mmol/L 21.0-32.0 [facility] Chloride assayOrdered By: Corby Rodriguez on 01-31-2025 Chloride [Moles/Vol] 106 mmol/L 98-108 [facility] Comprehensive Metabolic Prof ilon 01-31-2025 Albumin [Mass/Vol] 4.3 g/dL Normal 3.5-5.0 [facility] Comment on above: Performed By: #### L 500.4050, L100.0100 #### [facility] [address] [place], [address] Albumin/Globulin [Mass ratio] 1.6 {ratio} Normal 0.9-2.4 [facility] Comment on above: Performed By: #### L 500.4050, L100.0100 #### [facility] [address] [place], [address] ALK PHOS 76 U/L Normal 35-104 [facility] Comment on above: Performed By: #### L 500.4050, L100.0100 #### [facility] [address] [place], [address] ALT [Catalytic activity/Vol] 19 U/L Normal <=34 [facility] Comment on above: Performed By: #### L 500.4050, L100.0100 #### [facility] [address] [place], [address] AST [Catalytic activity/Vol] 23 U/L Normal <=31 [facility] Comment on above: Performed By: #### L 500.4050, L100.0100 #### [facility] [address] [place], [address] Bilirubin [Mass/Vol] 0.15 mg/dL Normal 0.00-1.30 [facility] Comment on above: Performed By: #### L 500.4050, L100.0100 #### [facility] [address] [place], [address] BUN/CRE 11.9 RATIO Normal 10-20 [facility] Comment on above: Performed By: #### L 500.4050, L100.0100 #### [facility] [address] [place], [address] Calcium [Mass/Vol] 9.3 mg/dL Normal 7.6-11.0 [facility] Comment on above: Performed By: #### L 500.4050, L100.0100 #### [facility] [address] [place], [address] Chloride [Moles/Vol] 106 mmol/L Normal 98-108 [facility] Comment on above: Performed By: #### L 500.4050, L100.0100 #### [facility] [address] [place], [address] CO2 [Moles/Vol] 21.4 mmol/L Normal 21.0-32.0 [facility] Comment on above: Performed By: #### L 500.4050, L100.0100 #### [facility] [address] [place], [address] Creatinine [Mass/Vol] 0.81 mg/dL Normal 0.70-1.20 [facility] Comment on above: Performed By: #### L 500.4050, L100.0100 #### [facility] [address] [place], [address] GAP 12 Normal 5-15 [facility] Comment on above: Performed By: #### L 500.4050, L100.0100 #### [facility] [address] [place], [address] GFR/1.73 sq M.predicted among non-blacks MDRD (S/P/Bld) [Vol rate/Area] 83 mL/min/{1.73_m2} Normal >60 [facility] Comment on above: Result Comment: mL/m in/1.73m2 CKD-EPI Creatinine Equation (2020) Performed By: #### L 500.4050, L100.0100 #### [facility] [address] [place], [address] Globulin (S) [Mass/Vol] 2.7 g/dL Normal 2.2-4.2 [facility] Comment on above: Performed By: #### L 500.4050, L100.0100 #### [facility] [address] [place], [address] Glucose [Mass/Vol] 94 mg/dL Normal 70-99 [facility] Comment on above: Performed By: #### L 500.4050, L100.0100 #### [facility] [address] [place], [address] Potassium [Moles/Vol] 4.0 mmol/L Normal 3.3-5.1 [facility] Comment on above: Performed By: #### L 500.4050, L100.0100 #### [facility] [address] [place], [address] Sodium [Moles/Vol] 140 mmol/L Normal 133-145 [facility] Comment on above: Performed By: #### L 500.4050, L100.0100 #### [facility] [address] [place], [address] T PROT 6.9 g/dL Normal 5.9-8.4 [facility] Comment on above: Performed By: #### L 500.4050, L100.0100 #### [facility] [address] [place], [address] Urea nitrogen [Mass/Vol] 10 mg/dL Normal 4-19 [facility] Comment on above: Performed By: #### L 500.4050, L100.0100 #### [facility] [address] [place], [address] Eosinophil percentageOrdered By: Sigrid Rodriguez on 01-31-2025 Eosinophils/100 WBC (Bld) 4.1 % 0-5 [facility] Erythrocyte distribution wid th (RBC) [Ratio]Ordered By: Sigrid Rodriguez on 01-31-2025 Erythrocyte distribution width (RBC) [Entitic vol] 42.0 fL 35.1-43.9 [facility] Erythrocyte distribution wid th ratioOrdered By: Sigrid Rodriguez on 01-31-2025 Erythrocyte distribution width (RBC) [Ratio] 14.3 % 11.6-14.6 [facility] GFR/1.73 sq M.predicted david g non-blacks MDRD (S/P/Bld) [Vol rate/Area]Ordered By: Sigrid Rodriguez on 01-31-2025 Estimated GFR (MDRD) Non-Af Amer 83 >60 [facility] Comment on above: mL/min/1.73m2 CKD-EP I Creatinine Equation (2020) Hematocrit Auto (Bld) [Volum e fraction]Ordered By: Sigrid Rodriguez on 01-31-2025 Hematocrit (Bld) [Volume fraction] 35.6 % Low 37-47 [facility] Hemoglobin measurementOrdere d By: Sigrid Rodriguez on 01-31-2025 Hemoglobin (Bld) [Mass/Vol] 11.5 g/dL Low 12.0-15.0 [facility] Immature granulocytes/100 WB C Auto (Bld)Ordered By: Sigrid Rodriguez on 01-31-2025 Immature granulocytes/100 WBC (Bld) 0.400 % 0.0-0.9 [facility] Comment on above: IG% - Immature Granu locytes (promyelocytes, myelocytes and metamyelocytes) > 1% indicates that a LEFT SHIFT is Present. Laboratory - Chemistry and C hemistry - challengeOrdered By: Sigrid Rodriguez on 01-31-2025 AST [Catalytic activity/Vol] 23 U/L <32 [facility] Lymphocytes Auto (Unsp spec) [#/Vol]Ordered By: Sigrid Rodriguez on 01-31-2025 Lymphocytes (Bld) [#/Vol] 2.03 10*3/uL 0.83-4.51 [facility] Lymphocytes/100 WBC Auto (Un sp spec)Ordered By: Sigrid Rodriguez on 01-31-2025 Lymphocytes/100 WBC (Bld) 43.7 % High 19-41 [facility] MCV (mean corpuscular volume ) determinationOrdered By: Sigrid Rodriguez on 01-31-2025 MCV (RBC) [Entitic vol] 82.0 fL 81-99 [facility] Mean corpuscular hemoglobin (MCH) determinationOrdered By: Sigrdi Rodriguez on 01-31-2025 MCH (RBC) [Entitic mass] 26.5 pg Low 27.0-32.0 [facility] Mean corpuscular hemoglobin concentration (MCHC) determinationOrdered By: Sigrid Rodriguez on 01-31-2025 MCHC (RBC) [Mass/Vol] 32.3 g/dL 32-36 [facility] Mean platelet volume determi nationOrdered By: Sigrid Rodriguez on 01-31-2025 Platelet mean volume (Bld) [Entitic vol] 10.4 fL 6.2-12.0 [facility] Monocyte percentageOrdered B y: Sigrid Rodriguez on 01-31-2025 Monocytes/100 WBC (Bld) 12.0 % High 0-10 [facility] Neutrophil percentageOrdered By: Sigrid Rodriguez on 01-31-2025 Neutrophils/100 WBC (Bld) 38.3 % Low 47-70 [facility] Nucleated red blood cell per centageOrdered By: Sigrid Rodriguez on 01-31-2025 Nucleated RBC/100 WBC (Bld) [Ratio] 0 % 0-5 [facility] Platelet countOrdered By: Corby Rodriguez on 01-31-2025 Platelets (Bld) [#/Vol] 216 10*3/uL 150-450 [facility] Potassium (Unsp spec) [Mass/ Vol]Ordered By: Sigrid Rodriguez on 01-31-2025 Potassium [Moles/Vol] 4.0 mmol/L 3.3-5.1 [facility] RBC Auto (Bld) [#/Vol]Ordere d By: Sigrid Rodriguez on 01-31-2025 RBC (Bld) [#/Vol] 4.34 10*6/uL 4.2-5.4 [facility] Serum creatinine measurement (mass/volume)Ordered By: Sigrid Rodriguez on 01-31-2025 Creatinine [Mass/Vol] 0.81 mg/dL 0.70-1.20 [facility] Serum globulin measurementOr dered By: Sigrid Rodriguez on 01-31-2025 Globulin (S) [Mass/Vol] 2.7 g/dL 2.2-4.2 [facility] Serum glucose measurement (m ass/volume)Ordered By: Sigrid Rodriguez on 01-31-2025 Glucose [Mass/Vol] 94 mg/dL 70-99 [facility] Serum or plasma alanine oneal otransferase (ALT) measurementOrdered By: Sigrid Rodriguez on 01-31-2025 ALT [Catalytic activity/Vol] 19 U/L <35 [facility] Serum or plasma albumin domingo urement (mass/volume)Ordered By: Sigrid Rodriguez on 01-31-2025 Albumin [Mass/Vol] 4.3 g/dL 3.5-5.0 [facility] Serum or plasma albumin/glob ulin mass ratioOrdered By: Sigrid Rodriguez on 01-31-2025 Albumin/Globulin [Mass ratio] 1.6 {ratio} 0.9-2.4 [facility] Serum or plasma alkaline ilya sphatase measurementOrdered By: Sigrid Rodriguez on 01-31-2025 ALP [Catalytic activity/Vol] 76 U/L 35-104 [facility] Serum or plasma calcium domingo urement (mass/volume)Ordered By: Sigrid Rodriguez on 01-31-2025 Calcium [Mass/Vol] 9.3 mg/dL 7.6-11.0 [facility] Serum or plasma urea nitroge n measurement (mass/volume)Ordered By: Sigrid Rodriguez on 01-31-2025 Urea nitrogen [Mass/Vol] 10 mg/dL 4-19 [facility] Sodium levelOrdered By: Judi Rodriguez on 01-31-2025 Sodium [Moles/Vol] 140 mmol/L 133-145 [facility] Total proteinOrdered By: Nayely Rodriguez on 01-31-2025 Protein [Mass/Vol] 6.9 g/dL 5.9-8.4 [facility] White blood cell (WBC) count Ordered By: Sigrid Rodriguez on 01-31-2025 WBC (Bld) [#/Vol] 4.7 10*3/uL 4.4-11.0 [facility] Shoulder min 2 Viewson 01-23 Shoulder min 2 Views [facility] Imaging Services [address] [place] [address] [id number] Shoulder min 2 Views MR#: [id number] Acct: [id number] Name: IVETTE HARRIS Rep #: [id number] : 1965 F 59 From: Jeremy Ball PCP: Dr. Asaf Grey MD Status: REG CLI Study: Shoulder min 2 Views Date of Exam: 01/23/25 Exam# [id number] Ordering Dr: Daria Garnett EXAM: Four view right shoulder series CLINICAL HISTORY: Right shoulder pain versus radicular symptoms. COMPARISON: Right shoulder series 02/01/2022. TECHNIQUE: Four view right shoulder series. RAD/Shoulder min 2 Views IMPRESSION: Mild right acromioclavicular joint degenerative changes are noted. Mild degenerative changes about the right humeral head greater tuberosity suggest the presence of some degree of chronic rotator cuff disease. The right glenohumeral joint is unremarkable in appearance. No acute fracture or dislocation is evident. Reading Location: [address] CC: Daria Garnett; Dr. Asaf Grey MD Community Pharmacist: Signed Normal [facility] Absolute neutrophil countOrd ered By: Sigrid Rodriguez on 11-05-2024 Neutrophils (Bld) [#/Vol] 1.5 10*3/uL Low 2.0-7.7 [facility] Albumin to globulin ratioOrd ered By: Sigrid Rodriguez on 11-05-2024 Albumin/Globulin [Mass ratio] 1.1 {ratio} 0.9-2.4 [facility] Basophil percentageOrdered B y: Sigrid Rodriguez on 11-05-2024 Basophils/100 WBC (Bld) 1.3 % High 0-1 [facility] Bilirubin, totalOrdered By: Sigrid Rodriguez on 11-05-2024 Bilirubin [Mass/Vol] 0.30 mg/dL 0.20-1.00 [facility] Comment on above: For patients on eltr ombopag therapy, use of Dimension [place] TBIL is not recommended. Blood urea nitrogen (BUN)/cr eatinine ratioOrdered By: Sigrid Rodriguez on 11-05-2024 Urea nitrogen/Creatinine [Mass ratio] 12.5 mg/mg 10-20 [facility] CBC W/Diff, Automatedon 01-0 6-2024 Absolute Lymph 2.10 X10 3/uL Normal 0.83-4.51 [facility] Comment on above: Performed By: #### L 500.4050, L100.0100 #### [facility] [address] [place], [address] Absolute Neut 1.5 X10 3/uL Low 2.0-7.7 [facility] Comment on above: Performed By: #### L 500.4050, L100.0100 #### [facility] [address] [place], [address] Basophils/100 WBC (Bld) 1.3 % High 0-1 [facility] Comment on above: Performed By: #### L 500.4050, L100.0100 #### [facility] [address] [place], [address] Eosinophils/100 WBC (Bld) 4.4 % Normal 0-5 [facility] Comment on above: Performed By: #### L 500.4050, L100.0100 #### [facility] [address] [place], [address] Erythrocyte distribution width (RBC) [Ratio] 14.2 % Normal 11.6-14.6 [facility] Comment on above: Performed By: #### L 500.4050, L100.0100 #### [facility] [address] [place], [address] Hematocrit (Bld) [Volume fraction] 35.7 % Low 37-47 [facility] Comment on above: Performed By: #### L 500.4050, L100.0100 #### [facility] [address] [place], [address] Hemoglobin (Bld) [Mass/Vol] 11.3 g/dL Low 12.0-15.0 [facility] Comment on above: Performed By: #### L 500.4050, L100.0100 #### [facility] [address] [place], [address] IG% 0.200 Normal 0.0-0.9 [facility] Comment on above: Result Comment: IG% - Immature Granulocytes (promyelocytes, myelocytes and metamyelocytes) > 1% indicates that a LEFT SHIFT is Present. Performed By: #### L 500.4050, L100.0100 #### [facility] [address] [place], [address] Lymphocytes/100 WBC (Bld) 46.6 % High 19-41 [facility] Comment on above: Performed By: #### L 500.4050, L100.0100 #### [facility] [address] [place], [address] MCH (RBC) [Entitic mass] 26.7 pg Low 27.0-32.0 [facility] Comment on above: Performed By: #### L 500.4050, L100.0100 #### [facility] [address] [place], [address] MCHC (RBC) [Mass/Vol] 31.7 g/dL Low 32-36 [facility] Comment on above: Performed By: #### L 500.4050, L100.0100 #### [facility] [address] [place], [address] MCV (RBC) [Entitic vol] 84.4 fL Normal 81-99 [facility] Comment on above: Performed By: #### L 500.4050, L100.0100 #### [facility] [address] [place], [address] Monocytes/100 WBC (Bld) 13.3 % High 0-10 [facility] Comment on above: Performed By: #### L 500.4050, L100.0100 #### [facility] [address] [place], [address] Neutrophils/100 WBC (Bld) 34.2 % Low 47-70 [facility] Comment on above: Performed By: #### L 500.4050, L100.0100 #### [facility] [address] [place], [address] Nucleated RBC (Bld) [#/Vol] 0 10*3/uL Normal 0-5 [facility] Comment on above: Performed By: #### L 500.4050, L100.0100 #### [facility] [address] [place], [address] Platelet mean volume (Bld) [Entitic vol] 10.9 fL Normal 6.2-12.0 [facility] Comment on above: Performed By: #### L 500.4050, L100.0100 #### [facility] [address] [place], [address] Platelets (Bld) [#/Vol] 202 10*3/uL Normal 150-450 [facility] Comment on above: Performed By: #### L 500.4050, L100.0100 #### [facility] [address] [place], [address] RBC (Bld) [#/Vol] 4.23 10*6/uL Normal 4.2-5.4 [facility] Comment on above: Performed By: #### L 500.4050, L100.0100 #### [facility] [address] [place], [address] RDW SD 43.1 fl Normal 35.1-43.9 [facility] Comment on above: Performed By: #### L 500.4050, L100.0100 #### [facility] [address] [place], [address] WBC (Bld) [#/Vol] 4.5 10*3/uL Normal 4.4-11.0 [facility] Comment on above: Performed By: #### L 500.4050, L100.0100 #### [facility] [address] [place], [address] Carbon dioxide measurementOr dered By: Sigrid Rodriguez on 11-05-2024 CO2 [Moles/Vol] 28.0 mmol/L 21.0-32.0 [facility] Chloride measurementOrdered By: Sigrid Rodriguez on 11-05-2024 Chloride [Moles/Vol] 107 mmol/L 98-107 [facility] Comprehensive Metabolic Prof ilon 11-05-2024 Albumin [Mass/Vol] 3.8 g/dL Normal 3.2-5.0 [facility] Comment on above: Performed By: #### L 500.4050, L100.0100 #### [facility] [address] [place], [address] Albumin/Globulin [Mass ratio] 1.1 {ratio} Normal 0.9-2.4 [facility] Comment on above: Performed By: #### L 500.4050, L100.0100 #### [facility] [address] [place], [address] ALK P 74 U/L Normal 45-117 [facility] Comment on above: Performed By: #### L 500.4050, L100.0100 #### [facility] [address] [place], [address] ALT [Catalytic activity/Vol] 34 U/L Normal 13-56 [facility] Comment on above: Performed By: #### L 500.4050, L100.0100 #### [facility] [address] [place], [address] AST [Catalytic activity/Vol] 33 U/L Normal 15-37 [facility] Comment on above: Performed By: #### L 500.4050, L100.0100 #### [facility] [address] [place], [address] Bilirubin [Mass/Vol] 0.30 mg/dL Normal 0.20-1.00 [facility] Comment on above: Result Comment: For patients on eltrombopag therapy, use of Dimension Borger TBIL is not recommended. Performed By: #### L 500.4050, L100.0100 #### [facility] [address] [place], [address] BUN/CRE 12.5 RATIO Normal 10-20 [facility] Comment on above: Performed By: #### L 500.4050, L100.0100 #### [facility] [address] [place], [address] CA,Total 8.9 mg/dL Normal 8.5-10.1 [facility] Comment on above: Performed By: #### L 500.4050, L100.0100 #### [facility] [address] [place], [address] Chloride [Moles/Vol] 107 mmol/L Normal 98-107 [facility] Comment on above: Performed By: #### L 500.4050, L100.0100 #### [facility] [address] [place], [address] CO2 [Moles/Vol] 28.0 mmol/L Normal 21.0-32.0 [facility] Comment on above: Performed By: #### L 500.4050, L100.0100 #### [facility] [address] [place], [address] Creatinine [Mass/Vol] 0.80 mg/dL Normal 0.55-1.02 [facility] Comment on above: Result Comment: The validity of the calculated GFR GFRAA in patients over 70 years has not been determined. Clinical correlation is essential. Performed By: #### L 500.4050, L100.0100 #### [facility] [address] [place], [address] EST GFR - AA 95 mL/min Normal >60 [facility] Comment on above: Result Comment: Afri can [place] GFR Calc Performed By: #### L 500.4050, L100.0100 #### [facility] [address] [place], [address] GAP 4 Low 5-15 [facility] Comment on above: Performed By: #### L 500.4050, L100.0100 #### [facility] [address] [place], [address] GFR/1.73 sq M.predicted among non-blacks MDRD (S/P/Bld) [Vol rate/Area] 78 mL/min/{1.73_m2} Normal >60 [facility] Comment on above: Result Comment: Non- GFR Calc Performed By: #### L 500.4050, L100.0100 #### [facility] [address] [place], [address] Globulin (S) [Mass/Vol] 3.5 g/dL Normal 2.2-4.2 [facility] Comment on above: Performed By: #### L 500.4050, L100.0100 #### [facility] [address] [place], [address] Glucose [Mass/Vol] 97 mg/dL Normal 74-106 [facility] Comment on above: Performed By: #### L 500.4050, L100.0100 #### [facility] [address] [place], [address] Potassium [Moles/Vol] 3.6 mmol/L Normal 3.5-5.1 [facility] Comment on above: Performed By: #### L 500.4050, L100.0100 #### [facility] [address] [place], [address] Sodium [Moles/Vol] 139 mmol/L Normal 136-145 [facility] Comment on above: Performed By: #### L 500.4050, L100.0100 #### [facility] [address] [place], [address] T PROT 7.3 g/dL Normal 6.4-8.2 [facility] Comment on above: Performed By: #### L 500.4050, L100.0100 #### [facility] [address] [place], [address] Urea nitrogen [Mass/Vol] 10 mg/dL Normal 7-18 [facility] Comment on above: Performed By: #### L 500.4050, L100.0100 #### [facility] [address] [place], [address] Eosinophil percentageOrdered By: Sigrid Rodriguez on 11-05-2024 Eosinophils/100 WBC (Bld) 4.4 % 0-5 [facility] Erythrocyte distribution wid th ratioOrdered By: Sigrid Rodriguez on 11-05-2024 Erythrocyte distribution width (RBC) [Ratio] 14.2 % 11.6-14.6 [facility] Erythrocyte distribution wid th standard deviationOrdered By: Sigrid Rodriguez on 11-05-2024 Erythrocyte distribution width (RBC) [Entitic vol] 43.1 fL 35.1-43.9 [facility] Estimated glomerular filtrat ion rate (GFR) AmericanOrdered By: Sigrid Rodriguez on 11-05-2024 Estimated GFR (MDRD) Amer 95 mL/min >60 [facility] Comment on above: GFR Calc Glomerular filtration rate ( GFR) estimationOrdered By: Sigrid Rodriguez on 11-05-2024 Estimated GFR (MDRD) Non-Af Amer 78 mL/min >60 [facility] Comment on above: Non- GFR Calc Glucose measurementOrdered B y: Sigrid Rodriguez on 11-05-2024 Glucose [Mass/Vol] 97 mg/dL 74-106 [facility] Hematocrit Auto (Bld) [Volum e fraction]Ordered By: Sigrid Rodriguez on 11-05-2024 Hematocrit (Bld) [Volume fraction] 35.7 % Low 37-47 [facility] Hemoglobin measurementOrdere d By: Sigrid Rodriguez on 11-05-2024 Hemoglobin (Bld) [Mass/Vol] 11.3 g/dL Low 12.0-15.0 [facility] Immature granulocytes/100 WB C Auto (Bld)Ordered By: Sigrid Rodriguez on 11-05-2024 Immature granulocytes/100 WBC (Bld) 0.200 % 0.0-0.9 [facility] Comment on above: IG% - Immature Granu locytes (promyelocytes, myelocytes and metamyelocytes) > 1% indicates that a LEFT SHIFT is Present. Laboratory - Chemistry and C hemistry - challengeOrdered By: Sigrid Rodriguez on 11-05-2024 AST [Catalytic activity/Vol] 33 U/L 15-37 [facility] Lymphocytes Auto (Unsp spec) [#/Vol]Ordered By: Sigrid Rodriguez on 11-05-2024 Lymphocytes (Bld) [#/Vol] 2.10 10*3/uL 0.83-4.51 [facility] Lymphocytes/100 WBC Auto (Un sp spec)Ordered By: Sigrid Rodriguez on 11-05-2024 Lymphocytes/100 WBC (Bld) 46.6 % High 19-41 [facility] MCV (mean corpuscular volume ) determinationOrdered By: Sigrid Rodriguez on 11-05-2024 MCV (RBC) [Entitic vol] 84.4 fL 81-99 [facility] Mean corpuscular hemoglobin (MCH) determinationOrdered By: Sigrid Rodriguez on 11-05-2024 MCH (RBC) [Entitic mass] 26.7 pg Low 27.0-32.0 [facility] Mean corpuscular hemoglobin concentration (MCHC) determinationOrdered By: Sigrid Rodriguez on 11-05-2024 MCHC (RBC) [Mass/Vol] 31.7 g/dL Low 32-36 [facility] Mean platelet volume determi nationOrdered By: Sigrid Rodriguez on 11-05-2024 Platelet mean volume (Bld) [Entitic vol] 10.9 fL 6.2-12.0 [facility] Monocyte percentageOrdered B y: Sigrid Rodriguez on 11-05-2024 Monocytes/100 WBC (Bld) 13.3 % High 0-10 [facility] Neutrophil percentageOrdered By: Sigrid Rodriguez on 11-05-2024 Neutrophils/100 WBC (Bld) 34.2 % Low 47-70 [facility] Nucleated red blood cell per centageOrdered By: Sigrid Rodriguez on 11-05-2024 Nucleated RBC/100 WBC (Bld) [Ratio] 0 % 0-5 [facility] Platelet countOrdered By: Corby Rodriguez on 11-05-2024 Platelets (Bld) [#/Vol] 202 10*3/uL 150-450 [facility] Potassium measurementOrdered By: Sigrid Rodriguez on 11-05-2024 Potassium [Moles/Vol] 3.6 mmol/L 3.5-5.1 [facility] RBC Auto (Bld) [#/Vol]Ordere d By: Sigrid Rodriguez on 11-05-2024 RBC (Bld) [#/Vol] 4.23 10*6/uL 4.2-5.4 [facility] Serum anion gap measurementO rdered By: Sigrid Rodriguez on 11-05-2024 Anion gap [Moles/Vol] 4 mmol/L Low 5-15 [facility] Serum globulin measurementOr dered By: Sigrid Rodriguez on 11-05-2024 Globulin (S) [Mass/Vol] 3.5 g/dL 2.2-4.2 [facility] Serum or plasma alanine oneal otransferase (ALT) measurementOrdered By: Sigrid Rodriguez on 11-05-2024 ALT [Catalytic activity/Vol] 34 U/L 13-56 [facility] Serum or plasma albumin domingo urement (mass/volume)Ordered By: Sigrid Rodriguez on 11-05-2024 Albumin [Mass/Vol] 3.8 g/dL 3.2-5.0 [facility] Serum or plasma alkaline ilya sphatase measurementOrdered By: Sigrid Rodriguez on 11-05-2024 ALP [Catalytic activity/Vol] 74 U/L 45-117 [facility] Serum or plasma calcium domingo urement (mass/volume)Ordered By: Sigrid Rodriguez on 11-05-2024 Calcium [Mass/Vol] 8.9 mg/dL 8.5-10.1 [facility] Serum or plasma creatinine m easurement (mass/volume)Ordered By: Sigrid Rodriguez on 11-05-2024 Creatinine [Mass/Vol] 0.80 mg/dL 0.55-1.02 [facility] Comment on above: The validity of the calculated GFR & GFRAA in patients over 70 years has not been determined. Clinical correlation is essential. Serum or plasma urea nitroge n measurement (mass/volume)Ordered By: Sigrid Rodriguez on 11-05-2024 Urea nitrogen [Mass/Vol] 10 mg/dL 7-18 [facility] Sodium levelOrdered By: Judi Rodriguez on 11-05-2024 Sodium [Moles/Vol] 139 mmol/L 136-145 [facility] Total proteinOrdered By: Nayely Rodriguez on 11-05-2024 Protein [Mass/Vol] 7.3 g/dL 6.4-8.2 [facility] White blood cell (WBC) count Ordered By: Sigrid Rodriguez on 11-05-2024 WBC (Bld) [#/Vol] 4.5 10*3/uL 4.4-11.0 [facility] COMPREHENSIVE METABOLIC PANE Dennis 09-14-2024 Albumin [Mass/Vol] 4.3 g/dL Normal 3.6-5.1 [facility] Comment on above: Performed By: #### 1 2278, 2159 #### [facility] [address], [address] [place] [phone] [employer]: Duong Ragland MD Albumin/Globulin [Mass ratio] 1.5 {ratio} Normal 1.0-2.5 [facility] Comment on above: Performed By: #### 1 2491, 3135 #### [facility] [address], [address] [place] [phone] [employer]: Duong Ragland MD ALP [Catalytic activity/Vol] 57 U/L Normal 37-153 [facility] Comment on above: Performed By: #### 1 0231, 7600 #### [facility] of [place] [address] [employer]: Duong Ragland MD ALT [Catalytic activity/Vol] 16 U/L Normal 6-29 [facility] Comment on above: Performed By: #### 1 023, 7600 #### [facility] [place] [address] [employer]: Duong Ragland MD AST [Catalytic activity/Vol] 18 U/L Normal 10-35 [facility] Comment on above: Performed By: #### 1 023, 7600 #### [facility] [place] [address] [employer]: Duong Ragland MD Bilirubin [Mass/Vol] 0.5 mg/dL Normal 0.2-1.2 [facility] Comment on above: Performed By: #### 1 023, 7600 #### [facility] [place] [address] [employer]: Duong Ragland MD BUN/CREATININE RATIO SEE NOTE: Normal 6-22 [facility] Comment on above: Result Comment: Not Reported: BUN and Creatinine are within reference range. Performed By: #### 1 023, 7600 #### [facility] [place] [address] [employer]: Duong Ragland MD Calcium [Mass/Vol] 9.2 mg/dL Normal 8.6-10.4 [facility] Comment on above: Performed By: #### 1 0231, 7600 #### [facility] [place] [address] [employer]: Duong Ragland MD Chloride [Moles/Vol] 106 mmol/L Normal 98-110 [facility] Comment on above: Performed By: #### 1 0231, 7600 #### [facility] [place] [phone] [employer]: Duong Ragland MD CO2 [Moles/Vol] 27 mmol/L Normal 20-32 [facility] Comment on above: Performed By: #### 1 023, 7600 #### [facility] of [address], [address] [place] [address] [employer]: Duong Ragland MD Creatinine [Mass/Vol] 0.84 mg/dL Normal 0.50-1.[address] [facility] Comment on above: Performed By: #### 1 023, 7600 #### [facility] of [address], [address] [place] [address] [employer]: Duong Ragland MD GFR/1.73 sq M.predicted among non-blacks MDRD (S/P/Bld) [Vol rate/Area] 80 mL/min/{1.73_m2} Normal > OR = 60 [facility] Comment on above: Performed By: #### 1 230, 0 #### [facility] of [address], [address] [place] [address] [employer]: Duong Ragland MD Globulin (S) [Mass/Vol] 2.8 g/dL Normal 1.9-3.7 [facility] Comment on above: Performed By: #### 1 023, 7600 #### [facility] of [address], [address] [place] [address] [employer]: Duong Ragland MD Glucose [Mass/Vol] 91 mg/dL Normal 65-99 [facility] Comment on above: Result Comment: Fasting reference interval Performed By: #### 1 023, 7600 #### [facility] of [address], [address] [place] [address] [employer]: Duong Ragland MD Potassium [Moles/Vol] 4.2 mmol/L Normal 3.5-5.[address] [facility] Comment on above: Performed By: #### 1 023, 7600 #### [facility] of [address], [address] [place] [address] [employer]: Duong Ragland MD Protein [Mass/Vol] 7.1 g/dL Normal 6.1-8.1 [facility] Comment on above: Performed By: #### 1 0231, 7600 #### [facility] [place] [address] [employer]: Duong Ragland MD Sodium [Moles/Vol] 141 mmol/L Normal 135-146 [facility] Comment on above: Performed By: #### 1 0231, 7600 #### [facility] [place] [address] [employer]: Duong Ragland MD Urea nitrogen [Mass/Vol] 10 mg/dL Normal 7-25 [facility] Comment on above: Performed By: #### 1 0231, 7600 #### [facility] [place] [address] [employer]: Duong Ragland MD LIPID PANEL, [address] Cholesterol [Mass/Vol] 197 mg/dL Normal <200 [facility] Comment on above: Performed By: #### 1 0231, 7600 #### [facility] [place] [address] [employer]: Duong Ragland MD Cholesterol in HDL [Mass/Vol] 54 mg/dL Normal > OR = 50 [facility] Comment on above: Performed By: #### 1 0231, 7600 #### [facility] [place] [address] [employer]: Duong Ragland MD Cholesterol in LDL [Mass/Vol] 118 mg/dL High [facility] Comment on above: Result Comment: Refe rence range: <100 Desirable range <100 mg/dL for primary prevention; <70 mg/dL for patients with CHD or diabetic patients with > or = 2 CHD risk factors. LDL-C is now calculated using the Shaniqua calculation, which is a validated novel method providing better accuracy than the Friedewald equation in the estimation of LDL-C. Jacoby ARNOLD et al. LISY. 2013;310(19): 7492-3058 (http://education.Hyper Urban Level User [place].SmartStudy.com/faq/ZQP119) Performed By: #### 1 023, 0 #### [facility] [address], [address] [place] [address] [employer]: Duong Ragland MD Cholesterol.total/Cho lesterol in HDL [Mass ratio] 3.6 {ratio} Normal <5.0 [facility] Comment on above: Performed By: #### 1 0231, 0 #### [facility] [address], [address] [place] [address] [employer]: Duong Ragland MD NON HDL CHOLESTEROL 143 mg/dL (calc) High <130 [facility] Comment on above: Result Comment: For patients with diabetes plus 1 major ASCVD risk factor, treating to a non-HDL-C goal of <100 mg/dL (LDL-C of <70 mg/dL) is considered a therapeutic option. Performed By: #### 1 023, 0 #### [facility] [address], [address] [place] [address] [employer]: Duong Ragland MD Triglyceride [Mass/Vol] 131 mg/dL Normal <150 [facility] Comment on above: Performed By: #### 1 023, 7600 #### [facility] [place] [address] [employer]: Duong Ragland MD Laboratory - Chemistry and C hemistry - challengeon 09-13-2024 Albumin [Mass/Vol] 4.3 g/dL Normal 3.6 - 5.1 g/dL [facility] Albumin/Globulin [Mass ratio] 1.5 {ratio} Normal 1.0 - 2.5 [facility]. ALP [Catalytic activity/Vol] 57 U/L Normal 37 - 153 U/L [facility], [facility].; [facility] ALT [Catalytic activity/Vol] 16 U/L Normal 6 - 29 U/L [facility], [facility] [employer] [facility], [facility]. AST [Catalytic activity/Vol] 18 U/L Normal 10 - 35 U/L [facility], [facility].; [facility]. Bilirubin [Mass/Vol] 0.5 mg/dL Normal 0.2 - 1 .2 mg/dL [facility], [facility].; [employer] [facility] Calcium [Mass/Vol] 9.2 mg/dL Normal 8.6 - 10. 4 mg/dL [facility], [facility].; [facility], [facility]. Chloride [Moles/Vol] 106 mmol/L Normal 98 - 11 0 mmol/L [facility], [facility].; [employer] [facility] Cholesterol [Mass/Vol] 197 mg/dL Normal [facility], [facility].; [facility], [facility]. Cholesterol in HDL [Mass/Vol] 54 mg/dL Normal [facility] [employer] [facility], [facility]. Cholesterol in LDL [Mass/Vol] 118 mg/dL Abnormal [facility], [facility]. CO2 [Moles/Vol] 27 mmol/L Normal 20 - 32 mmol/L [facility].; [employer], [facility]. Creatinine [Mass/Vol] 0.84 mg/dL Normal 0.50 - 1.03 mg/dL [facility].; [employer] [facility], [facility]. GFR/1.73 sq M.predicted among non-blacks MDRD (S/P/Bld) [Vol rate/Area] 80 mL/min/{1.73_m2} Normal [facility], [facility].; [employer] [facility] Glucose [Mass/Vol] 91 mg/dL Normal 65 - 99 mg/dL [facility], [facility].; [employer] Potassium [Moles/Vol] 4.2 mmol/L Normal 3.5 - 5.3 mmol/L [facility], [facility].; [employer] Protein [Mass/Vol] 7.1 g/dL Normal 6.1 - 8.1 g/dL [facility], [facility].; [employer] Sodium [Moles/Vol] 141 mmol/L Normal 135 - 146 mmol/L [facility], [facility].; [employer] Triglyceride [Mass/Vol] 131 mg/dL Normal [employer], [employer]; [employer] Urea nitrogen [Mass/Vol] 10 mg/dL Normal 7 - 25 mg/dL [employer] No Panel Informationon 09-13 BUN/CREATININE RATIO SEE NOTE: Normal 6 - 22 [employer] CHOL/HDLC RATIO 3.6 Normal [employer] GLOBULIN 2.8 Normal 1.9 - 3.7 [employer]. NON HDL CHOLESTEROL 143 Abnormal [facility] [employer] BECKA SCREENING W TOMOon 09-11 BECKA SCREENING W CHE * * *Final Report* * * DATE OF EXAM: Sep 11 2024 4:06PM WRW [id number] - BECKA SCREENING W CHE / PROCEDURE REASON: SCREENING * * * * Physician Interpretation * * * * RESULT: [place] [address] HISTORY: Patient is 59 years old and [...] Renay Elam M.D. Electronically signed on: 09/12/2024 Community Pharmacist: SUDHEER Transcribe Date/Time: Sep 11 2024 3:48P Dictated by: RENAY ELAM MD This examination was interpreted and the report reviewed and electronically signed by: RENAY ELAM MD on Sep 12 2024 10:09AM EST [id number] Normal [facility] CBC W/Diff, Automatedon 10-2 Absolute Lymph 2.03 X10 3/uL Normal 0.83-4.51 [facility] Comment on above: Performed By: #### L 500.4050, L100.0100 #### [facility] [address] [place], [address] Absolute Neut 1.7 X10 3/uL Low 2.0-7.7 [facility] Comment on above: Performed By: #### L 500.4050, L100.0100 #### [facility] [address] [place], [address] Basophils/100 WBC (Bld) 1.6 % High 0-1 [facility] Comment on above: Performed By: #### L 500.4050, L100.0100 #### [facility] [address] [place], [address] Eosinophils/100 WBC (Bld) 4.9 % Normal 0-5 [facility] Comment on above: Performed By: #### L 500.4050, L100.0100 #### [facility] [address] [place], [address] Erythrocyte distribution width (RBC) [Ratio] 14.1 % Normal 11.6-14.6 [facility] Comment on above: Performed By: #### L 500.4050, L100.0100 #### [facility] [address] [place], [address] Hematocrit (Bld) [Volume fraction] 36.5 % Low 37-47 [facility] Comment on above: Performed By: #### L 500.4050, L100.0100 #### [facility] [address] [place], [address] Hemoglobin (Bld) [Mass/Vol] 11.7 g/dL Low 12.0-15.0 [facility] Comment on above: Performed By: #### L 500.4050, L100.0100 #### [facility] [address] [place], [address] IG% 0.200 Normal 0.0-0.9 [facility] Comment on above: Result Comment: IG% - Immature Granulocytes (promyelocytes, myelocytes and metamyelocytes) > 1% indicates that a LEFT SHIFT is Present. Performed By: #### L 500.4050, L100.0100 #### [facility] [address] [place], [address] Lymphocytes/100 WBC (Bld) 45.1 % High 19-41 [facility] Comment on above: Performed By: #### L 500.4050, L100.0100 #### [facility] [address] [place], [address] MCH (RBC) [Entitic mass] 27.7 pg Normal 27.0-32.0 [facility] Comment on above: Performed By: #### L 500.4050, L100.0100 #### [facility] [address] [place], [address] MCHC (RBC) [Mass/Vol] 32.1 g/dL Normal 32-36 [facility] Comment on above: Performed By: #### L 500.4050, L100.0100 #### [facility] [address] [place], [address] MCV (RBC) [Entitic vol] 86.3 fL Normal 81-99 [facility] Comment on above: Performed By: #### L 500.4050, L100.0100 #### [facility] [address] [place], [address] Monocytes/100 WBC (Bld) 10.4 % High 0-10 [facility] Comment on above: Performed By: #### L 500.4050, L100.0100 #### [facility] [address] [place], [address] Neutrophils/100 WBC (Bld) 37.8 % Low 47-70 [facility] Comment on above: Performed By: #### L 500.4050, L100.0100 #### [facility] [address] [place], [address] Nucleated RBC (Bld) [#/Vol] 0 10*3/uL Normal 0-5 [facility] Comment on above: Performed By: #### L 500.4050, L100.0100 #### [facility] [address] [place], [address] Platelet mean volume (Bld) [Entitic vol] 11.2 fL Normal 6.2-12.0 [facility] Comment on above: Performed By: #### L 500.4050, L100.0100 #### [facility] [address] [place], [address] Platelets (Bld) [#/Vol] 197 10*3/uL Normal 150-450 [facility] Comment on above: Performed By: #### L 500.4050, L100.0100 #### [facility] [address] [place], [address] RBC (Bld) [#/Vol] 4.23 10*6/uL Normal 4.2-5.4 [facility] Comment on above: Performed By: #### L 500.4050, L100.0100 #### [facility] [address] [place], [address] RDW SD 43.4 fl Normal 35.1-43.9 [facility] Comment on above: Performed By: #### L 500.4050, L100.0100 #### [facility] [address] [place], [address] WBC (Bld) [#/Vol] 4.5 10*3/uL Normal 4.4-11.0 [facility] Comment on above: Performed By: #### L 500.4050, L100.0100 #### [facility] [address] [place], [address] Comprehensive Metabolic Prof [facility] 08-20-2024 Albumin [Mass/Vol] 3.8 g/dL Normal 3.2-5.0 [facility] Comment on above: Performed By: #### L 500.4050, L100.0100 #### [facility] [address] [place], [address] Albumin/Globulin [Mass ratio] 1.1 {ratio} Normal 0.9-2.4 [facility] Comment on above: Performed By: #### L 500.4050, L100.0100 #### [facility] [address] [place], [address] ALK P 89 U/L Normal 45-117 [facility] Comment on above: Performed By: #### L 500.4050, L100.0100 #### [facility] [address] [place], [address] ALT [Catalytic activity/Vol] 29 U/L Normal 13-56 [facility] Comment on above: Performed By: #### L 500.4050, L100.0100 #### [facility] [address] [place], [address] AST [Catalytic activity/Vol] 22 U/L Normal 15-37 [facility] Comment on above: Performed By: #### L 500.4050, L100.0100 #### [facility] [address] [place], [address] Bilirubin [Mass/Vol] 0.20 mg/dL Normal 0.20-1.00 [facility] Comment on above: Result Comment: For patients on eltrombopag therapy, use of Dimension Borger TBIL is not recommended. Performed By: #### L 500.4050, L100.0100 #### [facility] [address] [place], [address] BUN/CRE 15.6 RATIO Normal 10-20 [facility] Comment on above: Performed By: #### L 500.4050, L100.0100 #### [facility] [address] [place], [address] CA,Total 9.4 mg/dL Normal 8.5-10.1 [facility] Comment on above: Performed By: #### L 500.4050, L100.0100 #### [facility] [address] [place], [address] Chloride [Moles/Vol] 108 mmol/L High 98-107 [facility] Comment on above: Performed By: #### L 500.4050, L100.0100 #### [facility] [address] [place], [address] CO2 [Moles/Vol] 26.0 mmol/L Normal 21.0-32.0 [facility] Comment on above: Performed By: #### L 500.4050, L100.0100 #### [facility] [address] [place], [address] Creatinine [Mass/Vol] 0.77 mg/dL Normal 0.55-1.02 [facility] Comment on above: Result Comment: The validity of the calculated GFR GFRAA in patients over 70 years has not been determined. Clinical correlation is essential. Performed By: #### L 500.4050, L100.0100 #### [facility] [address] [place], [address] EST GFR - AA 99 mL/min Normal >60 [facility] Comment on above: Result Comment: Afri can [place] GFR Calc Performed By: #### L 500.4050, L100.0100 #### [facility] [address] [place], [address] GAP 5 Normal 5-15 [facility] Comment on above: Performed By: #### L 500.4050, L100.0100 #### [facility] [address] [place], [address] GFR/1.73 sq M.predicted among non-blacks MDRD (S/P/Bld) [Vol rate/Area] 82 mL/min/{1.73_m2} Normal >60 [facility] Comment on above: Result Comment: Non- GFR Calc Performed By: #### L 500.4050, L100.0100 #### [facility] [address] [place], [address] Globulin (S) [Mass/Vol] 3.4 g/dL Normal 2.2-4.2 [facility] Comment on above: Performed By: #### L 500.4050, L100.0100 #### [facility] [address] [place], [address] Glucose [Mass/Vol] 91 mg/dL Normal 74-106 [facility] Comment on above: Performed By: #### L 500.4050, L100.0100 #### [facility] [address] [place], [address] Potassium [Moles/Vol] 4.1 mmol/L Normal 3.5-5.1 [facility] Comment on above: Performed By: #### L 500.4050, L100.0100 #### [facility] [address] [place], [address] Sodium [Moles/Vol] 139 mmol/L Normal 136-145 [facility] Comment on above: Performed By: #### L 500.4050, L100.0100 #### [facility] [address] [place], [address] T PROT 7.2 g/dL Normal 6.4-8.2 [facility] Comment on above: Performed By: #### L 500.4050, L100.0100 #### [facility] [address] [place], [address] Urea nitrogen [Mass/Vol] 12 mg/dL Normal 7-18 [facility] Comment on above: Performed By: #### L 500.4050, L100.0100 #### [facility] [address] [place], [address] CBC W/Diff, Automatedon 07-2 Absolute Lymph 2.10 X10 3/uL Normal 0.83-4.51 [facility] Comment on above: Performed By: #### L 100.0100, L500.4050 #### [facility] [address] [place], [address] Absolute Neut 1.9 X10 3/uL Low 2.0-7.7 [facility] Comment on above: Performed By: #### L 100.0100, L500.4050 #### [facility] [address] [place], [address] Basophils/100 WBC (Bld) 1.2 % High 0-1 [facility] Comment on above: Performed By: #### L 100.0100, L500.4050 #### [facility] [address] [place], [address] Eosinophils/100 WBC (Bld) 4.4 % Normal 0-5 [facility] Comment on above: Performed By: #### L 100.0100, L500.4050 #### [facility] [address] [place], [address] Erythrocyte distribution width (RBC) [Ratio] 13.3 % Normal 11.6-14.6 [facility] Comment on above: Performed By: #### L 100.0100, L500.4050 #### [facility] [address] [place], [address] Hematocrit (Bld) [Volume fraction] 37.7 % Normal 37-47 [facility] Comment on above: Performed By: #### L 100.0100, L500.4050 #### [facility] [address] [place], [address] Hemoglobin (Bld) [Mass/Vol] 12.2 g/dL Normal 12.0-15.0 [facility] Comment on above: Performed By: #### L 100.0100, L500.4050 #### [facility] [address] [place], [address] IG% 0.400 Normal 0.0-0.9 [facility] Comment on above: Result Comment: IG% - Immature Granulocytes (promyelocytes, myelocytes and metamyelocytes) > 1% indicates that a LEFT SHIFT is Present. Performed By: #### L 100.0100, L500.4050 #### [facility] [address] [place], [address] Lymphocytes/100 WBC (Bld) 43.7 % High 19-41 [facility] Comment on above: Performed By: #### L 100.0100, L500.4050 #### [facility] [address] [place], [address] MCH (RBC) [Entitic mass] 27.5 pg Normal 27.0-32.0 [facility] Comment on above: Performed By: #### L 100.0100, L500.4050 #### [facility] [address] [place], [address] MCHC (RBC) [Mass/Vol] 32.4 g/dL Normal 32-36 [facility] Comment on above: Performed By: #### L 100.0100, L500.4050 #### [facility] [address] [place], [address] MCV (RBC) [Entitic vol] 85.1 fL Normal 81-99 [facility] Comment on above: Performed By: #### L 100.0100, L500.4050 #### [facility] [address] [place], [address] Monocytes/100 WBC (Bld) 10.0 % Normal 0-10 [facility] Comment on above: Performed By: #### L 100.0100, L500.4050 #### [facility] [address] [place], [address] Neutrophils/100 WBC (Bld) 40.3 % Low 47-70 [facility] Comment on above: Performed By: #### L 100.0100, L500.4050 #### [facility] [address] [place], [address] Nucleated RBC (Bld) [#/Vol] 0 10*3/uL Normal 0-5 [facility] Comment on above: Performed By: #### L 100.0100, L500.4050 #### [facility] [address] [place], [address] Platelet mean volume (Bld) [Entitic vol] 10.4 fL Normal 6.2-12.0 [facility] Comment on above: Performed By: #### L 100.0100, L500.4050 #### [facility] [address] [place], [address] Platelets (Bld) [#/Vol] 273 10*3/uL Normal 150-450 [facility] Comment on above: Performed By: #### L 100.0100, L500.4050 #### [facility] [address] [place], [address] RBC (Bld) [#/Vol] 4.43 10*6/uL Normal 4.2-5.4 [facility] Comment on above: Performed By: #### L 100.0100, L500.4050 #### [facility] [address] [place], [address] RDW SD 41.0 fl Normal 35.1-43.9 [facility] Comment on above: Performed By: #### L 100.0100, L500.4050 #### [facility] [address] [place], [address] WBC (Bld) [#/Vol] 4.8 10*3/uL Normal 4.4-11.0 [facility] Comment on above: Performed By: #### L 100.0100, L500.4050 #### [facility] [address] [place], [address] Comprehensive Metabolic Prof [facility] 05-28-2024 Albumin [Mass/Vol] 3.7 g/dL Normal 3.2-5.0 [facility] Comment on above: Performed By: #### L 100.0100, L500.4050 #### [facility] [address] [place], [address] Albumin/Globulin [Mass ratio] 0.9 {ratio} Normal 0.9-2.4 [facility] Comment on above: Performed By: #### L 100.0100, L500.4050 #### [facility] [address] [place], [address] ALK P 78 U/L Normal 45-117 [facility] Comment on above: Performed By: #### L 100.0100, L500.4050 #### [facility] [address] [place], [address] ALT [Catalytic activity/Vol] 30 U/L Normal 13-56 [facility] Comment on above: Performed By: #### L 100.0100, L500.4050 #### [facility] [address] [place], [address] AST [Catalytic activity/Vol] 27 U/L Normal 15-37 [facility] Comment on above: Performed By: #### L 100.0100, L500.4050 #### [facility] [address] [place], [address] Bilirubin [Mass/Vol] 0.20 mg/dL Normal 0.20-1.00 [facility] Comment on above: Result Comment: For patients on eltrombopag therapy, use of Dimension [place] TBIL is not recommended. Performed By: #### L 100.0100, L500.4050 #### [facility] [address] [place], [address] BUN/CRE 10.8 RATIO Normal 10-20 [facility] Comment on above: Performed By: #### L 100.0100, L500.4050 #### [facility] [address] [place], [address] CA,Total 9.0 mg/dL Normal 8.5-10.1 [facility] Comment on above: Performed By: #### L 100.0100, L500.4050 #### [facility] [address] [place], [address] Chloride [Moles/Vol] 107 mmol/L Normal 98-107 [facility] Comment on above: Performed By: #### L 100.0100, L500.4050 #### [facility] [address] [place], [address] CO2 [Moles/Vol] 28.0 mmol/L Normal 21.0-32.0 [facility] Comment on above: Performed By: #### L 100.0100, L500.4050 #### [facility] [address] [place], [address] Creatinine [Mass/Vol] 0.92 mg/dL Normal 0.55-1.02 [facility] Comment on above: Result Comment: The validity of the calculated GFR GFRAA in patients over 70 years has not been determined. Clinical correlation is essential. Performed By: #### L 100.0100, L500.4050 #### [facility] [address] [place], [address] EST GFR - AA 80 mL/min Normal >60 [facility] Comment on above: Result Comment: Afri can [place] GFR Calc Performed By: #### L 100.0100, L500.4050 #### [facility] [address] [place], [address] GAP 4 Low 5-15 [facility] Comment on above: Performed By: #### L 100.0100, L500.4050 #### [facility] [address] [place], [address] GFR/1.73 sq M.predicted among non-blacks MDRD (S/P/Bld) [Vol rate/Area] 66 mL/min/{1.73_m2} Normal >60 [facility] Comment on above: Result Comment: Non- GFR Calc Performed By: #### L 100.0100, L500.4050 #### [facility] [address] [place], [address] Globulin (S) [Mass/Vol] 3.9 g/dL Normal 2.2-4.2 [facility] Comment on above: Performed By: #### L 100.0100, L500.4050 #### [facility] [address] [place], [address] Glucose [Mass/Vol] 88 mg/dL Normal 74-106 [facility] Comment on above: Performed By: #### L 100.0100, L500.4050 #### [facility] [address] [place], [address] Potassium [Moles/Vol] 3.6 mmol/L Normal 3.5-5.1 [facility] Comment on above: Performed By: #### L 100.0100, L500.4050 #### [facility] [address] [place], [address] Sodium [Moles/Vol] 139 mmol/L Normal 136-145 [facility] Comment on above: Performed By: #### L 100.0100, L500.4050 #### [facility] [address] [place], [address] T PROT 7.6 g/dL Normal 6.4-8.2 [facility] Comment on above: Performed By: #### L 100.0100, L500.4050 #### [facility] [address] [place], [address] Urea nitrogen [Mass/Vol] 10 mg/dL Normal 7-18 [facility] Comment on above: Performed By: #### L 100.0100, L500.4050 #### [facility] [address] [place], [address] Absolute lymphocyte countOrd ered By: Sigrid Rodriguez on 02-29-2024 Lymphocytes Auto (Unsp spec) [#/Vol] 1.73 10*3/uL 0.83-4.51 [facility] Automated lymphocyte count a s percentage of total leukocytesOrdered By: Sigrid Rodriguez on 02-29-2024 Lymphocytes/100 WBC Auto (Unsp spec) 42.4 % 19-41 [facility] Basophil percentageOrdered B y: Sigrid Rodriguez on 02-29-2024 Basophils/100 WBC (Bld) 1.2 % 0-1 [facility] Bilirubin [Mass/Vol] 0.20 mg/dL 0.20-1.00 [facility] Comment on above: For patients on eltr ombopag therapy, use of Dimension [place] TBIL is not recommended. Chloride [Moles/Vol] 107 mmol/L 98-107 [facility] Eosinophils/100 WBC (Bld) 3.9 % 0-5 [facility] Glucose [Mass/Vol] 106 mg/dL 74-106 [facility] Comment on above: Fasting Glucose resu lt from 100 to 125 mg/dL suggests IMPAIRED HOMEOSTASIS per A.D.A. criteria. Hemoglobin (Bld) [Mass/Vol] 11.8 g/dL 12.0-15.0 [facility] Monocytes/100 WBC (Bld) 11.3 % 0-10 [facility] Neutrophils (Bld) [#/Vol] 1.7 10*3/uL 2.0-7.7 [facility] Neutrophils/100 WBC (Bld) 41.0 % 47-70 [facility] Potassium [Moles/Vol] 3.5 mmol/L 3.5-5.1 [facility] Protein [Mass/Vol] 7.1 g/dL 6.4-8.2 [facility] Sodium [Moles/Vol] 139 mmol/L 136-145 [facility] WBC (Bld) [#/Vol] 4.1 10*3/uL 4.4-11.0 [facility] CBC W/Diff, Automatedon Absolute Lymph 1.73 X10 3/uL Normal 0.83-4.51 [facility] Comment on above: Performed By: #### L 100.0100, L500.4050 #### [facility] [address] [place], [address] Absolute Neut 1.7 X10 3/uL Low 2.0-7.7 [facility] Comment on above: Performed By: #### L 100.0100, L500.4050 #### [facility] [address] [place], [address] Basophils/100 WBC (Bld) 1.2 % High 0-1 [facility] Comment on above: Performed By: #### L 100.0100, L500.4050 #### [facility] [address] [place], [address] Eosinophils/100 WBC (Bld) 3.9 % Normal 0-5 [facility] Comment on above: Performed By: #### L 100.0100, L500.4050 #### [facility] [address] [place], [address] Erythrocyte distribution width (RBC) [Ratio] 13.5 % Normal 11.6-14.6 [facility] Comment on above: Performed By: #### L 100.0100, L500.4050 #### [facility] [address] [place], [address] Hematocrit (Bld) [Volume fraction] 36.3 % Low 37-47 [facility] Comment on above: Performed By: #### L 100.0100, L500.4050 #### [facility] [address] [place], [address] Hemoglobin (Bld) [Mass/Vol] 11.8 g/dL Low 12.0-15.0 [facility] Comment on above: Performed By: #### L 100.0100, L500.4050 #### [facility] [address] [place], [address] IG% 0.200 Normal 0.0-0.9 [facility] Comment on above: Result Comment: IG% - Immature Granulocytes (promyelocytes, myelocytes and metamyelocytes) > 1% indicates that a LEFT SHIFT is Present. Performed By: #### L 100.0100, L500.4050 #### [facility] [address] [place], [address] Lymphocytes/100 WBC (Bld) 42.4 % High 19-41 [facility] Comment on above: Performed By: #### L 100.0100, L500.4050 #### [facility] [address] [place], [address] MCH (RBC) [Entitic mass] 28.2 pg Normal 27.0-32.0 [facility] Comment on above: Performed By: #### L 100.0100, L500.4050 #### [facility] [address] [place], [address] MCHC (RBC) [Mass/Vol] 32.5 g/dL Normal 32-36 [facility] Comment on above: Performed By: #### L 100.0100, L500.4050 #### [facility] [address] [place], [address] MCV (RBC) [Entitic vol] 86.8 fL Normal 81-99 [facility] Comment on above: Performed By: #### L 100.0100, L500.4050 #### [facility] [address] [place], [address] Monocytes/100 WBC (Bld) 11.3 % High 0-10 [facility] Comment on above: Performed By: #### L 100.0100, L500.4050 #### [facility] [address] [place], [address] Neutrophils/100 WBC (Bld) 41.0 % Low 47-70 [facility] Comment on above: Performed By: #### L 100.0100, L500.4050 #### [facility] [address] [place], [address] Nucleated RBC (Bld) [#/Vol] 0 10*3/uL Normal 0-5 [facility] Comment on above: Performed By: #### L 100.0100, L500.4050 #### [facility] [address] [place], [address] Platelet mean volume (Bld) [Entitic vol] 10.9 fL Normal 6.2-12.0 [facility] Comment on above: Performed By: #### L 100.0100, L500.4050 #### [facility] [address] [place], [address] Platelets (Bld) [#/Vol] 195 10*3/uL Normal 150-450 [facility] Comment on above: Performed By: #### L 100.0100, L500.4050 #### [facility] [address] [place], [address] RBC (Bld) [#/Vol] 4.18 10*6/uL Low 4.2-5.4 [facility] Comment on above: Performed By: #### L 100.0100, L500.4050 #### [facility] [address] [place], [address] RDW SD 43.0 fl Normal 35.1-43.9 [facility] Comment on above: Performed By: #### L 100.0100, L500.4050 #### [facility] [address] [place], [address] WBC (Bld) [#/Vol] 4.1 10*3/uL Low 4.4-11.0 [facility] Comment on above: Performed By: #### L 100.0100, L500.4050 #### [facility] [address] [place], [address] Comprehensive Metabolic Prof ilon 02-29-2024 Albumin [Mass/Vol] 3.7 g/dL Normal 3.2-5.0 [facility] Comment on above: Performed By: #### L 100.0100, L500.4050 #### [facility] [address] [place], [address] Albumin/Globulin [Mass ratio] 1.1 {ratio} Normal 0.9-2.4 [facility] Comment on above: Performed By: #### L 100.0100, L500.4050 #### [facility] [address] [place], [address] ALK P 79 U/L Normal 45-117 [facility] Comment on above: Performed By: #### L 100.0100, L500.4050 #### [facility] [address] [place], [address] ALT [Catalytic activity/Vol] 36 U/L Normal 13-56 [facility] Comment on above: Performed By: #### L 100.0100, L500.4050 #### [facility] [address] [place], [address] AST [Catalytic activity/Vol] 25 U/L Normal 15-37 [facility] Comment on above: Performed By: #### L 100.0100, L500.4050 #### [facility] [address] [place], [address] Bilirubin [Mass/Vol] 0.20 mg/dL Normal 0.20-1.00 [facility] Comment on above: Result Comment: For patients on eltrombopag therapy, use of Dimension Borger TBIL is not recommended. Performed By: #### L 100.0100, L500.4050 #### [facility] [address] [place], [address] BUN/CRE 17.9 RATIO Normal 10-20 [facility] Comment on above: Performed By: #### L 100.0100, L500.4050 #### [facility] [address] [place], [address] CA,Total 8.9 mg/dL Normal 8.5-10.1 [facility] Comment on above: Performed By: #### L 100.0100, L500.4050 #### [facility] [address] [place], [address] Chloride [Moles/Vol] 107 mmol/L Normal 98-107 [facility] Comment on above: Performed By: #### L 100.0100, L500.4050 #### [facility] [address] [place], [address] CO2 [Moles/Vol] 27.0 mmol/L Normal 21.0-32.0 [facility] Comment on above: Performed By: #### L 100.0100, L500.4050 #### [facility] [address] [place], [address] Creatinine [Mass/Vol] 0.84 mg/dL Normal 0.55-1.02 [facility] Comment on above: Result Comment: The validity of the calculated GFR GFRAA in patients over 70 years has not been determined. Clinical correlation is essential. Performed By: #### L 100.0100, L500.4050 #### [facility] [address] [place], [address] EST GFR - AA 90 mL/min Normal >60 [facility] Comment on above: Result Comment: Afri can [place] GFR Calc Performed By: #### L 100.0100, L500.4050 #### [facility] [address] [place], [address] GAP 5 Normal 5-15 [facility] Comment on above: Performed By: #### L 100.0100, L500.4050 #### [facility] [address] [place], [address] GFR/1.73 sq M.predicted among non-blacks MDRD (S/P/Bld) [Vol rate/Area] 74 mL/min/{1.73_m2} Normal >60 [facility] Comment on above: Result Comment: Non- GFR Calc Performed By: #### L 100.0100, L500.4050 #### [facility] [address] [place], [address] Globulin (S) [Mass/Vol] 3.4 g/dL Normal 2.2-4.2 [facility] Comment on above: Performed By: #### L 100.0100, L500.4050 #### [facility] [address] [place], [address] Glucose [Mass/Vol] 106 mg/dL Normal 74-106 [facility] Comment on above: Result Comment: Fast ing Glucose result from 100 to 125 mg/dL suggests IMPAIRED HOMEOSTASIS per A.D.A. criteria. Performed By: #### L 100.0100, L500.4050 #### [facility] [address] [place], [address] Potassium [Moles/Vol] 3.5 mmol/L Normal 3.5-5.1 [facility] Comment on above: Performed By: #### L 100.0100, L500.4050 #### [facility] [address] [place], [address] Sodium [Moles/Vol] 139 mmol/L Normal 136-145 [facility] Comment on above: Performed By: #### L 100.0100, L500.4050 #### [facility] [address] [place], [address] T PROT 7.1 g/dL Normal 6.4-8.2 [facility] Comment on above: Performed By: #### L 100.0100, L500.4050 #### [facility] [address] [place], [place], [address] Urea nitrogen [Mass/Vol] 15 mg/dL Normal 7-18 [facility] Comment on above: Performed By: #### L 100.0100, L500.4050 #### [facility] [address] [place], [address] Determination of erythrocyte mean corpuscular volume (MCV)Ordered By: Sigrid Rodriguez on 02-29-2024 MCV (RBC) [Entitic vol] 86.8 fL 81-99 [facility] Erythrocyte distribution wid th ratioOrdered By: Sigridmeka Rodriguez on 02-29-2024 Erythrocyte distribution width (RBC) [Ratio] 13.5 % 11.6-14.6 [facility] Erythrocyte distribution wid th standard deviationOrdered By: [facility] [place] Jennifer on 02-29-2024 Erythrocyte distribution width (RBC) [Entitic vol] 43.0 fL 35.1-43.9 [facility] Hematocrit Auto (Bld) [Volum e fraction]Ordered By: [facility] [place] Jennifer on 02-29-2024 Hematocrit (Bld) [Volume fraction] 36.3 % 37-47 [facility] Immature granulocytes/100 WB C Auto (Bld)Ordered By: [facility] [place] Jennifer on 02-29-2024 Immature granulocytes/100 WBC (Bld) 0.200 % 0.0-0.9 [facility] Comment on above: IG% - Immature Granu locytes (promyelocytes, myelocytes and metamyelocytes) > 1% indicates that a LEFT SHIFT is Present. Laboratory - Chemistry and C hemistry - challengeOrdered By: Sigrid Rodriguez on 02-29-2024 Albumin/Globulin [Mass ratio] 1.1 {ratio} 0.9-2.4 [facility] ALP [Catalytic activity/Vol] 79 U/L 45-117 [facility] ALT [Catalytic activity/Vol] 36 U/L 13-56 [facility] CO2 [Moles/Vol] 27.0 mmol/L 21.0-32.0 [facility] Globulin (S) [Mass/Vol] 3.4 g/dL 2.2-4.2 [facility] Urea nitrogen/Creatinine [Mass ratio] 17.9 mg/mg 10-20 [facility] - Hematology and Cell countsOrdered By: Sigrid Rodriguez on 02-29-2024 MCH (RBC) [Entitic mass] 28.2 pg 27.0-32.0 [facility] MCHC (RBC) [Mass/Vol] 32.5 g/dL 32-36 [facility] Nucleated RBC/100 WBC (Bld) [Ratio] 0 % 0-5 [facility] Platelet mean volume (Bld) [Entitic vol] 10.9 fL 6.2-12.0 [facility] Platelets (Bld) [#/Vol] 195 10*3/uL 150-450 [facility] No Panel InformationOrdered By: Sigrid Rodriguez on 02-29-2024 Estimated GFR (MDRD) Amer 90 mL/min >60 [facility] Comment on above: GFR Calc Estimated GFR (MDRD) Non-Af Amer 74 mL/min >60 [facility] Comment on above: Non- GFR Calc RBC Auto (Bld) [#/Vol]Ordere d By: Sigrid Rodriguez on 02-29-2024 RBC (Bld) [#/Vol] 4.18 10*6/uL 4.2-5.4 [facility] Serum or plasma calcium domingo urement (mass/volume)Ordered By: Sigrid Rodriguez on 02-29-2024 Calcium [Mass/Vol] 8.9 mg/dL 8.5-10.1 [facility] Serum or plasma creatinine m easurement (mass/volume)Ordered By: Sigrid Rodriguez on 02-29-2024 Creatinine [Mass/Vol] 0.84 mg/dL 0.55-1.02 [facility] Comment on above: The validity of the calculated GFR & GFRAA in patients over 70 years has not been determined. Clinical correlation is essential. Serum or plasma urea nitroge n measurement (mass/volume)Ordered By: Sigrid Rodriguez on 02-29-2024 Urea nitrogen [Mass/Vol] 15 mg/dL 7-18 [facility] Thin prep Papanicolaou smear with manual screeningOrdered By: Sigrid Rodriguez on 02-29-2024 Thin prep Papanicolaou smear with manual screening 3.7 g/dL 3.2-5.0 [facility] Thin prep Papanicolaou smear with manual screening 25 U/L 15-37 [facility] Thin prep Papanicolaou smear with manual screening 5 5-15 [facility] Urine Cultureon 02-15-2024 URC Escherichia coli [place] Count 11,000-25,000 Escherichia coli: REACTION Ampicillin Islt BENNETT <=2 S Ampicillin+Sulbac Islt BENNETT <=2 S ceFAZolin Islt BENNETT <=4 S Cefepime Islt BENNETT <=0.12 S cefTRIAXone Islt BENNETT <=0.25 S Ciprofloxacin Islt BENNETT <=0.25 S Ertapenem Islt BENNETT <=0.12 S B-Lactamase Extended Susc Islt NEG Gentamicin Islt BENNETT <=1 S Imipenem Islt BENNETT <=0.25 S levoFLOXacin Islt BENNETT <=0.12 S Nitrofurantoin Islt BENNETT <=16 S Pip+Tazo Islt BENNETT <=4 S Tobramycin Islt BENNETT <=1 S TMP SMX Islt BENNETT <=20 S Normal [facility] Comment on above: Performed By: #### L 500.4050, L100.0100 #### [facility] [address] [place] [address], [address] Basophil percentageOrdered B y: Meghan Alvarado on 02-13-2024 Basophil percentage 10-25 SEEN /hpf 0-5 [facility] Bilirubin Test strip Ql (U)O rdered By: Meghan Alvarado on 02-13-2024 Bilirubin Ql (U) Negative Negative [facility] Culture, urineOrdered By: Layla Alvarado on 02-13-2024 Bacteria identified Cx Nom (U) Escherichia coli [facility] Ketones Test strip Ql (U)Ord ered By: Meghan Alvarado on 02-13-2024 Ketones Ql (U) Negative Negative [facility] Mucus LM Ql (Urine sed)Order ed By: Meghan Alvarado on 02-13-2024 Mucus Ql (Urine sed) 0 SEEN /hpf [facility] Nitrite Test strip Ql (U)Ord ered By: Meghan Pecknatalia on 02-13-2024 Nitrite Ql (U) Negative Negative [facility] No Panel InformationOrdered By: Meghan Pecknatalia on 02-13-2024 Urine RBC 10-25 SEEN /hpf 0-5 [facility] Protein Test strip Ql (U)Ord ered By: Meghan Pecknatalia on 02-13-2024 Protein Ql (U) 100 mg/dl Negative [facility] Squamous epithelial cells de tection in urine sediment by light microscopyOrdered By: Meghan Pecknatalia on 02-13-2024 Epithelial cells.squamous LM Ql (Urine sed) 0-5 SEEN /hpf 5-10 [facility] Urinalysis, Completeon 02-12 EPI,SQUAMOUS 0-5 SEEN Normal 5-10 [facility] Comment on above: Order Comment: CLEAN CATCH Performed By: #### L 500.4050, L100.0100 #### [facility] [address] [place], [address] RBC 10-25 SEEN Normal 0-5 [facility] Comment on above: Order Comment: CLEAN CATCH Performed By: #### L 500.4050, L100.0100 #### [facility] [address] [place], [address] WBC 10-25 SEEN Normal 0-[address] [place] [address] Comment on above: Order Comment: CLEAN CATCH Performed By: #### L 500.4050, L100.0100 #### [facility] [address] [place], [address] BACTERIA 0 SEEN Normal None Seen [facility] Comment on above: Order Comment: CLEAN CATCH Performed By: #### L 500.4050, L100.0100 #### [facility] [address] [place], [address] Mucus Ql (Urine sed) 0 SEEN Normal [facility] Comment on above: Order Comment: CLEAN CATCH Performed By: #### L 500.4050, L100.0100 #### [facility] [address] [place], [address] Urine blood detectionOrdered By: Meghan Alvarado on 02-13-2024 RBC Ql (U) 250 /ul Negative [facility] Urine clarityOrdered By: Treva Alvarado on 02-13-2024 Clarity (U) Sl. Cloudy Clear [facility] Urine color determinationOrd ered By: Meghan Alvarado on 02-13-2024 Color (U) Yellow Yellow [facility] Urine glucose detectionOrder ed By: Meghan Alvarado on 02-13-2024 Glucose Ql (U) Normal mg/dl Normal [facility] Urine leukocyte esterase det ection by dipstickOrdered By: Meghan Alvarado on 02-13-2024 Leukocyte esterase Test strip Ql (U) 25 /ul Negative [facility] Urine pHOrdered By: Meghan montoya on 02-13-2024 pH (U) 7.0 [pH] 5.0 - 8.0 [facility] Urine sediment bacteria coun t by microscopy (number/high power field)Ordered By: Meghan Alvarado on 02-13-2024 Bacteria LM.HPF (Urine sed) [#/Area] 0 /[HPF] None Seen [facility] Urine specific gravity measu rementOrdered By: Meghan Alvarado on 02-13-2024 Specific gravity (U) [Rel density] 1.005 1.002-1.03 0 [facility] Urine urobilinogen measureme ntOrdered By: Meghan Alvarado on 02-13-2024 Urobilinogen Ql (U) Normal mg/dl Normal [facility] Internal Medicine Office Vis iton 02-11-2024 Internal Medicine Office Visit [facility] [address] [place], [place] [address] OFFICE VISIT Date of Service: 02/11/24 MR#: [id number] Acct: [id number] Name: IVETTE HARRIS Rep #: [id number] : 1965 Provider: SHARMIN guerrero Age/Sex: 58/F Location: [facility] [place] Status: Signed Intake Vital Signs 02/11/24 12:16 Height 5 ft 4 in Weight: 213 lb BMI 36.6 BP 140/80 H Blood Pressure Location Lt brachial Position Sitting Respiration 12 Pulse 98 Pulse Source Monitor Temp 98 F Temp Source Temporal Pulse Oximetry (%) 98 Oxygen Delivery Method room air Intake Visit Reasons: CONCERN FOR UTI Allergies povidone-iodine [From Betadine] Allergy (Verified 02/11/24 12:17) Rash soap [From Betadine] Allergy (Verified 02/11/24 12:17) Rash hydrocodone bitartrate [From Vicodin] Adverse Reaction (Verified 02/11/24 12:17) Vomiting PFSH Social History Smoking Status: Never smoker HPI HPI Details: IVETTE HARRIS, is a 58 F who presents to the clinic today with reports of dysuria x 1 day, urinary burning, and reports she had pink-tinged urine noted on her toilet paper this morning. She reports a history of 1 UTI in the past. She is on immunosuppressive therapy including methotrexate, hydroxychloroquine, and an injection for autoimmune diseases. She denies fever, chills, abdominal pain, back pain, nausea, vomiting, vaginal discharge, or vaginal itching. She has not tried anything for her symptoms. ROS Const Constitutional: Positive for other (As noted in HPI) Exam Const General: cooperative, healthy appearing, comfortable and no acute distress Nutritional Appearance: overweight Orientation: alert, awake and oriented x3 HENMT Head: normal to inspection and no palpable skull fracture Ears: hearing grossly normal bilaterally Nose: external nose normal Face and sinus: normal facial exam Mouth: oral mucosae normal Eyes General: appearance normal, both eyes and all related structures Visual Small: normal visual small by confrontation Alignment and Position: alignment normal Periorbital: periorbital findings normal Eyelids: eyelids normal Conjunctivae: conjunctivae normal Sclera: sclerae normal Cornea: corneas normal Pupils: PERRL EOM: EOM intact bilaterally Direct ophthalmoscopy: normal light reflex Neck Neck: normal visual inspection Chest Chest palpation inspection: normal inspection of the chest Resp Effort Inspection: normal respiratory effort, able to speak in complete sentences and symmetric chest movement Auscultation: Bilateral: Clear to Auscultation Cardio Rate: regular rate Rhythm: regular rhythm Heart Sounds: S1 normal and S2 normal GI Palpation: soft and no hepatosplenomegaly General: bladder normal to palpation and No CVA tenderness Bimanual Exam- Vagina Uterus: bladder normal to palpation Musc Cervical Spine: normal cervical lordosis Thoracic/Lumbar Spine: thoracic and lumbar spine normal to inspection Skin General: no rashes or lesions noted Lesions: no lesions Rashes: no rashes Trauma: no lacerations or abrasions Wounds: no wounds Hair: normal Nails: normal Neuro General: patient alert, patient awake, patient oriented x3, gait normal and tone normal Gait: normal gait Motor: muscle tone normal throughout and strength 5/5 throughout Extrem General: normal to inspection Psych Appearance: grossly normal Mental Status: mental status grossly normal Results POC Urinalysis Dip (Clinic) Office Urine Color REGINA Last Edit by Beatriz Vanessa on 02/11/24 12:19 Office Urine Clarity Cloudy Last Edit by Beatriz Vanessa on 02/11/24 12:19 Office Urine Glucose Negative Last Edit by Beatriz Vanessa on 02/11/24 12:19 Office Urine Ketones Negative Last Edit by Beatriz Vanessa on 02/11/24 12:19 Off Ur Spec Harlan 1.015 Last Edit by Beatriz Vanessa on 02/11/24 12:19 Office Urine pH 7.5 Last Edit by Beatriz Vanessa on 02/11/24 12:19 Office Urine Bilirubin Negative Last Edit by Beatriz Vanessa on 02/11/24 12:19 Office Urine Urobilinogen Negative Last Edit by Beatriz Vanessa on 02/11/24 12:19 Office Urine Blood Hemolyzed Last Edit by Beatriz Vanessa on 02/11/24 12:19 Office Urine Blood Hemolyzed Large Last Edit by Beatriz Vanessa on 02/11/24 12:19 Office Urine Protein Negative Last Edit by Beatriz Vanessa on 02/11/24 12:19 Office Urine Nitrate Negative Last Edit by Beatriz Vanessa on 02/11/24 12:19 Off Ur Leukocytes Positive Last Edit by Beatriz Vanessa on 02/11/24 12:19 Coding Level of Care Code New Pt Off vis,new,level 3 Patient Type New Diagnoses Dysuria R30.0 Assessment and Plan Assessment and Plan (1) Dysuria: Status: Acute Orders: Orders Culture, Urine Today R30.0 - Dysuria Urinalysis, Complete Today R30.0 - Dysuria POC Urinalysis Dip (more content not included)... Normal [facility] - Chemistry and C hemistry - challengeon 02-11-2024 Bilirubin Ql (U) Negative [facility] Glucose Ql (U) Negative [facility] Ketones Ql (U) Negative [facility] pH (U) 7.5 [pH] [facility] Specific gravity (U) [Rel density] 1.015 [facility] Urobilinogen (U) [Mass/Vol] Negative [facility] - Hematology and Cell countson 02-11-2024 Hemoglobin Ql (U) Hemolyzed [facility] - Specimen inform ationon 02-11-2024 Clarity (U) Cloudy [facility] Color (U) REGINA [facility] - Urinalysison Nitrite Ql (U) Negative [facility] Protein Ql (U) Negative [facility] No Panel Informationon 02-10 Urine Leukocytes Positive [facility] Urine Non-Hemolyzed Blood Large [facility] Absolute lymphocyte countOrd ered By: Sigrid Rodriguez on 12-27-2023 Lymphocytes Auto (Unsp spec) [#/Vol] 1.73 10*3/uL 0.83-4.51 [facility] Automated lymphocyte count a s percentage of total leukocytesOrdered By: Sigrid Rodriguez on 12-27-2023 Lymphocytes/100 WBC Auto (Unsp spec) 39.4 % 19-41 [facility] Basophil percentageOrdered B y: Sigrid Rodriguez on 12-27-2023 Basophils/100 WBC (Bld) 1.4 % 0-1 [facility] Bilirubin [Mass/Vol] 0.30 mg/dL 0.20-1.00 [facility] Comment on above: For patients on eltr ombopag therapy, use of Dimension [place] TBIL is not recommended. Chloride [Moles/Vol] 110 mmol/L 98-107 [facility] Eosinophils/100 WBC (Bld) 5.0 % 0-5 [facility] Glucose [Mass/Vol] 98 mg/dL 74-106 [facility] Hemoglobin (Bld) [Mass/Vol] 11.7 g/dL 12.0-15.0 [facility] Monocytes/100 WBC (Bld) 13.9 % 0-10 [facility] Neutrophils (Bld) [#/Vol] 1.8 10*3/uL 2.0-7.7 [facility] Neutrophils/100 WBC (Bld) 40.1 % 47-70 [facility] Potassium [Moles/Vol] 3.7 mmol/L 3.5-5.1 [facility] Protein [Mass/Vol] 7.0 g/dL 6.4-8.2 [facility] Sodium [Moles/Vol] 141 mmol/L 136-145 [facility] WBC (Bld) [#/Vol] 4.4 10*3/uL 4.4-11.0 [facility] Determination of erythrocyte mean corpuscular volume (MCV)Ordered By: Sigrid Rodriguez on 12-27-2023 MCV (RBC) [Entitic vol] 87.7 fL 81-99 [facility] Erythrocyte distribution wid th ratioOrdered By: Sigrid Rodriguez on 12-27-2023 Erythrocyte distribution width (RBC) [Ratio] 13.2 % 11.6-14.6 [facility] Erythrocyte distribution wid th standard deviationOrdered By: Sigrid Rodriguez on 12-27-2023 Erythrocyte distribution width (RBC) [Entitic vol] 42.4 fL 35.1-43.9 [facility] Hematocrit Auto (Bld) [Volum e fraction]Ordered By: Sigrid Rodriguez on 12-27-2023 Hematocrit (Bld) [Volume fraction] 35.7 % 37-47 [facility] Immature granulocytes/100 WB C Auto (Bld)Ordered By: Sigrid Rodriguez on 12-27-2023 Immature granulocytes/100 WBC (Bld) 0.200 % 0.0-0.9 [facility] Comment on above: IG% - Immature Granu locytes (promyelocytes, myelocytes and metamyelocytes) > 1% indicates that a LEFT SHIFT is Present. Laboratory - Chemistry and C hemistry - challengeOrdered By: Sigrid Rodriguez on 12-27-2023 Albumin/Globulin [Mass ratio] 1.1 {ratio} 0.9-2.4 [facility] ALP [Catalytic activity/Vol] 80 U/L 45-117 [facility] ALT [Catalytic activity/Vol] 44 U/L 13-56 [facility] CO2 [Moles/Vol] 27.0 mmol/L 21.0-32.0 [facility] Globulin (S) [Mass/Vol] 3.3 g/dL 2.2-4.2 [facility] Urea nitrogen/Creatinine [Mass ratio] 11.6 mg/mg 10-20 [facility] - Hematology and Cell countsOrdered By: Sigrid Rodriguez on 12-27-2023 MCH (RBC) [Entitic mass] 28.7 pg 27.0-32.0 [facility] MCHC (RBC) [Mass/Vol] 32.8 g/dL 32-36 [facility] Nucleated RBC/100 WBC (Bld) [Ratio] 0 % 0-5 [facility] Platelet mean volume (Bld) [Entitic vol] 10.9 fL 6.2-12.0 [facility] Platelets (Bld) [#/Vol] 202 10*3/uL 150-450 [facility] No Panel InformationOrdered By: Sigrid Rodriguez on 12-27-2023 Estimated GFR (MDRD) Amer 78 mL/min >60 [facility] Comment on above: GFR Calc Estimated GFR (MDRD) Non-Af Amer 65 mL/min >60 [facility] Comment on above: Non- GFR Calc RBC Auto (Bld) [#/Vol]Ordere d By: Sigrid Rodriguez on 12-27-2023 RBC (Bld) [#/Vol] 4.07 10*6/uL 4.2-5.4 [facility] Serum or plasma calcium domingo urement (mass/volume)Ordered By: Sigrid Rodriguez on 12-27-2023 Calcium [Mass/Vol] 9.2 mg/dL 8.5-10.1 [facility] Serum or plasma creatinine m easurement (mass/volume)Ordered By: Sigrid Rodriguez on 12-27-2023 Creatinine [Mass/Vol] 0.94 mg/dL 0.55-1.02 [facility] Comment on above: The validity of the calculated GFR & GFRAA in patients over 70 years has not been determined. Clinical correlation is essential. Serum or plasma urea nitroge n measurement (mass/volume)Ordered By: Sigrid Rodriguez on 12-27-2023 Urea nitrogen [Mass/Vol] 11 mg/dL 7-18 [facility] Thin prep Papanicolaou smear with manual screeningOrdered By: Sigrid Rodriguez on 12-27-2023 Thin prep Papanicolaou smear with manual screening 3.7 g/dL 3.2-5.0 [facility] Thin prep Papanicolaou smear with manual screening 28 U/L 15-37 [facility] Thin prep Papanicolaou smear with manual screening 4 5-15 [facility] Absolute lymphocyte countOrd ered By: Sigrid Rodriguez on 09-27-2023 Lymphocytes Auto (Unsp spec) [#/Vol] 1.61 10*3/uL 0.83-4.51 [facility] Basophil percentageOrdered B y: Sigrid Rodriguez on 09-27-2023 Basophils/100 WBC (Bld) 1.2 % 0-1 [facility] Bilirubin [Mass/Vol] 0.20 mg/dL 0.20-1.00 [facility] Comment on above: For patients on eltr ombopag therapy, use of Dimension Borger TBIL is not recommended. Chloride [Moles/Vol] 111 mmol/L 98-107 [facility] Eosinophils/100 WBC (Bld) 3.3 % 0-5 [facility] Glucose [Mass/Vol] 88 mg/dL 74-106 [facility] Neutrophils (Bld) [#/Vol] 2.0 10*3/uL 2.0-7.7 [facility] Neutrophils/100 WBC (Bld) 46.7 % 47-70 [facility] Potassium [Moles/Vol] 3.8 mmol/L 3.5-5.1 [facility] Protein [Mass/Vol] 7.0 g/dL 6.4-8.2 [facility] Sodium [Moles/Vol] 142 mmol/L 136-145 [facility] WBC (Bld) [#/Vol] 4.3 10*3/uL 4.4-11.0 [facility] Blood erythrocytes count (nu mber/volume)Ordered By: Sigrid Rodriguez on 09-27-2023 RBC (Bld) [#/Vol] 4.14 10*6/uL 4.2-5.4 [facility] Blood hemoglobin measurement (mass/volume)Ordered By: Sigrid Rodriguez on 09-27-2023 Hemoglobin (Bld) [Mass/Vol] 11.7 g/dL 12.0-15.0 [facility] Blood lymphocytes/100 leukoc ytesOrdered By: Sigrid Rodriguez on 09-27-2023 Lymphocytes/100 WBC (Bld) 37.4 % 19-41 [facility] Blood monocytes/100 leukocyt esOrdered By: Sigrid Rodriguez on 09-27-2023 Monocytes/100 WBC (Bld) 11.2 % 0-10 [facility] Blood platelet mean volumeOr dered By: Sigrid Rodriguez on 09-27-2023 Platelet mean volume (Bld) [Entitic vol] 11.0 fL 6.2-12.0 [facility] Determination of erythrocyte mean corpuscular volume (MCV)Ordered By: Sigrid Rodriguez on 09-27-2023 MCV (RBC) [Entitic vol] 90.1 fL 81-99 [facility] Hematocrit Auto (Bld) [Volum e fraction]Ordered By: Sigrid Rodriguez on 09-27-2023 Hematocrit (Bld) [Volume fraction] 37.3 % 37-47 [facility] Laboratory - Chemistry and C hemistry - challengeOrdered By: Sigridmeka Rodriguez on 09-27-2023 ALP [Catalytic activity/Vol] 80 U/L 45-117 [facility] ALT [Catalytic activity/Vol] 50 U/L 13-56 [facility] CO2 [Moles/Vol] 29.0 mmol/L 21.0-32.0 [facility] Globulin (S) [Mass/Vol] 3.5 g/dL 2.2-4.2 [facility] Urea nitrogen/Creatinine [Mass ratio] 19.0 mg/mg 10-20 [facility] Laboratory - Hematology and Cell countsOrdered By: Sigrid Rodriguez on 09-27-2023 Erythrocyte distribution width (RBC) [Entitic vol] 45.6 fL 35.1-43.9 [facility] Erythrocyte distribution width (RBC) [Ratio] 13.7 % 11.6-14.6 [facility] Immature granulocytes/100 WBC (Bld) 0.200 % 0.0-0.9 [facility] Comment on above: IG% - Immature Granu locytes (promyelocytes, myelocytes and metamyelocytes) > 1% indicates that a LEFT SHIFT is Present. MCH (RBC) [Entitic mass] 28.3 pg 27.0-32.0 [facility] Nucleated RBC/100 WBC (Bld) [Ratio] 0 % 0-5 [facility] MCHC Auto (RBC) [Mass/Vol]Or dered By: Sigrid Rodriguez on 09-27-2023 MCHC (RBC) [Mass/Vol] 31.4 g/dL 32-36 [facility] No Panel InformationOrdered By: Sigrid Rodriguez on 09-27-2023 Estimated GFR (MDRD) Amer 96 mL/min >60 [facility] Comment on above: GFR Calc Estimated GFR (MDRD) Non-Af Amer 79 mL/min >60 [facility] Comment on above: Non- GFR Calc Platelets bldOrdered By: Nayely Rodriguez on 09-27-2023 Platelets (Bld) [#/Vol] 194 10*3/uL 150-450 [facility] Serum or plasma albumin domingo urement (mass/volume)Ordered By: Sigrid Rodriguez on 09-27-2023 Albumin [Mass/Vol] 3.5 g/dL 3.2-5.0 [facility] Serum or plasma albumin/glob ulin mass ratioOrdered By: Sigrid Rodriguez on 09-27-2023 Albumin/Globulin [Mass ratio] 1.0 {ratio} 0.9-2.4 [facility] Serum or plasma calcium domingo urement (mass/volume)Ordered By: Sigrid Rodriguez on 09-27-2023 Calcium [Mass/Vol] 8.8 mg/dL 8.5-10.1 [facility] Serum or plasma creatinine m easurement (mass/volume)Ordered By: Sigrid Rodriguez on 09-27-2023 Creatinine [Mass/Vol] 0.79 mg/dL 0.55-1.02 [facility] Comment on above: The validity of the calculated GFR & GFRAA in patients over 70 years has not been determined. Clinical correlation is essential. Serum or plasma urea nitroge n measurement (mass/volume)Ordered By: Sigrid Rodriguez on 09-27-2023 Urea nitrogen [Mass/Vol] 15 mg/dL 7-18 [facility] Thin prep Papanicolaou smear with manual screeningOrdered By: Sigrid Rodriguez on 09-27-2023 Thin prep Papanicolaou smear with manual screening 26 U/L 15-37 [facility] Thin prep Papanicolaou smear with manual screening 2 5-15 [facility] Laboratory - Chemistry and C hemistry - challengeon 09-05-2023 Cholesterol [Mass/Vol] 219 mg/dL Abnormal [employer] [facility] [employer] Cholesterol in HDL [Mass/Vol] 75 mg/dL Normal [employer] [facility] [employer] Cholesterol in LDL [Mass/Vol] 125 mg/dL Abnormal [employer]; [employer] Triglyceride [Mass/Vol] 88 mg/dL Normal [employer]; [employer] No Panel Informationon 09-05 CHOL/HDLC RATIO 2.9 Normal [employer] NON HDL CHOLESTEROL 144 Abnormal [facility] [employer] Absolute lymphocyte countOrd ered By: Sigrid Rodriguez on 06-27-2023 Lymphocytes Auto (Unsp spec) [#/Vol] 1.73 10*3/uL 0.83-4.51 [facility] Basophil percentageOrdered B y: Sigrid Rodriguez on 06-27-2023 Basophils/100 WBC (Bld) 1.2 % 0-1 [facility] Bilirubin [Mass/Vol] 0.20 mg/dL 0.20-1.00 [facility] Comment on above: For patients on eltr ombopag therapy, use of Dimension Borger TBIL is not recommended. Chloride [Moles/Vol] 109 mmol/L 98-107 [facility] Eosinophils/100 WBC (Bld) 4.1 % 0-5 [facility] Glucose [Mass/Vol] 134 mg/dL 74-106 [facility] Comment on above: Fasting Glucose resu lt greater than or equal to 126 mg/dL suggests DIABETES MELLITUS per A.D.A. criteria. Neutrophils (Bld) [#/Vol] 1.8 10*3/uL 2.0-7.7 [facility] Neutrophils/100 WBC (Bld) 43.4 % 47-70 [facility] Potassium [Moles/Vol] 3.9 mmol/L 3.5-5.1 [facility] Protein [Mass/Vol] 7.0 g/dL 6.4-8.2 [facility] Sodium [Moles/Vol] 141 mmol/L 136-145 [facility] WBC (Bld) [#/Vol] 4.2 10*3/uL 4.4-11.0 [facility] Blood erythrocytes count (nu mber/volume)Ordered By: Sigrid Rodriguez on 06-27-2023 RBC (Bld) [#/Vol] 4.28 10*6/uL 4.2-5.4 [facility] Blood hemoglobin measurement (mass/volume)Ordered By: Sigrid Rodriguez on 06-27-2023 Hemoglobin (Bld) [Mass/Vol] 12.0 g/dL 12.0-15.0 [facility] Blood lymphocytes/100 leukoc ytesOrdered By: Sigrid Rodriguez on 06-27-2023 Lymphocytes/100 WBC (Bld) 41.5 % 19-41 [facility] Blood monocytes/100 leukocyt esOrdered By: Sigrid Rodriguez on 06-27-2023 Monocytes/100 WBC (Bld) 9.6 % 0-10 [facility] Blood platelet mean volumeOr dered By: Sigrid Rodriguez on 06-27-2023 Platelet mean volume (Bld) [Entitic vol] 10.5 fL 6.2-12.0 [facility] Determination of erythrocyte mean corpuscular volume (MCV)Ordered By: Sigrid Rodriguez on 06-27-2023 MCV (RBC) [Entitic vol] 86.9 fL 81-99 [facility] Hematocrit Auto (Bld) [Volum e fraction]Ordered By: Sigrid Rodriguez on 06-27-2023 Hematocrit (Bld) [Volume fraction] 37.2 % 37-47 [facility] Laboratory - Chemistry and C hemistry - challengeOrdered By: Sigrid Rodriguez on 06-27-2023 ALP [Catalytic activity/Vol] 72 U/L 45-117 [facility] ALT [Catalytic activity/Vol] 39 U/L 13-56 [facility] CO2 [Moles/Vol] 27.0 mmol/L 21.0-32.0 [facility] Globulin (S) [Mass/Vol] 3.3 g/dL 2.2-4.2 [facility] Urea nitrogen/Creatinine [Mass ratio] 17.6 mg/mg 10-20 [facility] Laboratory - Hematology and Cell countsOrdered By: Sigrid Rodriguez on 06-27-2023 Erythrocyte distribution width (RBC) [Entitic vol] 42.7 fL 35.1-43.9 [facility] Erythrocyte distribution width (RBC) [Ratio] 13.6 % 11.6-14.6 [facility] Immature granulocytes/100 WBC (Bld) 0.200 % 0.0-0.9 [facility] Comment on above: IG% - Immature Granu locytes (promyelocytes, myelocytes and metamyelocytes) > 1% indicates that a LEFT SHIFT is Present. MCH (RBC) [Entitic mass] 28.0 pg 27.0-32.0 [facility] Nucleated RBC/100 WBC (Bld) [Ratio] 0 % 0-5 [facility] MCHC Auto (RBC) [Mass/Vol]Or dered By: Sigrid Rodriguez on 06-27-2023 MCHC (RBC) [Mass/Vol] 32.3 g/dL 32-36 [facility] No Panel InformationOrdered By: Sigrid Rodriguez on 06-27-2023 Estimated GFR (MDRD) Amer 95 mL/min >60 [facility] Comment on above: GFR Calc Estimated GFR (MDRD) Non-Af Amer 79 mL/min >60 [facility] Comment on above: Non- GFR Calc Platelets bldOrdered By: Nayely Rodriguez on 06-27-2023 Platelets (Bld) [#/Vol] 194 10*3/uL 150-450 [facility] Serum or plasma albumin domingo urement (mass/volume)Ordered By: Sigrid Rodriguez on 06-27-2023 Albumin [Mass/Vol] 3.7 g/dL 3.2-5.0 [facility] Serum or plasma albumin/glob ulin mass ratioOrdered By: Sigrid Rodriguez on 06-27-2023 Albumin/Globulin [Mass ratio] 1.1 {ratio} 0.9-2.4 [facility] Serum or plasma calcium domingo urement (mass/volume)Ordered By: Sigrid Rodriguez on 06-27-2023 Calcium [Mass/Vol] 9.2 mg/dL 8.5-10.1 [facility] Serum or plasma creatinine m easurement (mass/volume)Ordered By: Sigrid Rodriguez on 06-27-2023 Creatinine [Mass/Vol] 0.80 mg/dL 0.55-1.02 [facility] Comment on above: The validity of the calculated GFR & GFRAA in patients over 70 years has not been determined. Clinical correlation is essential. Serum or plasma urea nitroge n measurement (mass/volume)Ordered By: Sigrid Rodriguez on 06-27-2023 Urea nitrogen [Mass/Vol] 14 mg/dL 7-18 [facility] Thin prep Papanicolaou smear with manual screeningOrdered By: Sigrid Rodriguez on 06-27-2023 Thin prep Papanicolaou smear with manual screening 27 U/L 15-37 [facility] Thin prep Papanicolaou smear with manual screening 5 5-15 [facility] Qualitative QuantiFERON-TB g old in tube testOrdered By: Dr. Rodriguez on 03-22-2023 M. tuberculosis tuberculin stim IFN-g Ql (Bld) 0.02 IU/mL . [facility] Thin prep Papanicolaou smear with manual screeningOrdered By: Dr. Rodriguez on 03-22-2023 Thin prep Papanicolaou smear with manual screening Comment . [facility] Comment on above: QuantiFERON-TB Gold Plus is a qualitative indirect test forM tuberculosis infection (including disease) and isintended for use in conjunction with risk assessment,radiography, and other medical and diagnostic evaluations.The QuantiFERON-TB Gold Plus result is determined bysubtracting the Nil value from either TB antigen (Ag)value. The Mitogen tube serves as a control for the test. Thin prep Papanicolaou smear with manual screening 0.01 IU/mL . [facility] Thin prep Papanicolaou smear with manual screening 0 IU/mL . [facility] Thin prep Papanicolaou smear with manual screening > 10.00 IU/mL . [facility] Thin prep Papanicolaou smear with manual screening Negative Negative [facility] Comment on above: No response to M tub erculosis antigens detected.Infection with M tuberculosis is unlikely, but high riskindividuals should be considered for additional testing(ATS/IDSA/CDC Clinical Practice Guidelines, 2017). Thereference range is an Antigen minus Nil result of <0.35IU/mL.The specimen received for QuantiFERON testing was incubatedby the ordering institution. Specific procedures outlinedin our Directory of Services and in the package insert forthe QuantiFERON Gold (In Tube) test must be followed toenable for proper stimulation of cells for the productionof interferon gamma. Chemiluminescence immunoassaymethodologyPerformed at: [facility] [address] [id number] Director: Gianni Cavazos PhD, Phone: [phone] Absolute lymphocyte countOrd ered By: Dr. Rodriguez on 03-21-2023 Lymphocytes Auto (Unsp spec) [#/Vol] 1.70 10*3/uL 0.83-4.51 [facility] Basophil percentageOrdered B y: Dr. Rodriguez on 03-21-2023 Basophils/100 WBC (Bld) 0.9 % 0-1 [facility] Bilirubin [Mass/Vol] 0.20 mg/dL 0.20-1.00 [facility] Comment on above: For patients on eltr ombopag therapy, use of Dimension Borger TBIL is not recommended. Chloride [Moles/Vol] 108 mmol/L 98-107 [facility] Eosinophils/100 WBC (Bld) 5.6 % 0-5 [facility] Glucose [Mass/Vol] 101 mg/dL 74-106 [facility] Comment on above: Fasting Glucose resu lt from 100 to 125 mg/dL suggests IMPAIRED HOMEOSTASIS per A.D.A. criteria. Neutrophils (Bld) [#/Vol] 1.9 10*3/uL 2.0-7.7 [facility] Neutrophils/100 WBC (Bld) 42.8 % 47-70 [facility] Potassium [Moles/Vol] 3.9 mmol/L 3.5-5.1 [facility] Protein [Mass/Vol] 7.0 g/dL 6.4-8.2 [facility] Sodium [Moles/Vol] 143 mmol/L 136-145 [facility] WBC (Bld) [#/Vol] 4.5 10*3/uL 4.4-11.0 [facility] Blood erythrocytes count (nu mber/volume)Ordered By: Dr. Rodriguez on 03-21-2023 RBC (Bld) [#/Vol] 4.11 10*6/uL 4.2-5.4 [facility] Blood hemoglobin measurement (mass/volume)Ordered By: Dr. Rodriguez on 03-21-2023 Hemoglobin (Bld) [Mass/Vol] 11.5 g/dL 12.0-15.0 [facility] Blood lymphocytes/100 leukoc ytesOrdered By: Dr. Rodriguez on 03-21-2023 Lymphocytes/100 WBC (Bld) 37.8 % 19-41 [facility] Blood monocytes/100 leukocyt esOrdered By: Dr. Rodriguez on 03-21-2023 Monocytes/100 WBC (Bld) 12.7 % 0-10 [facility] Blood platelet mean volumeOr dered By: Dr. Rodriguez on 03-21-2023 Platelet mean volume (Bld) [Entitic vol] 10.3 fL 6.2-12.0 [facility] Determination of erythrocyte mean corpuscular volume (MCV)Ordered By: Dr. Rodriguez on 03-21-2023 MCV (RBC) [Entitic vol] 85.6 fL 81-99 [facility] Hematocrit Auto (Bld) [Volum e fraction]Ordered By: Dr. Rodriguez on 03-21-2023 Hematocrit (Bld) [Volume fraction] 35.2 % 37-47 [facility] Laboratory - Chemistry and C hemistry - challengeOrdered By: Dr. Rodriguez on 03-21-2023 ALP [Catalytic activity/Vol] 90 U/L 45-117 [facility] ALT [Catalytic activity/Vol] 39 U/L 13-56 [facility] CO2 [Moles/Vol] 27.0 mmol/L 21.0-32.0 [facility] Globulin (S) [Mass/Vol] 3.6 g/dL 2.2-4.2 [facility] Urea nitrogen/Creatinine [Mass ratio] 14.0 mg/mg 10-20 [facility] Laboratory - Hematology and Cell countsOrdered By: Dr. Rodriguez on 03-21-2023 Erythrocyte distribution width (RBC) [Entitic vol] 41.7 fL 35.1-43.9 [facility] Erythrocyte distribution width (RBC) [Ratio] 13.5 % 11.6-14.6 [facility] Immature granulocytes/100 WBC (Bld) 0.200 % 0.0-0.9 [facility] Comment on above: IG% - Immature Granu locytes (promyelocytes, myelocytes and metamyelocytes) > 1% indicates that a LEFT SHIFT is Present. MCH (RBC) [Entitic mass] 28.0 pg 27.0-32.0 [facility] Nucleated RBC/100 WBC (Bld) [Ratio] 0 % 0-5 [facility] MCHC Auto (RBC) [Mass/Vol]Or dered By: Dr. Rodriguez on 03-21-2023 MCHC (RBC) [Mass/Vol] 32.7 g/dL 32-36 [facility] No Panel InformationOrdered By: Dr. Rodriguez on 03-21-2023 Estimated GFR (MDRD) Amer 97 mL/min >60 [facility] Comment on above: GFR Calc Estimated GFR (MDRD) Non-Af Amer 80 mL/min >60 [facility] Comment on above: Non- GFR Calc Platelets bldOrdered By: Dr. Rodriguez on 03-21-2023 Platelets (Bld) [#/Vol] 193 10*3/uL 150-450 [facility] Serum or plasma albumin domingo urement (mass/volume)Ordered By: Dr. Rodriguez on 03-21-2023 Albumin [Mass/Vol] 3.4 g/dL 3.2-5.0 [facility] Serum or plasma albumin/glob ulin mass ratioOrdered By: Dr. Rodriguez on 03-21-2023 Albumin/Globulin [Mass ratio] 0.9 {ratio} 0.9-2.4 [facility] Serum or plasma calcium domingo urement (mass/volume)Ordered By: Dr. Rodriguez on 03-21-2023 Calcium [Mass/Vol] 9.0 mg/dL 8.5-10.1 [facility] Serum or plasma creatinine m easurement (mass/volume)Ordered By: Dr. Rodriguez on 03-21-2023 Creatinine [Mass/Vol] 0.78 mg/dL 0.55-1.02 [facility] Comment on above: The validity of the calculated GFR & GFRAA in patients over 70 years has not been determined. Clinical correlation is essential. Serum or plasma urea nitroge n measurement (mass/volume)Ordered By: Dr. Rodriguez on 03-21-2023 Urea nitrogen [Mass/Vol] 11 mg/dL 7-18 [facility] Thin prep Papanicolaou smear with manual screeningOrdered By: Dr. Rodriguez on 03-21-2023 Thin prep Papanicolaou smear with manual screening 31 U/L 15-37 [facility] Thin prep Papanicolaou smear with manual screening 8 5-15 [facility] BECKA DIAG W CHE Anton 02-23 [facility] BECKA SCREENING W Radha 12-30 [facility] Absolute lymphocyte countOrd ered By: Dr. Rodriguez on 12-24-2022 Lymphocytes Auto (Unsp spec) [#/Vol] 1.69 10*3/uL 0.83-4.51 [facility] Basophil percentageOrdered B y: Dr. Rodriguez on 12-24-2022 Basophils/100 WBC (Bld) 1.0 % 0-1 [facility] Bilirubin [Mass/Vol] 0.20 mg/dL 0.20-1.00 [facility] Comment on above: For patients on eltr ombopag therapy, use of Dimension Borger TBIL is not recommended. Chloride [Moles/Vol] 106 mmol/L 98-107 [facility] Eosinophils/100 WBC (Bld) 4.3 % 0-5 [facility] Glucose [Mass/Vol] 108 mg/dL 74-106 [facility] Comment on above: Fasting Glucose resu lt from 100 to 125 mg/dL suggests IMPAIRED HOMEOSTASIS per A.D.A. criteria. Neutrophils (Bld) [#/Vol] 2.6 10*3/uL 2.0-7.7 [facility] Neutrophils/100 WBC (Bld) 50.8 % 47-70 [facility] Potassium [Moles/Vol] 3.6 mmol/L 3.5-5.1 [facility] Protein [Mass/Vol] 7.2 g/dL 6.4-8.2 [facility] Sodium [Moles/Vol] 141 mmol/L 136-145 [facility] WBC (Bld) [#/Vol] 5.1 10*3/uL 4.4-11.0 [facility] Blood erythrocytes count (nu mber/volume)Ordered By: Dr. Rodriguez on 12-24-2022 RBC (Bld) [#/Vol] 4.06 10*6/uL 4.2-5.4 [facility] Blood hemoglobin measurement (mass/volume)Ordered By: Dr. Rodriguez on 12-24-2022 Hemoglobin (Bld) [Mass/Vol] 11.6 g/dL 12.0-15.0 [facility] Blood lymphocytes/100 leukoc ytesOrdered By: Dr. Rodriguez on 12-24-2022 Lymphocytes/100 WBC (Bld) 33.1 % 19-41 [facility] Blood monocytes/100 leukocyt esOrdered By: Dr. Rodriguez on 12-24-2022 Monocytes/100 WBC (Bld) 10.2 % 0-10 [facility] Blood platelet mean volumeOr dered By: Dr. Rodriguez on 12-24-2022 Platelet mean volume (Bld) [Entitic vol] 10.9 fL 6.2-12.0 [facility] Determination of erythrocyte mean corpuscular volume (MCV)Ordered By: Dr. Rodriguez on 12-24-2022 MCV (RBC) [Entitic vol] 86.9 fL 81-99 [facility] Hematocrit Auto (Bld) [Volum e fraction]Ordered By: Dr. Rodriguez on 02-24-2023 Hematocrit (Bld) [Volume fraction] 35.3 % 37-47 [facility] Laboratory - Chemistry and C hemistry - challengeOrdered By: Dr. Rodriguez on 12-24-2022 ALP [Catalytic activity/Vol] 79 U/L 45-117 [facility] ALT [Catalytic activity/Vol] 30 U/L 13-56 [facility] CO2 [Moles/Vol] 30.0 mmol/L 21.0-32.0 [facility] Globulin (S) [Mass/Vol] 3.7 g/dL 2.2-4.2 [facility] Urea nitrogen/Creatinine [Mass ratio] 11.2 mg/mg 10-20 [facility] Laboratory - Hematology and Cell countsOrdered By: Dr. Rodriguez on 12-24-2022 Erythrocyte distribution width (RBC) [Entitic vol] 41.1 fL 35.1-43.9 [facility] Erythrocyte distribution width (RBC) [Ratio] 13.2 % 11.6-14.6 [facility] Immature granulocytes/100 WBC (Bld) 0.600 % 0.0-0.9 [facility] Comment on above: IG% - Immature Granu locytes (promyelocytes, myelocytes and metamyelocytes) > 1% indicates that a LEFT SHIFT is Present. MCH (RBC) [Entitic mass] 28.6 pg 27.0-32.0 [facility] Nucleated RBC/100 WBC (Bld) [Ratio] 0 % 0-5 [facility] MCHC Auto (RBC) [Mass/Vol]Or dered By: Dr. oRdriguez on 12-24-2022 MCHC (RBC) [Mass/Vol] 32.9 g/dL 32-36 [facility] No Panel InformationOrdered By: Dr. Rodriguez on 12-24-2022 Estimated GFR (MDRD) Amer 95 mL/min >60 [facility] Comment on above: GFR Calc Estimated GFR (MDRD) Non-Af Amer 78 mL/min >60 [facility] Comment on above: Non- GFR Calc Platelets bldOrdered By: Dr. Rodriguez on 12-24-2022 Platelets (Bld) [#/Vol] 229 10*3/uL 150-450 [facility] Serum or plasma albumin domingo urement (mass/volume)Ordered By: Dr. Rodriguez on 12-24-2022 Albumin [Mass/Vol] 3.5 g/dL 3.2-5.0 [facility] Serum or plasma albumin/glob ulin mass ratioOrdered By: Dr. Rodriguez on 12-24-2022 Albumin/Globulin [Mass ratio] 0.9 {ratio} 0.9-2.4 [facility] Serum or plasma calcium domingo urement (mass/volume)Ordered By: Dr. Rodriguez on 12-24-2022 Calcium [Mass/Vol] 9.4 mg/dL 8.5-10.1 [facility] Serum or plasma creatinine m easurement (mass/volume)Ordered By: Dr. Rodriguez on 12-24-2022 Creatinine [Mass/Vol] 0.80 mg/dL 0.55-1.02 [facility] Comment on above: The validity of the calculated GFR & GFRAA in patients over 70 years has not been determined. Clinical correlation is essential. Serum or plasma urea nitroge n measurement (mass/volume)Ordered By: Dr. Rodriguez on 12-24-2022 Urea nitrogen [Mass/Vol] 9 mg/dL 7-18 [facility] Thin prep Papanicolaou smear with manual screeningOrdered By: Dr. Rodriguez on 12-24-2022 Thin prep Papanicolaou smear with manual screening 20 U/L 15-37 [facility] Thin prep Papanicolaou smear with manual screening 5 5-15 [facility] MRI SHOULDER WO IVCON RTon 1 12-22-2021 [facility] Absolute lymphocyte countOrd ered By: Dr. Rodriguez on 10-08-2022 Lymphocytes Auto (Unsp spec) [#/Vol] 1.75 10*3/uL 0.83-4.51 [facility] Basophil percentageOrdered B y: Dr. Rodriguez on 10-08-2022 Basophils/100 WBC (Bld) 1.0 % 0-1 [facility] Bilirubin [Mass/Vol] 0.30 mg/dL 0.20-1.00 [facility] Comment on above: For patients on eltr ombopag therapy, use of Dimension Borger TBIL is not recommended. Chloride [Moles/Vol] 107 mmol/L 98-107 [facility] Eosinophils/100 WBC (Bld) 4.6 % 0-5 [facility] Glucose [Mass/Vol] 131 mg/dL 74-106 [facility] Comment on above: Fasting Glucose resu lt greater than or equal to 126 mg/dL suggests DIABETES MELLITUS per A.D.A. criteria. Neutrophils (Bld) [#/Vol] 2.5 10*3/uL 2.0-7.7 [facility] Neutrophils/100 WBC (Bld) 50.5 % 47-70 [facility] Potassium [Moles/Vol] 3.9 mmol/L 3.5-5.1 [facility] Protein [Mass/Vol] 6.7 g/dL 6.4-8.2 [facility] Sodium [Moles/Vol] 141 mmol/L 136-145 [facility] WBC (Bld) [#/Vol] 5.0 10*3/uL 4.4-11.0 [facility] Blood erythrocytes count (nu mber/volume)Ordered By: Dr. Rodriguez on 10-08-2022 RBC (Bld) [#/Vol] 4.29 10*6/uL 4.2-5.4 [facility] Blood hemoglobin measurement (mass/volume)Ordered By: Dr. Rodriguez on 10-08-2022 Hemoglobin (Bld) [Mass/Vol] 12.0 g/dL 12.0-15.0 [facility] Blood lymphocytes/100 leukoc ytesOrdered By: Dr. Rodriguez on 10-08-2022 Lymphocytes/100 WBC (Bld) 34.9 % 19-41 [facility] Blood monocytes/100 leukocyt esOrdered By: Dr. Rodriguez on 10-08-2022 Monocytes/100 WBC (Bld) 8.6 % 0-10 [facility] Blood platelet mean volumeOr dered By: Dr. Rodriguez on 10-08-2022 Platelet mean volume (Bld) [Entitic vol] 10.5 fL 6.2-12.0 [facility] Determination of erythrocyte mean corpuscular volume (MCV)Ordered By: Dr. Rodriguez on 10-08-2022 MCV (RBC) [Entitic vol] 88.1 fL 81-99 [facility] Hematocrit Auto (Bld) [Volum e fraction]Ordered By: Dr. Rodriguez on 10-08-2022 Hematocrit (Bld) [Volume fraction] 37.8 % 37-47 [facility] Laboratory - Chemistry and C hemistry - challengeOrdered By: Dr. Rodriguez on 10-08-2022 ALP [Catalytic activity/Vol] 69 U/L 45-117 [facility] ALT [Catalytic activity/Vol] 37 U/L 13-56 [facility] CO2 [Moles/Vol] 27.0 mmol/L 21.0-32.0 [facility] Globulin (S) [Mass/Vol] 3.0 g/dL 2.2-4.2 [facility] Urea nitrogen/Creatinine [Mass ratio] 11.8 mg/mg 10-20 [facility] Laboratory - Hematology and Cell countsOrdered By: Dr. Rodriguez on 10-08-2022 Erythrocyte distribution width (RBC) [Entitic vol] 43.4 fL 35.1-43.9 [facility] Erythrocyte distribution width (RBC) [Ratio] 13.6 % 11.6-14.6 [facility] Immature granulocytes/100 WBC (Bld) 0.400 % 0.0-0.9 [facility] Comment on above: IG% - Immature Granu locytes (promyelocytes, myelocytes and metamyelocytes) > 1% indicates that a LEFT SHIFT is Present. MCH (RBC) [Entitic mass] 28.0 pg 27.0-32.0 [facility] Nucleated RBC/100 WBC (Bld) [Ratio] 0 % 0-5 [facility] MCHC Auto (RBC) [Mass/Vol]Or dered By: Dr. Rodriguez on 10-08-2022 MCHC (RBC) [Mass/Vol] 31.7 g/dL 32-36 [facility] No Panel InformationOrdered By: Dr. Rodriguez on 10-08-2022 Estimated GFR (MDRD) Amer 88 mL/min >60 [facility] Comment on above: GFR Calc Estimated GFR (MDRD) Non-Af Amer 73 mL/min >60 [facility] Comment on above: Non- GFR Calc Platelets bldOrdered By: Dr. Rodriguez on 10-08-2022 Platelets (Bld) [#/Vol] 221 10*3/uL 150-450 [facility] Serum or plasma albumin domnigo urement (mass/volume)Ordered By: Dr. Rodriguez on 10-08-2022 Albumin [Mass/Vol] 3.7 g/dL 3.2-5.0 [facility] Serum or plasma albumin/glob ulin mass ratioOrdered By: Dr. Rodriguez on 10-08-2022 Albumin/Globulin [Mass ratio] 1.2 {ratio} 0.9-2.4 [facility] Serum or plasma calcium domingo urement (mass/volume)Ordered By: Dr. Rodriguez on 10-08-2022 Calcium [Mass/Vol] 9.4 mg/dL 8.5-10.1 [facility] Serum or plasma creatinine m easurement (mass/volume)Ordered By: Dr. Rodriguez on 10-08-2022 Creatinine [Mass/Vol] 0.85 mg/dL 0.55-1.02 [facility] Comment on above: The validity of the calculated GFR & GFRAA in patients over 70 years has not been determined. Clinical correlation is essential. Serum or plasma urea nitroge n measurement (mass/volume)Ordered By: Dr. Rodriguez on 10-08-2022 Urea nitrogen [Mass/Vol] 10 mg/dL 7-18 [facility] Thin prep Papanicolaou smear with manual screeningOrdered By: Dr. Rodriguez on 10-08-2022 Thin prep Papanicolaou smear with manual screening 21 U/L 15-37 [facility] Thin prep Papanicolaou smear with manual screening 7 5-15 [facility] Laboratory - Chemistry and C hemistry - challengeon 09-06-2022 Albumin [Mass/Vol] 4.5 g/dL Normal 3.6 - 5.1 g/dL [facility], [facility].; [facility], [facility] Albumin/Globulin [Mass ratio] 1.7 {ratio} Normal 1.0 - 2.5 [facility], [facility]; [facility] ALP [Catalytic activity/Vol] 75 U/L Normal 37 - 153 U/L [facility]; [facility] ALT [Catalytic activity/Vol] 21 U/L Normal 6 - 29 U/L [facility], [facility].; [facility], [facility]. AST [Catalytic activity/Vol] 17 U/L Normal 10 - 35 U/L [facility], [facility].; [facility], [facility]. Bilirubin [Mass/Vol] 0.4 mg/dL Normal 0.2 - 1 .2 mg/dL [facility], [facility].; [facility], [facility]. Calcium [Mass/Vol] 9.5 mg/dL Normal 8.6 - 10. 4 mg/dL [facility], [facility].; [facility], [facility]. Chloride [Moles/Vol] 104 mmol/L Normal 98 - 11 0 mmol/L [facility].; [facility], [facility]. Cholesterol [Mass/Vol] 226 mg/dL Abnormal [facility], [facility].; [facility], [facility]. Cholesterol in HDL [Mass/Vol] 72 mg/dL Normal [facility].; [facility], [facility]. Cholesterol in LDL [Mass/Vol] 131 mg/dL Abnormal [facility].; [facility], [facility]. CO2 [Moles/Vol] 30 mmol/L Normal 20 - 32 mmol/L [facility].; [facility], [facility] Creatinine [Mass/Vol] 0.86 mg/dL Normal 0.50 - 1.03 mg/dL [facility], [facility].; [employer] [facility], [facility]. GFR/1.73 sq M.predicted among non-blacks MDRD (S/P/Bld) [Vol rate/Area] 79 mL/min/{1.73_m2} Normal [facility], [facility].; [facility], [facility]. Glucose [Mass/Vol] 85 mg/dL Normal 65 - 99 mg/dL [facility], [facility].; [facility], [facility]. Potassium [Moles/Vol] 3.6 mmol/L Normal 3.5 - 5.3 mmol/L [facility], [facility].; [employer] [facility], [facility]. Protein [Mass/Vol] 7.1 g/dL Normal 6.1 - 8.1 g/dL [facility], [facility].; [facility] Sodium [Moles/Vol] 141 mmol/L Normal 135 - 146 mmol/L [facility]; [facility] Triglyceride [Mass/Vol] 120 mg/dL Normal [facility]; [facility] Urea nitrogen [Mass/Vol] 14 mg/dL Normal 7 - 25 mg/dL [facility]; [employer] [facility] No Panel Informationon 09-06 BUN/CREATININE RATIO NOT APPLICABLE Normal 6 - [facility]; [employer] [facility] CHOL/HDLC RATIO 3.1 Normal [facility]; [facility] GLOBULIN 2.6 Normal 1.9 - 3.7 [facility]; [facility] NON HDL CHOLESTEROL 154 Abnormal [facility]; [facility] Absolute lymphocyte counton 07-12-2022 Lymphocytes Auto (Unsp spec) [#/Vol] 2.18 10*3/uL 0.83-4.51 [facility] Work Phone: Basophil percentageon 2021 Basophils/100 WBC (Bld) 1.0 % 0-1 [facility] Work Phone: Bilirubin [Mass/Vol] 0.20 mg/dL 0.20-1.00 [facility] Work Phone: Comment on above: For patients on eltr ombopag therapy, use of Dimension [employer] TBIL is not recommended. Chloride [Moles/Vol] 105 mmol/L 98-107 [facility] Work Phone: Eosinophils/100 WBC (Bld) 1.9 % 0-5 [facility] Work Phone: Glucose [Mass/Vol] 114 mg/dL 74-106 [facility] Work Phone: Comment on above: Fasting Glucose resu lt from 100 to 125 mg/dL suggests IMPAIRED HOMEOSTASIS per A.D.A. criteria. Neutrophils (Bld) [#/Vol] 3.8 10*3/uL 2.0-7.7 [facility] Work Phone: Neutrophils/100 WBC (Bld) 55.7 % 47-70 [facility] Work Phone: Potassium [Moles/Vol] 4.0 mmol/L 3.5-5.1 [facility] Work [facility]: Protein [Mass/Vol] 7.5 g/dL 6.4-8.2 [facility] Work Phone: [phone] Sodium [Moles/Vol] 140 mmol/L 136-145 [facility] Work Phone: WBC (Bld) [#/Vol] 6.8 10*3/uL 4.4-11.0 [facility] Work Phone: Blood erythrocytes count (nu mber/volume)on 07-12-2022 RBC (Bld) [#/Vol] 4.58 10*6/uL 4.2-5.4 [facility] Work Phone: Blood hemoglobin measurement (mass/volume)on 07-12-2022 Hemoglobin (Bld) [Mass/Vol] 12.8 g/dL 12.0-15.0 [facility] Work Phone: Blood lymphocytes/100 leukoc yteson 07-12-2022 Lymphocytes/100 WBC (Bld) 31.9 % 19-41 [facility] Work Phone: Blood monocytes/100 leukocyt eson 07-12-2022 Monocytes/100 WBC (Bld) 9.2 % 0-10 [facility] Work Phone: Blood platelet mean volumeon 07-12-2022 Platelet mean volume (Bld) [Entitic vol] 10.1 fL 6.2-12.0 [facility] Work Phone: Determination of erythrocyte mean corpuscular volume (MCV)on 07-12-2022 MCV (RBC) [Entitic vol] 86.9 fL 81-99 [facility] Work Phone: Hematocrit Auto (Bld) [Volum e fraction]on 07-12-2022 Hematocrit (Bld) [Volume fraction] 39.8 % 37-47 [facility] Work Phone: [phone] Laboratory - Chemistry and C hemistry - challengeon 07-12-2022 ALP [Catalytic activity/Vol] 85 U/L 45-117 [facility] Work Phone: [phone] ALT [Catalytic activity/Vol] 36 U/L 13-56 [facility] Work Phone: [phone] CO2 [Moles/Vol] 27.0 mmol/L 21.0-32.0 [facility] Work Phone: [phone] Globulin (S) [Mass/Vol] 3.9 g/dL 2.2-4.2 [facility] Work Phone: [phone] Urea nitrogen/Creatinine [Mass ratio] 16.9 mg/mg 10-20 [facility] Work Phone: [phone] Laboratory - Hematology and Cell countson 07-12-2022 Erythrocyte distribution width (RBC) [Entitic vol] 43.4 fL 35.1-43.9 [facility] Work Phone: [phone] Erythrocyte distribution width (RBC) [Ratio] 13.8 % 11.6-14.6 [facility] Work Phone: [phone] Immature granulocytes/100 WBC (Bld) 0.300 % 0.0-0.9 [facility] Work Phone: [phone] Comment on above: IG% - Immature Granu locytes (promyelocytes, myelocytes and metamyelocytes) > 1% indicates that a LEFT SHIFT is Present. MCH (RBC) [Entitic mass] 27.9 pg 27.0-32.0 [facility] Work Phone: [phone] Nucleated RBC/100 WBC (Bld) [Ratio] 0 % 0-5 [facility] Work Phone: [phone] MCHC Auto (RBC) [Mass/Vol]on 07-12-2022 MCHC (RBC) [Mass/Vol] 32.2 g/dL 32-36 [facility] Work Phone: [phone] No Panel Informationon 07-12 Estimated GFR (MDRD) Amer 91 mL/min >60 [facility] Work Phone: Comment on above: GFR Calc Estimated GFR (MDRD) Non-Af Amer 76 mL/min >60 [facility] Work Phone: Comment on above: Non- GFR Calc Platelets bldon 07-12-2022 Platelets (Bld) [#/Vol] 244 10*3/uL 150-450 [facility] Work Phone: Serum or plasma albumin domingo urement (mass/volume)on 07-12-2022 Albumin [Mass/Vol] 3.6 g/dL 3.2-5.0 [facility] Work Phone: Serum or plasma albumin/glob ulin mass ratioon 07-12-2022 Albumin/Globulin [Mass ratio] 0.9 {ratio} 0.9-2.4 [facility] Work Phone: Serum or plasma calcium domingo urement (mass/volume)on 07-12-2022 Calcium [Mass/Vol] 9.2 mg/dL 8.5-10.1 [facility] Work Phone: Serum or plasma creatinine m easurement (mass/volume)on 07-12-2022 Creatinine [Mass/Vol] 0.83 mg/dL 0.55-1.02 [facility] Work Phone: Comment on above: The validity of the calculated GFR & GFRAA in patients over 70 years has not been determined. Clinical correlation is essential. Serum or plasma urea nitroge n measurement (mass/volume)on 07-12-2022 Urea nitrogen [Mass/Vol] 14 mg/dL 7-18 [facility] Work Phone: [phone] Thin prep Papanicolaou smear with manual screeningon 07-12-2022 Thin prep Papanicolaou smear with manual screening 15 U/L 15-37 [facility] Work Phone: [phone] Thin prep Papanicolaou smear with manual screening 8 5-15 [facility] Work Phone: MRI CERVICAL SPINE WO IVCONo n 06-11-2022 [facility] Absolute lymphocyte counton 04-23-2022 Lymphocytes Auto (Unsp spec) [#/Vol] 1.65 10*3/uL 0.83-4.51 [facility] Work Phone: Basophil percentageon 2021 Basophils/100 WBC (Bld) 0.9 % 0-1 [facility] Work Phone: Bilirubin [Mass/Vol] 0.20 mg/dL 0.20-1.00 [facility] Work Phone: Comment on above: For patients on eltr ombopag therapy, use of Dim[employer] TBIL is not recommended. Chloride [Moles/Vol] 105 mmol/L 98-107 [facility] Work Phone: Eosinophils/100 WBC (Bld) 5.2 % 0-5 [facility] Work Phone: Glucose [Mass/Vol] 102 mg/dL 74-106 [facility] Work Phone: Comment on above: Fasting Glucose resu lt from 100 to 125 mg/dL suggests IMPAIRED HOMEOSTASIS per A.D.A. criteria. Neutrophils (Bld) [#/Vol] 3.0 10*3/uL 2.0-7.7 [facility] Work Phone: Neutrophils/100 WBC (Bld) 53.4 % 47-70 [facility] Work Phone: Potassium [Moles/Vol] 3.5 mmol/L 3.5-5.1 [facility] Work Phone: Protein [Mass/Vol] 7.4 g/dL 6.4-8.2 [facility] Work Phone: Sodium [Moles/Vol] 139 mmol/L 136-145 [facility] Work Phone: WBC (Bld) [#/Vol] 5.6 10*3/uL 4.4-11.0 [facility] Work Phone: Blood erythrocytes count (nu mber/volume)on 06-24-2022 RBC (Bld) [#/Vol] 4.50 10*6/uL 4.2-5.4 [facility] Work Phone: Blood hemoglobin measurement (mass/volume)on 04-23-2022 Hemoglobin (Bld) [Mass/Vol] 12.7 g/dL 12.0-15.0 [facility] Work Phone: [phone] Blood lymphocytes/100 leukoc yteson 04-23-2022 Lymphocytes/100 WBC (Bld) 29.6 % 19-41 [facility] Work Phone: [phone] Blood monocytes/100 leukocyt eson 04-23-2022 Monocytes/100 WBC (Bld) 10.4 % 0-10 [facility] Work Phone: [phone] Blood platelet mean volumeon 04-23-2022 Platelet mean volume (Bld) [Entitic vol] 10.8 fL 6.2-12.0 [facility] Work Phone: Determination of erythrocyte mean corpuscular volume (MCV)on 04-23-2022 MCV (RBC) [Entitic vol] 85.8 fL 81-99 [facility] Work Phone: [phone] Hematocrit Auto (Bld) [Volum e fraction]on 04-23-2022 Hematocrit (Bld) [Volume fraction] 38.6 % 37-47 [facility] Work Phone: [phone] Laboratory - Chemistry and C hemistry - challengeon 04-23-2022 ALP [Catalytic activity/Vol] 77 U/L 45-117 [facility] Work Phone: [phone] ALT [Catalytic activity/Vol] 36 U/L 13-56 [facility] Work Phone: [phone] CO2 [Moles/Vol] 27.0 mmol/L 21.0-32.0 [facility] Work Phone: Globulin (S) [Mass/Vol] 3.7 g/dL 2.2-4.2 [facility] Work Phone: [phone] Urea nitrogen/Creatinine [Mass ratio] 14.4 mg/mg 10-20 [facility] Work Phone: [phone] Laboratory - Hematology and Cell countson 04-23-2022 Erythrocyte distribution width (RBC) [Entitic vol] 41.0 fL 35.1-43.9 [facility] Work Phone: [phone] Erythrocyte distribution width (RBC) [Ratio] 13.3 % 11.6-14.6 [facility] Work Phone: [phone] Immature granulocytes/100 WBC (Bld) 0.500 % 0.0-0.9 [facility] Work Phone: [phone] Comment on above: IG% - Immature Granu locytes (promyelocytes, myelocytes and metamyelocytes) > 1% indicates that a LEFT SHIFT is Present. MCH (RBC) [Entitic mass] 28.2 pg 27.0-32.0 [facility] Work Phone: [phone] Nucleated RBC/100 WBC (Bld) [Ratio] 0 % 0-5 [facility] Work Phone: [phone] MCHC Auto (RBC) [Mass/Vol]on 04-23-2022 MCHC (RBC) [Mass/Vol] 32.9 g/dL 32-36 [facility] Work Phone: No Panel Informationon 04-23 Estimated GFR (MDRD) Amer 83 mL/min >60 [facility] Work Phone: [phone] Comment on above: GFR Calc Estimated GFR (MDRD) Non-Af Amer 68 mL/min >60 [facility] Work Phone: [phone] Comment on above: Non- GFR Calc Platelets bldon 04-23-2022 Platelets (Bld) [#/Vol] 222 10*3/uL 150-450 [facility] Work Phone: [phone] Serum or plasma albumin domingo urement (mass/volume)on 04-23-2022 Albumin [Mass/Vol] 3.7 g/dL 3.2-5.0 [facility] Work Phone: [phone] Serum or plasma albumin/glob ulin mass ratioon 04-23-2022 Albumin/Globulin [Mass ratio] 1.0 {ratio} 0.9-2.4 [facility] Work Phone: Serum or plasma calcium domingo urement (mass/volume)on 04-23-2022 Calcium [Mass/Vol] 9.3 mg/dL 8.5-10.1 [facility] Work Phone: Serum or plasma creatinine m easurement (mass/volume)on 04-23-2022 Creatinine [Mass/Vol] 0.90 mg/dL 0.55-1.02 [facility] Work Phone: Comment on above: The validity of the calculated GFR & GFRAA in patients over 70 years has not been determined. Clinical correlation is essential. Serum or plasma urea nitroge n measurement (mass/volume)on 04-23-2022 Urea nitrogen [Mass/Vol] 13 mg/dL 7-18 [facility] Work Phone: Thin prep Papanicolaou smear with manual screeningon 04-23-2022 Thin prep Papanicolaou smear with manual screening 23 U/L 15-37 [facility] Work Phone: [phone] Thin prep Papanicolaou smear with manual screening 7 5-15 [facility] Work Phone: [phone] Absolute lymphocyte counton 01-21-2022 Lymphocytes Auto (Unsp spec) [#/Vol] 2.10 10*3/uL 0.83-4.51 [facility] Work Phone: Basophil percentageon 2021 Basophils/100 WBC (Bld) 1.1 % 0-1 [facility] Work Phone: [phone] Bilirubin [Mass/Vol] 0.20 mg/dL 0.20-1.00 [facility] Work Phone: Comment on above: For patients on eltr ombopag therapy, use of [employer] TBIL is not recommended. Chloride [Moles/Vol] 107 mmol/L 98-107 [facility] Work Phone: Eosinophils/100 WBC (Bld) 4.5 % 0-5 [facility] Work Phone: [phone] Glucose [Mass/Vol] 81 mg/dL 74-106 [facility] Work Phone: Neutrophils (Bld) [#/Vol] 3.1 10*3/uL 2.0-7.7 [facility] Work Phone: Neutrophils/100 WBC (Bld) 49.6 % 47-70 [facility] Work Phone: Potassium [Moles/Vol] 4.1 mmol/L 3.5-5.1 [facility] Work Phone: Protein [Mass/Vol] 7.7 g/dL 6.4-8.2 [facility] Work Phone: Sodium [Moles/Vol] 141 mmol/L 136-145 [facility] Work Phone: WBC (Bld) [#/Vol] 6.2 10*3/uL 4.4-11.0 [facility] Work Phone: Blood erythrocytes count (nu mber/volume)on 01-21-2022 RBC (Bld) [#/Vol] 4.53 10*6/uL 4.2-5.4 [facility] Work Phone: Blood hemoglobin measurement (mass/volume)on 01-21-2022 Hemoglobin (Bld) [Mass/Vol] 13.1 g/dL 12.0-15.0 [facility] Work Phone: Blood lymphocytes/100 leukoc yteson 01-21-2022 Lymphocytes/100 WBC (Bld) 33.7 % 19-41 [facility] Work Phone: Blood monocytes/100 leukocyt eson 01-21-2022 Monocytes/100 WBC (Bld) 10.6 % 0-10 [facility] Work Phone: Blood platelet mean volumeon 01-21-2022 Platelet mean volume (Bld) [Entitic vol] 10.2 fL 6.2-12.0 [facility] Work Phone: Determination of erythrocyte mean corpuscular volume (MCV)on 01-21-2022 MCV (RBC) [Entitic vol] 84.1 fL 81-99 [facility] Work Phone: [phone] Hematocrit Auto (Bld) [Volum e fraction]on 01-21-2022 Hematocrit (Bld) [Volume fraction] 38.1 % 37-47 [facility] Work Phone: [phone] Laboratory - Chemistry and C hemistry - challengeon 01-21-2022 ALP [Catalytic activity/Vol] 89 U/L 45-117 [facility] Work Phone: [phone] ALT [Catalytic activity/Vol] 36 U/L 13-56 [facility] Work Phone: [phone] CO2 [Moles/Vol] 30.0 mmol/L 21.0-32.0 [facility] Work Phone: [phone] Globulin (S) [Mass/Vol] 3.8 g/dL 2.2-4.2 [facility] Work Phone: [phone] Urea nitrogen/Creatinine [Mass ratio] 9.4 mg/mg 10-20 [facility] Work Phone: [phone] Laboratory - Hematology and Cell countson 01-21-2022 Erythrocyte distribution width (RBC) [Entitic vol] 39.8 fL 35.1-43.9 [facility] Work Phone: [phone] Erythrocyte distribution width (RBC) [Ratio] 13.1 % 11.6-14.6 [facility] Work Phone: [phone] Immature granulocytes/100 WBC (Bld) 0.500 % 0.0-0.9 [facility] Work Phone: [phone] Comment on above: IG% - Immature Granu locytes (promyelocytes, myelocytes and metamyelocytes) > 1% indicates that a LEFT SHIFT is Present. MCH (RBC) [Entitic mass] 28.9 pg 27.0-32.0 [facility] Work Phone: [phone] Nucleated RBC/100 WBC (Bld) [Ratio] 0 % 0-5 [facility] Work Phone: [phone] MCHC Auto (RBC) [Mass/Vol]on 01-21-2022 MCHC (RBC) [Mass/Vol] 34.4 g/dL 32-36 [facility] Work Phone: No Panel Informationon 01-21 Estimated GFR (MDRD) Amer 88 mL/min >60 [facility] Work Phone: Comment on above: GFR Calc Estimated GFR (MDRD) Non-Af Amer 73 mL/min >60 [facility] Work Phone: Comment on above: Non- GFR Calc Platelets bldon 01-21-2022 Platelets (Bld) [#/Vol] 244 10*3/uL 150-450 [facility] Work Phone: Serum or plasma albumin domingo urement (mass/volume)on 01-21-2022 Albumin [Mass/Vol] 3.9 g/dL 3.2-5.0 [facility] Work Phone: Serum or plasma albumin/glob ulin mass ratioon 01-21-2022 Albumin/Globulin [Mass ratio] 1.0 {ratio} 0.9-2.4 [facility] Work Phone: Serum or plasma calcium domingo urement (mass/volume)on 01-21-2022 Calcium [Mass/Vol] 9.4 mg/dL 8.5-10.1 [facility] Work Phone: Serum or plasma creatinine m easurement (mass/volume)on 01-21-2022 Creatinine [Mass/Vol] 0.85 mg/dL 0.55-1.02 [facility] Work Phone: Comment on above: The validity of the calculated GFR & GFRAA in patients over 70 years has not been determined. Clinical correlation is essential. Serum or plasma urea nitroge n measurement (mass/volume)on 01-21-2022 Urea nitrogen [Mass/Vol] 8 mg/dL 7-18 [facility] Work Phone: Thin prep Papanicolaou smear with manual screeningon 01-21-2022 Thin prep Papanicolaou smear with manual screening 25 U/L 15-37 [facility] Work Phone: Thin prep Papanicolaou smear with manual screening 4 5-15 [facility] Work Phone: Absolute lymphocyte counton 10-29-2021 Lymphocytes Auto (Unsp spec) [#/Vol] 1.41 10*3/uL 0.83-4.51 [facility] Work Phone: Basophil percentageon 2020 Bilirubin [Mass/Vol] 0.20 mg/dL 0.20-1.00 [facility] Work Phone: Comment on above: For patients on eltr ombopag therapy, use of Dimension Borger TBIL is not recommended. Chloride [Moles/Vol] 109 mmol/L 98-107 [facility] Work Phone: Eosinophils/100 WBC (Bld) 4.1 % 0-5 [facility] Work Phone: Glucose [Mass/Vol] 84 mg/dL 74-106 [facility] Work Phone: Comment on above: Please note revised GLUCOSE reference range effective 2017. Neutrophils (Bld) [#/Vol] 2.4 10*3/uL 2.0-7.7 [facility] Work Phone: Potassium [Moles/Vol] 3.8 mmol/L 3.5-5.1 [facility] Work Phone: Protein [Mass/Vol] 7.1 g/dL 6.4-8.2 [facility] Work Phone: Sodium [Moles/Vol] 143 mmol/L 136-145 [facility] Work Phone: WBC (Bld) [#/Vol] 4.6 10*3/uL 4.4-11.0 [facility] Work Phone: Blood erythrocytes count (nu mber/volume)on 10-29-2021 RBC (Bld) [#/Vol] 4.43 10*6/uL 4.2-5.4 [facility] Work Phone: Blood hemoglobin measurement (mass/volume)on 10-29-2021 Hemoglobin (Bld) [Mass/Vol] 12.8 g/dL 12.0-15.0 [facility] Work Phone: Blood lymphocytes/100 leukoc yteson 10-29-2021 Lymphocytes/100 WBC (Bld) 30.5 % 19-41 [facility] Work Phone: [phone] Blood monocytes/100 leukocyt eson 10-29-2021 Monocytes/100 WBC (Bld) 11.3 % 0-10 [facility] Work Phone: [phone] Blood platelet mean volumeon 10-29-2021 Platelet mean volume (Bld) [Entitic vol] 10.3 fL 6.2-12.0 [facility] Work Phone: [phone] Determination of erythrocyte mean corpuscular volume (MCV)on 10-29-2021 MCV (RBC) [Entitic vol] 87.4 fL 81-99 [facility] Work Phone: [phone] Hematocrit Auto (Bld) [Volum e fraction]on 10-29-2021 Hematocrit (Bld) [Volume fraction] 38.7 % 37-47 [facility] Work Phone: [phone] Laboratory - Chemistry and C hemistry - challengeon 10-29-2021 ALP [Catalytic activity/Vol] 67 U/L 45-117 [facility] Work Phone: [phone] ALT [Catalytic activity/Vol] 34 U/L 13-56 [facility] Work Phone: [phone] CO2 [Moles/Vol] 28.0 mmol/L 21.0-32.0 [facility] Work Phone: [phone] Globulin (S) [Mass/Vol] 3.7 g/dL 2.2-4.2 [facility] Work Phone: [phone] Urea nitrogen/Creatinine [Mass ratio] 13.1 mg/mg 10-20 [facility] Work Phone: [phone] Laboratory - Hematology and Cell countson 10-29-2021 Basophils/100 WBC (Unsp spec) 1.1 % 0-1 [facility] Work Phone: [phone] Erythrocyte distribution width (RBC) [Entitic vol] 41.2 fL 35.1-43.9 [facility] Work Phone: [phone] Erythrocyte distribution width (RBC) [Ratio] 13.2 % 11.6-14.6 [facility] Work Phone: [phone] Immature granulocytes/100 WBC (Bld) 0.600 % 0.0-0.9 [facility] Work Phone: [phone] Comment on above: IG% - Immature Granu locytes (promyelocytes, myelocytes and metamyelocytes) > 1% indicates that a LEFT SHIFT is Present. MCH (RBC) [Entitic mass] 28.9 pg 27.0-32.0 [facility] Work Phone: [phone] Neutrophils/100 WBC (Bld) 52.4 % 47-70 [facility] Work Phone: [phone] Nucleated RBC/100 WBC (Bld) [Ratio] 0 % 0-5 [facility] Work Phone: [phone] MCHC Auto (RBC) [Mass/Vol]on 10-29-2021 MCHC (RBC) [Mass/Vol] 33.1 g/dL 32-36 [facility] Work Phone: [phone] Panel Informationon 10-29 Estimated GFR (MDRD) Amer 100 mL/min >60 [facility] Work Phone: [phone] Comment on above: GFR Calc Estimated GFR (MDRD) Non-Af Amer 83 mL/min >60 [facility] Work Phone: [phone] Comment on above: Non- GFR Calc Platelets bldon 10-29-2021 Platelets (Bld) [#/Vol] 250 10*3/uL 150-450 [facility] Work Phone: [phone] Serum or plasma albumin domingo urement (mass/volume)on 10-29-2021 Albumin [Mass/Vol] 3.4 g/dL 3.2-5.0 [facility] Work Phone: [phone] Serum or plasma albumin/glob ulin mass ratioon 10-29-2021 Albumin/Globulin [Mass ratio] 0.9 {ratio} 0.9-2.4 [facility] Work Phone: [phone] Serum or plasma calcium domingo urement (mass/volume)on 10-29-2021 Calcium [Mass/Vol] 9.3 mg/dL 8.5-10.1 [facility] Work Phone: [phone] Serum or plasma creatinine m easurement (mass/volume)on 10-29-2021 Creatinine [Mass/Vol] 0.76 mg/dL 0.55-1.02 [facility] Work Phone: Comment on above: The validity of the calculated GFR & GFRAA in patients over 70 years has not been determined. Clinical correlation is essential. Serum or plasma urea nitroge n measurement (mass/volume)on 10-29-2021 Urea nitrogen [Mass/Vol] 10 mg/dL 7-18 [facility] Work Phone: [phone] Thin prep Papanicolaou smear with manual screeningon 10-29-2021 Thin prep Papanicolaou smear with manual screening 19 U/L 15-37 [facility] Work Phone: [phone] Thin prep Papanicolaou smear with manual screening 6 5-15 [facility] Work Phone: Laboratory - Chemistry and C hemistry - challengeon 12-05-2020 Bilirubin Ql (U) Negative Normal [employer] [facility] [employer]. Ketones Ql (U) Negative Normal [employer] [facility].; [employer]. pH (U) 7.0 [pH] Normal [employer]. Specific gravity (U) [Rel density] 1.015 Normal [employer]. Urobilinogen Qn (U) 0.2 mg/dL Normal [facility].; [employer]. Laboratory - Hematology and Cell countson 12-05-2020 Hemoglobin Ql (U) large Abnormal [employer]; [employer]. Laboratory - Specimen inform ationon 12-05-2020 Appearance (U) clear Normal [employer]. Color (U) red Abnormal [employer]. Laboratory - Urinalysison Glucose Test strip (U) [Mass/Vol] Negative Normal [employer]. Leukocyte esterase Test strip Ql (U) small Abnormal [employer]. Nitrite Ql (U) Negative Normal [employer]. Protein Ql (U) 100 mg/dL Abnormal [employer]. No Panel Informationon 12-05 CULTURE, URINE, ROUTINE SEE NOTE Abnormal [employer]. XR Pelvis and Hip - left AP and Lateral frogon 11-18-2020 IMPRESSION: LEFT gluteal calcific tendinosis. Community Pharmacist: HUBERT Transcribe Date/Time: Nov 18 2020 2:00P Dictated by : KISHAN NEGRETE DO This examination was interpreted and the report reviewed and electronically signed by: KISHAN NEGRETE DO on Nov 18 2020 2:05PM [facility] DIVISION OF RADIOLOGY * * *Final Report* * * DATE OF EXAM: Nov 18 2020 1:39PM WOX 5351 - XR HIP 3V PELV+ AP/LAT LT / PROCEDURE REASON: Hip pain * * * * Physician Interpretation * * * * EXAMINATION: XR HIP 3V PELV+ AP/LAT LT PATIENT/TECHNOLOGIST PROVIDED HISTORY: pt states woke up Tuesday with pain in entire posterior left hip. denies inj CLINICAL INFORMATION: 55 years old Female with Hip pain. Lat hip pain TECHNIQUE: XR HIP 3V PELV+ AP/LAT LT Laterality: LEFT Number of different views (projections): 3 COMPARISON: None RESULT: Prominent globular calcification adjacent to the LEFT greater trochanter representing calcium hydroxyapatite deposition at the insertion of the gluteal tendons. No fracture. Hip joint spaces are maintained. Mild degenerative changes left sacroiliac joint. Right sacroiliac joint and pubic symphysis are within normal limits. Mild facet degenerative change lower lumbar spine. DIVISION OF RADIOLOGY Provider, [facility] - 11/18/2020 * * *Final Report* * * DATE OF EXAM: Nov 18 2020 1:39PM WOX 5351 - XR HIP 3V PELV+ AP/LAT LT / PROCEDURE REASON: Hip pain * * * * Physician Interpretation * * * * EXAMINATION: XR HIP 3V PELV+ AP/LAT LT PATIENT/TECHNOLOGIST PROVIDED HISTORY: pt states woke up Tuesday with pain in entire posterior left hip. denies inj CLINICAL INFORMATION: 55 years old Female with Hip pain. Lat hip pain TECHNIQUE: XR HIP 3V PELV+ AP/LAT LT Laterality: LEFT Number of different views (projections): 3 COMPARISON: None RESULT: Prominent globular calcification adjacent to the LEFT greater trochanter representing calcium hydroxyapatite deposition at the insertion of the gluteal tendons. No fracture. Hip joint spaces are maintained. Mild degenerative changes left sacroiliac joint. Right sacroiliac joint and pubic symphysis are within normal limits. Mild facet degenerative change lower lumbar spine. IMPRESSION IMPRESSION: LEFT gluteal calcific tendinosis. Community Pharmacist: HUBERT Transcribe Date/Time: Nov 18 2020 2:00P Dictated by : KISHAN NEGRETE DO This examination was interpreted and the report reviewed and electronically signed by: KISHAN NEGRETE DO on Nov 18 2020 2:05PM EST [facility] Radiology Study observation (narrative) [facility] XR Pelvis and Hip - left AP and Lateral frogOrdered By: [facility] Provider on 11-18-2020 [facility] Laboratory - Chemistry and C hemistry - challengeon 09-08-2020 Albumin [Mass/Vol] 3.8 g/dL Normal 3.2 - 5.0 g/dL [employer]. Albumin/Globulin [Mass ratio] 1.0 {ratio} Normal 0.9 - 2.4 {RATIO} [employer].; [employer]. ALT [Catalytic activity/Vol] 38 U/L Normal 13 - 56 U/L [employer].; [employer], [employer]. AST [Catalytic activity/Vol] 26 U/L Normal 15 - 37 U/L [facility].; [facility], [facility]. Bilirubin [Mass/Vol] 0.40 mg/dL Normal 0.20 - 1.00 mg/dL [facility], [facility].; [facility], [facility]. Calcium [Mass/Vol] 9.1 mg/dL Normal 8.5 - 10. 1 mg/dL [facility], [facility].; [facility], [facility]. Chloride [Moles/Vol] 105 mmol/L Normal 98 - 10 7 mmol/L [facility], [facility].; [facility], [facility]. Cholesterol [Mass/Vol] 219 mg/dL Abnormal [facility].; [facility], [facility]. Cholesterol in HDL [Mass/Vol] 70 mg/dL Normal [facility].; [facility], [facility]. Cholesterol in LDL [Mass/Vol] 128 mg/dL Normal 0 - 130 mg/dL [facility], [facility].; [facility], [facility]. Cholesterol in VLDL [Mass/Vol] 21 mg/dL Normal 5 - 40 mg/dL [facility], [facility].; [facility], [facility]. CO2 [Moles/Vol] 27.0 mmol/L Normal 21.0 - 32.0 mmol/L [facility], [facility].; [facility], [facility]. Creatinine [Mass/Vol] 0.92 mg/dL Normal 0.55 - 1.02 mg/dL [facility], [facility].; [facility], [facility]. GFR/1.73 sq M.predicted among non-blacks MDRD (S/P/Bld) [Vol rate/Area] 67 mL/min/{1.73_m2} Normal [facility], [facility].; [facility], [facility]. Globulin (S) [Mass/Vol] 3.7 g/dL Normal 2.2 - 4.2 g/dL [facility], [facility].; [facility], [facility]. Glucose [Mass/Vol] 83 mg/dL Normal 74 - 106 mg/dL [facility], [facility].; [employer] [facility] Potassium [Moles/Vol] 3.8 mmol/L Normal 3.5 - 5.1 mmol/L [facility], [facility].; [facility] Sodium [Moles/Vol] 140 mmol/L Normal 136 - 145 mmol/L [facility]; [facility] Triglyceride [Mass/Vol] 103 mg/dL Normal [facility]; [facility] Urea nitrogen [Mass/Vol] 13 mg/dL Normal 7 - 18 mg/dL [facility]; [facility] Laboratory - Hematology and Cell countson 09-08-2020 Basophils/100 WBC (Bld) 1.2 % Abnormal 0 - 1 % [facility]; [facility] Work Phone: Eosinophils/100 WBC (Bld) 5.5 % Abnormal 0 - 5 % [facility]; [facility] Work Phone: Erythrocyte distribution width (RBC) [Ratio] 13.0 % Normal 11.6 - 14.6 % [facility]; [facility] Work Phone: Hematocrit (Bld) [Volume fraction] 43.0 % Normal 37 - 47 % [facility]; [facility] Work Phone: Hemoglobin (Bld) [Mass/Vol] 13.8 g/dL Normal 12.0 - 15.0 g/dL [facility]; [facility] Work Phone: Lymphocytes/100 WBC (Bld) 32.5 % Normal 19 - 41 % [facility]; [facility] Work Phone: MCH (RBC) [Entitic mass] 28.0 pg Normal 27.0 - 32.0 pg [facility]; [employer] [facility] Work Phone: MCHC (RBC) [Mass/Vol] 32.1 g/dL Normal 32 - 3 6 g/dL [facility]; [facility] Work Phone: MCV (RBC) [Entitic vol] 87.2 fL Normal 81 - 99 fL [facility]; [employer] Work Phone: Monocytes/100 WBC (Bld) 9.9 % Normal 0 - 10 % [employer]; [employer] Work Phone: Neutrophils/100 WBC (Bld) 50.6 % Normal 47 - 70 % [employer]; [employer] Work Phone: Platelet mean volume (Bld) [Entitic vol] 10.6 fL Normal 6.2 - 12.0 fL [employer]; [employer] Work Phone: Platelets (Bld) [#/Vol] 217 10*3/uL Normal 150 - 450 K/mm3 [employer]; [employer] Work Phone: RBC (Bld) [#/Vol] 4.93 10*6/uL Normal 4.2 - 5.4 {M/mm3} [employer]; [employer] Work Phone: WBC (Bld) [#/Vol] 3.5 10*3/uL Abnormal 4.4 - 11.0 K/mm3 [employer]; [employer] Work Phone: No Panel Informationon 09-08 Absolute Lymph 1.12 {X10_3/uL} Normal 0.83 - 4.51 {X10_3/uL} [employer]; [employer] Work Phone: Absolute Neut 1.8 {X10_3/uL} Abnormal 2.0 - 7.7 {X10_3/uL} [employer]; [employer] Work Phone: ALK P 76 U/L Normal 45 - 117 U/L [employer]; [employer] BUN/CRE 14.1 {RATIO} Normal 10 - 20 {RATIO} [employer]; [employer] EST GFR - AA 81 mL/min Normal [facility].; [employer] GAP 8 Normal 5 - 15 [facility].; [employer] IM GRAN % 0.300 % Normal 0.0 - 0.9 % [employer] [facility].; [employer] Work Phone: NRBC, FLAGGED 0 % Normal 0 - 5 % [facility].; [employer] Work Phone: RDW SD 40.9 fL Normal 35.1 - 43.9 fL [employer].; [employer] Work Phone: T PROT 7.5 g/dL Normal 6.4 - 8.2 g/dL [employer] [facility].; [employer] Laboratory - Chemistry and C hemistry - challengeon 09-13-2018 Cholesterol [Mass/Vol] 226 mg/dL Abnormal [employer].; [employer] Cholesterol in HDL [Mass/Vol] 71 mg/dL Normal [employer] [facility].; [employer] Cholesterol in LDL [Mass/Vol] 133 mg/dL Abnormal 0 - 100 mg/dL [employer].; [employer] Cholesterol non HDL [Mass/Vol] 155 mg/dL Abnormal [employer] [facility].; [employer]. Cholesterol.total/Cho lesterol in HDL [Mass ratio] 3.2 {ratio} Normal [employer] [facility].; [employer] Triglyceride [Mass/Vol] 108 mg/dL Normal [facility] [facility].; [employer] Laboratory - Chemistry and C hemistry - challengeon 09-01-2017 Calcium [Mass/Vol] 9.3 mg/dL Normal 8.6 - 10. 4 mg/dL [employer].; [employer] Chloride [Moles/Vol] 105 mmol/L Normal 98 - 11 0 mmol/L [employer].; [employer] CO2 [Moles/Vol] 27 mmol/L Normal 20 - 31 mmol/L [facility].; [facility], [facility]. Creatinine [Mass/Vol] 0.74 mg/dL Normal 0.50 - 1.05 mg/dL [facility].; [facility], [facility]. GFR/1.73 sq M.predicted among blacks MDRD (S/P/Bld) [Vol rate/Area] 108 {ML/MIN/1.73M2} Normal [facility], [facility].; [facility], [facility]. GFR/1.73 sq M.predicted MDRD (S/P/Bld) [Vol rate/Area] 93 {ML/MIN/1.73M2} Normal [facility].; [facility], [facility] Glucose [Mass/Vol] 95 mg/dL Normal 65 - 99 mg/dL [facility].; [employer] [facility], [facility]. Potassium [Moles/Vol] 3.8 mmol/L Normal 3.5 - 5.3 mmol/L [facility].; [employer] [facility], [facility]. Sodium [Moles/Vol] 141 mmol/L Normal 135 - 146 mmol/L [facility].; [employer] [facility], [facility]. Urea nitrogen [Mass/Vol] 12 mg/dL Normal 7 - 25 mg/dL [facility].; [employer] [facility], [facility]. Urea nitrogen/Creatinine [Mass ratio] 15.9 mg/mg Normal 6 - 22 [facility].; [employer], [facility]. Laboratory - Chemistry and C hemistry - challengeon 08-05-2017 Albumin [Mass/Vol] 4.3 g/dL Normal 3.6 - 5.1 g/dL [facility].; [employer] [facility], [facility]. Albumin/Globulin [Mass ratio] 1.7 {ratio} Normal 1.0 - 2.5 [facility].; [employer] [facility], [facility]. ALP [Catalytic activity/Vol] 76 U/L Normal 33 - 130 U/L [facility].; [employer] [facility], [facility]. ALT [Catalytic activity/Vol] 17 U/L Normal 6 - 29 U/L [facility].; [facility], [facility]. AST [Catalytic activity/Vol] 15 U/L Normal 10 - 35 U/L [facility].; [facility], [facility]. Bilirubin [Mass/Vol] 0.2 mg/dL Normal 0.2 - 1 .2 mg/dL [facility].; [facility], [facility]. Calcium [Mass/Vol] 9.5 mg/dL Normal 8.6 - 10. 4 mg/dL [facility], [facility].; [facility], [facility]. Chloride [Moles/Vol] 104 mmol/L Normal 98 - 11 0 mmol/L [facility].; [facility], [facility]. CO2 [Moles/Vol] 30 mmol/L Normal 20 - 31 mmol/L [facility], [facility].; [facility], [facility]. Creatinine [Mass/Vol] 0.76 mg/dL Normal 0.50 - 1.05 mg/dL [facility], [facility].; [facility], [facility]. GFR/1.73 sq M.predicted among blacks MDRD (S/P/Bld) [Vol rate/Area] 105 {ML/MIN/1.73M2} Normal [facility].; [facility], [facility]. GFR/1.73 sq M.predicted MDRD (S/P/Bld) [Vol rate/Area] 90 {ML/MIN/1.73M2} Normal [facility], [facility].; [facility], [facility]. Globulin (S) [Mass/Vol] 2.6 g/dL Normal 1.9 - 3.7 g/dL [facility], [facility].; [facility], [facility]. Glucose [Mass/Vol] 98 mg/dL Normal 65 - 99 mg/dL [facility], [facility].; [employer] [facility], [facility]. Potassium [Moles/Vol] 3.7 mmol/L Normal 3.5 - 5.3 mmol/L [facility], [facility].; [employer] [facility], [facility]. Protein [Mass/Vol] 6.9 g/dL Normal 6.1 - 8.1 g/dL [facility], [facility].; [employer] [facility], [facility]. Sodium [Moles/Vol] 140 mmol/L Normal 135 - 146 mmol/L [facility].; [facility], [facility]. Urea nitrogen [Mass/Vol] 12 mg/dL Normal 7 - 25 mg/dL [facility].; [employer] [facility]. Urea nitrogen/Creatinine [Mass ratio] 15.7 mg/mg Normal 6 - 22 [facility].; [employer] [facility], [facility]. Laboratory - Chemistry and C hemistry - challengeon 06-13-2017 Creatinine [Mass/Vol] 0.68 mg/dL Normal 0.50 - 1.05 mg/dL [facility], [facility].; [facility], [facility]. GFR/1.73 sq M.predicted among blacks MDRD (S/P/Bld) [Vol rate/Area] 117 {ML/MIN/1.73M2} Normal [facility].; [facility], [facility]. GFR/1.73 sq M.predicted MDRD (S/P/Bld) [Vol rate/Area] 101 {ML/MIN/1.73M2} Normal [facility], [facility].; [employer], [facility]. Urea nitrogen [Mass/Vol] 10 mg/dL Normal 7 - 25 mg/dL [facility].; [employer] Laboratory - Chemistry and C hemistry - challengeon 12-20-2016 Creatinine [Mass/Vol] 0.7 mg/dL Normal 0.6 - 1.2 mg/dL [facility].; [employer] [facility], [facility]. Urea nitrogen [Mass/Vol] 13 mg/dL Normal 6 - 20 mg/dL [facility].; [employer], [facility]. Laboratory - Chemistry and C hemistry - challengeon 09-08-2016 Albumin [Mass/Vol] 4.5 g/dL Normal 3.6 - 5.1 g/dL [facility].; [employer] [facility], [facility]. Albumin/Globulin [Mass ratio] 1.5 {ratio} Normal 1.0 - 2.5 [facility].; [employer], [facility]. ALP [Catalytic activity/Vol] 99 U/L Normal 33 - 130 U/L [facility], [facility].; [employer], [facility]. ALT [Catalytic activity/Vol] 47 U/L Abnormal 6 - 29 U/L [facility].; [employer]. AST [Catalytic activity/Vol] 25 U/L Normal 10 - 35 U/L [facility].; [facility], [facility]. Bilirubin [Mass/Vol] 0.3 mg/dL Normal 0.2 - 1 .2 mg/dL [facility].; [facility], [facility]. Calcium [Mass/Vol] 9.9 mg/dL Normal 8.6 - 10. 4 mg/dL [facility], [facility].; [facility], [facility]. Chloride [Moles/Vol] 101 mmol/L Normal 98 - 11 0 mmol/L [facility].; [facility], [facility]. CO2 [Moles/Vol] 29 mmol/L Normal 20 - 31 mmol/L [facility], [facility].; [facility], [facility]. Creatinine [Mass/Vol] 0.74 mg/dL Normal 0.50 - 1.05 mg/dL [facility], [facility].; [facility], [facility]. GFR/1.73 sq M.predicted among blacks MDRD (S/P/Bld) [Vol rate/Area] 109 {ML/MIN/1.73M2} Normal [facility].; [facility], [facility]. GFR/1.73 sq M.predicted MDRD (S/P/Bld) [Vol rate/Area] 94 {ML/MIN/1.73M2} Normal [facility], [facility].; [facility], [facility]. Globulin (S) [Mass/Vol] 2.9 g/dL Normal 1.9 - 3.7 g/dL [facility], [facility].; [facility], [facility]. Glucose [Mass/Vol] 84 mg/dL Normal 65 - 99 mg/dL [facility], [facility].; [facility], [facility]. Potassium [Moles/Vol] 3.4 mmol/L Abnormal 3.5 - 5.3 mmol/L [facility], [facility].; [facility], [facility]. Protein [Mass/Vol] 7.4 g/dL Normal 6.1 - 8.1 g/dL [facility], [facility].; [facility], [facility]. Sodium [Moles/Vol] 138 mmol/L Normal 135 - 146 mmol/L [facility].; [facility], [facility]. Urea nitrogen [Mass/Vol] 13 mg/dL Normal 7 - 25 mg/dL [employer]; [employer]. Urea nitrogen/Creatinine [Mass ratio] 17.8 mg/mg Normal 6 - 22 [employer]; [employer], [place]. Laboratoryon 05-08-2016 Lower GI hemoglobin IA Ql (Stl) Not detected Normal [employer]; [employer], [employer]. Work Phone: Laboratory - Chemistry and C hemistry - challengeon 05-05-2016 Urate [Mass/Vol] 4.1 mg/dL Normal 2.5 - 7.0 mg/dL [employer]; [employer]. Laboratory - Hematology and Cell countson 05-05-2016 Basophils (Bld) [#/Vol] 20 {Cells}/uL Normal 0 - 200 {Cells}/uL [employer]; [employer], [employer]. Basophils/100 WBC (Bld) 0 % Normal 0 - 1 % [employer]; [employer]. Eosinophils (Bld) [#/Vol] 190 {Cells}/uL Normal 15 - 500 {Cells}/uL [employer]; [employer]. Eosinophils/100 WBC (Bld) 3 % Normal 0 - 4 % [employer]; [employer], [employer]. Erythrocyte distribution width (RBC) [Ratio] 13.2 % Normal 11.0 - 15.0 % [employer]; [employer], [employer]. Hematocrit (Bld) [Volume fraction] 40.8 % Normal 35.0 - 45.0 % [employer]; [employer], [employer]. Hemoglobin (Bld) [Mass/Vol] 13.2 g/dL Normal 11.7 - 15.5 g/dL [employer]; [employer], [employer]. Lymphocytes (Bld) [#/Vol] 1890 {Cells}/uL Normal 850 - 3900 {Cells}/uL [employer]; [employer], [employer]. Lymphocytes/100 WBC (Bld) 28 % Normal 12 - 47 % [employer]; [employer]. MCH (RBC) [Entitic mass] 28.1 pg Normal 27.0 - 33.0 PG [facility].; [employer], [employer]. MCHC (RBC) [Mass/Vol] 32.4 g/dL Normal 32.0 - 36.0 g/dL [facility], [facility].; [employer], [employer]. MCV (RBC) [Entitic vol] 86.7 fL Normal 80.0 - 100.0 fL [facility].; [facility], [facility]. Monocytes (Bld) [#/Vol] 520 {Cells}/uL Normal 200 - 950 {Cells}/uL [facility].; [employer], [employer]. Monocytes/100 WBC (Bld) 8 % Normal 4 - 12 % [facility].; [employer], [employer]. Neutrophils (Bld) [#/Vol] 4230 {Cells}/uL Normal 1500 - 7800 {Cells}/uL [facility].; [employer], [employer]. Neutrophils/100 WBC (Bld) 62 % Normal 40 - 75 % [facility].; [employer], [employer]. Platelet mean volume (Bld) [Entitic vol] 8.9 fL Normal 7.5 - 11.5 fL [facility] [facility].; [employer], [employer]. Platelets (Bld) [#/Vol] 271 10*3/uL Normal 140 - 400 10*3/uL [facility] [employer], [employer]. RBC (Bld) [#/Vol] 4.71 10*6/uL Normal 3.80 - 5.10 10*6/uL [facility].; [employer], [employer]. WBC (Bld) [#/Vol] 6.9 10*3/uL Normal 3.8 - 10.8 10*3/uL [employer], [employer].; [employer], [employer]. Laboratory - Chemistry and C hemistry - challengeon 04-29-2016 Albumin [Mass/Vol] 4.2 g/dL Normal 3.6 - 5.1 g/dL [facility].; [employer], [employer]. Albumin/Globulin [Mass ratio] 1.5 {ratio} Normal 1.0 - 2.5 [facility].; [facility]. ALP [Catalytic activity/Vol] 71 U/L Normal 33 - 130 U/L [facility].; [facility], [facility]. ALT [Catalytic activity/Vol] 21 U/L Normal 6 - 29 U/L [facility].; [facility], [facility]. AST [Catalytic activity/Vol] 16 U/L Normal 10 - 35 U/L [facility].; [facility]. Bilirubin [Mass/Vol] 0.4 mg/dL Normal 0.2 - 1 .2 mg/dL [facility].; [facility] Calcium [Mass/Vol] 9.2 mg/dL Normal 8.6 - 10. 4 mg/dL [facility].; [facility]. Chloride [Moles/Vol] 101 mmol/L Normal 98 - 11 0 mmol/L [facility].; [employer] [facility] [facility]. Cholesterol [Mass/Vol] 211 mg/dL Abnormal 125 - 200 mg/dL [facility].; [facility]. Cholesterol in HDL [Mass/Vol] 52 mg/dL Normal [facility].; [facility]. Cholesterol in LDL [Mass/Vol] 141 mg/dL Abnormal [facility].; [employer] [facility], [facility]. Cholesterol non HDL [Mass/Vol] 159 mg/dL Normal [facility].; [facility]. Cholesterol.total/Cho lesterol in HDL [Mass ratio] 4.1 {ratio} Normal [facility].; [employer] [facility]. CO2 [Moles/Vol] 26 mmol/L Normal 19 - 30 mmol/L [facility].; [facility]. Creatinine [Mass/Vol] 0.73 mg/dL Normal 0.50 - 1.05 mg/dL [facility].; [employer] [facility], [facility]. GFR/1.73 sq M.predicted among blacks MDRD (S/P/Bld) [Vol rate/Area] 111 {ML/MIN/1.73M2} Normal [facility].; [facility]. GFR/1.73 sq M.predicted MDRD (S/P/Bld) [Vol rate/Area] 95 {ML/MIN/1.73M2} Normal [facility]; [facility], [facility] Globulin (S) [Mass/Vol] 2.9 g/dL Normal 1.9 - 3.7 g/dL [facility].; [facility] Glucose [Mass/Vol] 95 mg/dL Normal 65 - 99 mg/dL [facility].; [facility]. Potassium [Moles/Vol] 3.7 mmol/L Normal 3.5 - 5.3 mmol/L [facility].; [facility] Protein [Mass/Vol] 7.1 g/dL Normal 6.1 - 8.1 g/dL [facility]; [facility] Sodium [Moles/Vol] 140 mmol/L Normal 135 - 146 mmol/L [facility]; [facility] Triglyceride [Mass/Vol] 88 mg/dL Normal [facility]; [employer] [facility] [facility] Urea nitrogen [Mass/Vol] 12 mg/dL Normal 7 - 25 mg/dL [facility]; [facility] Urea nitrogen/Creatinine [Mass ratio] 16.4 mg/mg Normal 6 - 22 [facility]; [employer] [facility] [facility] Laboratory - Chemistry and C hemistry - challengeon 08-23-2015 Albumin [Mass/Vol] 4.2 g/dL Normal 3.4 - 4.8 g/dL [facility]; [employer] [facility] Work Phone: Albumin [Mass/Vol] 1.4 g/dL Normal 0.9 - 1.6 [facility].; [facility] Work Phone: ALP [Catalytic activity/Vol] 47 U/L Normal 38 - 126 U/L [facility].; [employer] [facility] Work Phone: ALT [Catalytic activity/Vol] 15 U/L Normal 8 - 35 U/L [facility]; [facility] Work Phone: Anion gap [Moles/Vol] 9 mmol/L Abnormal 10 - 2 0 mmol/L [facility]; [facility], [facility] Work Phone: AST [Catalytic activity/Vol] 13 U/L Normal 13 - 39 U/L [facility]; [facility] Work Phone: Bilirubin [Mass/Vol] 0.3 mg/dL Normal 0.0 - 1 .5 mg/dL [facility]; [facility] Work Phone: Calcium [Mass/Vol] 9.6 mg/dL Normal 8.6 - 10. 2 mg/dL [facility]; [facility] Work Phone: Chloride [Moles/Vol] 105 mmol/L Normal 98 - 10 7 mmol/L [facility]; [facility] Work Phone: CO2 [Moles/Vol] 28.0 mmol/L Normal 13.0 - 29.0 mmol/L [facility]; [facility], [facility] Work Phone: Comprehensive metabolic 2000 panel CMP with eGFR Normal [facility]; [facility] Work Phone: Creatinine [Mass/Vol] 0.7 mg/dL Normal 0.6 - 1.2 mg/dL [facility]; [facility] Work Phone: GFR/1.73 sq M.predicted among blacks MDRD (S/P/Bld) [Vol rate/Area] mL/min/{1.73_m2} Normal 60 - 999 {ML/MINUTE } [facility]; [facility], [facility] Work Phone: GFR/1.73 sq M.predicted MDRD (S/P/Bld) [Vol rate/Area] mL/min/{1.73_m2} Normal 60 - 999 {ML/MINUTE } [facility]; [employer] [facility] Work Phone: Globulin (S) [Mass/Vol] 2.9 g/dL Normal 1.5 - 3.8 g/dL [facility]; [facility] Work Phone: Glucose [Mass/Vol] 104 mg/dL Normal 74 - 106 mg/dL [facility]; [employer] [facility] Work Phone: Potassium [Moles/Vol] 3.7 mmol/L Normal 3.5 - 5.1 mmol/L [facility]; [employer] [facility] Work Phone: Protein [Mass/Vol] 7.1 g/dL Normal 6.4 - 8.3 g/dL [facility]; [employer] Work Phone: Sodium [Moles/Vol] 138 mmol/L Normal 136 - 145 mmol/L [facility]; [employer] Work Phone: Urea nitrogen [Mass/Vol] 12 mg/dL Normal 6 - 20 mg/dL [facility]; [employer] Work Phone: Urea nitrogen/Creatinine [Mass ratio] 17 {ratio} Normal 0 - 30 {ratio} [facility]; [employer] Work Phone: Laboratory - Hematology and Cell countson 08-23-2015 Basophils (Bld) [#/Vol] 0.10 {3/UL} Normal 0.00 - 0.10 {3/UL} [facility]; [employer] Work Phone: Basophils/100 WBC (Bld) 1.3 % Normal 0.0 - 2.0 % [facility]; [employer]. Work Phone: CBC W Auto Differential panel (Bld) CBC Normal [facility]; [facility] Work Phone: Eosinophils (Bld) [#/Vol] 0.20 {3/UL} Normal 0.00 - 0.50 {3/UL} [facility].; [employer] [facility] Work Phone: Eosinophils/100 WBC (Bld) 4.7 % Normal 0.0 - 7.0 % [facility]; [employer] [facility] Work Phone: Erythrocyte distribution width (RBC) [Ratio] 14.7 % Normal 12.0 - 15.6 % [facility]; [employer] Work Phone: Hematocrit (Bld) [Volume fraction] 40.8 % Normal 34.0 - 46.0 % [facility]; [employer] Work Phone: Hemoglobin (Bld) [Mass/Vol] 13.5 g/dL Normal 12.0 - 16.0 g/dL [facility]; [employer]. Work Phone: Lymphocytes (Bld) [#/Vol] 1.30 {3/UL} Normal 0.80 - 2.80 {3/UL} [facility]; [employer]. Work Phone: Lymphocytes/100 WBC (Bld) 26.7 % Normal 20.0 - 45.0 % [facility]; [employer]. Work Phone: MCH (RBC) [Entitic mass] 27 pg Normal 27 - 33 pg [facility].; [employer]. Work Phone: MCHC (RBC) [Mass/Vol] 33 {X10_3} Normal 32 - 3 6 {X10_3} [facility].; [employer]. Work Phone: MCV (RBC) [Entitic vol] 82 fL Normal 80 - 99 fL [employer] Work Phone: Monocytes (Bld) [#/Vol] 0.50 {3/UL} Normal 0.20 - 1.00 {3/UL} [employer] Work Phone: Monocytes/100 WBC (Bld) 11.2 % Abnormal 0.0 - 10.0 % [employer] Work Phone: Neutrophils (Bld) [#/Vol] 2.70 {3/UL} Normal 1.50 - 7.10 {3/UL} [employer] Work Phone: Neutrophils/100 WBC (Bld) 56.1 % Normal 46.0 - 76.0 % [employer].; [employer] Work Phone: Platelet mean volume (Bld) [Entitic vol] 8.3 fL Normal 6.6 - 10.5 fL [employer] Work Phone: Platelets (Bld) [#/Vol] 177 {3/UL} Normal 150 - 450 {3/UL} [employer]; [employer] Work Phone: RBC (Bld) [#/Vol] 4.98 {6/UL} Normal 4.10 - 5.30 {6/UL} [employer]; [employer] Work Phone: WBC (Bld) [#/Vol] 4.8 {3/UL} Normal 4.5 - 10.8 {3/UL} [employer] Work Phone: No Panel Informationon 08-23 AGE 50 {years} Normal [facility] [employer] Work Phone: Laboratoryon 05-15-2015 Lower GI hemoglobin IA Ql (Stl) Not detected Normal [employer]. Laboratory - Cytologyon Microscopic observation Cyto stain Nom (Cvx) Normal [employer] Laboratory - Chemistry and C hemistry - challengeon 04-29-2015 Albumin [Mass/Vol] 4.1 g/dL Normal 3.6 - 5.1 g/dL [employer] [facility] [facility].; [employer]. Albumin/Globulin [Mass ratio] 1.4 {ratio} Normal 1.0 - 2.[address] [facility].; [employer]. ALP [Catalytic activity/Vol] 57 U/L Normal 33 - 130 U/L [employer] [facility] [facility].; [employer]. ALT [Catalytic activity/Vol] 13 U/L Normal 6 - 29 U/L [employer]. AST [Catalytic activity/Vol] 12 U/L Normal 10 - 35 U/L [employer]. Bilirubin [Mass/Vol] 0.3 mg/dL Normal 0.2 - 1 .2 mg/dL [employer] [facility] [facility].; [employer]. Calcium [Mass/Vol] 9.5 mg/dL Normal 8.6 - 10. 4 mg/dL [employer] [facility] [facility].; [employer]. Chloride [Moles/Vol] 103 mmol/L Normal 98 - 11 0 mmol/L [employer] [facility] [facility].; [employer]. Cholesterol [Mass/Vol] 218 mg/dL Abnormal 125 - 200 mg/dL [facility] [employer] [facility].; [employer]. Cholesterol in HDL [Mass/Vol] 54 mg/dL Normal [employer], [facility].; [employer] Cholesterol in LDL [Mass/Vol] 123 mg/dL Normal [facility] [facility].; [employer] Cholesterol non HDL [Mass/Vol] 165 mg/dL Abnormal [facility].; [facility]. Cholesterol.total/Cho lesterol in HDL [Mass ratio] 4.0 {ratio} Normal [facility].; [facility], [facility]. CO2 [Moles/Vol] 26 mmol/L Normal 19 - 30 mmol/L [facility].; [facility], [facility]. Creatinine [Mass/Vol] 0.69 mg/dL Normal 0.50 - 1.05 mg/dL [facility].; [facility], [facility]. GFR/1.73 sq M.predicted among blacks MDRD (S/P/Bld) [Vol rate/Area] 118 {ML/MIN/1.73M2} Normal [facility].; [facility], [facility]. GFR/1.73 sq M.predicted MDRD (S/P/Bld) [Vol rate/Area] 102 {ML/MIN/1.73M2} Normal [facility], [facility].; [facility], [facility]. Globulin (S) [Mass/Vol] 3.0 g/dL Normal 1.9 - 3.7 g/dL [facility].; [facility], [facility]. Glucose [Mass/Vol] 87 mg/dL Normal 65 - 99 mg/dL [facility], [facility].; [facility], [facility]. Potassium [Moles/Vol] 4.3 mmol/L Normal 3.5 - 5.3 mmol/L [facility].; [facility], [facility]. Protein [Mass/Vol] 7.1 g/dL Normal 6.1 - 8.1 g/dL [facility], [facility].; [facility], [facility]. Sodium [Moles/Vol] 139 mmol/L Normal 135 - 146 mmol/L [facility], [facility].; [facility], [facility]. Triglyceride [Mass/Vol] 203 mg/dL Abnormal [facility].; [facility], [facility]. Urea nitrogen [Mass/Vol] 13 mg/dL Normal 7 - 25 mg/dL [facility], [facility].; [facility], [facility]. Urea nitrogen/Creatinine [Mass ratio] 18.7 mg/mg Normal 6 - 22 [facility].; [facility] Laboratory - Chemistry and C hemistry - challengeon 03-26-2014 Albumin [Mass/Vol] 3.4 g/dL Abnormal 3.5 - 5.0 g/dL [facility]; [facility]. Albumin/Globulin [Mass ratio] 0.9 {ratio} Normal [facility]; [facility]. ALP [Catalytic activity/Vol] 57 U/L Normal 50 - 136 U/L [facility].; [facility]. ALT [Catalytic activity/Vol] 16 mmol/L Normal 12 - 49 mmol/L [facility].; [facility]. AST [Catalytic activity/Vol] 9 U/L Abnormal 15 - 37 U/L [facility].; [facility]. Bilirubin [Mass/Vol] 0.10 mg/dL Normal 0.00 - 1.0 mg/dL [facility].; [facility] Calcium [Mass/Vol] 9.1 mg/dL Normal 8.4 - 10. 6 mg/dL [facility].; [facility]. Chloride [Moles/Vol] 106 mmol/L Normal 98 - 11 0 mmol/L [facility].; [facility]. Cholesterol [Mass/Vol] 197 mg/dL Normal 0 - 200 mg/dL [facility].; [facility]. Cholesterol in HDL [Mass/Vol] 51 mg/dL Normal 40 - 60 mg/dL [facility].; [facility]. Cholesterol in LDL [Mass/Vol] 121 mg/dL Normal 50.0 - 130.0 mg/dL [facility].; [employer] [facility]. Cholesterol in VLDL [Mass/Vol] 25 mg/dL Normal [facility].; [employer] [facility]. Cholesterol.total/Cho lesterol in HDL [Mass ratio] - Normal 0 - 5.0 [facility].; [employer] [facility], [facility]. CO2 [Moles/Vol] 25.0 {doug/L} Normal 22.0 - 32.0 {doug/L} [facility].; [facility]. Creatinine [Mass/Vol] 0.7 mg/dL Normal 0.6 - 1.4 mg/dL [facility].; [facility]. Globulin (S) [Mass/Vol] 3.8 g/dL Normal 1.5 - 3.8 g/dL [facility].; [facility], [facility]. Glucose [Mass/Vol] 91 mg/dL Normal 75 - 105 mg/dL [facility].; [facility], [facility]. Potassium [Moles/Vol] 4.0 mmol/L Normal 3.50 - 5.00 meq/L [facility].; [facility], [facility] Protein [Mass/Vol] 7.2 g/dL Normal 6.4 - 8.2 g/dL [facility].; [facility], [facility]. Sodium [Moles/Vol] 137 mmol/L Normal 136 - 145 mmol/L [facility].; [facility], [facility] Triglyceride [Mass/Vol] 124 mg/dL Normal 40 - 150 mg/dL [facility].; [facility], [facility]. Urate [Mass/Vol] 2.3 mg/dL Abnormal 3.1 - 7.8 mg/dL [facility].; [facility], [facility]. Urea nitrogen [Mass/Vol] 14 mg/dL Normal 7.0 - 20.0 mg/dL [facility].; [facility], [facility] Urea nitrogen/Creatinine [Mass ratio] 20.0 mg/mg Normal 0 - 30 [facility].; [facility], [facility] No Panel Informationon 03-26 GFR 95 Normal [facility]; [facility], [facility] GFR2 115 Normal [facility].; [employer] [facility], [facility] Laboratory - Cytologyon 02-28 Microscopic observation Cyto stain Nom (Cvx) Normal [facility].; [facility], [facility]. Laboratory - Chemistry and C hemistry - challengeon 09-28-2013 Cholesterol [Mass/Vol] 204 mg/dL Abnormal 0 - 200 mg/dL [facility].; [facility], [facility]. Cholesterol in HDL [Mass/Vol] 53 mg/dL Normal 40 - 60 mg/dL [facility].; [facility], [facility]. Cholesterol in LDL [Mass/Vol] 128 mg/dL Normal 50.0 - 130.0 mg/dL [facility].; [facility], [facility]. Cholesterol in VLDL [Mass/Vol] 23 mg/dL Normal [facility].; [facility], [facility]. Cholesterol.total/Cho lesterol in HDL [Mass ratio] - Normal 0 - 5.0 [facility].; [facility], [facility]. Triglyceride [Mass/Vol] 117 mg/dL Normal 40 - 150 mg/dL [facility], [facility].; [facility], [facility]. Laboratory - Chemistry and C hemistry - challengeon 04-23-2013 Albumin [Mass/Vol] 3.9 g/dL Normal 3.5 - 5.0 g/dL [facility], [facility].; [facility], [facility]. Albumin/Globulin [Mass ratio] 1.2 {ratio} Normal [facility].; [facility]. ALP [Catalytic activity/Vol] 64 U/L Normal 50 - 136 U/L [facility].; [facility], [facility]. ALT [Catalytic activity/Vol] 20 mmol/L Normal 12 - 49 mmol/L [facility].; [facility], [facility]. AST [Catalytic activity/Vol] 14 U/L Abnormal 15 - 37 U/L [facility], [facility].; [facility], [facility]. Bilirubin [Mass/Vol] 0.30 mg/dL Normal 0.3 - 1 .0 mg/dL [facility], [facility].; [employer] [facility], [facility]. Calcium [Mass/Vol] 9.3 mg/dL Normal 8.4 - 10. 6 mg/dL [facility], [facility].; [facility], [facility]. Chloride [Moles/Vol] 106 mmol/L Normal 98 - 11 0 mmol/L [facility], [facility].; [employer] [facility], [facility]. Cholesterol [Mass/Vol] 150 mg/dL Normal 0 - 200 mg/dL [facility], [facility].; [facility], [facility]. Cholesterol in LDL [Mass/Vol] 75 mg/dL Normal 50.0 - 130.0 mg/dL [facility].; [facility], [facility]. Cholesterol in VLDL [Mass/Vol] 18 mg/dL Normal [facility].; [facility], [facility]. Cholesterol.total/Cho lesterol in HDL [Mass ratio] - Normal 0 - 5.0 [facility], [facility].; [facility], [facility]. CO2 [Moles/Vol] 27.0 {doug/L} Normal 22.0 - 32.0 {doug/L} [facility], [facility].; [facility], [facility]. Creatinine [Mass/Vol] 0.8 mg/dL Normal 0.6 - 1.4 mg/dL [facility], [facility].; [facility], [facility]. Globulin (S) [Mass/Vol] 3.3 g/dL Normal 1.5 - 3.8 g/dL [facility], [facility].; [facility], [facility]. Glucose [Mass/Vol] 83 mg/dL Normal 75 - 105 mg/dL [facility], [facility].; [facility], [facility]. Potassium [Moles/Vol] 4.2 mmol/L Normal 3.50 - 5.00 meq/L [facility], [facility].; [facility], [facility]. Protein [Mass/Vol] 7.2 g/dL Normal 6.4 - 8.2 g/dL [facility], [facility].; [facility], [facility]. Sodium [Moles/Vol] 142 mmol/L Normal 136 - 145 mmol/L [facility], [facility].; [facility], [facility]. Triglyceride [Mass/Vol] 88 mg/dL Normal 40 - 150 mg/dL [facility], [facility].; [facility], [facility]. Urea nitrogen [Mass/Vol] 16 mg/dL Normal 7.0 - 20.0 mg/dL [facility], [facility].; [facility], [facility]. Urea nitrogen/Creatinine [Mass ratio] 20.0 mg/mg Normal 0 - 30 [facility].; [facility], [facility]. Laboratory - Chemistry and C hemistry - challengeOrdered By: Yesy Santacruz on 04-23-2013 Cholesterol in HDL [Mass/Vol] 57 mg/dL Normal 40 - 60 mg/dL [facility].; [employer] Work Phone: No Panel Informationon 04-23 GFR 81 Normal [employer]; [employer] GFR2 98 Normal [employer]; [employer]. Laboratory - Cytologyon 01-29 Microscopic observation Cyto stain Nom (Cvx) SEE NOTE Normal [employer]; [employer] Laboratory - Chemistry and C hemistry - challengeon 10-26-2012 Albumin [Mass/Vol] 4.3 g/dL Normal 3.6 - 5.1 g/dL [employer] Albumin/Globulin [Mass ratio] 1.6 {ratio} Normal 1.0 - 2.5 [employer] ALP [Catalytic activity/Vol] 47 U/L Normal 33 - 115 U/L [employer]; [employer] ALT [Catalytic activity/Vol] 11 U/L Normal 6 - 40 U/L [employer]; [employer]. AST [Catalytic activity/Vol] 12 U/L Normal 10 - 35 U/L [employer]; [employer]. Bilirubin [Mass/Vol] 0.3 mg/dL Normal 0.2 - 1 .2 mg/dL [employer]; [employer] Calcium [Mass/Vol] 9.3 mg/dL Normal 8.6 - 10. 2 mg/dL [employer]; [employer]. Chloride [Moles/Vol] 106 mmol/L Normal 98 - 11 0 mmol/L [employer]; [employer] Cholesterol [Mass/Vol] 263 mg/dL Abnormal 125 - 200 mg/dL [employer]; [employer] [place] Cholesterol in HDL [Mass/Vol] 50 mg/dL Normal [employer]; [employer]. Cholesterol in LDL [Mass/Vol] 161 mg/dL Abnormal [employer]; [employer]. Cholesterol non HDL [Mass/Vol] 213 mg/dL Abnormal [facility].; [facility], [facility]. Cholesterol.total/Cho lesterol in HDL [Mass ratio] 5.3 {ratio} Abnormal [facility].; [facility], [facility]. CO2 [Moles/Vol] 24 mmol/L Normal 21 - 33 mmol/L [facility], [facility].; [facility], [facility]. Creatinine [Mass/Vol] 0.76 mg/dL Normal 0.50 - 1.10 mg/dL [facility], [facility].; [facility], [facility]. GFR/1.73 sq M.predicted among blacks MDRD (S/P/Bld) [Vol rate/Area] 108 {ML/MIN/1.73M2} Normal [facility], [facility].; [facility], [facility]. GFR/1.73 sq M.predicted MDRD (S/P/Bld) [Vol rate/Area] 93 {ML/MIN/1.73M2} Normal [facility], [facility].; [employer] [facility], [facility]. Globulin (S) [Mass/Vol] 2.8 g/dL Normal 1.9 - 3.7 g/dL [facility], [facility].; [employer] [facility], [facility]. Glucose [Mass/Vol] 94 mg/dL Normal 65 - 99 mg/dL [facility], [facility].; [employer] [facility], [facility]. Potassium [Moles/Vol] 4.4 mmol/L Normal 3.5 - 5.3 mmol/L [facility], [facility].; [employer] [facility], [facility]. Protein [Mass/Vol] 7.1 g/dL Normal 6.1 - 8.1 g/dL [facility], [facility].; [employer], [facility]. Sodium [Moles/Vol] 139 mmol/L Normal 135 - 146 mmol/L [facility], [facility].; [employer], [facility]. Triglyceride [Mass/Vol] 262 mg/dL Abnormal [facility], [facility].; [employer] [facility], [facility]. Urea nitrogen [Mass/Vol] 16 mg/dL Normal 7 - 25 mg/dL [facility], [facility].; [employer], [facility]. Urea nitrogen/Creatinine [Mass ratio] 20.8 mg/mg Normal 6 - 22 [facility], [facility].; [employer] Laboratory - Hematology and Cell countson 09-22-2012 ESR (Bld) [Velocity] 17 mm/h Normal 0 - 20 mm/h [employer]; [employer] Laboratory - Serology - non- microon 09-22-2012 Nuclear Ab IF (S) [Titer] > OR = 1:1280 Abnormal [employer]; [employer] Work Phone: Nuclear Ab IF Ql (S) Positive Normal [facility] [employer] [facility]; [employer] Nuclear Ab pattern IF (S) [Interp] CENTROMERE Abnormal [employer]; [employer] Work Phone: Rheumatoid factor Qn 25 [IU]/mL Abnormal [facility] [employer]; [employer] Laboratory - Cytologyon 08-01 Microscopic observation Cyto stain Nom (Cvx) SEE NOTE Normal [employer]; [employer] Laboratory - Chemistry and C hemistry - challengeon 08-19-2011 Albumin [Mass/Vol] 4.1 g/dL Normal 3.6 - 5.1 g/dL [employer] Albumin/Globulin [Mass ratio] 1.7 {ratio} Normal 1.0 - 2.1 [employer]; [employer] ALP [Catalytic activity/Vol] 52 U/L Normal 33 - 115 U/L [employer].; [employer] ALT [Catalytic activity/Vol] 9 U/L Normal 6 - 40 U/L [employer].; [employer] AST [Catalytic activity/Vol] 12 U/L Normal 10 - 35 U/L [employer]; [employer] Bilirubin [Mass/Vol] 0.4 mg/dL Normal 0.2 - 1 .2 mg/dL [employer].; [employer] Calcium [Mass/Vol] 8.8 mg/dL Normal 8.6 - 10. 2 mg/dL [employer].; [employer] Chloride [Moles/Vol] 107 mmol/L Normal 98 - 11 0 mmol/L [facility].; [facility], [facility]. Cholesterol [Mass/Vol] 221 mg/dL Abnormal 125 - 200 mg/dL [facility].; [facility], [facility]. Cholesterol in HDL [Mass/Vol] 49 mg/dL Normal [facility].; [facility]. Cholesterol in LDL [Mass/Vol] 115 mg/dL Normal [facility].; [facility]. Cholesterol.total/Cho lesterol in HDL [Mass ratio] 4.5 {ratio} Normal [facility].; [facility]. CO2 [Moles/Vol] 25 mmol/L Normal 21 - 33 mmol/L [facility].; [employer] [facility], [facility]. Creatinine [Mass/Vol] 0.67 mg/dL Normal 0.59 - 1.07 mg/dL [facility].; [facility], [facility]. GFR/1.73 sq M.predicted among blacks MDRD (S/P/Bld) [Vol rate/Area] 122 {ML/MIN/1.73M2} Normal [facility].; [facility], [facility]. GFR/1.73 sq M.predicted MDRD (S/P/Bld) [Vol rate/Area] 105 {ML/MIN/1.73M2} Normal [facility].; [employer] [facility], [facility]. Globulin (S) [Mass/Vol] 2.5 g/dL Normal 2.2 - 3.9 g/dL [facility].; [employer] [facility], [facility]. Glucose [Mass/Vol] 82 mg/dL Normal 65 - 99 mg/dL [facility], [facility].; [employer] [facility], [facility]. Potassium [Moles/Vol] 3.7 mmol/L Normal 3.5 - 5.3 mmol/L [facility].; [employer] [facility], [facility]. Protein [Mass/Vol] 6.6 g/dL Normal 6.2 - 8.3 g/dL [facility], [facility].; [employer] [facility], [facility]. Sodium [Moles/Vol] 141 mmol/L Normal 135 - 146 mmol/L [facility].; [facility], [facility] Triglyceride [Mass/Vol] 285 mg/dL Abnormal [facility].; [facility], [facility] Urea nitrogen [Mass/Vol] 13 mg/dL Normal 7 - 25 mg/dL [facility].; [facility], [facility] Urea nitrogen/Creatinine [Mass ratio] 19.6 mg/mg Normal 6 - 22 [facility].; [facility], [facility] Vital Signs Date Time Vital Sign Value Performing Clinician Facility 03-26-2025 13:53-0400 Body height 162.56 cm Noel Mejíaalpa GUDINO [facility].; [facility], [facility] 03-26-2025 13:53-0400 Body mass index (BMI) [Ratio] 36.05 kg/m2 Noel Juanalpa GUDINO [facility].; [facility], [facility]. 03-26-2025 13:53-0400 Body surface area Derived from formula 2 m2 Noel Martinez LPN [facility].; [facility], [facility] 03-26-2025 13:53-0400 Body weight 95.26 kg Noel Juan CARDIOVASCULAR SPECIALIST [facility].; [facility], [facility] 03-26-2025 13:53-0400 Diastolic blood pressure 76 mm[Hg] Noel Martinez LPN [facility].; [facility], [facility]. Comment on above: Patient Position: Sitting; Cuff Location : Left Arm; Cuff Size: Standard 03-26-2025 13:53-0400 Heart rate 97 /min Noel Juanalpa GUDINO [facility].; [facility], [facility]. Comment on above: Pattern: Regular 03-26-2025 13:53-0400 Systolic blood pressure 120 mm[Hg] Noel Juan CARDIOVASCULAR SPECIALIST [facility].; [facility], [facility]. Comment on above: Patient Position: Sitting; Cuff Location : Left Arm; Cuff Size: Standard 03-12-2025 14:24-0400 Body height 162.56 cm Noel Juanalpa GUDINO [facility].; [facility], [facility]. 03-12-2025 14:24-0400 Body mass index (BMI) [Ratio] 36.73 kg/m2 Noel Martinez SHAHAB [facility], [facility].; [facility], [facility]. 03-12-2025 14:24-0400 Body surface area Derived from formula 2.01 m2 Noelweston Martinez CARDIOVASCULAR SPECIALIST [facility], [facility].; [facility] 03-12-2025 14:24-0400 Body weight 97.07 kg Noelweston Martinez CARDIOVASCULAR SPECIALIST [facility], [facility].; [facility], [facility]. 03-12-2025 14:24-0400 Diastolic blood pressure 76 mm[Hg] Noel Martinez [facility], [facility].; [facility], [facility]. Comment on above: Patient Position: Sitting; Cuff Location : Left Arm; Cuff Size: Standard 03-12-2025 14:24-0400 Heart rate 72 /min Noel Martinez CARDIOVASCULAR SPECIALIST [facility], [facility].; [facility] Comment on above: Pattern: Regular 03-12-2025 14:24-0400 Systolic blood pressure 129 mm[Hg] Noel Martinez CARDIOVASCULAR SPECIALIST [facility], [facility].; [facility], [facility]. Comment on above: Patient Position: Sitting; Cuff Location : Left Arm; Cuff Size: Standard 09-18-2024 15:56-0500 Body height 162.56 cm Terri Nelson LPN [facility], [facility].; [facility], [facility]. 09-18-2024 15:56-0500 Body mass index (BMI) [Ratio] 35.7 kg/m2 Terri Nelson LPN [facility], [facility].; [facility], [facility]. 09-18-2024 15:56-0500 Body surface area Derived from formula 1.99 m2 Terri Nelson LPN [facility], [facility].; [facility], [facility]. 09-18-2024 15:56-0500 Body weight 94.35 kg Terri Nelson LPN [facility], [facility].; [employer] [facility], [facility]. 09-18-2024 15:56-0500 Diastolic blood pressure 78 mm[Hg] Terri Nelson LPN [facility], [facility].; [employer] [facility], [facility]. Comment on above: Patient Position: Sitting; Cuff Location : Left Arm; Cuff Size: Standard 09-18-2024 15:56-0500 Heart rate 72 /min Terri Nelson LPN [employer]; [employer] Comment on above: Pattern: Regular 09-18-2024 15:56-0500 Systolic blood pressure 129 mm[Hg] Terri Nelson LPN [employer]; [employer]. Comment on above: Patient Position: Sitting; Cuff Location : Left Arm; Cuff Size: Standard 09-10-2024 15:00-0500 Body height 162.56 cm Asaf Grey MD Work Phone: [employer]; [employer] 09-10-2024 15:00-0500 Body mass index (BMI) [Ratio] 35.53 kg/m2 Asaf Gery MD Work Phone: [employer]; [employer]. 09-10-2024 15:00-0500 Body surface area Derived from formula 1.98 m2 Asaf Grey MD Work Phone: [employer] 09-10-2024 15:00-0500 Body temperature 97.5 [degF] Asaf Grey MD Work Phone: [employer]; [employer]. Comment on above: Method: Tympanic 09-10-2024 15:00-0500 Body weight 93.9 kg Asaf Grey MD Work Phone: [employer] 09-10-2024 15:00-0500 Heart rate 86 /min Asaf Grey MD Work Phone: [employer] Comment on above: Pattern: Regular 09-10-2024 15:00-0500 Inhaled oxygen concentration 21 % Asaf Grey MD Work Phone: [employer]; [employer]. Comment on above: Room air 09-10-2024 15:00-0500 SaO2% (BldA) [Mass fraction] 96 % Asaf Grey MD Work Phone: [employer]; [employer]. 03-12-2024 11:10-0400 Body height 162.56 cm Asaf Grey MD Work Phone: [employer] 03-12-2024 11:10-0400 Body mass index (BMI) [Ratio] 37.42 kg/m2 Asaf Grey MD Work Phone: [employer]; [employer] 03-12-2024 11:10-0400 Body surface area Derived from formula 2.03 m2 Asaf Grey MD Work Phone: [employer]; [employer]. 03-12-2024 11:10-0400 Body weight 98.88 kg Asaf Grey MD Work Phone: [employer]; [employer]. 03-12-2024 11:10-0400 Diastolic blood pressure 78 mm[Hg] Asaf Grey MD Work Phone: [employer]; [employer]. Comment on above: Patient Position: Sitting; Cuff Location : Left Arm; Cuff Size: Large 03-12-2024 11:10-0400 Heart rate 76 /min Asaf Grey MD Work Phone: [employer]; [employer]. Comment on above: Pattern: Regular 03-12-2024 11:10-0400 Systolic blood pressure 138 mm[Hg] Asaf Grey MD Work Phone: [employer] Comment on above: Patient Position: Sitting; Cuff Location : Left Arm; Cuff Size: Large 02-11-2024 12:16-0400 Body height 162.[address] Asaf Grey Work Phone: [facility] 02-11-2024 12:16-0400 Body mass index (BMI) [Ratio] 36.6 kg/m2 Dr. Asaf Grey Work Phone: [facility] 02-11-2024 12:16-0400 Body temperature 98 [degF] Dr. Asaf Grey Work Phone: [facility] 02-11-2024 12:16-0400 Body weight 96.[address] Asaf Grey Work Phone: [facility] 02-11-2024 12:16-0400 Diastolic blood pressure 80 mm[Hg] Dr. Asaf Grey Work Phone: [facility] 02-11-2024 12:16-0400 Heart rate 98 /min Dr. Asaf Grey Work Phone: [facility] 02-11-2024 12:16-0400 Respiratory rate 12 /min Dr. Asaf Grey Work Phone: [facility] 02-11-2024 12:16-0400 SaO2% (BldA) [Mass fraction] 98 % Dr. Asaf Grey Work Phone: [facility] 02-11-2024 12:16-0400 Systolic blood pressure 140 mm[Hg] Dr. Asaf Grey Work Phone: [facility] 09-13-2023 08:09-0500 Body height 162.56 cm Asaf Grey MD Work Phone: [employer] [facility] [employer] 09-13-2023 08:09-0500 Body mass index (BMI) [Ratio] 36.9 kg/m2 Asaf Grey MD Work Phone: [employer] [facility].; [facility] [facility]. 09-13-2023 08:09-0500 Body surface area Derived from formula 2.02 m2 Asaf Grey MD Work Phone: [employer]; [employer] 09-13-2023 08:09-0500 Body weight 97.52 kg Asaf Grey MD Work Phone: [employer]; [employer] 09-13-2023 08:09-0500 Diastolic blood pressure 77 mm[Hg] Asaf Grey MD Work Phone: [facility], [facility].; [employer]. Comment on above: Patient Position: Sitting; Cuff Location : Left Arm; Cuff Size: Large 09-13-2023 08:09-0500 Heart rate 76 /min Asaf Grey MD Work Phone: [facility].; [employer] Comment on above: Pattern: Regular 09-13-2023 08:09-0500 Systolic blood pressure 130 mm[Hg] Asaf Grey MD Work Phone: [facility], [employer] Comment on above: Patient Position: Sitting; Cuff Location : Left Arm; Cuff Size: Large 07-01-2023 14:46-0400 Body weight 99.34 kg Noel Juan [facility] [employer] 07-01-2023 14:46-0400 Diastolic blood pressure 84 mm[Hg] Noel Juan [facility] [employer] Comment on above: Patient Position: Sitting; Cuff Location : Left Arm; Cuff Size: Standard 07-01-2023 14:46-0400 Heart rate 87 /min Noel Juan CARDIOVASCULAR SPECIALIST [facility] Comment on above: Pattern: Regular 07-01-2023 14:46-0400 Systolic blood pressure 158 mm[Hg] Noel Juan CARDIOVASCULAR SPECIALIST [place] [facility] [employer] Comment on above: Patient Position: Sitting; Cuff Location : Left Arm; Cuff Size: Standard 03-14-2023 [id number] Body height 162.56 cm Brandy Littlejohn CARDIOVASCULAR SPECIALIST [facility], [facility].; [employer], [place]. 03-14-2023 11:07-0400 Body mass index (BMI) [Ratio] 38.28 kg/m2 Brandy Littlejohn [facility] [employer], [place]. 03-14-2023 11:07-0400 Body surface area Derived from formula 2.05 m2 Brandy Littlejohn [facility], [facility] [employer] [facility], [place]. 03-14-2023 11:07-0400 Body weight 101.15 kg Brandy Littlejohn [facility], [facility].; [employer] 03-14-2023 11:07-0400 Diastolic blood pressure 79 mm[Hg] Brandy Littlejohn [facility] [employer], [place]. Comment on above: Patient Position: Sitting; Cuff Location : Left Arm; Cuff Size: Large 03-14-2023 11:07-0400 Heart rate 82 /min Brandy Littlejohn [facility], [facility] [employer], [place]. Comment on above: Pattern: Regular 03-14-2023 11:07-0400 Systolic blood pressure 134 mm[Hg] Brandy Littlejohn [facility] [employer], [place]. Comment on above: Patient Position: Sitting; Cuff Location : Left Arm; Cuff Size: Large 09-13-2022 14:56-0500 Body height 162.56 cm Asaf Grey MD Work Phone: [facility], [place].; [employer], [place]. 09-13-2022 14:56-0500 Body mass index (BMI) [Ratio] 36.9 kg/m2 Asaf Grey MD Work Phone: [facility], [place].; [employer] [facility], [place]. 09-13-2022 14:56-0500 Body surface area Derived from formula 2.02 m2 Asaf Grey MD Work Phone: [employer] [facility], [place].; [employer], [place]. 09-13-2022 14:56-0500 Body weight 97.52 kg Asaf Grey MD Work Phone: [employer] [facility], [place].; [employer], [place]. 09-13-2022 14:56-0500 Diastolic blood pressure 82 mm[Hg] Asaf Grey MD Work Phone: [facility], [place].; [employer] Comment on above: Patient Position: Sitting; Cuff Location : Left Arm; Cuff Size: Large 09-13-2022 14:56-0500 Heart rate 98 /min Asaf Grey MD Work Phone: [facility].; [employer] [facility]. Comment on above: Pattern: Regular 09-13-2022 14:56-0500 Systolic blood pressure 144 mm[Hg] Asaf Grey MD Work Phone: [facility], [place].; [employer]. Comment on above: Patient Position: Sitting; Cuff Location : Left Arm; Cuff Size: Large 03-15-2022 14:20-0400 Body height 162.56 cm Brandy Littlejohn [facility], [facility].; [employer] [facility], [place]. 03-15-2022 14:20-0400 Body mass index (BMI) [Ratio] 36.39 kg/m2 Brandy Littlejohn [facility], [facility].; [employer] [facility], [place]. 03-15-2022 14:20-0400 Body surface area Derived from formula 2.01 m2 Brandy Littlejohn [facility], [facility].; [employer] [facility], [place]. 03-15-2022 14:20-0400 Body weight 96.16 kg Brandy Littlejohn [facility], [facility].; [employer] [facility], [place]. 03-15-2022 14:20-0400 Diastolic blood pressure 82 mm[Hg] Brandy Littlejohn [facility] [employer] Comment on above: Patient Position: Sitting; Cuff Location : Left Arm; Cuff Size: Large 03-15-2022 14:20-0400 Heart rate 80 /min SummerDaria Littlejohn [facility], [facility].; [employer]. Comment on above: Pattern: Regular 03-15-2022 14:20-0400 Systolic blood pressure 143 mm[Hg] Brandy Littlejohn CARDIOVASCULAR SPECIALIST [facility] [employer]. Comment on above: Patient Position: Sitting; Cuff Location : Left Arm; Cuff Size: Large 09-15-2021 10:43-0500 Body height 162.56 cm Brandy Littlejohn LPN [facility] [employer] [facility], [facility] 09-15-2021 10:43-0500 Body mass index (BMI) [Ratio] 34.67 kg/m2 Brandy Littlejohn [facility] [employer] 09-15-2021 10:43-0500 Body surface area Derived from formula 1.96 m2 Brandy Littlejohn [facility] [employer] [facility], [facility] 09-15-2021 10:43-0500 Body weight 91.63 kg Brandy Littlejohn [facility] [employer] [facility], [facility] 09-15-2021 10:43-0500 Diastolic blood pressure 85 mm[Hg] Brandy Littlejohn [facility] [employer] Comment on above: Patient Position: Sitting; Cuff Location : Left Arm; Cuff Size: Large 09-15-2021 10:43-0500 Heart rate 80 /min Brandy Littlejohn [facility] [employer] Comment on above: Pattern: Regular 09-15-2021 10:43-0500 Systolic blood pressure 137 mm[Hg] Brandy Littlejohn [facility] [employer] Comment on above: Patient Position: Sitting; Cuff Location : Left Arm; Cuff Size: Large 03-24-2021 14:48-0400 Body height 162.56 cm Flavia Kauffman MA [facility] [employer] [facility], [facility] 03-24-2021 14:48-0400 Body mass index (BMI) [Ratio] 34.5 kg/m2 Flavia Kauffman MA [facility] [employer] 03-24-2021 14:48-0400 Body surface area Derived from formula 1.96 m2 Flavia Kauffman MA [facility] [employer] 03-24-2021 14:48-0400 Body weight 91.17 kg Flavia Kauffman MA [facility] [employer] 03-24-2021 14:48-0400 Diastolic blood pressure 78 mm[Hg] Flavia Kauffman MA [facility] [employer] Comment on above: Patient Position: Sitting; Cuff Location : Left Arm; Cuff Size: Standard 03-24-2021 14:48-0400 Heart rate 82 /min Flavia Kauffman MA [facility] [employer]. Comment on above: Pattern: Regular 03-24-2021 14:48-0400 Systolic blood pressure 127 mm[Hg] Flavia Kauffman MA [facility] [employer]. Comment on above: Patient Position: Sitting; Cuff Location : Left Arm; Cuff Size: Standard 01-27-2021 15:44-0400 Body height 162.56 cm Brandy Littlejohn CARDIOVASCULAR SPECIALIST [facility] [employer], [place]. 01-27-2021 15:44-0400 Body mass index (BMI) [Ratio] 34.16 kg/m2 Brandy Littlejohn [facility] [employer], [place]. 01-27-2021 15:44-0400 Body surface area Derived from formula 1.95 m2 [facility] Annetta [facility].; [employer], [place]. 01-27-2021 15:44-0400 Body weight 90.27 kg Brandy Littlejohn CARDIOVASCULAR SPECIALIST [facility] [employer], [place]. 01-27-2021 15:44-0400 Diastolic blood pressure 83 mm[Hg] Brandy Littlejohn CARDIOVASCULAR SPECIALIST [facility], [place].; [employer], [place]. Comment on above: Patient Position: Sitting; Cuff Location : Left Arm; Cuff Size: Large 01-27-2021 15:44-0400 Heart rate 98 /min Brandy Littlejohn CARDIOVASCULAR SPECIALIST [facility], [facility].; [employer], [place]. Comment on above: Pattern: Regular 01-27-2021 15:44-0400 Systolic blood pressure 146 mm[Hg] Brandy Littlejohn CARDIOVASCULAR SPECIALIST [facility] [employer]. Comment on above: Patient Position: Sitting; Cuff Location : Left Arm; Cuff Size: Large 12-05-2020 14:27-0500 Body height 162.56 cm Swetha Mckeeach [facility], [facility].; [employer] [facility] [employer] [facility]. 12-05-2020 14:27-0500 Body mass index (BMI) [Ratio] 34.16 kg/m2 Swetha Beck [facility] [employer] [facility] 12-05-2020 14:27-0500 Body surface area Derived from formula 1.95 m2 Swetha Mckeeach [facility], [facility].; [employer] [facility], [facility]. 12-05-2020 14:27-050 Body temperature 97.5 [degF] Swetha Beck [facility], [facility].; [employer] Comment on above: Method: Tympanic 12-05-2020 14:27-0500 Body weight 90.27 kg Swetha Mckeeach [facility], [facility].; [employer] [facility]. 12-05-2020 14:27-0500 Diastolic blood pressure 84 mm[Hg] [facility]a Beck [facility] [employer] [facility].; [employer] Comment on above: Patient Position: Sitting; Cuff Location : Left Arm; Cuff Size: Standard 12-05-2020 14:27-0500 Heart rate 79 /min Swetha Beck [facility], [facility].; [employer] Comment on above: Pattern: Regular 12-05-2020 14:27-0500 Systolic blood pressure 139 mm[Hg] Swetha Beck [facility], [facility].; [employer] Comment on above: Patient Position: Sitting; Cuff Location : Left Arm; Cuff Size: Standard 11-19-2020 14:50-0500 Body height 162.56 cm Terri Nelson LPN [facility], [facility].; [employer] 11-19-2020 14:50-0500 Body mass index (BMI) [Ratio] 34.84 kg/m2 Terri Nelson CARDIOVASCULAR SPECIALIST [employer] [facility].; [employer] 11-19-2020 14:50-0500 Body surface area Derived from formula 1.97 m2 Terri Nelson LPN [facility] 11-19-2020 14:50-0500 Body weight 92.08 kg Terri Omar GUDINO [facility] [employer] [facility], [facility] 11-19-2020 14:50-0500 Diastolic blood pressure 78 mm[Hg] Terri Nelson LPN [facility] [employer] [facility], [employer] Comment on above: Patient Position: Sitting; Cuff Location : Left Arm; Cuff Size: Standard 11-19-2020 14:50-0500 Heart rate 91 /min Terri Nelson LPN [facility] [employer] [facility], [employer] Comment on above: Pattern: Regular 11-19-2020 14:50-0500 Systolic blood pressure 137 mm[Hg] Terri Nelson CARDIOVASCULAR SPECIALIST [facility] [employer] [facility], Inc[facility] Comment on above: Patient Position: Sitting; Cuff Location : Left Arm; Cuff Size: Standard 09-24-2020 13:53-0500 Body height 162.56 cm Brandy Littlejohn [facility] [employer] [facility], Inc[facility] 09-24-2020 13:53-0500 Body mass index (BMI) [Ratio] 35.36 kg/m2 Summer Stuckey [facility] [employer] [facility], [facility] 09-24-2020 13:53-0500 Body surface area Derived from formula 1.98 m2 Summer Annetta [facility] [employer] [facility], Inc[facility] 09-24-2020 13:53-0500 Body weight 93.44 kg [facility] [place] [facility].; [employer] [facility], Inc[facility] 09-24-2020 13:53-0500 Diastolic blood pressure 89 mm[Hg] Summer Stuckey [facility].; [employer] Comment on above: Patient Position: Sitting; Cuff Location : Left Arm; Cuff Size: Large 09-24-2020 13:53-0500 Heart rate 89 /min Brandy Littlejohn CARDIOVASCULAR SPECIALIST [employer] Comment on above: Pattern: Regular 09-24-2020 13:53-0500 Systolic blood pressure 140 mm[Hg] Brandy Littlejohn CARDIOVASCULAR SPECIALIST [employer] Comment on above: Patient Position: Sitting; Cuff Location : Left Arm; Cuff Size: Large 09-24-2019 09:05-0500 Body height 162.56 cm Asaf Grey MD Work Phone: [employer] 09-24-2019 09:05-0500 Body mass index (BMI) [Ratio] 36.73 kg/m2 Asaf Grey MD Work Phone: [employer] 09-24-2019 09:05-0500 Body surface area Derived from formula 2.01 m2 Asaf Grey MD Work Phone: [employer] 09-24-2019 09:05-0500 Body weight 97.07 kg Asaf Grey MD Work Phone: [employer] 09-24-2019 09:05-0500 Diastolic blood pressure 79 mm[Hg] Asaf Grey MD Work Phone: [employer] Comment on above: Patient Position: Sitting; Cuff Location : Left Arm; Cuff Size: Standard 09-24-2019 09:05-0500 Heart rate 80 /min Asaf Grey MD Work Phone: [employer] Comment on above: Pattern: Regular 09-24-2019 09:05-0500 Systolic blood pressure 134 mm[Hg] Asaf Grey MD Work Phone: [employer] Comment on above: Patient Position: Sitting; Cuff Location : Left Arm; Cuff Size: Standard 08-10-2019 11:50-0400 Body height 162.56 cm Elsie Hayes RN [employer]; [employer] 08-10-2019 11:50-0400 Body mass index (BMI) [Ratio] 36.56 kg/m2 Elsie Hayes RN [employer]; [employer] 08-10-2019 11:50-0400 Body surface area Derived from formula 2.01 m2 Elsie Hayes RN [employer] 08-10-2019 11:50-0400 Body temperature 98.3 [degF] Elsie Hayes RN [employer] Comment on above: Method: Tympanic 08-10-2019 11:50-0400 Body weight 96.62 kg Elsie Hayes RN [employer]; [employer] 08-10-2019 11:50-0400 Diastolic blood pressure 72 mm[Hg] Elsie Hayes RN [employer]; [employer]. Comment on above: Patient Position: Sitting; Cuff Location : Left Arm; Cuff Size: Standard 08-10-2019 11:50-0400 Heart rate 84 /min Elsie Hayes RN [employer] Comment on above: Pattern: Regular 08-10-2019 11:50-0400 Systolic blood pressure 124 mm[Hg] Elsie Hayes RN [employer] Comment on above: Patient Position: Sitting; Cuff Location : Left Arm; Cuff Size: Standard 07-03-2019 14:32-0400 Body height 162.56 cm Brandy Littlejohn LPN [employer], [place] [employer] 07-03-2019 14:32-0400 Body mass index (BMI) [Ratio] 36.56 kg/m2 Brandy Littlejohn LPN [employer] [employer] 07-03-2019 14:32-0400 Body surface area Derived from formula 2.01 m2 Brandy Littlejohn LPN [employer]; [employer] 07-03-2019 14:32-0400 Body weight 96.62 kg Brandy Littlejohn CARDIOVASCULAR SPECIALIST [employer] [employer] 07-03-2019 14:32-0400 Diastolic blood pressure 83 mm[Hg] Brandy Littlejohn CARDIOVASCULAR SPECIALIST [employer] [employer]. Comment on above: Patient Position: Sitting; Cuff Location : Left Arm; Cuff Size: Large 07-03-2019 14:32-0400 Heart rate 102 /min Brandy Littlejohn CARDIOVASCULAR SPECIALIST [employer] Comment on above: Pattern: Regular 07-03-2019 14:32-0400 Systolic blood pressure 143 mm[Hg] Brandy Littlejohn CARDIOVASCULAR SPECIALIST [employer] Comment on above: Patient Position: Sitting; Cuff Location : Left Arm; Cuff Size: Large 02-19-2019 14:52-0400 Body height 162.56 cm Neilee L Vess CARDIOVASCULAR SPECIALIST [employer] [employer] 02-19-2019 14:52-0400 Body mass index (BMI) [Ratio] 37.59 kg/m2 Neilee L Vess CARDIOVASCULAR SPECIALIST [employer] [employer] 02-19-2019 14:52-0400 Body surface area Derived from formula 2.03 m2 Neilee L Vess CARDIOVASCULAR SPECIALIST [employer] [employer] 02-19-2019 14:52-0400 Body weight 99.34 kg Neilee L Vess CARDIOVASCULAR SPECIALIST [employer] [employer] 02-19-2019 14:52-0400 Diastolic blood pressure 76 mm[Hg] Neilee L Vess CARDIOVASCULAR SPECIALIST [employer] [employer], [place]. Comment on above: Patient Position: Sitting; Cuff Location : Left Arm; Cuff Size: Standard 02-19-2019 14:52-0400 Heart rate 92 /min Neilee L Vess CARDIOVASCULAR SPECIALIST [employer] [employer]. Comment on above: Pattern: Regular 02-19-2019 14:52-0400 Systolic blood pressure 144 mm[Hg] Neilee L Vess CARDIOVASCULAR SPECIALIST [employer] Comment on above: Patient Position: Sitting; Cuff Location : Left Arm; Cuff Size: Standard 09-19-2018 11:34-0500 Body height 162.56 cm Asaf Grey MD Work Phone: [employer] 09-19-2018 11:34-0500 Body mass index (BMI) [Ratio] 36.9 kg/m2 Asaf Grey MD Work Phone: [employer] 09-19-2018 11:34-0500 Body surface area Derived from formula 2.02 m2 Asaf Grey MD Work Phone: [employer] 09-19-2018 11:34-0500 Body weight 97.52 kg Asaf Grey MD Work Phone: [employer] 09-19-2018 11:34-0500 Diastolic blood pressure 76 mm[Hg] Asaf Grey MD Work Phone: [employer] Comment on above: Patient Position: Sitting; Cuff Location : Left Arm; Cuff Size: Large 09-19-2018 11:34-0500 Heart rate 92 /min Asaf Grey MD Work Phone: [employer] Comment on above: Pattern: Regular 09-19-2018 11:34-0500 Systolic blood pressure 134 mm[Hg] Asaf Grey MD Work Phone: [employer] Comment on above: Patient Position: Sitting; Cuff Location : Left Arm; Cuff Size: Large 01-04-2018 10:24-0500 Body height 162.56 cm [facility] [place] [facility] [employer] 01-04-2018 10:24-0500 Body mass index (BMI) [Ratio] 35.7 kg/m2 [place] [facility], [facility] [employer] [facility], [employer] 01-04-2018 10:24-0500 Body surface area Derived from formula 1.99 m2 Brandy Littlejohn CARDIOVASCULAR SPECIALIST [facility] [employer] [facility], [facility] 01-04-2018 10:24-0500 Body temperature 98.3 [degF] Brandy Littlejohn [facility], [facility] [employer] Comment on above: Method: Tympanic 01-04-2018 10:24-0500 Body weight 94.35 kg Brandy Littlejohn CARDIOVASCULAR SPECIALIST [facility] [employer], [place]. 01-04-2018 10:24-0500 Diastolic blood pressure 81 mm[Hg] Brandy Littlejohn [facility] [employer] Comment on above: Patient Position: Sitting; Cuff Location : Left Arm; Cuff Size: Large 01-04-2018 10:24-0500 Heart rate 99 /min Brandy Littlejohn [facility], [facility] [employer], [place]. Comment on above: Pattern: Regular 01-04-2018 10:24-0500 Systolic blood pressure 123 mm[Hg] Brandy Littlejohn [facility] [employer] Comment on above: Patient Position: Sitting; Cuff Location : Left Arm; Cuff Size: Large 12-26-2017 15:39-0500 Body height 162.56 cm Janice Keita LPN [facility], [facility] [employer] [facility], [place]. 12-26-2017 15:39-0500 Body mass index (BMI) [Ratio] 36.56 kg/m2 Janice Keita CARDIOVASCULAR SPECIALIST [facility], [facility] [employer], [place]. 12-26-2017 15:39-0500 Body surface area Derived from formula 2.01 m2 Janice Keita CARDIOVASCULAR SPECIALIST [facility] [employer] [employer] 12-26-2017 15:39-0500 Body temperature 97.7 [degF] Janice Keita CARDIOVASCULAR SPECIALIST [employer] [facility], [facility] [employer], [place]. 12-26-2017 15:39-0500 Body weight 96.62 kg Janice Keita SHAHAB [employer] [facility], [facility] [employer] 12-26-2017 15:39-0500 Diastolic blood pressure 77 mm[Hg] Janice Keita SHAHAB [employer] [facility], [facility].; [employer] Comment on above: Patient Position: Sitting; Cuff Location : Left Arm; Cuff Size: Standard 12-26-2017 15:39-0500 Heart rate 87 /min Janicemoiz Keita SHAHAB [employer] [facility], [facility].; [employer] Comment on above: Pattern: Regular 12-26-2017 15:39-0500 Systolic blood pressure 130 mm[Hg] Janicemoiz Keita SHAHAB [employer] Comment on above: Patient Position: Sitting; Cuff Location : Left Arm; Cuff Size: Standard 06-20-2017 11:01-0400 Body weight 94.8 kg Janice Keita SHAHAB [employer] [facility], [facility] [employer] 06-20-2017 11:01-0400 Diastolic blood pressure 67 mm[Hg] Janice Keita SHAHAB [employer] [facility], [facility] [employer], [place]. Comment on above: Patient Position: Sitting; Cuff Location : Left Arm; Cuff Size: Standard 06-20-2017 11:01-0400 Heart rate 96 /min Janice Keita SHAHAB [employer] [facility], [facility] [employer] Comment on above: Pattern: Regular 06-20-2017 11:01-0400 Systolic blood pressure 110 mm[Hg] Janicemoiz Keita SHAHAB [employer] [facility], [facility] [employer] Comment on above: Patient Position: Sitting; Cuff Location : Left Arm; Cuff Size: Standard 12-20-2016 15:55-0500 Body height 162.56 cm Elsie Hayes RN [employer], [place].; [employer] 12-20-2016 15:55-0500 Body mass index (BMI) [Ratio] 34.33 kg/m2 Elsie Hayes RN [employer]; [employer] 12-20-2016 15:55-0500 Body surface area Derived from formula 1.96 m2 Elsie Hayes RN [employer]. 12-20-2016 15:55-0500 Body temperature 98.7 [degF] Elsie Hayes RN [employer]; [employer]. Comment on above: Method: Tympanic 12-20-2016 15:55-0500 Body weight 90.72 kg Elsie Hayes RN [employer] 12-20-2016 15:55-0500 Diastolic blood pressure 83 mm[Hg] Elsie Hayes RN [employer]; [employer]. Comment on above: Patient Position: Sitting; Cuff Location : Right Arm; Cuff Size: Standard 12-20-2016 15:55-0500 Heart rate 82 /min Elsie Hayes RN [employer], [place]. Comment on above: Pattern: Regular 12-20-2016 15:55-0500 Systolic blood pressure 129 mm[Hg] Elsie Hayes RN [employer]; [employer]. Comment on above: Patient Position: Sitting; Cuff Location : Right Arm; Cuff Size: Standard 11-08-2016 15:41-0500 Body height 162.56 cm Brandy Littlejohn LPN [employer], [place] 11-08-2016 15:41-0500 Body mass index (BMI) [Ratio] 34.33 kg/m2 Brandy Littlejohn LPN [employer] 11-08-2016 15:41-0500 Body surface area Derived from formula 1.96 m2 Brandy Littlejohn LPN [employer], [place]. 11-08-2016 15:41-0500 Body weight 90.72 kg Brandy Littlejohn LPN [employer] 11-08-2016 15:41-0500 Diastolic blood pressure 78 mm[Hg] Brandy Littlejohn LPN [employer]; [employer] Comment on above: Patient Position: Sitting; Cuff Location : Left Arm; Cuff Size: Large 11-08-2016 15:41-0500 Heart rate 102 /min Brandy Littlejohn SHAHAB [employer]; [employer]. Comment on above: Pattern: Regular 11-08-2016 15:41-0500 Systolic blood pressure 140 mm[Hg] Brandy Littlejohn SHAHAB [employer]; [employer]. Comment on above: Patient Position: Sitting; Cuff Location : Left Arm; Cuff Size: Large 05-05-2016 15:06-0400 Body height 162.56 cm Kristen Fragoso RN [employer]; [employer] 05-05-2016 15:06-0400 Body mass index (BMI) [Ratio] 34.79 kg/m2 Kristen Fragoso RN [employer]; [employer] 05-05-2016 15:06-0400 Body surface area Derived from formula 1.97 m2 Kristen Fragoso RN [employer]; [employer]. 05-05-2016 15:06-0400 Body temperature 98.2 [degF] Kristen Fragoso RN [employer]; [employer]. Comment on above: Method: Tympanic 05-05-2016 15:06-0400 Body weight 91.94 kg Kristen Fragoso RN [employer]; [employer] 05-05-2016 15:06-0400 Diastolic blood pressure 85 mm[Hg] Kristen Fragoso RN [employer]; [employer] Comment on above: Patient Position: Sitting; Cuff Location : Left Arm; Cuff Size: Standard 05-05-2016 15:06-0400 Heart rate 96 /min Kristen Fragoso RN [employer] Comment on above: Pattern: Regular 05-05-2016 15:06-0400 Systolic blood pressure 133 mm[Hg] Kristen Fragoos RN [employer] Comment on above: Patient Position: Sitting; Cuff Location : Left Arm; Cuff Size: Standard 04-16-2016 16:01-0400 Body height 162.56 cm Elsie Hayes RN [employer] 04-16-2016 16:01-0400 Body mass index (BMI) [Ratio] 35.19 kg/m2 Elsie Hayes RN [employer] 04-16-2016 16:01-0400 Body surface area Derived from formula 1.98 m2 Elsie Hayes RN [employer] 04-16-2016 16:01-0400 Body temperature 98.6 [degF] Elsie Hayes RN [employer] Comment on above: Method: Tympanic 04-16-2016 16:01-0400 Body weight 92.99 kg Elsie Hayes RN [employer] 04-16-2016 16:01-0400 Diastolic blood pressure 98 mm[Hg] Elsie Hayes RN [employer] Comment on above: Patient Position: Sitting; Cuff Location : Left Arm; Cuff Size: Standard 04-16-2016 16:01-0400 Heart rate 119 /min Elsie Hayes RN [employer] Comment on above: Pattern: Regular 04-16-2016 16:01-0400 Inhaled oxygen concentration 20 % Elsie Hayes RN [employer] Comment on above: Room air 04-16-2016 16:01-0400 Inhaled oxygen concentration 21 % Elsie Hayes RN [employer] Comment on above: Room air 04-16-2016 16:01-0400 SaO2% (BldA) [Mass fraction] 97 % Elsie Hayes RN [employer] 04-16-2016 16:01-0400 Systolic blood pressure 153 mm[Hg] Elsie Hayes RN [employer] Comment on above: Patient Position: Sitting; Cuff Location : Left Arm; Cuff Size: Standard 07-01-2015 13:05-0400 Body height 165.1 cm Nina Caaly CARDIOVASCULAR SPECIALIST Work Phone: [employer]; [employer] 07-01-2015 13:05-0400 Body mass index (BMI) [Ratio] 33.78 kg/m2 Nina Jin CARDIOVASCULAR SPECIALIST Work Phone: [employer]; [employer] 07-01-2015 13:05-0400 Body surface area Derived from formula 1.99 m2 Nina Jin CARDIOVASCULAR SPECIALIST Work Phone: [employer]; [employer]. 07-01-2015 13:05-0400 Body weight 92.08 kg Nina Caaly CARDIOVASCULAR SPECIALIST Work Phone: [employer]; [employer] 07-01-2015 13:05-0400 Diastolic blood pressure 78 mm[Hg] Nina Caaly CARDIOVASCULAR SPECIALIST Work Phone: [employer]; [employer] Comment on above: Patient Position: Sitting; Cuff Location : Left Arm; Cuff Size: Large 07-01-2015 13:05-0400 Heart rate 99 /min Nina Caaly CARDIOVASCULAR SPECIALIST Work Phone: [employer]; [employer]. Comment on above: Pattern: Regular 07-01-2015 13:05-0400 Systolic blood pressure 132 mm[Hg] Nina Jin CARDIOVASCULAR SPECIALIST Work Phone: [employer]; [employer]. Comment on above: Patient Position: Sitting; Cuff Location : Left Arm; Cuff Size: Large 05-02-2015 15:04-0400 Body height 165.1 cm Kae Whittington LPN [employer]; [employer] 05-02-2015 15:04-0400 Body mass index (BMI) [Ratio] 34.61 kg/m2 Kae Whittington LPN [employer] [facility], [employer] 05-02-2015 15:04-0400 Body surface area Derived from formula 2.01 m2 Kae Whittington LPN [facility], [facility].; [employer] 05-02-2015 15:04-0400 Body weight 94.35 kg Kae Whittington LPN [employer] [facility], [employer] 05-02-2015 15:04-0400 Diastolic blood pressure 84 mm[Hg] Kae Whittington LPN [employer] [facility], [employer] Comment on above: Patient Position: Sitting; Cuff Location : Left Arm; Cuff Size: Large 05-02-2015 15:04-0400 Heart rate 93 /min Kae Whittington LPN [facility], [employer] Comment on above: Pattern: Regular 05-02-2015 15:04-0400 Systolic blood pressure 141 mm[Hg] Kae Whittington LPN [employer] [facility], [employer] Comment on above: Patient Position: Sitting; Cuff Location : Left Arm; Cuff Size: Large 09-10-2014 15:230500 Body height 161.29 cm January Salgado RN Work Phone: [employer] 09-10-2014 15:23-0500 Body mass index (BMI) [Ratio] 36.09 kg/m2 January Salgado RN Work Phone: [employer]; [employer] 09-10-2014 15:23-0500 Body surface area Derived from formula 1.97 m2 January Salgado RN Work Phone: [employer]; [employer] 09-10-2014 15:23-0500 Body weight 93.9 kg January Salgado RN Work Phone: [employer]; [employer] 09-10-2014 15:23-0500 Diastolic blood pressure 82 mm[Hg] January Salgado RN Work Phone: [employer] Comment on above: Patient Position: Sitting; Cuff Location : Left Arm; Cuff Size: Large 09-10-2014 15:23-0500 Heart rate 83 /min January Salgado RN Work Phone: [employer]; [employer] Comment on above: Pattern: Regular 09-10-2014 15:23-0500 Systolic blood pressure 159 mm[Hg] January Salgado RN Work Phone: [employer]; [employer]. Comment on above: Patient Position: Sitting; Cuff Location : Left Arm; Cuff Size: Large 05-14-2014 15:39-0400 Body height 161.29 cm January Salgado RN Work Phone: [employer]; [employer] 05-14-2014 15:39-0400 Body mass index (BMI) [Ratio] 35.4 kg/m2 January Salgado RN Work Phone: [employer] 05-14-2014 15:39-0400 Body surface area Derived from formula 1.96 m2 January Salgado RN Work Phone: [employer] 05-14-2014 15:39-0400 Body weight 92.08 kg January Salgado RN Work Phone: [employer] 05-14-2014 15:39-0400 Diastolic blood pressure 82 mm[Hg] January Salgado RN Work Phone: [employer] Comment on above: Patient Position: Sitting; Cuff Location : Right Arm; Cuff Size: Large 05-14-2014 15:39-0400 Heart rate 86 /min January Salgado RN Work Phone: [employer] Comment on above: Pattern: Regular 05-14-2014 15:39-0400 Systolic blood pressure 142 mm[Hg] January Salgado RN Work Phone: [employer]; [employer]. Comment on above: Patient Position: Sitting; Cuff Location : Right Arm; Cuff Size: Large 03-12-2014 15:18-0400 Body height 161.29 cm January Salgado RN Work Phone: [employer] 03-12-2014 15:18-0400 Body mass index (BMI) [Ratio] 35.92 kg/m2 January Salgado RN Work Phone: [employer] 03-12-2014 15:18-0400 Body surface area Derived from formula 1.97 m2 January Salgado RN Work Phone: [employer] 03-12-2014 15:18-0400 Body weight 93.44 kg January Salgado RN Work Phone: [employer] 03-12-2014 15:18-0400 Diastolic blood pressure 86 mm[Hg] January Salgado RN Work Phone: [employer] Comment on above: Patient Position: Sitting; Cuff Location : Left Arm; Cuff Size: Large 03-12-2014 15:18-0400 Heart rate 106 /min January Salgado RN Work Phone: [employer] Comment on above: Pattern: Regular 03-12-2014 15:18-0400 Systolic blood pressure 147 mm[Hg] January Salgado RN Work Phone: [employer] Comment on above: Patient Position: Sitting; Cuff Location : Left Arm; Cuff Size: Large 09-11-2013 14:58-0500 Body height 161.29 cm January Salgado RN Work Phone: [employer] 09-11-2013 14:58-0500 Body mass index (BMI) [Ratio] 35.4 kg/m2 January Salgado RN Work Phone: [employer]; [employer] 09-11-2013 14:58-0500 Body surface area Derived from formula 1.96 m2 January Salgado RN Work Phone: [employer]; [employer] 09-11-2013 14:58-0500 Body weight 92.08 kg January Salgado RN Work Phone: [employer]; [employer] 09-11-2013 14:58-0500 Diastolic blood pressure 80 mm[Hg] January Salgado RN Work Phone: [employer]; [employer]. Comment on above: Patient Position: Sitting; Cuff Location : Left Arm; Cuff Size: Large 09-11-2013 14:58-0500 Heart rate 96 /min January Salgado RN Work Phone: [employer]; [employer]. Comment on above: Pattern: Regular 09-11-2013 14:58-0500 Systolic blood pressure 143 mm[Hg] January Salgado RN Work Phone: [employer]; [employer]. Comment on above: Patient Position: Sitting; Cuff Location : Left Arm; Cuff Size: Large 02-13-2013 14:03-0400 Body height 161.29 cm Swetha Hopkins MD Work Phone: [employer]; [employer] 02-13-2013 14:03-0400 Body mass index (BMI) [Ratio] 35.57 kg/m2 Swetha Hopkins MD Work Phone: [employer]; [employer] 02-13-2013 14:03-0400 Body surface area Derived from formula 1.96 m2 Swetha Hopkins MD Work Phone: [employer]; [employer] 02-13-2013 14:03-0400 Body weight 92.53 kg Swetha Hopkins MD Work Phone: [employer]; [employer] 02-13-2013 14:03-0400 Diastolic blood pressure 79 mm[Hg] Swetha Hopkins MD Work Phone: [employer] Comment on above: Patient Position: Sitting; Cuff Location : Left Arm; Cuff Size: Large 02-13-2013 14:03-0400 Heart rate 87 /min Swetha Hopkins MD Work Phone: [employer] Comment on above: Pattern: Regular 02-13-2013 14:03-0400 Systolic blood pressure 141 mm[Hg] Swetha Hopkins MD Work Phone: [employer]. Comment on above: Patient Position: Sitting; Cuff Location : Left Arm; Cuff Size: Large 09-22-2012 14:16-0500 Body height 162.56 cm Swetha Beck LPN [employer] [facility], [place] 09-22-2012 14:16-0500 Body mass index (BMI) [Ratio] 35.02 kg/m2 Swetha Beck LPN [employer] [facility], [employer] 09-22-2012 14:16-0500 Body surface area Derived from formula 1.97 m2 Swetha Beck LPN [employer] [facility] [employer] 09-22-2012 14:16-0500 Body weight 92.53 kg Swetha Beck LPN [employer]; [employer] 09-22-2012 14:16-0500 Diastolic blood pressure 82 mm[Hg] Swetha Beck LPN [employer] Comment on above: Patient Position: Sitting; Cuff Location : Left Arm; Cuff Size: Standard 09-22-2012 14:16-0500 Heart rate 78 /min Swetha Beck LPN [employer]. Comment on above: Pattern: Regular 09-22-2012 14:16-0500 Systolic blood pressure 131 mm[Hg] Swetha Beck LPN [employer] Comment on above: Patient Position: Sitting; Cuff Location : Left Arm; Cuff Size: Standard 06-13-2012 14:48-0400 Body height 162.56 cm January Salgado RN Work Phone: [employer]; [employer] 06-13-2012 14:48-0400 Body mass index (BMI) [Ratio] 34.33 kg/m2 January Salgado RN Work Phone: [employer]; [employer] 06-13-2012 14:48-0400 Body surface area Derived from formula 1.96 m2 January Salgado RN Work Phone: [employer]; [employer] 06-13-2012 14:48-0400 Body weight 90.72 kg January Salgado RN Work Phone: [employer]; [employer] 06-13-2012 14:48-0400 Diastolic blood pressure 81 mm[Hg] January Salgado RN Work Phone: [employer]; [employer]. Comment on above: Patient Position: Sitting; Cuff Location : Left Arm; Cuff Size: Large 06-13-2012 14:48-0400 Heart rate 75 /min January Salgado RN Work Phone: [employer]; [employer] Comment on above: Pattern: Regular 06-13-2012 14:48-0400 Systolic blood pressure 135 mm[Hg] January Salgado RN Work Phone: [employer]; [employer]. Comment on above: Patient Position: Sitting; Cuff Location : Left Arm; Cuff Size: Large 08-26-2011 14:47-0400 Body height 162.56 cm January Salgado RN Work Phone: [employer]; [employer] 08-26-2011 14:47-0400 Body mass index (BMI) [Ratio] 33.3 kg/m2 January Salgado RN Work Phone: [employer]; [employer] 08-26-2011 14:47-0400 Body surface area Derived from formula 1.93 m2 January Salgado RN Work Phone: [employer]; [employer] 08-26-2011 14:47-0400 Body weight 88 kg January Salgado RN Work Phone: [employer]; [employer] 08-26-2011 14:47-0400 Diastolic blood pressure 79 mm[Hg] January Salgado RN Work Phone: [employer]; [employer] Comment on above: Patient Position: Sitting; Cuff Location : Left Arm; Cuff Size: Standard 08-26-2011 14:47-0400 Heart rate 101 /min January Salgado RN Work Phone: [employer]; [employer] Comment on above: Pattern: Regular 08-26-2011 14:47-0400 Systolic blood pressure 134 mm[Hg] January Salgado RN Work Phone: [employer]; [employer]. Comment on above: Patient Position: Sitting; Cuff Location : Left Arm; Cuff Size: Standard 05-18-2011 10:50-0400 [facility] Work [facility]: [employer]; [employer] 05-18-2011 10:50-0400 Body mass index (BMI) [Ratio] 32.61 kg/m2 [facility] Work Phone: [employer] 05-18-2011 10:50-0400 Body surface area Derived from formula 1.91 m2 [facility] Work Phone: [employer] 05-18-2011 10:50-0400 Body weight 86.18 kg Nina Abdi LPN Work Phone: [employer] 05-18-2011 10:50-0400 Diastolic blood pressure 89 mm[Hg] Nina Abdi CARDIOVASCULAR SPECIALIST Work Phone: [employer] Comment on above: Patient Position: Sitting; Cuff Location : Left Arm; Cuff Size: Large 05-18-2011 10:50-0400 Heart rate 103 /min Nina Jin CARDIOVASCULAR SPECIALIST Work Phone: [employer] Comment on above: Pattern: Regular 05-18-2011 10:50-0400 Systolic blood pressure 137 mm[Hg] Nina Abdi CARDIOVASCULAR SPECIALIST Work Phone: [employer] Comment on above: Patient Position: Sitting; Cuff Location : Left Arm; Cuff Size: Large Encounters Encounter Date Encounter Type Care Provider Facility Start: 03-26-2025 End: 03-26-2025 ambulatory ASAF GREY [facility] Start: 03-26-2025 End: 03-26-2025 Office outpatient visit 15 minutes Asaf Grey MD Work Phone: [employer] Start: 03-12-2025 End: 03-12-2025 Office outpatient visit 25 minutes Asaf Grey MD Work Phone: [employer] Start: 01-31-2025 End: 01-31-[address] Asaf Grey MD Work Phone: [facility] Work Phone: Start: 01-31-2025 End: 01-31-[address] Sigrid Rodriguez MD -Laboratory Work Phone: Start: 01-31-2025 End: 01-31-2025 ambulatory Sigrid Rodriguez Facility:[facility] Start: 01-23-2025 End: 01-23-[address] Asaf Grey MD Work Phone: [facility] Work Phone: Start: 01-23-2025 End: 01-23-2025 Patient encounter procedure Daria Garnett -Radiology, [place] Work Phone: Start: 01-23-2025 End: 01-23-2025 ambulatory [facility] Facility:[facility] Start: 11-05-2024 End: 11-05-[address] Sigrid Rodriguez MD -Laboratory, [place] Work Phone: Start: 11-05-2024 End: 11-05-2024 ambulatory Asaf Grey Facility:[facility] Start: 09-18-2024 End: 09-18-2024 Periodic preventive med est patient 40-64yrs Asaf Grey MD Work Phone: [employer] Start: 09-18-2024 End: 09-18-2024 Physical examination Asaf Grey MD Work Phone: [employer]; [employer] Start: 09-18-2024 Physical examination Terri Nelson LPN [employer] Start: 09-13-2024 End: 09-13-2024 Orders Asaf Grey MD Work Phone: [employer] Start: 09-11-2024 End: 09-11-2024 ambulatory ASAF GREY Facility:[facility] Start: 09-11-2024 End: 09-11-2024 Subsequent hospital visit by physician Screen Mammo [facility] Mamm[facility] Start: 09-10-2024 End: 09-10-2024 Office outpatient visit 15 minutes Asaf Grey MD Work Phone: [employer] Start: 09-10-2024 Review Asaf Grey MD Work Phone: [employer] Start: 08-20-2024 End: 08-20-2024 ambulatory Asaf Grey Facility:[facility] Start: 08-08-2024 End: 08-09-2024 Orders [facility] Start: 08-07-2024 End: 08-07-2024 Orders [facility]af [facility] Start: 05-28-2024 End: 05-28-2024 ambulatory Asaf Grey Facility:[facility] Start: 03-12-2024 End: 03-12-2024 Office outpatient visit 25 minutes Asaf [facility] MD [facility] Start: 02-29-2024 End: 02-29-[address] Asaf Grey Work Phone: [facility] Work Phone: Start: 02-29-2024 End: 02-29-[address] Asaf Grey Work Phone: [facility], [place] Work Phone: Start: 02-29-2024 End: 02-29-2024 ambulatory [facility] Facility:[facility] Start: 02-16-2024 End: 02-16-2024 Medication Asaf Grey MD Work Phone: [facility] Start: 02-13-2024 End: 02-13-[address] Asaf Grey Work Phone: [facility] Work Phone: Start: 02-13-2024 End: 02-13-[address] [facility] Work Phone: Start: 02-13-2024 End: 02-13-2024 ambulatory Asaf Grey Facility:[facility] Start: 02-11-2024 End: 02-11-[address] Asaf Grey Work Phone: [facility] Work Phone: Start: 02-11-2024 End: 02-11-2024 ambulatory Asaf Grey Facility:[facility] Start: 12-27-2023 End: 12-27-2023 ambulatory [facility] Work Phone: Start: 12-27-2023 End: 12-27-2023 Patient encounter procedure [facility]-Laboratory, [place] Work Phone: Start: 12-26-2023 End: 12-26-2023 Discharged Recurring [facility]-Physical Therapy Work Phone: Start: 11-22-2023 End: 11-22-2023 ambulatory [facility] Work Phone: Start: 11-22-2023 End: 11-22-2023 Patient encounter procedure [facility]-Radiology, [place] Work Phone: Start: 09-27-2023 End: 09-27-2023 ambulatory [facility] Work Phone: Start: 09-27-2023 End: 09-27-2023 [facility] Start: 09-13-2023 End: 09-13-2023 Patient encounter status Brandy Littlejohn CARDIOVASCULAR SPECIALIST [facility], [facility] Start: 09-13-2023 End: 09-13-2023 Periodic preventive med est patient 40-64yrs Asaf Grey MD Work Phone: [facility] [employer], [employer] Start: 08-31-2023 End: 08-31-2023 Orders Asaf Grey MD Work Phone: [facility] [employer]. Start: 07-01-2023 End: 07-01-2023 Office outpatient visit 15 minutes Asaf Grey MD Work Phone: [employer] Start: 06-27-2023 End: 06-27-2023 ambulatory [facility] Work Phone: Start: 06-27-2023 End: 06-27-2023 Patient encounter procedure [facility]-Laboratory Work Phone: Start: 04-05-2023 End: 04-05-2023 [facility] Work [facility]: Start: 03-22-2023 End: 03-22-2023 Patient encounter procedure [facility] Start: 03-21-2023 End: 03-21-2023 ambulatory [facility] Work Phone: Start: 03-21-2023 End: 03-21-2023 [facility] Start: 03-14-2023 End: 03-14-2023 Office outpatient visit 15 minutes Asaf Grey MD Work Phone: [facility] [employer] Start: 02-23-2023 End: 02-23-2023 Subsequent hospital visit by physician Diagnostic Mammo [facility] Mammogram Comment on above: Other abnormal and i nconclusive findings on diagnostic imaging of breast [R92.8] Start: 01-04-2023 End: 01-04-2023 Orders Asaf Grey MD Work Phone: [facility] [facility] [employer] Start: 12-31-2022 Documentation procedure Mammog jolene Coordinator [facility] Start: 12-31-2022 Letter encounter Mammography Coordinator [facility] Department Start: 12-30-2022 End: 12-30-2022 Subsequent hospital visit by physician Screen Mammo [facility] Mammogram Start: 12-24-2022 End: 12-24-2022 ambulatory [facility] Work Phone: Start: 12-24-2022 End: 12-24-2022 Patient encounter procedure [facility] Start: 12-10-2022 End: 12-10-2022 Orders Asaf Grey MD Work Phone: [facility] [place] Start: 10-21-2022 End: 10-21-2022 Subsequent hospital visit by physician [employer] [facility] (I-Stat/1.5t) Work Phone: Radiology Comment on above: Pain in unspecified shoulder [M25.519] Start: 10-08-2022 End: 10-08-2022 ambulatory [facility] Work Phone: Start: 10-08-2022 End: 10-08-2022 Patient encounter procedure [facility] Start: 09-13-2022 End: 09-13-2022 Patient encounter status Asaf Grey MD Work Phone: [facility] [place]; [employer] Start: 09-13-2022 End: 09-13-2022 Periodic preventive med est patient 40-64yrs Asaf Grey MD Work Phone: [employer] Start: 09-06-2022 End: 09-06-2022 Orders Asaf Grey MD Work Phone: [employer] Start: 08-11-2022 End: 08-11-2022 Orders Asaf Grey MD Work Phone: [employer] Start: 07-12-2022 End: 07-12-2022 ambulatory [facility] Work Phone: Start: 07-12-2022 End: 07-12-2022 Discharged Recurring [facility]-Laboratory Start: 06-11-2022 End: 06-11-2022 Subsequent hospital visit by physician [employer] [facility] (I-Stat/1.5t) Work Phone: Radiology Start: 04-23-2022 End: 04-23-2022 Patient encounter procedure [facility] Start: 03-15-2022 End: 03-15-2022 Office outpatient visit 15 minutes Asaf Grey MD Work Phone: [employer] Start: 03-08-2022 End: 03-08-2022 Discharged Recurring [facility]-Physical Therapy Start: 02-01-2022 End: 02-01-2022 Patient encounter procedure [facility]Radiology, [facility] Start: 01-21-2022 End: 01-28-2022 Discharged Recurring [facility]-Laboratory Start: 10-29-2021 Patient encounter procedure [facility] Start: 09-15-2021 End: 09-15-2021 Office outpatient visit 15 minutes Asaf Grey MD Work Phone: [employer] Start: 03-24-2021 End: 03-24-2021 Office outpatient visit 15 minutes Asaf Grey MD Work Phone: [employer] Start: 01-27-2021 End: 01-27-2021 Office outpatient visit 15 minutes Asaf Grey MD Work Phone: [employer] Start: 12-05-2020 End: 12-05-2020 Office outpatient visit 15 minutes Asaf Grey MD Work Phone: [employer] Start: 11-19-2020 End: 11-19-2020 Office outpatient visit 15 minutes Asaf Grey MD Work Phone: [employer]. Start: 11-18-2020 End: 11-18-2020 Subsequent hospital visit by physician [facility] Adarsh Work Phone: Radiology Comment on above: Hip pain [M25.559] Start: 09-24-2020 End: 09-24-2020 Patient encounter status Asaf Grey MD Work Phone: [employer]; [employer] Start: 09-24-2020 End: 09-24-2020 Periodic preventive med est patient 40-64yrs Asaf Grey MD Work Phone: [employer]. Start: 09-08-2020 End: 09-08-2020 Orders Asaf Grey MD Work Phone: [employer]. Start: 10-08-2019 End: 10-08-2019 Medication Asaf Grey MD Work Phone: [employer]. Start: 09-24-2019 End: 09-24-2019 Patient encounter status Meli Brown LPN [employer] Start: 09-24-2019 End: 09-24-2019 Periodic preventive med est patient 40-64yrs Asaf Grey MD Work Phone: [employer]. Start: 08-10-2019 End: 08-10-2019 Office outpatient visit 25 minutes Asaf Grey MD Work Phone: [employer] Start: 07-03-2019 End: 07-03-2019 Office outpatient visit 15 minutes Asaf Grey MD Work Phone: [employer]. Start: 06-21-2019 End: 06-25-2019 Orders Asaf Grey MD Work Phone: [employer]. Start: 02-19-2019 End: 02-19-2019 Office outpatient visit 15 minutes Asaf Grey MD Work Phone: [employer]. Start: 09-19-2018 End: 09-19-2018 Patient encounter status Asaf Grey MD Work Phone: [employer] Start: 09-19-2018 End: 09-19-2018 Periodic preventive med est patient 40-64yrs Asaf Grey MD Work Phone: [employer]. Start: 09-13-2018 End: 09-13-2018 Orders Asaf Grey MD Work Phone: [employer] Start: 06-08-2018 End: 06-13-2018 Orders Asaf Grey MD Work Phone: [employer] Start: 01-04-2018 End: 01-04-2018 Office outpatient visit 15 minutes Asaf Grey MD Work Phone: [employer] Start: 12-26-2017 End: 12-26-2017 Office outpatient visit 15 minutes Asaf Grey MD Work Phone: [employer] Start: 09-01-2017 End: 09-06-2017 Orders Asaf Grey MD Work Phone: [employer] Start: 08-05-2017 End: 08-08-2017 Orders Asaf Grey MD Work Phone: [employer] Start: 07-29-2017 End: 07-29-2017 Medication Asaf Grey MD Work Phone: [employer] Start: 07-20-2017 End: 07-20-2017 Medication Asaf Grey MD Work Phone: [employer] Start: 06-20-2017 End: 06-20-2017 Office outpatient visit 15 minutes Asaf Grey MD Work Phone: [employer] Start: 06-17-2017 End: 06-20-2017 Orders Asaf Grey MD Work Phone: [employer] Start: 06-17-2017 End: 06-17-2017 Orders Asaf Grey MD Work Phone: [employer] Start: 06-13-2017 End: 06-13-2017 Evaluation finding Asaf Grey MD Work Phone: [employer] Start: 06-13-2017 End: 06-13-2017 Office outpatient visit 15 minutes Asaf Grey MD Work Phone: [employer] Start: 04-28-2017 End: 04-28-2017 Orders Asaf Grey MD Work Phone: [employer] Start: 01-24-2017 End: 01-24-2017 Orders Asaf Grey MD Work Phone: [employer] Start: 12-20-2016 End: 12-20-2016 Evaluation finding Asaf Grey MD Work Phone: [employer] Start: 12-20-2016 End: 12-20-2016 Office outpatient visit 15 minutes Asaf Grey MD Work Phone: [employer] Start: 11-08-2016 End: 11-08-2016 Office outpatient visit 15 minutes Asaf Grey MD Work Phone: [employer] Start: 09-08-2016 End: 09-09-2016 Orders Asaf Grey MD Work Phone: [employer] Start: 09-05-2016 End: 09-05-2016 Patient encounter procedure Asaf Grey MD Work Phone: [employer] Start: 08-31-2016 End: 09-01-2016 Orders Asaf Grey MD Work Phone: [employer] Start: 08-12-2016 End: 08-12-2016 Nursing evaluation of patient and report Asaf Grey MD Work Phone: [employer] Start: 05-05-2016 End: 05-06-2016 Patient encounter procedure Asaf Grey MD Work Phone: [employer] Start: 04-29-2016 End: 04-29-2016 Orders Asaf Grey MD Work Phone: [employer] Start: 04-19-2016 End: 04-19-2016 Orders Asaf Grey MD Work Phone: [employer] Start: 04-16-2016 End: 04-16-2016 Office outpatient visit 25 minutes Asaf Grey MD Work Phone: [employer] Start: 04-07-2016 End: 04-14-2016 Orders Asaf Grey MD Work Phone: [employer] Start: 07-01-2015 End: 07-01-2015 Office outpatient visit 15 minutes Asaf Grey MD Work Phone: [employer] Start: 05-02-2015 End: 05-02-2015 Manual pelvic examination Asaf Grey MD Work Phone: [employer]; [employer] Start: 05-02-2015 End: 05-02-2015 Periodic preventive med est patient 40-64yrs Asaf Grey MD Work Phone: [employer] Start: 04-29-2015 End: 04-29-2015 Orders Asaf Grey MD Work Phone: [employer] Start: 01-30-2015 End: 01-30-2015 Daquan Grey MD Work Phone: [employer] Start: 09-10-2014 End: 09-10-2014 Office outpatient visit 25 minutes Asaf Grey MD Work Phone: [employer] Start: 05-14-2014 End: 05-14-2014 Office outpatient visit 15 minutes Asaf Grey MD Work Phone: [employer] Start: 03-12-2014 End: 03-12-2014 Manual pelvic examination January Salgado RN Work Phone: [employer] Start: 03-12-2014 End: 03-12-2014 Patient encounter procedure Asaf Grey MD Work Phone: [employer] Start: 09-28-2013 End: 10-01-2013 Orders Asaf Grey MD Work Phone: [employer] Start: 09-19-2013 End: 09-19-2013 Orders Asaf Grey MD Work Phone: [employer] Start: 09-11-2013 End: 09-11-2013 Patient encounter procedure Asaf Grey MD Work Phone: [employer] Start: 02-13-2013 End: 02-13-2013 Patient encounter procedure Asaf Grey MD Work Phone: [employer] Start: 02-13-2013 End: 02-13-2013 Routine gynecological examination Nina Jin GUDINO Work Phone: [employer] Start: 10-11-2012 End: 10-11-2012 Orders Asaf Grey MD Work Phone: [employer] Start: 10-02-2012 End: 10-02-2012 Patient encounter procedure Asaf Grey MD Work Phone: [employer] Start: 09-22-2012 End: 09-22-2012 Patient encounter procedure Asaf Grey MD Work Phone: [employer] Start: 09-22-2012 End: 09-22-2012 Routine general medical examination at a [facility] care facility Asaf Grey MD Work Phone: [employer] Start: 06-13-2012 End: 06-13-2012 Patient encounter procedure Asaf Grey MD Work Phone: [employer] Start: 08-26-2011 End: 08-26-2011 Patient encounter procedure Asaf Grey MD Work Phone: [employer] Start: 08-26-2011 End: 08-26-2011 Routine general medical examination at a health care facility Asaf Grey MD Work Phone: [employer] Start: 08-26-2011 End: 08-26-2011 Routine gynecological examination Asaf Grey MD Work Phone: [employer] Start: 07-16-2011 End: 07-16-2011 Historical Summary Asaf Grey MD Work Phone: [employer] Start: 05-20-2011 End: 05-20-2011 Orders Asaf Grey MD Work Phone: [employer] Start: 05-18-2011 End: 05-18-2011 Patient encounter procedure Asaf Grey MD Work Phone: [employer] Evaluation finding Brandy Littlejohn LPN [employer] Manual pelvic examination Meli Brown LPN [employer]. Patient encounter procedure Elsie Fontana PA-C Work Phone: [employer] Patient encounter status Asaf Grey MD Work Phone: [employer] Patient encounter status Brandy Morel [employer]. Patient encounter status Terri CARRINGTON [employer] Routine general medi bonny examination at a health care facility Meli Brown LPN [employer] Procedures Date Procedure Procedure Detail Performing Clinician Start: 01-23-2025 Plain X-ray of shoulder Dr. Asaf Grey MD Work Phone: Start: 09-18-2024 End: 09-18-2024 Depression screening Asaf Grey MD Work Phone: Start: 09-18-2024 End: 09-18-2024 Flu immunize order/admin Asaf Ball Work Phone: Start: 09-18-2024 End: 09-18-2024 Pos clin depres scrn f/u doc Asaf Grey MD Work Phone: Start: 09-18-2024 End: 09-18-2024 Scr dep neg, no plan reqd Asaf Grey MD Work Phone: Start: 09-13-2024 End: 09-13-2024 Lipid panel Terri Nelson LPN Comment on above: TC 197 HDL 54 LDL 11 8 TRI 131 Start: 08-31-2024 End: 08-31-2024 Screening mammography Asaf Grey MD Work Phone: Comment on above: Normal. Start: 02-13-[address] Asaf Grey Work Phone: Start: 11-22-2023 X-ray of cervical spine Start: 09-13-2023 End: 09-13-2023 Depression screening Asaf Grey MD Work Phone: Start: 09-13-2023 End: 09-13-2023 Flu immunize order/admin Asaf Ball Work Phone: Start: 09-13-2023 End: 09-13-2023 Scr dep neg, no plan reqd Asaf Grey MD Work Phone: Start: 09-05-2023 End: 09-05-2023 Lipid panel Brandy Littlejohn LP N Start: 04-05-2023 Plain chest X-ray Start: 02-23-2023 End: 02-23-2023 Digital breast tomosynthesis unilateral [facility] Provider Comment on above: Normal. Start: 01-04-2023 End: 02-28-2023 Diagnostic mammography computer-aided detcj uni Asaf Grey MD Work Phone: Start: 12-30-2022 BECKA SCREENING W CHE [facility] f Provider Start: 12-30-2022 Mammography Mammograph y Coordinator Start: 12-10-2022 End: 01-04-2023 Screening mammography bi 2-view breast inc cad Asaf Grey MD Work Phone: Start: 10-21-2022 Mri any jt upper ext remity w/o contrast matrl [facility] Provider Start: 09-13-2022 End: 09-13-2022 Depression screening Asaf Grey MD Work Phone: Start: 09-13-2022 End: 09-13-2022 Flu immunize order/admin Asaf Ball Work Phone: Start: 09-13-2022 End: 09-13-2022 Scr dep neg, no plan reqd Asaf Grey MD Work Phone: Start: 06-11-2022 Mri spinal canal cer vical w/o contrast matrl [facility] Provider Start: 02-01-2022 X-ray of cervical spine Start: 02-01-2022 Plain X-ray of shoulder Start: 12-17-2021 Mammography Mri (I-Sta t/1.5t) Work Phone: Start: 09-15-2021 End: 09-15-2021 Flu immunize order/admin Asaf Ball Work Phone: Start: 09-15-2021 End: 12-21-2021 Screening mammography bi 2-view breast inc cad Asaf Grey MD Work Phone: Start: 11-19-2020 End: 11-19-2020 Arthrocentesis aspir&/inj major jt/bursa w/o us Josef Hernandez MD Work Phone: Start: 11-18-2020 Radex hip unilateral with pelvis 2-3 views Clive Adamson WELLNESS INSTRUCTOR.[employer] Work Phone: Start: 09-24-2020 End: 09-24-2020 Depression screening Asaf Grey MD Work Phone: Start: 09-24-2020 End: 09-24-2020 Flu immunize order/admin Asaf Ball Work Phone: Start: 09-24-2020 End: 09-24-2020 Scr dep neg, no plan reqd Asaf Grey MD Work Phone: Start: 09-24-2020 End: 11-03-2020 Screening mammography bi 2-view breast inc cad Asaf Grey MD Work Phone: Start: 09-24-2019 End: 09-24-2019 Flu immunize order/admin Asaf Ball Work Phone: Start: 09-24-2019 End: 10-19-2019 Screening mammography bi 2-view breast inc cad Asaf Grey MD Work Phone: Start: 07-03-2019 End: 07-09-2019 Mri spinal canal lumbar w/o contrast material Asaf Grey MD Work Phone: Start: 09-13-2018 End: 09-13-2018 Flu immunize order/admin Asaf Ball Work Phone: Start: 06-08-2018 End: 06-19-2018 Screening mammography bi 2-view breast inc cad Asaf Grey MD Work Phone: Start: 12-26-2017 End: 12-26-2017 Body mass index documented Asaf Grey MD Work Phone: Start: 12-26-2017 End: 12-26-2017 Most recent diastolic blood pressure < 80 mm hg Asaf Grey MD Work Phone: Start: 12-26-2017 End: 12-26-2017 Most recent systolic blood press 130-139mm hg Asaf Grey MD Work Phone: Start: 06-17-2017 End: 06-20-2017 Radex spine lumbosacral 2/3 views Asaf Grey MD Work Phone: Start: 06-13-2017 End: 06-17-2017 Ct abdomen & pelvis w/contrast material Asaf Grey MD Work Phone: Start: 04-28-2017 End: 05-09-2017 Screening mammography bi 2-view breast inc cad Stephan Ledesma RELOCATION SERVICES SPECIALIST-C Work Phone: Start: 12-20-2016 End: 12-22-2016 Ct thorax w/o & w/contrast material Stephan Harris RELOCATION SERVICES SPECIALIST-C Work Phone: Start: 12-20-2016 End: 12-20-2016 Ecg routine ecg w/least 12 lds i&r only Stephan Steven Ledesma RELOCATION SERVICES SPECIALIST-C Work Phone: Start: 04-29-2016 End: 04-29-2016 Lab findings surveillance Brandy villanueva CARDIOVASCULAR SPECIALIST Comment on above: 95 Start: 04-07-2016 End: 05-04-2016 Mammogram, screening Elsie Benson Work Phone: Start: 07-01-2015 End: 07-01-2015 Dup-scan xtr veins complete bilateral study Swetha Hopkins MD Work Phone: Comment on above: right>left calf pain /swelling; had hysterectomy 06/16; rule out DVT Start: 06-16-2015 End: 06-16-2015 Total hysterectomy Brandy Littlejohn LP N Comment on above: with right salpingec gregor--for fibroids Start: 05-02-2015 End: 05-02-2015 Microscopic examination of cervical Papanicolaou smear Brandy Littlejohn CARDIOVASCULAR SPECIALIST Comment on above: Normal. Start: 01-30-2015 End: 02-25-2015 Mammogram, screening Swetha Hopkins MD Work Phone: Start: 09-19-2013 End: 10-03-2013 Mammogram, screening Swetha Hopkins MD Work Phone: Start: 09-22-2012 End: 09-29-2012 Mammogram, screening Swetha Hopkins MD Work Phone: Start: 06-13-2012 End: 06-13-2012 Radiologic examination ankle 2 views Swetha Hopkins MD Work Phone: Comment on above: pain over lateral ma lleolus right foot, works standing a lot but no new activity or injury Start: 05-20-2011 End: 08-25-2011 Mammogram, screening Swetha Hopkins MD Work Phone: Elbow Surgery Brandy villanueva CARDIOVASCULAR SPECIALIST Comment on above: 2006, for work relat ed injury Screening colonoscopy Branyd Monterouckey CARDIOVASCULAR SPECIALIST Comment on above: 2015 Screening colonoscopy Brandy Littlejohn CARDIOVASCULAR SPECIALIST Comment on above: 2015 Screening colonoscopy Gregory Andersen CARDIOVASCULAR SPECIALIST Comment on above: 2015 Shoulder Surgery Brandy celis CARDIOVASCULAR SPECIALIST Comment on above: 2006 for work relate d injury Plan of Treatment Date Care Activity Detail Author Start: 09-13-2032 Urine microalbumin profile DTaP,Tdap,Td Vaccine (3 - Td or Tdap) [facility] Start: 10-08-2025 Patient encounter procedure Medical; PHYSICAL - AWV [employer] Start: 08-Oct-2025 14:50-05:00 MD Asaf Grey Appointment Request [employer] Start: 09-24-2025 Nursing evaluation of patient and report Medical; Nurse visit - [facility] [employer] Start: 24-Sep-2025 08:00-05:00 NURSE, FLOAT Appointment Request [employer] Start: 03-26-2025 Radiologic exam knee complete 4/more views Knee x-ray, Right Complete ([id number]) Start: 26-Mar-2025 Intent [employer] Start: 03-12-2025 Patient encounter procedure [employer] Start: 09-18-2024 Patient encounter procedure Medical; PHYSICAL - physical [employer] Start: 18-Sep-2024 15:50-05:00 MD Asaf Grey Appointment Request [employer] Start: 09-13-2024 Comprehensive metabolic panel CMP w/ GFR* (36665) Start: 13-Sep-2024 Request [employer] [employer] Start: 09-13-2024 Lipid panel [employer] Start: 09-13-2024 Nursing evaluation of patient and report [employer] Start: 08-07-2024 Screening mammography bi 2-view breast inc cad Mammogram Bilateral Screening Digital w/CAD ([id number]) Start: 07-Aug-2024 Intent [facility] Start: 07-01-2024 Covid-19 Vaccine () Covid-19 Vaccine () [facility] Start: 07-01-2024 Influenza vaccination Influenza Vaccine (#1) [facility] Start: 03-12-2024 Patient encounter procedure [facility] Start: 12-31-2023 Mammography [facility] Start: 12-31-2023 Screening for malignant neoplasm of breast Mammogram Screening [facility] Start: 07-01-2023 Covid-19 Vaccine () Covid-19 Vaccine () [facility] Start: 07-01-2023 Influenza vaccination Influenza Vaccine (#1) [facility] Start: 12-17-2022 Mammography MAMMOGRAM [facility] Start: 10-31-2022 DEPRESSION ASSESSMENT DEPRESSION ASSESSMENT [facility] Start: 07-01-2022 Influenza vaccination INFLUENZA (#1) [facility] Start: 01-12-2022 COVID-19 VACCINE (4 - Booster for Pfizer series) COVID-19 VACCINE (4 - Booster for Pfizer series) [facility] Start: 12-15-2021 COVID-19 VACCINE (4 - Booster for Pfizer series) COVID-19 VACCINE (4 - Booster for Pfizer series) [facility] Start: 09-19-2018 End: 09-19-2018 Polysom 6/>yrs sleep 4/> addl izzy attnd Sleep Study Date: 19-Sep-2018 [facility] Start: 2015 Shingrix Vaccine (1 of 2) Shingrix Vaccine (1 of 2) [facility] Start: 2010 COLOGUARD (FIT-DNA) COLOGUARD (FIT-DNA) [facility] Start: 2010 Colonoscopy COLONOSCOPY [facility] Start: 2010 COLORECTAL CANCER SCREENING COLORECTAL CANCER SCREENING [facility] Start: [address] COLONOGRAPHY [facility] Start: 2010 DIABETES SCREEN DIABETES SCREEN [facility] Start: 2010 Diabetes Screening Diabetes Screening [facility] Start: 2010 FECAL OCCULT BLOOD FECAL OCCULT BLOOD [facility] Start: 2010 Lipid 1996 panel - Serum or Plasma Lipid Screening [facility] Start: 2010 Lipid panel Lipid Screening [facility] Start: 2010 LIPID SCREEN LIPID SCREEN [facility] Start: 2010 Screening for malignant neoplasm of colon [facility] Start: 2010 SIGMOIDOSCOPY SIGMOIDOSCOPY [facility] Start: 1995 HPV TESTING HPV TESTING [facility] Start: 1986 PAP TESTING PAP TESTING [facility] Start: 1986 Screening for malignant neoplasm of cervix Cervical Cancer Screening [facility] Start: 1984 SHINGRIX VACCINE (1 of 2) SHINGRIX VACCINE (1 of 2) [facility] Start: 1984 Urine microalbumin profile DTAP,TDAP,TD (1 - Tdap) [facility] Start: 1983 Anxiety Screening Anxiety Screening [facility] Start: 1983 Depression Screening Depression Screening [facility] Start: 1983 HEPATITIS C SCREENING HEPATITIS C SCREENING [facility] Start: 1983 Hepatitis C screening Hepatitis C Screening [facility] Start: 1983 HIV SCREENING HIV SCREENING [facility] Start: 1983 HIV screening HIV Screening [facility] Start: 1977 Adult depression screening assessment DEPRESSION SCREENING [facility] Start: 1976 Screening for malignant neoplasm of cervix Cervical Cancer Screening [facility] Start: 1971 PNEUMOCOCCAL (1 - PCV) PNEUMOCOCCAL (1 - PCV) [facility] Start: 1971 [facility] Start: [facility] HEPATITIS B (1 of 3 - 3-dose series) HEPATITIS B (1 of 3 - 3-dose series) [facility] Start: 1965 Hepatitis B Vaccine (1 of 3 - 3-dose series) Hepatitis B Vaccine (1 of 3 - 3-dose series) [facility] Immunizations Immunization Date Immunization Notes Care Provider Jeni gipson 09-18-2024 influenza, injectabl e, quadrivalent, preservative free Asaf Grey MD [facility]. Comment on above: Site: Left ArmVIS Gi anu: * Influenza (Flu) Vaccine (Inactivated or Recombinant) (06/05/21) 09-13-2023 influenza, injectabl e, quadrivalent, preservative free Asaf Grey MD Work Phone: [facility]; [employer] Comment on above: Site: Left DeltoidVI S Given: * Influenza (Flu) Vaccine (Inactivated or Recombinant) (06/05/21) 09-13-2023 influenza virus vaccine, unspecified formulation Screen [facility] 09-13-2022 tetanus toxoid, reduced diphtheria toxoid, and acellular pertussis vaccine, adsorbed Asaf Grey MD Work Phone: [facility] [employer] Comment on above: Site: Left DeltoidVI S Given: * Tdap (06/05/21) 09-13-2022 influenza, injectabl e, quadrivalent, contains preservative Asaf Grey MD Work Phone[facility]; [employer] Comment on above: Site: Right DeltoidV IS Given: * Influenza Inactivated (06/05/21) 09-13-2022 influenza virus vaccine, unspecified formulation Diagnostic [facility] 09-15-2021 influenza, injectabl e, quadrivalent, contains preservative Asaf Grey MD Work Phone[facility]; [employer] Comment on above: Site: Left DeltoidVI S Given: * Influenza - Inactivated (06/14/19) 02-19-2021 COVID-Pfizer (30 MCG/0.3 ML) Asaf Grey MD Work [facility] [employer] 01-27-2021 COVID-Pfizer (30 MCG/0.3 ML) Asaf Grey MD Work Phone: [facility] [employer] 09-24-2020 influenza, injectabl e, quadrivalent, contains preservative Asaf Grey MD Work Phone: [facility]; [employer] Comment on above: Site: Left DeltoidVI S Given: * Influenza - Inactivated (06/14/19) 09-24-2019 measles, mumps and rubella virus vaccine Asaf Grey MD Work Phone: [employer]; [employer] Comment on above: Site: Right Erin lakhani: * Measles/Mumps/Rubella (MMR) (12/12/17) 09-24-2019 influenza, injectabl e, quadrivalent, contains preservative Asaf Grey MD Work Phone: [employer]; [employer] Comment on above: Site: Left DeltoidVI S Given: * Influenza - Inactivated (06/06/15) 09-13-2018 influenza, injectabl e, quadrivalent, contains preservative Asaf Grey MD Work Phone: [employer]; [employer] Comment on above: Site: Left DeltoidVI S Given: * Influenza - Inactivated (06/06/15) 08-05-2017 influenza, injectabl e, quadrivalent, contains preservative Asaf Grey MD Work Phone: [employer]; [employer] Comment on above: Site: Deltoid Area ( Left)VIS Given: * Influenza - Inactivated (06/06/15) 08-12-2016 influenza, injectabl e, quadrivalent, contains preservative Asaf Grey MD Work Phone: [employer]; [employer] Comment on above: Site: Deltoid (Left) VIS Given: * Influenza - Inactivated (06/06/15) 08-12-2016 unknown vaccine or immune globulin Asaf Grey MD Work Phone: [employer]; [employer] 07-01-2015 IMMUNIZATION ADMIN ([id number]) Asaf Grey MD Work Phone: [employer]; [employer] 07-01-2015 influenza, seasonal, injectable Asaf Grey MD Work Phone: [employer]; [employer] Comment on above: Site: Deltoid (Left) VIS Given: * Inactivated Influenza (06/06/2015) 09-10-2014 influenza, seasonal, injectable Asaf Grey MD Work Phone: [employer]; [employer] Comment on above: Site: Deltoid (Left) VIS Given: * Influenza, Inactivated ([id number]) 09-10-2014 IMMUNIZATION ADMIN ([id number]) Asaf Grey MD Work Phone: [employer]; [employer] 09-11-2013 influenza, seasonal, injectable Asaf Grey MD Work Phone: [employer]; [employer] Comment on above: Site: Deltoid (Left) VIS Given: * Inactivated Influenza Vaccine (06/10/09) * Inactivated Influenza Vaccine (05/25/11) * Influenza vaccine [id number], inactivated (05/01/2012) * Influenza, Inactivated () * VIS Given (Unspecified) 09-11-2013 IMMUNIZATION ADMIN ([id number]) Asaf Grey MD Work Phone: [employer]; [employer] 09-22-2012 influenza, seasonal, injectable Asaf Grey MD Work Phone: [employer]; [employer] Comment on above: Site: Deltoid (Right )VIS Given: * Inactivated Influenza Vaccine (06/10/09) * Inactivated Influenza Vaccine (05/25/11) * Influenza vaccine , inactivated (05/01/2012) * VIS Given (Unspecified) 08-26-2011 influenza, seasonal, injectable Asaf Grey MD Work Phone: [employer]; [employer] Comment on above: Site: Deltoid (Right )VIS Given: * Inactivated Influenza Vaccine (06/10/09) * Inactivated Influenza Vaccine (05/25/11) * Inactivated Influenza Vaccine (05/25/11) * Inactivated Influenza Vaccine (05/25/11) * Inactivated Influenza Vaccine (05/25/11) * Inactivated Influenza Vaccine (05/25/11) * Inactivated Influenza Vaccine (05/25/11) * VIS Given (Unspecified) * VIS Given (Unspecified) 08-26-2011 tetanus toxoid, reduced diphtheria toxoid, and acellular pertussis vaccine, adsorbed Asaf Grey MD [facility] Comment on above: Site: Deltoid (Left) VIS Given: * Tetanus/Diphtheria/(Pertussis) (Td/Tdap) (09/17/08) Payers Date Payer Category Payer Self-pay [id number] 2022 Unknown [id number] 2018 Unknown [id number] 1965 Unknown [id number] 2.16.8 [id number] Unknown [id number] 2.16.8 [id number] Unknown [id number] 2.16.8 [id number] Unknown [id number] 2.16.8 [id number] Unknown [id number] 2.16.8 [id number] Unknown [id number] 2.16.8 [id number] Unknown [id number] 2.16.8 [id number] Unknown [id number] 2.16.8 [id number] Unknown [id number] 2.16.8 [id number] Social History Date Type Detail Facility Start: 06-10-2015 End: 02-11-2024 Tobacco smoking status NHIS Unknown if ever smoked [facility] Start: 1965 Sex Assigned At Female [facility] Start: 11-18-2020 End: 02-11-2024 Tobacco smoking status NHIS Never smoked tobacco [facility] Start: 11-18-2020 Tobacco use and exposure Smokeless tobacco non-user [facility] Start: 1965 Sex Assigned At Not on file [facility] Start: 10-29-2020 End: 11-18-2020 History of Social function [facility] Start: 10-29-2020 End: 11-18-2020 Tobacco use panel [facility] National Score (1-100), lower number is lower risk Not on file [facility] Tobacco Use: Tobacco Use: ; N ever smoker. [facility]; [facility] Start: 10-19-2020 End: 11-18-2020 Exposure to SARS-CoV-2 (event) Not sure [facility] Start: 01-28-2025 End: 02-05-2025 Sex Female (finding) [facility] Clinical Notes 11-18-2020 to 01-23-2025 Larry Josue, Mammo Tech - 09/11/2024 3:40 PM Izabel Arthur RT(R) - 02/23/2023 3:30 PM Elijah - Mammography Coordinator - 12/31/2022 5:36 PM Cherise David RT(R) - 10/21/2022 10:00 AM EST Note Date & Type Note Facility 01-23-2025 Radiology Diagnostic study note [facility] Imaging Services [address] [place], [place] [id number] Shoulder min 2 Views MR#: [id number] Acct: [id number] Name: IVETTE HARRIS Rep #: [id number] 2 : 1965 F 59 From: Dion Hinton MD PCP: Dr. Asaf Grey MD Status: REG CL I Study:Shoulder min 2 Views Date of Exam: 01/23/25 Exam# [id number] Ordering Dr: Daria Garnett EXAM: Four view right shoulder series CLINICAL HISTORY: Right shoulder pain versus radicular symptoms. COMPARISON: Right shoulder series 02/01/2022. TECHNIQUE: Four view right shoulder series. RAD/Shoulder min 2 Views IMPRESSION: Mild right acromioclavicular joint degenerative changes are noted. Mild degenerative changes about the right humeral head greater tuberosity suggest the presence of some degree of chronic rotator cuff disease. The right glenohumeral joint is unremarkable in appearance. No acute fracture or dislocation is evident. Reading Location: [id number] CC: Daria Mariola; Dr. Asaf Grey MD ~ Community Pharmacist: Signed [facility] 09-11-2024 History of Presen t illness Narrative Radiology Service Progress Note PATIENT NAME: Ivette [...] PATIENT PRESENTS WITH AN IMPLANTABLE OR ATTACHED [employer] FITNESS INSTRUCTOR: No RADIOLOGY DEPARTMENT: Mammography PERIPHERAL IV DATA: Not applicable SIGNED BY: Chelsea Fink September 11, 2024 4:06 PM documented in this encounter [facility] 09-11-2024 Note HNO ID: [id number] Author: LARRY JOSUE Mammo Tech Service: ? Author Type: Technologist Type: Progress [...] PATIENT PRESENTS WITH AN IMPLANTABLE OR ATTACHED [employer] FITNESS INSTRUCTOR: No RADIOLOGY DEPARTMENT: Mammography PERIPHERAL IV DATA: Not applicable SIGNED BY: Chelsea Fink September 11, 2024 4:06 PM [facility] 02-23-2023 History of Presen t illness Narrative Radiology Service Progress Note PATIENT NAME: Ivette Harris DATE OF SERVICE: February 23, 2023 [...] RT Filiberto(Kendy) February 23, 2023 3:09 PM documented in this encounter [facility] 12-31-2022 Miscellaneous Notes January 03, 2023 PID: [id number] Ivette Harris [address] [address] Dear Ms. Harris, Your recent breast imaging exam on 12/30/2022 showed a possible finding that requires additional imaging studies for a complete evaluation. Most such findings are probably benign (not cancer). If you have a healthcare provider who ordered/prescribed your screening mammogram: Please call [phone] or [phone] to schedule an appointment for your additional [...] and reports are kept on file at [facility] as part of your permanent medical record, and are available for your continuing care. Thank you for allowing us to help in meeting your health care needs. Sincerely, Dr. Hull Interpreting Radiologist [facility] (Additional imaging) documented in this encounter [facility] 12-30-2022 History of Presen t illness Narrative Radiology Service Progress Note PATIENT NAME: Ivette Harris DATE OF SERVICE: December 30, 2022 [...] IV DATA: Not applicable SIGNED BY: Kayla Biggso Tee December 30, 2022 2:01 PM documented in this encounter [facility] 10-21-2022 History of Presen t illness Narrative Radiology Service Progress Note PATIENT NAME: Ivette Harris DATE OF SERVICE: October 21, 2022 [...] DATA: Not applicable SIGNED BY: RT Nancy(R) October 21, 2022 10:47 AM documented in this encounter [facility] 06-11-2022 History of Presen t illness Narrative Radiology Service Progress Note PATIENT NAME: Ivette Harris DATE OF SERVICE: June 11, 2022 [...] 2022 3:01 PM documented in this encounter [facility] 11-18-2020 History of Presen t illness Narrative Radiology Service Progress Note PATIENT NAME: Ivette Harris DATE OF SERVICE: November 18, 2020 TIME: 1:40 PM PATIENT IDENTITY VERIFICATION COMPLETED USING TWO [...] IMPLANT DATA REVIEWED: Not Applicable RADIOLOGY DEPARTMENT: General X-ray: Exam(s) Completed: Pelvis X-Ray: Pelvis with Hip Left PERIPHERAL IV DATA: Not applicable SIGNED BY: RT Jose November 18, 2020 1:40 PM documented in this encounter [facility] Evaluation note No assessment inform ation available [facility] Work Phone: Evaluation note Diagnosis Onset Date Dysuria acute [facility] Work Phone: Evaluation note* Diagnosis Hip pain Pain in joint, pelvic region and thigh [facility]ative)No reason for referral [facility] Work Phone: Reason for visit Narrative* Diagnostic Procedure Only (Routine) - Closed Specialty Diagnoses / Procedures Referred By Contac t Referred To Contact Radiology / RADIO MRI [facility] Diagnoses Radiculopathy, cervical region cervical Procedures MRI SPINAL CANAL CERVICAL W/O CONTRAST MATRL MRI WO [address] ALL Prebish, Cherise [address] [place] [address] Radio Mri [facility] [address] [place] [address] Referral ID Status Reason Start Date Expiration Date Visits Re quested Visits Authorized [id number] Closed 05/19/2022 06/17/2022 1 1 [facility] N[facility]* Outpatient Procedure (Routine) - Closed Specialty Diagnoses / Procedures Referred By Petrosac t Referred To Contact Radiology / RADIO MRI [facility] Diagnoses Pain in unspecified shoulder townerOrder in Scanned Docs Pain in unspecified shoulder [M25.519] Procedures MRI WO MSK2 SHLDR [address] Prebish, Cherise, WELLNESS INSTRUCTOR.[employer] [address] [place] [address] Radio Mri [facility] [address] [place] [address] Referral ID Status Reason Start Date Expiration Date Visits Re quested Visits Authorized [id number] Closed 10/15/2022 11/13/2022 1 1 [facility] Advance Directives No Advanced Directives Records Found Advance Directive Response Recorded Date/ Time Advance Directives No June 16, 2015 3:41pm Living Will No June 16 5 3:41pm Power of Hvac Tech No June 16 015 3:41pm Advance Directive Response Recorded Date/ Time Advance Directives No June 16, 2015 2:41pm Living Will No June 16 5 2:41pm Power of Hvac Tech No June 16 015 2:41pm Advance Directive Response Recorded Date/ Time Advance Directives No June 16, 2015 3:41pm Chief Complaint and Reason for Visit Chief Complaint CERVICAL RADICULOPAT HY/RX HERE Chief Complaint S/O- PAIN- COPY PCP Chief Complaint S/O- PAIN- COPY PCP S/O- PAIN COPY PCP Chief Complaint S/O- PAIN COPY PCP PFCMP CMP, CBCD CBCD STANDING PAIN- COPY PCP Chief Complaint PFCMP CMP, CBCD CBCD STANDING PAIN- COPY PCP PAIN- COPY PCP Chief Complaint CERVICAL DEGENERATIV E DISC Chief Complaint CERVICAL DEGENERATIV E DISC DDD RX HERE PAIN- COPY PCP Chief Complaint CERVICAL DEGENERATIV E DISC DDD RX HERE PAIN- COPY PCP CONCERN FOR UTI Reason for Visit Dysuria Chief Complaint CERVICAL DEGENERATIV E DISC DDD RX HERE PAIN- COPY PCP CONCERN FOR UTI COPY PCP Reason for Visit Dysuria Chief Complaint Admit Date S/O- PAIN- COPY PCP November 05, 2024 3: 26pm RIGHT SHOULDER PAIN January 23, 2025 3:3 0pm Family History No Family History Records Found Arthritis Status:Active Comments:Mother. Grandpa Cerebrovascular Accident Status:Active Comment s:Maternal Aunt. Diabetes Mellitus Type II Status:Active Commen ts:Maternal Grandmother. Maternal Aunt. Maternal Uncle. cousins doesn't know anything about dad's side of family Status:Active Heart Disease Status:Active Comments:Materna l Grandmother. Hypertension Status:Active Comments:Mother. Maternal Grandfather. Maternal Grandmother. Lung Cancer Status:Active Comments:Brother . also had bone, kidney, and brain involvement; age 43. Arthritis Status:Active Comments:Mother. Grandpa Cerebrovascular Accident Status:Active Comment s:Maternal Aunt. Diabetes Mellitus Type II Status:Active Commen ts:Maternal Grandmother. Maternal Aunt. Maternal Uncle. cousins doesn't know anything about dad's side of family Status:Active Heart Disease Status:Active Comments:Materna l Grandmother. Hypertension Status:Active Comments:Mother. Maternal Grandfather. Maternal Grandmother. Lung Cancer Status:Active Comments:Brother . also had bone, kidney, and brain involvement; age 43. Arthritis Status:Active Comments:Mother. Grandpa Cerebrovascular Accident Status:Active Comment s:Maternal Aunt. Diabetes Mellitus Type II Status:Active Commen ts:Maternal Grandmother. Maternal Aunt. Maternal Uncle. cousins doesn't know anything about dad's side of family Status:Active Heart Disease Status:Active Comments:Materna l Grandmother. Hypertension Status:Active Comments:Mother. Maternal Grandfather. Maternal Grandmother. Lung Cancer Status:Active Comments:Brother . also had bone, kidney, and brain involvement; age 43. Arthritis Status:Active Comments:Mother. Grandpa Cerebrovascular Accident Status:Active Comment s:Maternal Aunt. Diabetes Mellitus Type II Status:Active Commen ts:Maternal Grandmother. Maternal Aunt. Maternal Uncle. cousins doesn't know anything about dad's side of family Status:Active Heart Disease Status:Active Comments:Materna l Grandmother. Hypertension Status:Active Comments:Mother. Maternal Grandfather. Maternal Grandmother. Lung Cancer Status:Active Comments:Brother . also had bone, kidney, and brain involvement; age 43. Arthritis Status:Active Comments:Mother. Grandpa Cerebrovascular Accident Status:Active Comment s:Maternal Aunt. Diabetes Mellitus Type II Status:Active Commen ts:Maternal Grandmother. Maternal Aunt. Maternal Uncle. cousins doesn't know anything about dad's side of family Status:Active Heart Disease Status:Active Comments:Materna l Grandmother. Hypertension Status:Active Comments:Mother. Maternal Grandfather. Maternal Grandmother. Lung Cancer Status:Active Comments:Brother . also had bone, kidney, and brain involvement; age 43. Arthritis Status:Active Comments:Mother. Grandpa Cerebrovascular Accident Status:Active Comment s:Maternal Aunt. Diabetes Mellitus Type II Status:Active Commen ts:Maternal Grandmother. Maternal Aunt. Maternal Uncle. cousins doesn't know anything about dad's side of family Status:Active Heart Disease Status:Active Comments:Materna l Grandmother. Hypertension Status:Active Comments:Mother. Maternal Grandfather. Maternal Grandmother. Lung Cancer Status:Active Comments:Brother . also had bone, kidney, and brain involvement; age 43. Arthritis Status:Active Comments:Mother. Grandpa Cerebrovascular Accident Status:Active Comment s:Maternal Aunt. Diabetes Mellitus Type II Status:Active Commen ts:Maternal Grandmother. Maternal Aunt. Maternal Uncle. cousins doesn't know anything about dad's side of family Status:Active Heart Disease Status:Active Comments:Materna l Grandmother. Hypertension Status:Active Comments:Mother. Maternal Grandfather. Maternal Grandmother. Lung Cancer Status:Active Comments:Brother . also had bone, kidney, and brain involvement; age 43. Arthritis Status:Active Comments:Mother. Grandpa Cerebrovascular Accident Status:Active Comment s:Maternal Aunt. Diabetes Mellitus Type II Status:Active Commen ts:Maternal Grandmother. Maternal Aunt. Maternal Uncle. cousins doesn't know anything about dad's side of family Status:Active Heart Disease Status:Active Comments:Materna l Grandmother. Hypertension Status:Active Comments:Mother. Maternal Grandfather. Maternal Grandmother. Lung Cancer Status:Active Comments:Brother . also had bone, kidney, and brain involvement; age 43. Arthritis Status:Active Comments:Mother. Grandpa Cerebrovascular Accident Status:Active Comment s:Maternal Aunt. Diabetes Mellitus Type II Status:Active Commen ts:Maternal Grandmother. Maternal Aunt. Maternal Uncle. cousins doesn't know anything about dad's side of family Status:Active Heart Disease Status:Active Comments:Materna l Grandmother. Hypertension Status:Active Comments:Mother. Maternal Grandfather. Maternal Grandmother. Lung Cancer Status:Active Comments:Brother . also had bone, kidney, and brain involvement; age 43. Arthritis Status:Active Comments:Mother. Grandpa Cerebrovascular Accident Status:Active Comment s:Maternal Aunt. Diabetes Mellitus Type II Status:Active Commen ts:Maternal Grandmother. Maternal Aunt. Maternal Uncle. cousins doesn't know anything about dad's side of family Status:Active Heart Disease Status:Active Comments:Materna l Grandmother. Hypertension Status:Active Comments:Mother. Maternal Grandfather. Maternal Grandmother. Lung Cancer Status:Active Comments:Brother . also had bone, kidney, and brain involvement; age 43. Arthritis Status:Active Comments:Mother. Grandpa Cerebrovascular Accident Status:Active Comment s:Maternal Aunt. Diabetes Mellitus Type II Status:Active Commen ts:Maternal Grandmother. Maternal Aunt. Maternal Uncle. cousins doesn't know anything about dad's side of family Status:Active Heart Disease Status:Active Comments:Materna l Grandmother. Hypertension Status:Active Comments:Mother. Maternal Grandfather. Maternal Grandmother. Lung Cancer Status:Active Comments:Brother . also had bone, kidney, and brain involvement; age 43. Arthritis Status:Active Comments:Mother. Grandpa Cerebrovascular Accident Status:Active Comment s:Maternal Aunt. Diabetes Mellitus Type II Status:Active Commen ts:Maternal Grandmother. Maternal Aunt. Maternal Uncle. cousins doesn't know anything about dad's side of family Status:Active Heart Disease Status:Active Comments:Materna l Grandmother. Hypertension Status:Active Comments:Mother. Maternal Grandfather. Maternal Grandmother. Lung Cancer Status:Active Comments:Brother . also had bone, kidney, and brain involvement; age 43. Arthritis Status:Active Comments:Mother. Grandpa Cerebrovascular Accident Status:Active Comment s:Maternal Aunt. Diabetes Mellitus Type II Status:Active Commen ts:Maternal Grandmother. Maternal Aunt. Maternal Uncle. cousins doesn't know anything about dad's side of family Status:Active Heart Disease Status:Active Comments:Materna l Grandmother. Hypertension Status:Active Comments:Mother. Maternal Grandfather. Maternal Grandmother. Lung Cancer Status:Active Comments:Brother . also had bone, kidney, and brain involvement; age 43. Arthritis Status:Active Comments:Mother. Grandpa Cerebrovascular Accident Status:Active Comment s:Maternal Aunt. Diabetes Mellitus Type II Status:Active Commen ts:Maternal Grandmother. Maternal Aunt. Maternal Uncle. cousins doesn't know anything about dad's side of family Status:Active Heart Disease Status:Active Comments:Materna l Grandmother. Hypertension Status:Active Comments:Mother. Maternal Grandfather. Maternal Grandmother. Lung Cancer Status:Active Comments:Brother . also had bone, kidney, and brain involvement; age 43. Arthritis Status:Active Comments:Mother. Grandpa Cerebrovascular Accident Status:Active Comment s:Maternal Aunt. Diabetes Mellitus Type II Status:Active Commen ts:Maternal Grandmother. Maternal Aunt. Maternal Uncle. cousins doesn't know anything about dad's side of family Status:Active Heart Disease Status:Active Comments:Materna l Grandmother. Hypertension Status:Active Comments:Mother. Maternal Grandfather. Maternal Grandmother. Lung Cancer Status:Active Comments:Brother . also had bone, kidney, and brain involvement; age 43. Arthritis Status:Active Comments:Mother. Grandpa Cerebrovascular Accident Status:Active Comment s:Maternal Aunt. Diabetes Mellitus Type II Status:Active Commen ts:Maternal Grandmother. Maternal Aunt. Maternal Uncle. cousins doesn't know anything about dad's side of family Status:Active Heart Disease Status:Active Comments:Materna l Grandmother. Hypertension Status:Active Comments:Mother. Maternal Grandfather. Maternal Grandmother. Lung Cancer Status:Active Comments:Brother . also had bone, kidney, and brain involvement; age 43. Arthritis Status:Active Comments:Mother. Grandpa Cerebrovascular Accident Status:Active Comment s:Maternal Aunt. Diabetes Mellitus Type II Status:Active Commen ts:Maternal Grandmother. Maternal Aunt. Maternal Uncle. cousins doesn't know anything about dad's side of family Status:Active Heart Disease Status:Active Comments:Materna l Grandmother. Hypertension Status:Active Comments:Mother. Maternal Grandfather. Maternal Grandmother. Lung Cancer Status:Active Comments:Brother . also had bone, kidney, and brain involvement; age 43. Arthritis Status:Active Comments:Mother. Grandpa Cerebrovascular Accident Status:Active Comment s:Maternal Aunt. Diabetes Mellitus Type II Status:Active Commen ts:Maternal Grandmother. Maternal Aunt. Maternal Uncle. cousins doesn't know anything about dad's side of family Status:Active Heart Disease Status:Active Comments:Materna l Grandmother. Hypertension Status:Active Comments:Mother. Maternal Grandfather. Maternal Grandmother. Lung Cancer Status:Active Comments:Brother . also had bone, kidney, and brain involvement; age 43. Arthritis Status:Active Comments:Mother. Grandpa Cerebrovascular Accident Status:Active Comment s:Maternal Aunt. Diabetes Mellitus Type II Status:Active Commen ts:Maternal Grandmother. Maternal Aunt. Maternal Uncle. cousins doesn't know anything about dad's side of family Status:Active Heart Disease Status:Active Comments:Materna l Grandmother. Hypertension Status:Active Comments:Mother. Maternal Grandfather. Maternal Grandmother. Lung Cancer Status:Active Comments:Brother . also had bone, kidney, and brain involvement; age 43. Arthritis Status:Active Comments:Mother. Grandpa Cerebrovascular Accident Status:Active Comment s:Maternal Aunt. Diabetes Mellitus Type II Status:Active Commen ts:Maternal Grandmother. Maternal Aunt. Maternal Uncle. cousins doesn't know anything about dad's side of family Status:Active Heart Disease Status:Active Comments:Materna l Grandmother. Hypertension Status:Active Comments:Mother. Maternal Grandfather. Maternal Grandmother. Lung Cancer Status:Active Comments:Brother . also had bone, kidney, and brain involvement; age 43. Arthritis Status:Active Comments:Mother. Grandpa Cerebrovascular Accident Status:Active Comment s:Maternal Aunt. Diabetes Mellitus Type II Status:Active Commen ts:Maternal Grandmother. Maternal Aunt. Maternal Uncle. cousins doesn't know anything about dad's side of family Status:Active Heart Disease Status:Active Comments:Materna l Grandmother. Hypertension Status:Active Comments:Mother. Maternal Grandfather. Maternal Grandmother. Lung Cancer Status:Active Comments:Brother . also had bone, kidney, and brain involvement; age 43. Arthritis Status:Active Comments:Mother. Grandpa Cerebrovascular Accident Status:Active Comment s:Maternal Aunt. Diabetes Mellitus Type II Status:Active Commen ts:Maternal Grandmother. Maternal Aunt. Maternal Uncle. cousins doesn't know anything about dad's side of family Status:Active Heart Disease Status:Active Comments:Materna l Grandmother. Hypertension Status:Active Comments:Mother. Maternal Grandfather. Maternal Grandmother. Lung Cancer Status:Active Comments:Brother . also had bone, kidney, and brain involvement; age 43. Arthritis Status:Active Comments:Mother. Grandpa Cerebrovascular Accident Status:Active Comment s:Maternal Aunt. Diabetes Mellitus Type II Status:Active Commen ts:Maternal Grandmother. Maternal Aunt. Maternal Uncle. cousins doesn't know anything about dad's side of family Status:Active Heart Disease Status:Active Comments:Materna l Grandmother. Hypertension Status:Active Comments:Mother. Maternal Grandfather. Maternal Grandmother. Lung Cancer Status:Active Comments:Brother . also had bone, kidney, and brain involvement; age 43. Arthritis Status:Active Comments:Mother. Grandpa Cerebrovascular Accident Status:Active Comment s:Maternal Aunt. Diabetes Mellitus Type II Status:Active Commen ts:Maternal Grandmother. Maternal Aunt. Maternal Uncle. cousins doesn't know anything about dad's side of family Status:Active Heart Disease Status:Active Comments:Materna l Grandmother. Hypertension Status:Active Comments:Mother. Maternal Grandfather. Maternal Grandmother. Lung Cancer Status:Active Comments:Brother . also had bone, kidney, and brain involvement; age 43. Arthritis Status:Active Comments:Mother. Grandpa Cerebrovascular Accident Status:Active Comment s:Maternal Aunt. Diabetes Mellitus Type II Status:Active Commen ts:Maternal Grandmother. Maternal Aunt. Maternal Uncle. cousins doesn't know anything about dad's side of family Status:Active Heart Disease Status:Active Comments:Materna l Grandmother. Hypertension Status:Active Comments:Mother. Maternal Grandfather. Maternal Grandmother. Lung Cancer Status:Active Comments:Brother . also had bone, kidney, and brain involvement; age 43. Arthritis Status:Active Comments:Mother. Grandpa Cerebrovascular Accident Status:Active Comment s:Maternal Aunt. Diabetes Mellitus Type II Status:Active Commen ts:Maternal Grandmother. Maternal Aunt. Maternal Uncle. cousins doesn't know anything about dad's side of family Status:Active Heart Disease Status:Active Comments:Materna l Grandmother. Hypertension Status:Active Comments:Mother. Maternal Grandfather. Maternal Grandmother. Lung Cancer Status:Active Comments:Brother . also had bone, kidney, and brain involvement; age 43. Arthritis Status:Active Comments:Mother. Grandpa Cerebrovascular Accident Status:Active Comment s:Maternal Aunt. Diabetes Mellitus Type II Status:Active Commen ts:Maternal Grandmother. Maternal Aunt. Maternal Uncle. cousins doesn't know anything about dad's side of family Status:Active Heart Disease Status:Active Comments:Materna l Grandmother. Hypertension Status:Active Comments:Mother. Maternal Grandfather. Maternal Grandmother. Lung Cancer Status:Active Comments:Brother . also had bone, kidney, and brain involvement; age 43. Arthritis Status:Active Comments:Mother. Grandpa Cerebrovascular Accident Status:Active Comment s:Maternal Aunt. Diabetes Mellitus Type II Status:Active Commen ts:Maternal Grandmother. Maternal Aunt. Maternal Uncle. cousins doesn't know anything about dad's side of family Status:Active Heart Disease Status:Active Comments:Materna l Grandmother. Hypertension Status:Active Comments:Mother. Maternal Grandfather. Maternal Grandmother. Lung Cancer Status:Active Comments:Brother . also had bone, kidney, and brain involvement; age 43. Arthritis Status:Active Comments:Mother. Grandpa Cerebrovascular Accident Status:Active Comment s:Maternal Aunt. Diabetes Mellitus Type II Status:Active Commen ts:Maternal Grandmother. Maternal Aunt. Maternal Uncle. cousins doesn't know anything about dad's side of family Status:Active Heart Disease Status:Active Comments:Materna l Grandmother. Hypertension Status:Active Comments:Mother. Maternal Grandfather. Maternal Grandmother. Lung Cancer Status:Active Comments:Brother . also had bone, kidney, and brain involvement; age 43. Arthritis Status:Active Comments:Mother. Grandpa Cerebrovascular Accident Status:Active Comment s:Maternal Aunt. Diabetes Mellitus Type II Status:Active Commen ts:Maternal Grandmother. Maternal Aunt. Maternal Uncle. cousins doesn't know anything about dad's side of family Status:Active Heart Disease Status:Active Comments:Materna l Grandmother. Hypertension Status:Active Comments:Mother. Maternal Grandfather. Maternal Grandmother. Lung Cancer Status:Active Comments:Brother . also had bone, kidney, and brain involvement; age 43. Arthritis Status:Active Comments:Mother. Grandpa Cerebrovascular Accident Status:Active Comment s:Maternal Aunt. Diabetes Mellitus Type II Status:Active Commen ts:Maternal Grandmother. Maternal Aunt. Maternal Uncle. cousins doesn't know anything about dad's side of family Status:Active Heart Disease Status:Active Comments:Materna l Grandmother. Hypertension Status:Active Comments:Mother. Maternal Grandfather. Maternal Grandmother. Lung Cancer Status:Active Comments:Brother . also had bone, kidney, and brain involvement; age 43. Arthritis Status:Active Comments:Mother. Grandpa Cerebrovascular Accident Status:Active Comment s:Maternal Aunt. Diabetes Mellitus Type II Status:Active Commen ts:Maternal Grandmother. Maternal Aunt. Maternal Uncle. cousins doesn't know anything about dad's side of family Status:Active Heart Disease Status:Active Comments:Materna l Grandmother. Hypertension Status:Active Comments:Mother. Maternal Grandfather. Maternal Grandmother. Lung Cancer Status:Active Comments:Brother . also had bone, kidney, and brain involvement; age 43. Arthritis Status:Active Comments:Mother. Grandpa Cerebrovascular Accident Status:Active Comment s:Maternal Aunt. Diabetes Mellitus Type II Status:Active Commen ts:Maternal Grandmother. Maternal Aunt. Maternal Uncle. cousins doesn't know anything about dad's side of family Status:Active Heart Disease Status:Active Comments:Materna l Grandmother. Hypertension Status:Active Comments:Mother. Maternal Grandfather. Maternal Grandmother. Lung Cancer Status:Active Comments:Brother . also had bone, kidney, and brain involvement; age 43. Arthritis Status:Active Comments:Mother. Grandpa Cerebrovascular Accident Status:Active Comment s:Maternal Aunt. Diabetes Mellitus Type II Status:Active Commen ts:Maternal Grandmother. Maternal Aunt. Maternal Uncle. cousins doesn't know anything about dad's side of family Status:Active Heart Disease Status:Active Comments:Materna l Grandmother. Hypertension Status:Active Comments:Mother. Maternal Grandfather. Maternal Grandmother. Lung Cancer Status:Active Comments:Brother . also had bone, kidney, and brain involvement; age 43. Arthritis Status:Active Comments:Mother. Grandpa Cerebrovascular Accident Status:Active Comment s:Maternal Aunt. Diabetes Mellitus Type II Status:Active Commen ts:Maternal Grandmother. Maternal Aunt. Maternal Uncle. cousins doesn't know anything about dad's side of family Status:Active Heart Disease Status:Active Comments:Materna l Grandmother. Hypertension Status:Active Comments:Mother. Maternal Grandfather. Maternal Grandmother. Lung Cancer Status:Active Comments:Brother . also had bone, kidney, and brain involvement; age 43. Arthritis Status:Active Comments:Mother. Grandpa Cerebrovascular Accident Status:Active Comment s:Maternal Aunt. Diabetes Mellitus Type II Status:Active Commen ts:Maternal Grandmother. Maternal Aunt. Maternal Uncle. cousins doesn't know anything about dad's side of family Status:Active Heart Disease Status:Active Comments:Materna l Grandmother. Hypertension Status:Active Comments:Mother. Maternal Grandfather. Maternal Grandmother. Lung Cancer Status:Active Comments:Brother . also had bone, kidney, and brain involvement; age 43. Arthritis Status:Active Comments:Mother. Grandpa Cerebrovascular Accident Status:Active Comment s:Maternal Aunt. Diabetes Mellitus Type II Status:Active Commen ts:Maternal Grandmother. Maternal Aunt. Maternal Uncle. cousins doesn't know anything about dad's side of family Status:Active Heart Disease Status:Active Comments:Materna l Grandmother. Hypertension Status:Active Comments:Mother. Maternal Grandfather. Maternal Grandmother. Lung Cancer Status:Active Comments:Brother . also had bone, kidney, and brain involvement; age 43. Arthritis Status:Active Comments:Mother. Grandpa Cerebrovascular Accident Status:Active Comment s:Maternal Aunt. Diabetes Mellitus Type II Status:Active Commen ts:Maternal Grandmother. Maternal Aunt. Maternal Uncle. cousins doesn't know anything about dad's side of family Status:Active Heart Disease Status:Active Comments:Materna l Grandmother. Hypertension Status:Active Comments:Mother. Maternal Grandfather. Maternal Grandmother. Lung Cancer Status:Active Comments:Brother . also had bone, kidney, and brain involvement; age 43. Arthritis Status:Active Comments:Mother. Grandpa Cerebrovascular Accident Status:Active Comment s:Maternal Aunt. Diabetes Mellitus Type II Status:Active Commen ts:Maternal Grandmother. Maternal Aunt. Maternal Uncle. cousins doesn't know anything about dad's side of family Status:Active Heart Disease Status:Active Comments:Materna l Grandmother. Hypertension Status:Active Comments:Mother. Maternal Grandfather. Maternal Grandmother. Lung Cancer Status:Active Comments:Brother . also had bone, kidney, and brain involvement; age 43. Arthritis Status:Active Comments:Mother. Grandpa Cerebrovascular Accident Status:Active Comment s:Maternal Aunt. Diabetes Mellitus Type II Status:Active Commen ts:Maternal Grandmother. Maternal Aunt. Maternal Uncle. cousins doesn't know anything about dad's side of family Status:Active Heart Disease Status:Active Comments:Materna l Grandmother. Hypertension Status:Active Comments:Mother. Maternal Grandfather. Maternal Grandmother. Lung Cancer Status:Active Comments:Brother . also had bone, kidney, and brain involvement; age 43. Arthritis Status:Active Comments:Mother. Grandpa Cerebrovascular Accident Status:Active Comment s:Maternal Aunt. Diabetes Mellitus Type II Status:Active Commen ts:Maternal Grandmother. Maternal Aunt. Maternal Uncle. cousins doesn't know anything about dad's side of family Status:Active Heart Disease Status:Active Comments:Materna l Grandmother. Hypertension Status:Active Comments:Mother. Maternal Grandfather. Maternal Grandmother. Lung Cancer Status:Active Comments:Brother . also had bone, kidney, and brain involvement; age 43. Arthritis Status:Active Comments:Mother. Grandpa Cerebrovascular Accident Status:Active Comment s:Maternal Aunt. Diabetes Mellitus Type II Status:Active Commen ts:Maternal Grandmother. Maternal Aunt. Maternal Uncle. cousins doesn't know anything about dad's side of family Status:Active Heart Disease Status:Active Comments:Materna l Grandmother. Hypertension Status:Active Comments:Mother. Maternal Grandfather. Maternal Grandmother. Lung Cancer Status:Active Comments:Brother . also had bone, kidney, and brain involvement; age 43. Arthritis Status:Active Comments:Mother. Grandpa Cerebrovascular Accident Status:Active Comment s:Maternal Aunt. Diabetes Mellitus Type II Status:Active Commen ts:Maternal Grandmother. Maternal Aunt. Maternal Uncle. cousins doesn't know anything about dad's side of family Status:Active Heart Disease Status:Active Comments:Materna l Grandmother. Hypertension Status:Active Comments:Mother. Maternal Grandfather. Maternal Grandmother. Lung Cancer Status:Active Comments:Brother . also had bone, kidney, and brain involvement; age 43. Arthritis Status:Active Comments:Mother. Grandpa Cerebrovascular Accident Status:Active Comment s:Maternal Aunt. Diabetes Mellitus Type II Status:Active Commen ts:Maternal Grandmother. Maternal Aunt. Maternal Uncle. cousins doesn't know anything about dad's side of family Status:Active Heart Disease Status:Active Comments:Materna l Grandmother. Hypertension Status:Active Comments:Mother. Maternal Grandfather. Maternal Grandmother. Lung Cancer Status:Active Comments:Brother . also had bone, kidney, and brain involvement; age 43. Summary Purpose Additional Source Comments Goals (unrecognized section and content) Goals may be documented in a n alternate sectionGoals may be documented in an alternate sectionGoals may be documented in an alternate sectionGoals may be documented in an alternate sectionGoals may be documented in an alternate sectionGoals may be documented in an alternate sectionGoals may be documented in an alternate sectionGoals may be documented in an alternate sectionGoals may be documented in an alternate sectionGoals may be documented in an alternate sectionGoals may be documented in an alternate sectionGoals may be documented in an alternate sectionGoals may be documented in an alternate sectionGoals may be documented in an alternate sectionGoals may be documented in an alternate sectionGoals may be documented in an alternate section Source Comments (unrecognize d section and content) In the event this informatio n is protected by the Federal Confidentiality of Alcohol and Drug Abuse Patient Records regulations: The Federal rules restrict any use of the information to criminally investigate or prosecute any alcohol or drug abuse patient.[facility] the event this information is protected by the Federal Confidentiality of Alcohol and Drug Abuse Patient Records regulations: The Federal rules restrict any use of the information to criminally investigate or prosecute any alcohol or drug abuse patient.[facility] SystemIn the event this information is protected by the Federal Confidentiality of Alcohol and Drug Abuse Patient Records regulations: The Federal rules restrict any use of the information to criminally investigate or prosecute any alcohol or drug abuse patient.[facility] SystemIn the event this information is protected by the Federal Confidentiality of Alcohol and Drug Abuse Patient Records regulations: The Federal rules restrict any use of the information to criminally investigate or prosecute any alcohol or drug abuse patient.[facility] SystemIn the event this information is protected by the Federal Confidentiality of Alcohol and Drug Abuse Patient Records regulations: The Federal rules restrict any use of the information to criminally investigate or prosecute any alcohol or drug abuse patient.[facility] SystemIn the event this information is protected by the Federal Confidentiality of Alcohol and Drug Abuse Patient Records regulations: The Federal rules restrict any use of the information to criminally investigate or prosecute any alcohol or drug abuse patient.[facility] SystemIn the event this information is protected by the Federal Confidentiality of Alcohol and Drug Abuse Patient Records regulations: The Federal rules restrict any use of the information to criminally investigate or prosecute any alcohol or drug abuse patient.[facility] Care Teams (unrecognized sec tion and content) Team Status: Active Member Role Status Dates Dr. Asaf Grey MD Family Provider Active Dr. Asaf Grey MD Primary Care Provider Active Team Status: Inactive Member Role Status Dates Dr. Asaf Grey MD Primary Care Provider Active Dr. Sigrid Rodriguez MD Attending Provider, Referring Provider Active [employer] Relationship Specialty Start Date End Date Cholo Guillen [address] [place] [address] Pain Management 09/28/22 [employer] Relationship Specialty Start Date End Date Cholo Guillen MD [address] [place] [address] Pain Management 09/28/22 [employer] Relationship Specialty Start Date End Date Cholo Guillen MD [address] [place] [address] Pain Management 09/28/22 Team Status: Inactive Member Role Status Dates Dr. Asaf Grey MD Primary Care Provider Active Dr. Sigrid Rodriguez MD Attending Provider Active Team Status: Inactive Member Role Status Dates Dr. Asaf Grey MD Primary Care Provider Active NP. Daria Garnett Attending Provider, Referring Provid er Active Team Status: Inactive Member Role Status Dates Dr. Asaf Grey MD Primary Care Provider, Referring Provider Active Meghan Alvarado NP-C Attending Provider Active Team Status: Inactive Member Role Status Dates Dr. Asaf Grey MD Primary Care Provider Active Meghan Alvarado , RELOCATION SERVICES SPECIALIST-C Attending Provider, Referring Pro vider Active Team Status: Inactive Member Role Status Dates Dr. Asaf Grey MD Primary Care Provider Active Start: November 05, 2024 End: November 05, 2024 Dr. Sigrid Rodriguez MD Attending Provider Active Start: November 05, 2024 End: November 05, 2024 Dr. Sigrid Rodriguez MD Referring Provider Active Start: November 05, 2024 End: November 05, 2024 Team Status: Inactive Member Role Status Dates Dr. Asaf Grey MD Primary Care Provider Active Start: January 23, 2025 End: January 23, 2025 NP. Daria Garnett Attending Provider Active Star t: January 23, 2025 End: January 23, 2025 NP. Daria Garnett Referring Provider Active Star t: January 23, 2025 End: January 23, 2025 Team Status: Inactive Member Role Status Dates Dr. Asaf Grey MD Primary Care Provider Active Start: January 31, 2025 End: January 31, 2025 Dr. Sigrid Rodriguez MD Attending Provider Active Start: January 31, 2025 End: January 31, 2025 Dr. Sigrid Rodriguez MD Referring Provider Active Start: January 31, 2025 End: January 31, 2025 INFORMATION SOURCE (unrecogn ized section and content) DATE CREATED AUTHOR 09/13/2024 [facility] DATE CREATED AUTHOR AUTHOR'S ORGANIZ ATION 09/16/2024 [facility] DATE CREATED AUTHOR AUTHOR'S ORGANIZ ATION 02/06/2025 [facility] DATE CREATED AUTHOR AUTHOR'S ORGANIZ ATION 03/29/2025 [facility] FOR RECORDS PERTAINING TO PATIENTS WHO ARE [...] BE BASED ON THE PRIMARY CLINICAL RECORDS. [employer] provides no warranty or guarantee of the accuracy or completeness of information in this document.
[2025-04-20 17:57] LABS: Anion Gap 11 (5-15); BUN 10 mg/dL (4-19); BUN/Creat Ratio 11.9 RATIO (10-20); Calcium,Total 9.4 mg/dL (7.6-11.0); Chloride 107 mmol/L (98-108); Creatinine, Serum 0.83 mg/dL (0.70-1.20); EST Glomerular Filtration Rate 81 (>60); Estimated Creatinine Clearance 80.46 ml/min (50-250); Glucose 91 mg/dL (70-99); Sodium Level 141 mmol/L (133-145)
[2025-04-20 18:13] LABS: CRP < 3.00 mg/L (0.0-3.0)
[2025-04-20 18:17] LABS: Absolute Lymphocyte Count 1.45 X10^3/uL (0.83-4.51); Absolute Neutrophil Count 1.9 X10^3/uL (2.0-7.7); Basophil# 0.04 X10^3/uL; Eosinophil# 0.16 X10^3/uL; Eosinophils% 3.9 % (0-5); Hematocrit 35.7 % (37-47); Hemoglobin 11.5 g/dL (12.0-15.0); Lymphocyte # 1.45 X10^3/ul (0.83-4.51); Lymphocyte % 35.5 % (19-41); Mean Corp Hgb Conc 32.2 g/dL (32-36); Mean Corpuscular Hgb 27.5 pg (27.0-32.0); Mean Corpuscular Volume 85.4 fL (81-99); Mean Platelet Vol. 10.7 fl (6.2-12.0); Monocyte# 0.57 X10^3/uL; Monocyte% 13.9 % (0-10); NRBC Flagged by Analyzer 0 % (0-5); Neutrophil # 1.86 X10^3/uL (2.7-7.7); Neutrophil % 45.5 % (47-70); Platelet Count 163 K/mm3 (150-450); RBC Distribution Width CV 16.1 % (11.6-14.6); RBC Distribution Width SD 50.1 fl (35.1-43.9); Red Blood Count 4.18 M/mm3 (4.2-5.4); White Blood Count 4.1 K/mm3 (4.4-11.0)
[2025-04-20 18:27] LABS: Erythrocyte Sedimentation Rate 8 mm/hr (0-30)
[2025-04-20 18:40] LABS: Pathologist Comment May follow
[2025-04-20] MEDS: traMADol 50 MG Tablet PO (19:06)
[2025-04-20 19:45] LABS: Synovial Fld Mononuclear WBC % 95.2 %; Synovial Fld Polynuclear WBC # 0.008 10^3/uL; Synovial Fld Polynuclear WBC % 4.8 %
[2025-04-20 20:13] LABS: AUTO B FLUID DILUENT BKGD CT WBC <0.1 RBC <0.01 (W<.1,R<.01)
[2025-04-20 20:14] LABS: Appearance /Synovial Fluid Sl Cl (CLEAR); Color / Synovial Fluid Straw (Pale Yellow)
[2025-04-20 20:37] VITALS: BP 155/74; PULSE 72; RESP 16; O2SAT 99
[2025-04-20 21:15] LABS: RBC /Synovial Fluid 26 /mm3 (0)
[2025-04-20 22:31] LABS: Lymph 34 %; Neutrophil 6 % (0-25); Other Cell /Synovial Fluid 22 %; Plasma Cell /Synovial Fluid 0 %
[2025-04-20 22:32] LABS: Monocyte /Synovial Fluid 38 %
[2025-04-20 22:34] LABS: Source / Synovial Fluid RIGHT KNEE
[2025-04-20 22:35] LABS: Body Fluid QC Type(s) BF3Q, BF4Q
[2025-04-20 22:36] LABS: Source- Body Fluid SYNOVIAL
[2025-04-20 23:02] LABS: CRYSTALS, BODY FLUID Other, see comment
[2025-04-23 13:23] LABS: Pathologist Review Reviewed
== END 2025-04-20 22:05 | disposition home or self-care (01) ==
PROVIDERS: Emergency Provider Emergency Medicine; PCP Family Medicine; Visit Provider Emergency Medicine
DX: M25.561 Pain in right knee (principal); M06.9 Rheumatoid arthritis, unspecified; D84.9 Immunodeficiency, unspecified; Z79.899 Other long term (current) drug therapy
CPT/HCPCS: 20610; 73564; 80048; 85025; 85652; 86140; 87070; 87075; 87205; 89050; 89051; 89060; 99283

== ENCOUNTER → 2025-04-24 | Outpatient (CLI) | payer BC, SELFPAY ==
[2025-04-24 17:47] LABS: Absolute Lymphocyte Count 1.82 X10^3/uL (0.83-4.51); Absolute Neutrophil Count 4.9 X10^3/uL (2.0-7.7); Basophil# 0.03 X10^3/uL; Basophil% 0.4 % (0-1); Eosinophil# 0.02 X10^3/uL; Eosinophils% 0.3 % (0-5); Hematocrit 36.5 % (37-47); Hemoglobin 11.8 g/dL (12.0-15.0); Lymphocyte # 1.82 X10^3/ul (0.83-4.51); Lymphocyte % 23.9 % (19-41); Mean Corp Hgb Conc 32.3 g/dL (32-36); Mean Corpuscular Hgb 27.4 pg (27.0-32.0); Mean Corpuscular Volume 84.7 fL (81-99); Mean Platelet Vol. 10.8 fl (6.2-12.0); Monocyte# 0.81 X10^3/uL; Monocyte% 10.7 % (0-10); NRBC Flagged by Analyzer 0 % (0-5); Neutrophil # 4.86 X10^3/uL (2.7-7.7); Neutrophil % 63.9 % (47-70); Platelet Count 237 K/mm3 (150-450); RBC Distribution Width SD 48.8 fl (35.1-43.9); Red Blood Count 4.31 M/mm3 (4.2-5.4); White Blood Count 7.6 K/mm3 (4.4-11.0)
[2025-04-24 18:19] LABS: ALB/GLOB Ratio 1.6 RATIO (0.9-2.4); AST(SGOT) 21 U/L (<=31); Alanine Aminotransfer ALT/SGPT 29 U/L (<=34); Albumin, Serum 4.2 g/dL (3.4-4.8); Alkaline Phosphatase 67 U/L (35-104); Anion Gap 11 (5-15); BUN 15 mg/dL (4-19); BUN/Creat Ratio 16.5 RATIO (10-20); Calcium,Total 9.4 mg/dL (7.6-11.0); Carbon Dioxide 24.8 mmol/L (21.0-32.0); Chloride 103 mmol/L (98-108); Creatinine, Serum 0.88 mg/dL (0.70-1.20); EST Glomerular Filtration Rate 75 (>60); Globulin 2.6 g/dL (2.2-4.2); Glucose 88 mg/dL (70-99); Potassium 4.5 mmol/L (3.3-5.1); Protein, Total 6.8 g/dL (5.9-8.4); Sodium Level 140 mmol/L (133-145)
== END | disposition home or self-care (01) ==
PROVIDERS: PCP Family Medicine; Referring Provider Internal Medicine Rheumatology; Visit Provider Internal Medicine Rheumatology
DX: M06.09 Rheumatoid arthritis without rheumatoid factor, multiple sites (principal); Z79.899 Other long term (current) drug therapy; M35.00 Sjogren syndrome, unspecified; K76.0 Fatty (change of) liver, not elsewhere classified
CPT/HCPCS: 36415; 80053; 85025

== ENCOUNTER → 2025-07-29 | Outpatient (CLI) | payer BC, SELFPAY ==
--- OUTSIDE RECORDS SUMMARY | 2025-03-26 14:31 | XMS RPT_ITS ---
Author Name Auto Generated Organization OHIP Care Team Providers Care Bridge Design Engineer Name Role Phone ARTEM GREY Referring Unavailable ARTEM GREY Admitting Unavailable ARTEM GREY Primary Care Unavailable ARTEM GREY Consulting Unavailable ARTEM GREY Attending Unavailable PROVIDER, UNKNOWN Consulting Unavailable PROVIDER, UNKNOWN Consulting Unavailable PROVIDER, UNKNOWN Consulting Unavailable PROBLEMS No Problem Records Found PROCEDURES No Procedure Records Found RESULTS KNEE COMPLETE RT MIN 4 VIEWS Observed: 0 03/26/2025 3:41 PM Status: F Source: [place] [address] Patient: IVETTE HARRIS. Phone#: : 1965 Age: 59 Gender: F Pt. Type: Out Account: [id number] Location: [facility] Ordering: ARTEM GREY Exam Date: 03/26/2025/14:48 Family Phys: Charge Code: 090040 Physician: [place] Order #: [id number] Dose#: PROCEDURE: X-RAY KNEE RT COMPLETE 4 VIEWS COMPARISON: None. INDICATIONS: Right knee pain. FINDINGS: BONES: Normal. No significant arthropathy or acute abnormality. SOFT TISSUES: Negative. No visible soft tissue swelling. EFFUSION: Small suprapatellar joint effusion OTHER: Negative. CONCLUSION: 1. No acute osseous abnormality 2. Small suprapatellar joint effusion Dictated by: Lakeshia Strauss MD on 03/26/2025 at 15:40 Approved by: Lakeshia Strauss MD on 03/26/2025 at 15:41 LIPID PANEL, STANDARD Collected: 09/13/2024 8:02 AM Status: F Source: [employer] TYPE CODE TESTS RESULT OUT OF RANGE REFERENCE UNITS LAB [id number] CHOLESTEROL, TOTAL 197 Normal <200 mg/dL LAB [id number] HDL CHOLESTEROL 54 Normal > OR = 50 mg/dL LAB [id number] TRIGLYCERIDES 131 Normal <150 mg/dL LAB [id number] LDL-CHOLESTEROL 118 High mg/dL (calc) Result Comment: Reference ra nge: <100 Desirable range <100 mg/dL for primary prevention; <70 mg/dL for patients with CHD or diabetic patients with > or = 2 CHD risk factors. LDL-C is now calculated using the Shaniqua calculation, which is a validated novel method providing better accuracy than the Friedewald equation in the estimation of LDL-C. Jacoby SS et al. LISY. 2013;310(19): 4723-5207 (http://education.[employer]/faq/FIO980) LAB [id number] CHOL/HDLC RATIO 3.6 Normal <5.0 (calc) LAB [id number] NON HDL CHOLESTEROL 143 High <130 mg/dL (calc) Result Comment: For patients with diabetes plus 1 major ASCVD risk factor, treating to a non-HDL-C goal of <100 mg/dL (LDL-C of <70 mg/dL) is considered a therapeutic option. Performed By: #### 64412, 76 00 #### [employer] [address], [address] [place] [phone] Black Jack Dealer: Duong Ragland MD COMPREHENSIVE METABOLIC PANEL Collected : 09/13/2024 8:02 AM Status: F Source: [facility] TYPE CODE TESTS RESULT OUT OF RANGE REFERENCE UNITS LAB [id number] GLUCOSE 91 Normal 65-99 mg/dL Result Comment: Fasting reference interval LAB [id number] UREA NITROGEN (BUN) 10 Normal 7-25 mg/dL LAB [id number] CREATININE 0.84 Normal 0.50-1.03 mg/dL LAB [id number] EGFR 80 Normal > OR = 60 mL/min/1 .73m2 LAB [id number] BUN/CREATININE RATIO SEE NOTE: 6-22 (calc) Result Comment: Not Reported : BUN and Creatinine are within reference range. LAB [id number] SODIUM 141 Normal 135-146 mmol/L LAB [id number] POTASSIUM 4.2 Normal 3.5-5.3 mmol/L LAB [id number] CHLORIDE 106 Normal 98-110 mmol/L LAB [id number] CARBON DIOXIDE 27 Normal 20-32 mmol/L LAB [id number] CALCIUM 9.2 Normal 8.6-10.4 mg/dL LAB [id number] PROTEIN, TOTAL 7.1 Normal 6.1-8.1 g/dL LAB [id number] ALBUMIN 4.3 Normal 3.6-5.1 g/dL LAB [id number] GLOBULIN 2.8 Normal 1.9-3.7 g/dL (calc) LAB [id number] ALBUMIN/GLOBUL IN RATIO 1.5 Normal 1.0-2.5 (calc) LAB [id number] BILIRUBIN, TOTAL 0.5 Normal 0.2-1.2 mg/dL LAB [id number] ALKALINE PHOSPHATASE 57 Normal 37-153 U/L LAB [id number] AST 18 Normal 10-35 U/L LAB [id number] ALT 16 Normal 6-29 U/L Performed By: #### 63022, 76 00 #### [employer] [address], [address] [place] [phone] Black Jack Dealer: Duong Ragland MD [facility] SCREENING W CHE Observed: 4 4:06 PM Status: F Source: [facility] * * *Final Report* * * DATE OF EXAM: Sep 11 2024 4:06PM JAMESW 0582 - [facility] SCREENING W CHE / PROCEDURE REASON: SCREENING * * * * Physician Interpretation * * * * RESULT: [address] [address] HISTORY: Patient is 59 years old and is seen for screening and is asymptomatic in both breasts. Patient states no personal history of breast cancer. Patient states no personal history of other cancers. COMPARISON STUDIES: The present examination has been compared to prior imaging studies dated 10/17/2019 (mammogram), 10/29/2020 (mammogram), 12/17/2021 (mammogram), 12/30/2022 (mammogram) and 02/23/2023 (mammogram). MAMMOGRAM TECHNIQUE: The study was acquired using full field digital technology and interpreted from soft copy. Digital Breast Tomosynthesis (DBT) images were obtained and used to assist in the interpretation of this examination. Computer-aided detection was utilized by the radiologist in the interpretation of this examination. MAMMOGRAM FINDINGS: The breasts are almost entirely fatty. No suspicious masses, calcifications or other abnormalities are seen in either breast. There are no significant changes from the prior study. IMPRESSION: There is no mammographic evidence of malignancy in either breast. Routine screening mammogram is recommended. Annual mammogram will be due in 1 year. BI-RADS Category 1: Negative RISK: Based on the Tyrer-Cuzick (TC) risk assessment model, this patient has a 4.0% lifetime risk of developing breast cancer, meaning they are at average risk for developing breast cancer. However, this is only an estimate based on available history provided on the patient's questionnaire. We encourage all patients to talk with their providers about these results, further recommendations for managing breast health, and appropriate supplemental screening options if the patient has dense breast tissue. Interpreting Radiologist: Renay Elam M.D. Electronically signed on: 09/12/2024 Forest Products Teacher: SUDHEER Transcribe Date/Time: Sep 11 2024 3:48P Dictated by: RENAY ELAM MD This examination was interpreted and the report reviewed and electronically signed by: RENAY ELAM MD on Sep 12 2024 10:09AM EST [id number] PROGRESS Observed: 09/11/2024 3:40 PM Status: COMPLETED Source: [facility] ID: [id number] Author: LARRY JOSUE [employer] Service: ? Author Type: Technologist Type: Progress Notes Filed: 09/11/2024 16:06 Note Text: Radiology Service Progress Note PATIENT NAME: Ivette Harris DATE OF SERVICE: September 11, 2024 TIME: 4:06 PM PATIENT IDENTITY VERIFICATION COMPLETED USING TWO (2) IDENTIFIERS: Name and Date of confirmed by patient verbally. FALL SCREENING: Has the patient had 2 falls in the last year or 1 fall with injury or currently using an Ambulatory Assistive Device (Walker, Cane, Wheelchair, Crutches, etc.)? No PATIENT GENDER DATA: Female. status: : No status: NO. PATIENT RELEVANT IMPLANT DATA REVIEWED: Not Applicable PATIENT PRESENTS WITH AN IMPLANTABLE OR ATTACHED BAKER HEAD: No RADIOLOGY DEPARTMENT: Mammography PERIPHERAL IV DATA: Not applicable SIGNED BY: Chelsea Fink September 11, 2024 4:06 PM ALLERGIES DATE TYPE / CODE NAME / CODE REACTION SEVERITY SOURCE 11/18/2020 DRUG INGREDI/924415 003(SNOMED CT) POVIDONE-IODIN E HIVES [facility] 11/18/2020 DRUG/230884217 (SNOMED CT) HYDROCODONE-AC ETAMINOPHEN Mental Chg [facility] Drug Allergy/962029 002(SNOMED CT) BETADINE/88804 677(RXNORM) Moderate (Severity Modifier) (Qualifier Value) [facility] Drug Allergy/591749 002(SNOMED CT) VICODIN/224748 76(RXNORM) Moderate (Severity Modifier) (Qualifier Value) [facility] ENCOUNTERS ADMIT/DISCHARGE ACCOUNT NUMBER ADMITTING ENCOUNTER CLASS LOCATION SOURCE 03/26/2025/03/26/20 25 [id number] ARTEM GREY Ambulatory Building:Unkn own [facility] 09/11/2024/09/11/20 24 [id number] [facility] PAYERS ENCOUNTER GUARANTOR PAYER SUBSCRIBER SOURCE 03/26/2025 IVETTE BLACKWELL: [id number] [place], [place] [address]Phw: () Primary Insurance:[employer] COMMERCIAL OUTPATIENTPolicy Number: [id number] Date:Plan Name:Tom BLACKWELL: [id number] [address] [place], [place] [id number] [facility] 09/11/2024 Primary Insuranc e:BLUE CARD PPO OOSPolicy Number: [id number] Date:[id number] Name:Gibran BLACKWELL: [id number] [address], [place] [address] [facility]
--- OUTSIDE RECORDS SUMMARY | 2025-03-26 14:31 | XMS RPT_ITS ---
Author Name Auto Generated Organization OHIP Care Team Providers Care Conditioning Machine Operator Name Role Phone ARTEM GREY Referring Unavailable ARTEM GREY Admitting Unavailable ARTEM GREY Primary Care Unavailable ARTEM GREY Consulting Unavailable ARTEM GREY Attending Unavailable PROVIDER, UNKNOWN Consulting Unavailable PROVIDER, UNKNOWN Consulting Unavailable PROVIDER, UNKNOWN Consulting Unavailable PROBLEMS No Problem Records Found PROCEDURES No Procedure Records Found RESULTS KNEE COMPLETE RT MIN 4 VIEWS Observed: 0 03/26/2025 3:41 PM Status: F Source: [place] [address] Patient: IVETTE HARRIS. Phone#: : 1965 Age: 59 Gender: F Pt. Type: Out Account: [id number] Location: [facility] Ordering: ARTEM GREY Exam Date: 03/26/2025/14:48 Family Phys: Charge Code: 816470 Physician: [place] Order #: [id number] Dose#: PROCEDURE: X-RAY KNEE RT COMPLETE 4 [...] Collected: 09/13/2024 8:02 AM Status: F Source: [employer] TYPE CODE TESTS RESULT OUT OF RANGE REFERENCE UNITS LAB [id number] CHOLESTEROL, TOTAL 197 Normal <200 mg/dL LAB 18896498 HDL CHOLESTEROL 54 Normal > OR = 50 mg/dL LAB [id number] TRIGLYCERIDES 131 Normal <150 mg/dL LAB [id number] LDL-CHOLESTEROL 118 High mg/dL (calc) Result Comment: [...] LDL-C. Jacoby SS et al. LISY. 2013;310(19): 6229-1040 (http://education.Handy/faq/YWL283) LAB 41206462 CHOL/HDLC RATIO 3.6 Normal <5.0 (calc) LAB [id number] NON HDL CHOLESTEROL 143 High <130 mg/dL (calc) Result Comment: For patients with diabetes plus 1 major ASCVD risk factor, treating to a non-HDL-C goal of <100 mg/dL (LDL-C of <70 mg/dL) is considered a therapeutic option. Performed By: #### 08917, 76 00 #### [employer] [address], [address] [place] [phone] Water Fabricator Operator: Duong Ragland MD COMPREHENSIVE METABOLIC PANEL Collected : 09/13/2024 8:02 AM Status: F Source: [facility] TYPE CODE TESTS RESULT OUT OF RANGE REFERENCE UNITS LAB [id number] GLUCOSE 91 Normal 65-99 mg/dL Result Comment: Fasting reference interval LAB [id number] UREA NITROGEN (BUN) 10 Normal 7-25 mg/dL LAB [id number] CREATININE 0.84 Normal 0.50-1.03 mg/dL LAB [id number] EGFR 80 Normal > OR = 60 mL/min/1 .73m2 LAB [id number] BUN/CREATININE RATIO SEE NOTE: 6-22 (calc) Result Comment: Not Reported : BUN and Creatinine are within reference range. LAB 81225902 SODIUM 141 Normal 135-146 mmol/L LAB [id number] POTASSIUM 4.2 Normal 3.5-5.3 mmol/L LAB 19647381 CHLORIDE 106 Normal 98-110 mmol/L LAB [id number] CARBON DIOXIDE 27 Normal 20-32 mmol/L LAB 62819019 CALCIUM 9.2 Normal 8.6-10.4 mg/dL LAB [id number] PROTEIN, TOTAL 7.1 Normal 6.1-8.1 g/dL LAB [id number] ALBUMIN 4.3 Normal 3.6-5.1 g/dL LAB 48604865 GLOBULIN 2.8 Normal 1.9-3.7 g/dL (calc) LAB [id number] ALBUMIN/GLOBUL IN RATIO 1.5 Normal 1.0-2.5 (calc) LAB 63767604 BILIRUBIN, TOTAL 0.5 Normal 0.2-1.2 mg/dL LAB 82346282 ALKALINE PHOSPHATASE 57 Normal 37-153 U/L LAB [id number] AST 18 Normal 10-35 U/L LAB 78412489 ALT 16 Normal 6-29 U/L Performed By: #### 73012, 76 00 #### [employer] [address], [address] [place] [phone] Water Fabricator Operator: Duong Ragland MD [facility] SCREENING W CHE Observed: 4 4:06 PM Status: F Source: [facility] * * *Final Report* * * DATE OF EXAM: Sep 11 2024 4:06PM JAMESW 0582 - [facility] SCREENING W CHE / PROCEDURE REASON: SCREENING * * * * Physician Interpretation * * * * RESULT: [address] [address] HISTORY: Patient is 59 years old and [...] Renay Elam M.D. Electronically signed on: 09/12/2024 Manager Education: SUDHEER Transcribe Date/Time: Sep 11 2024 3:48P Dictated by: RENAY ELAM MD This examination was interpreted and the report reviewed and electronically signed by: RENAY ELAM MD on Sep 12 2024 10:09AM EST [id number] PROGRESS Observed: 09/11/2024 3:40 PM Status: COMPLETED Source: [facility] ID: [id number] Author: LARRY JOSUE [employer] Support[employer] Service: ? Author Type: Technologist Type: Progress [...] PATIENT PRESENTS WITH AN IMPLANTABLE OR ATTACHED PSYCHIATRY ADULT PHYSICIAN: No RADIOLOGY DEPARTMENT: Mammography PERIPHERAL IV DATA: Not applicable SIGNED BY: Chelsea Fink September 11, 2024 4:06 PM ALLERGIES DATE TYPE / CODE NAME / CODE REACTION SEVERITY SOURCE 11/18/2020 DRUG INGREDI/299919 003(SNOMED CT) POVIDONE-IODIN E HIVES [facility] 11/18/2020 DRUG/379363764 (SNOMED CT) HYDROCODONE-AC ETAMINOPHEN Mental Chg [facility] Drug Allergy/079506 002(SNOMED CT) BETADINE/46977 677(RXNORM) Moderate (Severity Modifier) (Qualifier Value) [facility] Drug Allergy/300937 002(SNOMED CT) VICODIN/461538 76(RXNORM) Moderate (Severity Modifier) (Qualifier Value) [facility] ENCOUNTERS ADMIT/DISCHARGE ACCOUNT NUMBER ADMITTING ENCOUNTER CLASS LOCATION SOURCE 03/26/2025/03/26/20 25 [id number] ARTEM GREY Ambulatory Building:Unkn own [facility] 09/11/2024/09/11/20 24 [id number] [facility] PAYERS ENCOUNTER GUARANTOR PAYER SUBSCRIBER SOURCE 03/26/2025 IVETTE BLACKWELL: [phone] [place], [place] [address]Fqp: () Primary Insurance:[employer] COMMERCIAL OUTPATIENTPolicy Number: [id number] Date:Plan Name:Tom BLACKWELL: [id number] [address] [place], [place] [id number] [facility] 09/11/2024 Primary Insuranc e:BLUE CARD PPO OOSPolicy Number: [id number] Date:0152-76-17Tkzc Name:Gibran BLACKWELL: [id number] [address], [place] [address] [facility]
[2025-07-29 17:51] LABS: Hematocrit 32.5 % (37-47); Hemoglobin 10.9 g/dL (12.0-15.0); Immature Granulocytes Count 0.010 X10^3/uL (0.0-0.0); Mean Corp Hgb Conc 33.5 g/dL (32-36); Mean Corpuscular Volume 83.5 fL (81-99); Mean Platelet Vol. 10.9 fl (6.2-12.0); NRBC Flagged by Analyzer 0 % (0-5); Platelet Count 205 K/mm3 (150-450); RBC Distribution Width CV 14.5 % (11.6-14.6); RBC Distribution Width SD 43.8 fl (35.1-43.9); Red Blood Count 3.89 M/mm3 (4.2-5.4); White Blood Count 4.0 K/mm3 (4.4-11.0)
[2025-07-29 18:59] LABS: AST(SGOT) 34 U/L (<=31); Alanine Aminotransfer ALT/SGPT 30 U/L (<=34); Albumin, Serum 4.0 g/dL (3.4-4.8); Alkaline Phosphatase 66 U/L (35-104); Anion Gap 13 (5-15); BUN 9 mg/dL (4-19); BUN/Creat Ratio 11.7 RATIO (10-20); Calcium,Total 9.2 mg/dL (7.6-11.0); Carbon Dioxide 20.1 mmol/L (21.0-32.0); Chloride 107 mmol/L (98-108); Globulin 2.4 g/dL (2.2-4.2); Glucose 109 mg/dL (70-99); Potassium 3.8 mmol/L (3.3-5.1)
== END | disposition home or self-care (01) ==
LOC: MTLAB 14:44
PROVIDERS: PCP Family Medicine; Referring Provider Internal Medicine Rheumatology; Visit Provider Internal Medicine Rheumatology
DX: M06.09 Rheumatoid arthritis without rheumatoid factor, multiple sites (principal); Z79.899 Other long term (current) drug therapy; M35.00 Sjogren syndrome, unspecified; K76.0 Fatty (change of) liver, not elsewhere classified
CPT/HCPCS: 36415; 80053; 85025